=== PATIENT | male | born 1970 | race Caucasian/White ===

== ENCOUNTER 2019-08-06 01:51 | Emergency (ER) | payer OTHER ==
[2019-08-06] MEDS ORDERED: ONDANSETRON 4 MG/2 ML VIAL IVP STA (02:14)
[2019-08-06] MEDS ORDERED: LORazepam 2 MG/ML INJ IV STA ×2 (02:37→05:29)
[2019-08-06] MEDS ORDERED: SODIUM CHLORIDE 0.9% 1,000 ML IV ONE (02:37)
[2019-08-06] MEDS ORDERED: LABETALOL 5 MG/ML VIAL MDV IVP STA ×2 (02:41→05:30)
--- NOTE | 2019-08-06 02:45 | ED ---
Abdominal Pain HPI - General Chief Complaint: Abdominal Pain Stated Complaint: Nausea, hypertension Time Seen by Provider: 08/06/19 02:10 Source: patient, EMS Mode of arrival: ambulatory Limitations: no limitations - History of Present Illness MD Complaint: abdominal pain Onset/Timin -: hour(s) Location: LLQ, RLQ Radiation: none Migration to: no migration Severity: moderate Quality: aching Consistency: constant Improves With: nothing Worsens With: nothing Associated Symptoms: nausea, vomiting, diarrhea - Related Data Allergies Allergy/AdvReac Type Severity Reaction Status Date / Time No Known Allergies Allergy Verified 08/06/19 02:10 Review of Systems ROS Statement: Those systems with pertinent positive or pertinent negative responses have been documented in the HPI. ROS Other: All systems not noted in ROS Statement are negative. Constitutional: Denies: fever, chills Respiratory: Denies: cough, dyspnea Cardiovascular: Denies: chest pain, palpitations, edema Gastrointestinal: Reports: abdominal pain, nausea, vomiting, diarrhea. Denies: constipation, melena, hematochezia Genitourinary: Denies: dysuria, hematuria Musculoskeletal: Denies: back pain Skin: Denies: rash Neurological: Denies: headache, weakness, numbness Past Medical History Past Medical History: Hypertension History of Any Multi-Drug Resistant Organisms: None Reported Additional Past Surgical History / Comment(s): colon Past Psychological History: No Psychological Hx Reported Smoking Status: Never smoker Past Alcohol Use History: Daily, Heavy Past Drug Use History: None Reported General Exam Limitations: no limitations Course Vital Signs 08/06/19 08/06/19 08/06/19 02:06 02:19 03:08 Temperature 98.2 F Pulse Rate 127 H 121 H 120 H Respiratory 30 H 26 H 30 H Rate Blood Pressure 183/100 195/116 196/107 O2 Sat by Pulse 98 99 98 Oximetry 08/06/19 08/06/19 08/06/19 03:16 03:20 04:50 Temperature 98.3 F Pulse Rate 114 H 106 H 106 H Respiratory 24 20 12 Rate Blood Pressure 183/106 193/109 173/112 O2 Sat by Pulse 98 97 97 Oximetry 08/06/19 08/06/19 05:45 06:02 Temperature Pulse Rate 104 H 106 H Respiratory 18 16 Rate Blood Pressure 153/88 160/97 O2 Sat by Pulse 93 L Oximetry Medical Decision Making - Lab Data Result diagrams: 08/06/19 02:15 08/06/19 02:15 Lab Results 08/06/19 08/06/19 08/06/19 Range/Units 02:15 02:15 02:15 WBC 6.0 (3.8-10.6) k/uL RBC 4.32 (4.30-5.90) m/uL Hgb 14.9 (13.0-17.5) gm/dL Hct 44.3 (39.0-53.0) % MCV 102.6 H (80.0-100.0) fL MCH 34.4 (25.0-35.0) pg MCHC 33.6 (31.0-37.0) g/dL RDW 13.5 (11.5-15.5) % Plt Count 177 (150-450) k/uL Neutrophils % 70 % Lymphocytes % 24 % Monocytes % 4 % Eosinophils % 1 % Basophils % 0 % Neutrophils # 4.2 (1.3-7.7) k/uL Lymphocytes # 1.4 (1.0-4.8) k/uL Monocytes # 0.2 (0-1.0) k/uL Eosinophils # 0.1 (0-0.7) k/uL Basophils # 0.0 (0-0.2) k/uL Macrocytosis Slight PT 9.7 (9.0-12.0) sec INR 0.9 (<1.2) APTT 19.1 L (22.0-30.0) sec Sodium 136 L (137-145) mmol/L Potassium 3.7 (3.5-5.1) mmol/L Chloride 100 (98-107) mmol/L Carbon Dioxide 21 L (22-30) mmol/L Anion Gap 15 mmol/L BUN 13 (9-20) mg/dL Creatinine 0.66 (0.66-1.25) mg/dL Est GFR (CKD-EPI)AfAm >90 (>60 ml/min/1.73 sqM) Est GFR (CKD-EPI)NonAf >90 (>60 ml/min/1.73 sqM) Glucose 137 H (74-99) mg/dL Calcium 9.3 (8.4-10.2) mg/dL Magnesium 1.5 L (1.6-2.3) mg/dL Total Bilirubin 0.4 (0.2-1.3) mg/dL AST 39 (17-59) U/L ALT 27 (4-49) U/L Alkaline Phosphatase 60 (38-126) U/L Troponin I (0.000-0.034) ng/mL Total Protein 7.8 (6.3-8.2) g/dL Albumin 4.7 (3.5-5.0) g/dL Amylase 81 (30-110) U/L Lipase 907 H (23-300) U/L Serum Alcohol 76 mg/dL 08/06/19 Range/Units 02:15 WBC (3.8-10.6) k/uL RBC (4.30-5.90) m/uL Hgb (13.0-17.5) gm/dL Hct (39.0-53.0) % MCV (80.0-100.0) fL MCH (25.0-35.0) pg MCHC (31.0-37.0) g/dL RDW (11.5-15.5) % Plt Count (150-450) k/uL Neutrophils % % Lymphocytes % % Monocytes % % Eosinophils % % Basophils % % Neutrophils # (1.3-7.7) k/uL Lymphocytes # (1.0-4.8) k/uL Monocytes # (0-1.0) k/uL Eosinophils # (0-0.7) k/uL Basophils # (0-0.2) k/uL Macrocytosis PT (9.0-12.0) sec INR (<1.2) APTT (22.0-30.0) sec Sodium (137-145) mmol/L Potassium (3.5-5.1) mmol/L Chloride (98-107) mmol/L Carbon Dioxide (22-30) mmol/L Anion Gap mmol/L BUN (9-20) mg/dL Creatinine (0.66-1.25) mg/dL Est GFR (CKD-EPI)AfAm (>60 ml/min/1.73 sqM) Est GFR (CKD-EPI)NonAf (>60 ml/min/1.73 sqM) Glucose (74-99) mg/dL Calcium (8.4-10.2) mg/dL Magnesium (1.6-2.3) mg/dL Total Bilirubin (0.2-1.3) mg/dL AST (17-59) U/L ALT (4-49) U/L Alkaline Phosphatase (38-126) U/L Troponin I <0.012 (0.000-0.034) ng/mL Total Protein (6.3-8.2) g/dL Albumin (3.5-5.0) g/dL Amylase (30-110) U/L Lipase (23-300) U/L Serum Alcohol mg/dL - EKG Data -: EKG Interpreted by Co EKG shows normal: sinus rhythm, axis (Normal), intervals (Normal), QRS complexes (Normal), ST-T waves (Normal) Rate: tachycardia (Rate 116 bpm) Disposition Clinical Impression: Abdominal pain Disposition: HOME SELF-CARE Condition: Good Instructions (If sedation given, give patient instructions): Abdominal Pain (ED), Pancreatitis (ED) Is patient prescribed a controlled substance at d/c from ED?: No Referrals: None,Stated [Primary Care Provider] - 1-2 days
--- NOTE | 2019-08-06 02:52 | XR ---
EXAMINATION TYPE: XR chest 1V DATE OF EXAM: 08/06/2019 COMPARISON: NONE HISTORY: Chest pain TECHNIQUE: Single view FINDINGS: Heart and mediastinum are within normal limits. Lungs are clear. There is no heart failure. There is no pleural effusion. Bony thorax is intact. IMPRESSION: No active cardiopulmonary disease.
[2019-08-06 03:03] LABS: Basophils % (A) 0 %; Eosinophils # (A) 0.1 k/uL (0-0.7); Eosinophils % (A) 1 %; HCT 44.3 % (39.0-53.0); HGB 14.9 gm/dL (13.0-17.5); Lymphocytes # (A) 1.4 k/uL (1.0-4.8); Lymphocytes % (A) 24 %; MCH 34.4 pg (25.0-35.0); MCHC 33.6 g/dL (31.0-37.0); MCV 102.6 fL (80.0-100.0); Macrocytosis Slight; Mean Platelet Volume 7.3; Monocytes # (A) 0.2 k/uL (0-1.0); Monocytes % (A) 4 %; Neutrophils # (A) 4.2 k/uL (1.3-7.7); Neutrophils % (A) 70 %; Platelet Count 177 k/uL (150-450); RBC 4.32 m/uL (4.30-5.90); RDW 13.5 % (11.5-15.5)
[2019-08-06 03:16] LABS: ALT 27 U/L (4-49); AST 39 U/L (17-59); African American GFR (CKD) >90 (>60 ml/min/1.73 sqM); Albumin 4.7 g/dL (3.5-5.0); Alcohol 76 mg/dL; Alkaline Phosphatase 60 U/L (38-126); Amylase 81 U/L (30-110); Anion Gap 15 mmol/L; Blood Urea Nitrogen 13 mg/dL (9-20); Calcium 9.3 mg/dL (8.4-10.2); Carbon Dioxide 21 mmol/L (22-30); Chloride 100 mmol/L (98-107); Glucose 137 mg/dL (74-99); INR 0.9 (<1.2); Magnesium 1.5 mg/dL (1.6-2.3); Non-African American GFR(CKD) >90 (>60 ml/min/1.73 sqM); Potassium 3.7 mmol/L (3.5-5.1); Prothrombin Time 9.7 sec (9.0-12.0); Sodium 136 mmol/L (137-145); Total Bilirubin 0.4 mg/dL (0.2-1.3); Total Protein 7.8 g/dL (6.3-8.2)
--- NOTE | 2019-08-06 03:18 | CT ---
EXAMINATION TYPE: CT abdomen pelvis w con DATE OF EXAM: 08/06/2019 COMPARISON: None HISTORY: lower abdominal pain CT DLP: 1526.5 mGycm Automated exposure control for dose reduction was used. CONTRAST: Performed without and with IV Contrast, patient injected with 100mL mL of Isovue 300. Lung bases are clear. There is no pleural effusion. Heart size is normal. There is no pericardial eff usion. The stomach is intact. Liver spleen pancreas appear normal. Bile ducts are not dilated. Gallbl adder is distended and measures 4 cm in diameter. There is no adrenal mass. Kidneys show satisfactory contrast opacification. There is no hydronephrosi s. Delayed images show normal renal excretion. There is no retroperitoneal adenopathy. There is eduarda l-appearing urinary bladder. Ureters are not dilated. There is no inguinal hernia. There is no free fluid in the pelvis. There is no mesenteric edema. There is no ascites or free air. Appendix is posterior and appears normal. There is no sign of bowel obstruction. There are multiple d iverticula of the descending colon and proximal sigmoid colon. Lumbar vertebra have normal alignment. There is no compression fracture. Bony pelvis appears intact. IMPRESSION: Normal appendix. No evidence of renal mass or obstruction. There is some colonic diverticulosis without diverticulitis..
[2019-08-06 03:19] LABS: Partial Thromboplastin Time 19.1 sec (22.0-30.0)
[2019-08-06] MEDS ORDERED: HYDROmorphone 0.5 MG/0.5 ML SYRINGE IVP STA (05:29)
--- NOTE | 2019-08-06 07:41 | US ---
EXAMINATION TYPE: US abdomen limited DATE OF EXAM: 08/06/2019 COMPARISON: None. CLINICAL HISTORY: Evaluate gallbladder. EXAM MEASUREMENTS: Liver Length: 17.4 cm Gallbladder Wall: 0.2 cm CBD: 0.4 cm Right Kidney: 12.7 x 6.5 x 6.1 cm Pancreas: Tail obscured by overlying bowel gas Liver: Appears coarse Gallbladder: Appears enlarged in size. Fold seen at fundus. Evidence for sonographic Lizarraga's sign: neg CBD: wnl Right Kidney: No hydronephrosis or masses seen Limited views of the pancreas are unremarkable. Liver size is upper limits of normal. There is no biliary dilatation. The gallbladder slightly prominent. The gallbladder wall measures 2 mm. The distal common hepatic grant t measures 4 mm. There is no sonographic Lizarraga's sign. The right kidney is unremarkable. IMPRESSION: QUESTIONABLE, MILD ENLARGEMENT OF THE GALLBLADDER WITHOUT OTHER DEFINITE ABNORMALITY.
[2019-08-06 08:21] VITALS: BP 168/99; PULSE 88; RESP 15; TEMP 99.2
== END 2019-08-06 08:31 | disposition home or self-care (01) ==
LOC: EC 01:51
DX: R10.31 Right lower quadrant pain (principal); R10.32 Left lower quadrant pain
CPT/HCPCS: 99285; 96374; 96375 ×3; 96376 ×2; 96361; 36415; 93005; 80053; 82150; 83690; 83735; 84484; 85025; 85610; 85730; 80320; 71045; 76705; 74177; J2060; J2405; J1170; Q9967

== ENCOUNTER 2019-09-24 16:14 | Inpatient (IN) | payer OTHER ==
--- NOTE | 2019-09-24 16:36 | ED ---
General Adult HPI - General Chief complaint: Alcohol Stated complaint: ETOH Time Seen by Provider: 09/24/19 16:16 Source: patient, EMS Mode of arrival: EMS Limitations: altered mental status - History of Present Illness Initial comments: Dictation was produced using [employer] dictation software. please excuse any grammatical, word or spelling errors. This patient was cared for during a federal and state declared state of emergency secondary to Covid 19 Chief Complaint: 49-year-old male presents with alcohol intoxication. History of Present Illness: Patient's 49-year-old male who states she's been under a lot of stress recently. Patient states she's been drinking very large amounts of liquor for the last several days. Patient states he drinks daily for the last several years. He is really stressed and states that he needs help detoxing. He also has secondary complaint of right upper quadrant and right flank pain. Denies any fever, chills or night sweats. Patient's a limited historian secondary to EtOH intoxication The ROS documented in this emergency department record has been reviewed and confirmed by me. Those systems with pertinent positive or negative responses have been documented in the HPI. All other systems are other negative and/or noncontributory. PHYSICAL EXAM: General Impression: Alert and oriented x3, not in acute distress, inebriated HEENT: Normocephalic atraumatic, extra-ocular movements intact, pupils equal and reactive to light bilaterally, mucous membranes moist. Cardiovascular: Heart regular rate and rhythm Chest: Able to complete full sentences, no retractions, no tachypnea Abdomen: abdomen soft, non-tender, non-distended, no organomegaly, mild tenderness to the right upper quadrant, negative Lizarraga sign Musculoskeletal: Pulses present and equal in all extremities, no peripheral edema Motor: no focal deficits noted Neurological: CN II-XII grossly intact, no focal motor or sensory deficits noted Skin: Intact with no visualized rashes, no flank ecchymoses Psych: Normal affect and mood ED course: 49 y old male presents with EtOH intoxication, right flank pain, right upper quadrant pain. vital signs upon arrival shows heart rate of 112, rest of vital signs within acceptable limits Laboratory evaluation obtained. CBC unremarkable. Metabolic panel shows potassium of 5.3, bicarb 19 with a gap of 13. Clinical presentation consistent with alcoholic ketoacidosis. AST 1300 and ALT with 949, serum alcohol 345. Lipase is normal. Clinical presentation consistent with alcoholic hepatitis and EtOH intoxication. Patient be admitted for it which intoxication. Patient will be admitted discussed patient case with Dr. Lauren who is willing to accept patients care. EKG interpretation: Ventricular rate 120, sinus tachycardia,. Interval 150, QRS 90, QTc 449. No PA prolongation, no QTC prolongation, no ST or T-wave changes noted. . Overall, this EKG is unremarkable - Related Data Allergies Allergy/AdvReac Type Severity Reaction Status Date / Time No Known Allergies Allergy Verified 08/06/19 02:10 Review of Systems ROS Statement: Those systems with pertinent positive or pertinent negative responses have been documented in the HPI. ROS Other: All systems not noted in ROS Statement are negative. Past Medical History Past Medical History: Hypertension History of Any Multi-Drug Resistant Organisms: None Reported Additional Past Surgical History / Comment(s): colon Past Psychological History: No Psychological Hx Reported Smoking Status: Never smoker Past Alcohol Use History: Daily, Heavy Past Drug Use History: None Reported General Exam Limitations: altered mental status Course Vital Signs 09/24/19 16:17 Temperature 97.8 F Pulse Rate 112 H Respiratory 18 Rate Blood Pressure 146/100 O2 Sat by Pulse 95 Oximetry Medical Decision Making - Lab Data Result diagrams: 09/24/19 16:30 09/24/19 16:30 Lab Results 09/24/19 09/24/19 Range/Units 16:30 16:30 WBC 6.0 (3.8-10.6) k/uL RBC 4.36 (4.30-5.90) m/uL Hgb 14.6 (13.0-17.5) gm/dL Hct 44.6 (39.0-53.0) % MCV 102.3 H (80.0-100.0) fL MCH 33.6 (25.0-35.0) pg MCHC 32.9 (31.0-37.0) g/dL RDW 13.1 (11.5-15.5) % Plt Count 131 L (150-450) k/uL Neutrophils % 75 % Lymphocytes % 17 % Monocytes % 3 % Eosinophils % 3 % Basophils % 1 % Neutrophils # 4.5 (1.3-7.7) k/uL Lymphocytes # 1.0 (1.0-4.8) k/uL Monocytes # 0.2 (0-1.0) k/uL Eosinophils # 0.2 (0-0.7) k/uL Basophils # 0.0 (0-0.2) k/uL Macrocytosis Slight Sodium 141 (137-145) mmol/L Potassium 5.3 H (3.5-5.1) mmol/L Chloride 109 H (98-107) mmol/L Carbon Dioxide 19 L (22-30) mmol/L Anion Gap 13 mmol/L BUN 17 (9-20) mg/dL Creatinine 0.82 (0.66-1.25) mg/dL Est GFR (CKD-EPI)AfAm >90 (>60 ml/min/1.73 sqM) Est GFR (CKD-EPI)NonAf >90 (>60 ml/min/1.73 sqM) Glucose 113 H (74-99) mg/dL Calcium 9.6 (8.4-10.2) mg/dL Magnesium 2.2 (1.6-2.3) mg/dL Total Bilirubin 1.6 H (0.2-1.3) mg/dL AST 1383 H (17-59) U/L ALT 949 H (4-49) U/L Alkaline Phosphatase 52 (38-126) U/L Total Protein 8.9 H (6.3-8.2) g/dL Albumin 5.3 H (3.5-5.0) g/dL Lipase 263 (23-300) U/L Serum Alcohol 345 H* mg/dL Disposition Clinical Impression: Alcoholic ketoacidosis Disposition: ADMITTED IP TO THIS [facility] Condition: Fair Referrals: None,Stated [Primary Care Provider] - 1-2 days Decision Time: 17:34
[2019-09-24] MEDS ORDERED: ALPRAZolam 1 MG TAB PO STA (16:41)
[2019-09-24 16:44] LABS: Basophils % (A) 1 %; Eosinophils # (A) 0.2 k/uL (0-0.7); Eosinophils % (A) 3 %; HCT 44.6 % (39.0-53.0); HGB 14.6 gm/dL (13.0-17.5); Lymphocytes % (A) 17 %; MCH 33.6 pg (25.0-35.0); MCHC 32.9 g/dL (31.0-37.0); MCV 102.3 fL (80.0-100.0); Macrocytosis Slight; Mean Platelet Volume 8.3; Monocytes # (A) 0.2 k/uL (0-1.0); Monocytes % (A) 3 %; Neutrophils # (A) 4.5 k/uL (1.3-7.7); Neutrophils % (A) 75 %; Platelet Count 131 k/uL (150-450); RBC 4.36 m/uL (4.30-5.90); RDW 13.1 % (11.5-15.5)
[2019-09-24 16:57] LABS: African American GFR (CKD) >90 (>60 ml/min/1.73 sqM); Albumin 5.3 g/dL (3.5-5.0); Alkaline Phosphatase 52 U/L (38-126); Anion Gap 13 mmol/L; Blood Urea Nitrogen 17 mg/dL (9-20); Calcium 9.6 mg/dL (8.4-10.2); Carbon Dioxide 19 mmol/L (22-30); Chloride 109 mmol/L (98-107); Glucose 113 mg/dL (74-99); Magnesium 2.2 mg/dL (1.6-2.3); Non-African American GFR(CKD) >90 (>60 ml/min/1.73 sqM); Potassium 5.3 mmol/L (3.5-5.1); Sodium 141 mmol/L (137-145); Total Bilirubin 1.6 mg/dL (0.2-1.3); Total Protein 8.9 g/dL (6.3-8.2)
[2019-09-24 17:04] LABS: ALT 949 U/L (4-49)
[2019-09-24 17:07] LABS: Alcohol 345 mg/dL
[2019-09-24 17:22] LABS: AST 1383 U/L (17-59)
[2019-09-24] MEDS ORDERED: NALOXONE 0.4 MG/ML 1 ML VIAL IV PRN (17:31)
[2019-09-24] MEDS ORDERED: THIAMINE 100 MG/ML 2 ML VIAL IM STA (17:33)
[2019-09-24] MEDS ORDERED: LORazepam 2 MG/ML INJ IV PRN ×2 (17:33)
[2019-09-24 19:49] LABS: INR 0.9 (<1.2); Prothrombin Time 9.7 sec (9.0-12.0)
[2019-09-24] MEDS: LORazepam 2 MG/ML INJ IV PRN (20:23)
[2019-09-24] MEDS: HEPARIN SODIUM,PORCINE 5,000 UNIT/ML 1 ML VIAL SQ SCH (20:58)
[2019-09-24] MEDS: SODIUM CHLORIDE 0.9% 1,000 ML IV SCH (21:30)
[2019-09-24] MEDS: SODIUM CHLORIDE 0.9% 1,000 ML with MVI, ADULT NO.4 WITH VIT K 10 ML, THIAMINE 100 MG, F... IV SCH ×4 (21:31)
[2019-09-24 21:52] LABS: Appearance,Urine Clear (Clear); Bilirubin,Urine Negative (Negative); Color,Urine Yellow; Glucose,Urine (UA) Negative (Negative); Ketones,Urine Negative (Negative); Protein,Urine Negative (Negative); Specific Gravity,Urine 1.005 (1.001-1.035)
[2019-09-24 21:53] LABS: Blood,Urine Negative (Negative); Leukocyte Esterase,Urine Negative (Negative); Nitrite,Urine Negative (Negative); Urobilinogen,Urine <2.0 mg/dL (<2.0)
[2019-09-25] MEDS: LORazepam 2 MG/ML INJ IV PRN ×2 (00:09→02:23)
[2019-09-25] MEDS ORDERED: HALOPERIDOL LACTATE 5 MG/ML 1 ML VIAL IM PRN (01:47)
[2019-09-25] MEDS ORDERED: MORPHINE SULFATE 2 MG/ML SYRINGE IVP STA (02:01)
--- NOTE | 2019-09-25 05:54 | HP ---
HISTORY AND PHYSICAL DATE OF SERVICE: 09/24/2019 CHIEF COMPLAINT: Change in mental status. HISTORY OF PRESENT ILLNESS: This 49-year-old gentleman with a past medical history of hypertension, history of nicotine dependence and probably not followed by any primary physician in the outpatient setting was admitted to [facility] with complaints of alcoholism. Patient was apparently under a lot of stress and patient drinking heavily and the patient was combative in the ER and hence was sedated. The patient was closely monitored at this time. The patient unable to give history most is taken from my discussion with staff as well as ER physician as well as review of the chart. PAST MEDICAL HISTORY: History of hypertension, history of colon problems. MEDICATIONS: Medications are unknown. ALLERGIES: None. FAMILY HISTORY, SOCIAL HISTORY: Could not be taken. History of alcohol heavy. No smoking. REVIEW OF SYSTEMS: Could not be taken. PHYSICAL EXAMINATION: Patient is sedated. Pulse 101, blood pressure is 122/74, respiration 18, temperature 97.8, pulse ox 94% on room air. HEENT: Conjunctivae normal. NECK: No jugular venous distention. CARDIOVASCULAR: S1 S2 muffled. RESPIRATORY: Breath sounds diminished at the bases. A few scattered rhonchi. No crackles. ABDOMEN: Soft, obese, nontender. LEGS: No edema, no swelling. NERVOUS SYSTEM: Moves all 4 limbs. Full exam is not possible. SKIN: No ulcers. JOINTS: No active deforming arthropathy. LYMPHATICS: No lymphadenopathy of the neck, axillae or groin. LABS: WBC 6, hemoglobin 14.6, platelets 131. Chloride is 109, CO2 is 19. Glucose 113. Total bilirubin is 1.6, AST is 1383. Alcohol 345. ASSESSMENT: 1. Acute alcohol intoxication. 2. Change in mental status, acute metabolic encephalopathy secondary to alcohol intoxication. 3. Acute alcoholic hepatitis with elevated bilirubin, AST, ALT. 4. Mild thrombocytopenia. 5. Mild hyperkalemia. 6. Hypertension history. 7. FULL CODE. RECOMMENDATIONS AND DISCUSSION: This 49-year-old gentleman presented with multiple complex medical issues, we will monitor the patient closely. I would recommend [facility] protocol, supplement vitamins. Otherwise, p.r.nKem Camacho. Social Work consult for possible alcohol rehab. Watch for alcohol withdrawal symptoms. Otherwise, I would also recommend monitor blood pressure closely. The prognosis guarded because of multiple complex medical issues. I would also recommend the patient to follow up with his primary physician as well. See orders for further details. MMODL / IJN: [id number] /
[2019-09-25] MEDS: THIAMINE 100 MG TAB PO SCH ×3 (07:10→17:40)
[2019-09-25] MEDS: HEPARIN SODIUM,PORCINE 5,000 UNIT/ML 1 ML VIAL SQ SCH ×2 (07:10→21:16)
[2019-09-25] MEDS: PANTOPRAZOLE 40 MG/10 ML VIAL IV SCH (07:10)
--- NOTE | 2019-09-25 08:53 | XR ---
EXAMINATION TYPE: XR chest 1V portable DATE OF EXAM: 09/25/2019 COMPARISON: 08/06/2019 INDICATION: CHF TECHNIQUE: Single frontal view of the chest is obtained. FINDINGS: The heart size is normal. The pulmonary vasculature is normal. The lungs are clear. IMPRESSION: 1. No acute pulmonary process.
[2019-09-25 10:19] LABS: Basophils % (A) 1 %; Eosinophils # (A) 0.1 k/uL (0-0.7); Eosinophils % (A) 4 %; HCT 40.9 % (39.0-53.0); HGB 13.2 gm/dL (13.0-17.5); Lymphocytes # (A) 0.6 k/uL (1.0-4.8); Lymphocytes % (A) 17 %; MCH 33.5 pg (25.0-35.0); MCHC 32.3 g/dL (31.0-37.0); MCV 103.8 fL (80.0-100.0); Macrocytosis Slight; Mean Platelet Volume 7.8; Monocytes # (A) 0.1 k/uL (0-1.0); Monocytes % (A) 3 %; Neutrophils # (A) 2.8 k/uL (1.3-7.7); Neutrophils % (A) 75 %; Platelet Count 102 k/uL (150-450); RBC 3.94 m/uL (4.30-5.90); WBC 3.8 k/uL (3.8-10.6)
[2019-09-25 10:38] LABS: AST 701 U/L (17-59); African American GFR (CKD) >90 (>60 ml/min/1.73 sqM); Albumin 4.4 g/dL (3.5-5.0); Alkaline Phosphatase 53 U/L (38-126); Anion Gap 8 mmol/L; Blood Urea Nitrogen 15 mg/dL (9-20); Calcium 9.2 mg/dL (8.4-10.2); Carbon Dioxide 26 mmol/L (22-30); Chloride 105 mmol/L (98-107); Glucose 114 mg/dL (74-99); Non-African American GFR(CKD) >90 (>60 ml/min/1.73 sqM); Sodium 139 mmol/L (137-145); Total Bilirubin 0.9 mg/dL (0.2-1.3); Total Protein 7.5 g/dL (6.3-8.2)
[2019-09-25 10:47] LABS: ALT 761 U/L (4-49)
[2019-09-25] MEDS ORDERED: TEMAZEPAM 15 MG CAP PO PRN (13:45)
[2019-09-25] MEDS: HYDROcodone/APAP 5-325MG 1 EACH TAB PO PRN ×2 (14:24→22:28)
[2019-09-25] MEDS: LORazepam 1 MG TAB PO PRN ×3 (14:25→21:16)
[2019-09-25] MEDS ORDERED: cloNIDine HCL 0.1 MG TAB PO PRN (16:18)
--- NOTE | 2019-09-25 17:28 | PN ---
PROGRESS NOTE DATE OF SERVICE: 09/25/2019 This 49-year-old gentleman, admitted with change in mental status, alcohol intoxication, is being closely monitored. Patient also has elevated LFTs. No chest pain. No palpitations. No fever. PHYSICAL EXAMINATION: Alert and oriented x3. Pulse 103, blood pressure 162/102, respirations 16, temperature 97.6, pulse ox 98% on room air. HEENT: Conjunctivae normal. NECK: No jugular venous distention. CARDIOVASCULAR SYSTEM: S1, S2 muffled. RESPIRATORY SYSTEM: Breath sounds diminished at the bases. No rhonchi. No crackles. ABDOMEN: Soft, non-tender. LEGS: No edema. No swelling. NERVOUS SYSTEM: No focal deficit. LABS: WBC 3.8 and MCV 103. Sodium 139, potassium 4. AST 701, ALT 761. Alcohol noted. ASSESSMENT: 1. Acute alcohol intoxication. 2. Change in mental status, acute metabolic encephalopathy secondary to alcohol intoxication. 3. Hypertension. 4. Acute alcoholic hepatitis with elevated bilirubin, AST, ALT. 5. Mild thrombocytopenia. 6. Mild leukopenia. 7. Hypertension history. 8. FULL CODE. RECOMMENDATIONS AND DISCUSSION: I recommend to continue current medications, continue with the monitoring, symptomatic treatment. Otherwise, at this time I recommend adding clonidine to the current regimen. Continue to monitor. CIWA protocol. P.r.n. Ativan. Prognosis guarded. Further recommendations to follow. ASTERL / ROBERTN: [id number] /
[2019-09-25] MEDS: cloNIDine HCL 0.1 MG TAB PO SCH ×2 (17:38→21:16)
[2019-09-25] MEDS: SODIUM CHLORIDE 0.9% 1,000 ML with MVI, ADULT NO.4 WITH VIT K 10 ML, THIAMINE 100 MG, F... IV SCH ×4 (17:38)
[2019-09-25] MEDS: SODIUM CHLORIDE 0.9% 1,000 ML IV SCH (17:39)
[2019-09-25 21:22] VITALS: RESP 18
[2019-09-26 08:01] VITALS: BP 154/106; PULSE 73; TEMP 97.9
[2019-09-26 08:12] LABS: Basophils % (A) 1 %; Eosinophils # (A) 0.2 k/uL (0-0.7); Eosinophils % (A) 6 %; HCT 44.9 % (39.0-53.0); HGB 14.6 gm/dL (13.0-17.5); Lymphocytes # (A) 0.9 k/uL (1.0-4.8); Lymphocytes % (A) 31 %; MCH 33.7 pg (25.0-35.0); MCHC 32.6 g/dL (31.0-37.0); MCV 103.5 fL (80.0-100.0); Macrocytosis Slight; Mean Platelet Volume 7.8; Monocytes # (A) 0.2 k/uL (0-1.0); Monocytes % (A) 5 %; Neutrophils # (A) 1.6 k/uL (1.3-7.7); Neutrophils % (A) 54 %; Platelet Count 126 k/uL (150-450); RBC 4.34 m/uL (4.30-5.90)
[2019-09-26 08:22] LABS: ALT 613 U/L (4-49); AST 346 U/L (17-59); African American GFR (CKD) >90 (>60 ml/min/1.73 sqM); Albumin 4.5 g/dL (3.5-5.0); Alkaline Phosphatase 53 U/L (38-126); Anion Gap 7 mmol/L; Blood Urea Nitrogen 12 mg/dL (9-20); Calcium 9.3 mg/dL (8.4-10.2); Carbon Dioxide 27 mmol/L (22-30); Chloride 103 mmol/L (98-107); Glucose 104 mg/dL (74-99); Non-African American GFR(CKD) >90 (>60 ml/min/1.73 sqM); Potassium 4.3 mmol/L (3.5-5.1); Sodium 137 mmol/L (137-145); Total Bilirubin 1.1 mg/dL (0.2-1.3); Total Protein 7.7 g/dL (6.3-8.2)
[2019-09-26] MEDS: cloNIDine HCL 0.1 MG TAB PO SCH (08:43)
[2019-09-26] MEDS: PANTOPRAZOLE 40 MG/10 ML VIAL IV SCH (08:44)
[2019-09-26] MEDS: HEPARIN SODIUM,PORCINE 5,000 UNIT/ML 1 ML VIAL SQ SCH (08:44)
[2019-09-26] MEDS: LORazepam 2 MG/ML INJ IV PRN (08:59)
[2019-09-27] MEDS ORDERED: PANTOPRAZOLE 40 MG TABLET PO SCH (07:30)
--- NOTE | 2019-09-27 09:11 | P.DS ---
Providers Date of admission: 09/24/19 17:31 Expected date of discharge: 09/26/19 Attending physician: Trace Lauren Primary care physician: Stated None Hospital Course: Final diagnosis Acute alcohol intoxication Change in mental status, acute metabolic encephalopathy, secondary to alcohol intoxication Hypertension Acute alcoholic hepatitis with elevated bilirubin, ALT, AST Mild thrombocytopenia Mild leukopenia Hypertension history Full code Discharge disposition Patient is being discharged in a stable condition with guarded prognosis to home. Patient will follow-up with Lucia care provider in the outpatient setting on discharge. Total time taken is greater than 35 minutes. History of present illness This is a 49-year-old male who was recently admitted with change in mental status, acute alcohol intoxication and was being closely monitored. Patient was maintained on CIWA protocol and continue to have mildly elevated liver function testings most likely due to alcohol intoxication. Patient instructed to follow- up with primary care provider in the outpatient setting and continue to refrain from alcohol intake. Patient was provided a prescription for some Ativan along with clonidine. Discussed with the patient at length about possible alcohol rehab in the outpatient setting. Patient verbalized understanding. Currently no reports of chest pain, worsening shortness of breath, or palpitations. Patient is afebrile. No reports of nausea or vomiting and patient is tolerating diet. Patient will be discharged to home today. On exam vital signs are stable. Temp is 97.9F, pulse is 73, respirations are 18, blood pressure is 154/106, oxygen saturation is 98% on room air. Cardio S1, S2 are muffled. Respiratory system shows diminished breath sounds at the bases with no wheezing or rhonchi noted. Abdomen is soft and nontender. Nervous system shows no focal deficits. Please refer to medication reconciliation sheet for a list of medications. Patient Condition at Discharge: Fair Plan - Discharge Summary Discharge Rx Participant: No New Discharge Prescriptions: New Folic Acid 1 mg PO DAILY #30 tablet Multivitamins, Thera [Multivitamin] 1 tab PO DAILY #30 tablet Thiamine [Vitamin B-1] 100 mg PO BID-W/MEALS 30 Days #60 tab LORazepam [Ativan] 1 mg PO TID PRN #10 tab PRN Reason: Anxiety cloNIDine HCL [Catapres] 0.1 mg PO BID #10 tab Discharge Medication List Folic Acid 1 mg PO DAILY #30 tablet 09/26/19 [Rx] LORazepam [Ativan] 1 mg PO TID PRN #10 tab 09/26/19 [Rx] Multivitamins, Thera [Multivitamin] 1 tab PO DAILY #30 tablet 09/26/19 [Rx] Thiamine [Vitamin B-1] 100 mg PO BID-W/MEALS 30 Days #60 tab 09/26/19 [Rx] cloNIDine HCL [Catapres] 0.1 mg PO BID #10 tab 09/26/19 [Rx] Follow up Appointment(s)/Referral(s): None,Stated [Primary Care Provider] - 1-2 days Patient Instructions/Handouts: Abuse of Alcohol (DC) Activity/Diet/Wound Care/Special Instructions: May need indigent funds. May use Ativan as needed Clonidine twice daily and titrate slowly over the next 3 days Activity Limited until follow-up Follow-up with primary care provider Continue current diet Continue to avoid alcohol Discharge Disposition: HOME SELF-CARE
--- NOTE | 2019-09-27 13:07 | CDI ---
Documentation Clarification Form Date: 09/27/19 From: Cathi Rodriguez Phone: If you have a question about this query, please contact Kirsty Parker, Supervisor [employer] at [phone] between 8am and 5pm. Admit Date: 09/24/19 Discharge Date: 09/26/19 Patient Name: RIKI HENDERSON Visit Number: [id number] ATTENTION: The Clinical Documentation Specialists (CDI) and [facility] Coding Staff appreciate your assistance in clarifying documentation. Please respond to the clarification below the line at the bottom and electronically sign. The CDI & [facility] Coding staff will review the response and follow-up if needed. Please note: Queries are made part of the Legal Health Record. If you have any questions, please contact the author of this message via ITS. Dear Dr. Renan Velázquez, Documentation of alcohol intoxication found in the ED note, H&P, PN and DS. History/Risk Factors: metabolic encephalopathy from alcohol intoxication, acidosis, thrombocytopenia, alcohol hepatitis, hyperkalemia, HTN Clinical Indicators: CIWA score on admission 23, 17, 8, 5, 5, 09/24- 2, 2, 2, 2, 5, 5 09/25- 0, 1, 3 Labs: Blood alcohol 345 Treatment: IV Ativan 1- 2 mg Q2HR PRN, Clonidine 0.1 mg PO, Q4HR PRN, Clonidine 0.1 mg PO TID SEVERINO, Thiamine Hcl Vitamin B-1 100 mg PO BID w/meals In your professional opinion, can you please clarify if the above clinical indicators and treatment signify any of the following? Alcohol withdrawal Alcohol withdrawal with withdrawal delirium Alcohol delirium Delirium tremens Impending delirium tremens Alcohol dependence with impending delirium tremens Alcohol dependence Alcohol abuse Alcohol abuse with preventative treatment for tremors Other, please specify Unable to determine AND Evidence of thiamine deficiency due to chronic alcohol use/alcoholism Prophylactic treatment of potential thiamine deficiency associated with alcohol use/alcoholism Unable to determine Other, please specify Impending delirium tremens MTDD
== END 2019-09-26 13:44 | disposition home or self-care (01) | DRG 896 ==
LOC: EC 16:14 → 4SSUR 17:31
PROVIDERS: ADMIT Internal Medicine; ATTEND Internal Medicine
DX: F10.229 Alcohol dependence with intoxication, unspecified (principal); G92 Toxic encephalopathy; E87.2 Acidosis; F10.239 Alcohol dependence with withdrawal, unspecified; D69.6 Thrombocytopenia, unspecified; Z11.59 Encounter for screening for other viral diseases; K70.10 Alcoholic hepatitis without ascites; E87.5 Hyperkalemia; I10 Essential (primary) hypertension; D72.819 Decreased white blood cell count, unspecified; Y90.8 Blood alcohol level of 240 mg/100 ml or more
CPT/HCPCS: 36415; 71045; 80053; 80320; 81003; 83690; 83735; 85025; 85610; 93005; 96374; 96376; 99285

== ENCOUNTER 2019-09-27 18:46 | Emergency (ER) | payer OTHER ==
[2019-09-27 19:13] VITALS: BP 151/87; PULSE 89; RESP 18; TEMP 98.4
[2019-09-27] MEDS ORDERED: CEPHALEXIN 500 MG CAP PO STA (20:30)
[2019-09-27] MEDS ORDERED: CEPHALEXIN 500MG STARTER PACK 4 CAP BTL PO STA (20:30)
--- NOTE | 2019-09-27 21:02 | ED ---
General Adult HPI - General Source: patient, RN notes reviewed, old records reviewed Mode of arrival: ambulatory Limitations: no limitations <Pritesh Yung - Last Filed: 09/27/19 21:32> <Nargis Ramsay - Last Filed: 10/01/19 02:10> - General Chief complaint: Skin/Abscess/Foreign Body Stated complaint: recheck - IV site "not right" Time Seen by Provider: 09/27/19 19:23 - History of Present Illness Initial comments: 49-year-old male patient sent to ED for evaluation of IV site. Patient was discharged from hospital on 09/25 after alcohol intoxication presents to ED for evaluation of IV site. Patient reports days having some pain and tenderness in the left antecubital region. Has IV inserted. He is denying any other complaints. Systemic: Pt denies fatigue, fever/chills, rash. Pt denies weakness, night sweats, weight loss. Neuro: Pt denies headache, visual disturbances, syncope or pre-syncope. HEENT: Pt denies ocular discharge or irritation, otalgia, rhinorrhea, pharyngitis or notable lymphadenopathy. Cardiopulmonary: Pt denies chest pain, SOB, heart palpitations, dyspnea on exertion. Abdominal/GI: Pt denies abdominal pain, n/v/d. : Pt denies dysuria, burning w/ urination, frequency/urgency. Denies new onset urinary or bowel incontinence. MSK: Pt denies myalgia, loss of strength or function in extremities. Neuro: Pt denies new onset weakness, paresthesias. (Pritesh Yung) - Related Data Home Medications Medication Instructions Recorded Confirmed Omeprazole [PriLOSEC] 20 mg PO DAILY 09/27/19 09/27/19 Previous Rx's Medication Instructions Recorded Folic Acid 1 mg PO DAILY #30 tablet 09/26/19 LORazepam [Ativan] 1 mg PO TID PRN #10 tab 09/26/19 Multivitamins, Thera [Multivitamin] 1 tab PO DAILY #30 tablet 09/26/19 Thiamine [Vitamin B-1] 100 mg PO BID-W/MEALS 30 Days #60 09/26/19 tab cloNIDine HCL [Catapres] 0.1 mg PO BID #10 tab 09/26/19 Cephalexin [Keflex] 500 mg PO Q6HR 10 Days #40 cap 09/27/19 Allergies Allergy/AdvReac Type Severity Reaction Status Date / Time bee pollen Allergy Verified 09/27/19 21:16 bee venom protein (honey bee) Allergy Verified 09/27/19 21:16 Review of Systems ROS Other: All systems not noted in ROS Statement are negative. <Pritesh Yung - Last Filed: 09/27/19 21:32> ROS Other: All systems not noted in ROS Statement are negative. <Nargis Ramsay Moe - Last Filed: 10/01/19 02:10> ROS Statement: Those systems with pertinent positive or pertinent negative responses have been documented in the HPI. Past Medical History Past Medical History: Hypertension Additional Past Medical History / Comment(s): PT states history of hypertension was drug related, was on meth when incident occured History of Any Multi-Drug Resistant Organisms: None Reported Additional Past Surgical History / Comment(s): colon partially removed Past Anesthesia/Blood Transfusion Reactions: No Reported Reaction Past Psychological History: No Psychological Hx Reported Smoking Status: Never smoker Past Alcohol Use History: Daily, Heavy Past Drug Use History: None Reported <Pritesh Yung - Last Filed: 09/27/19 21:32> General Exam Limitations: no limitations <Pritesh Yung - Last Filed: 09/27/19 21:32> - General Exam Comments Initial Comments: Constitutional: NAD, AOX3, Pt has pleasant affect. HEENT: NC/AT, trachea midline, neck supple, no lymphadenopathy. Posterior pharynx non erythematous, without exudates. External ears appear normal, without discharge. Mucous membranes moist. Eyes PERRLA, EOM intact. There is no scleral icterus. No pallor noted. Cardiopulmonary: RRR, no murmurs, rubs or gallops, no JVD noted. Lungs CTAB in anterior and posterior sommer. No peripheral edema. Abdominal exam: Abdomen soft and non-distended. Abdomen non-tender to palpation in all 4 quadrants. Bowel sounds active in LLQ. No hepatosplenomegaly. No ecchymosis Neuro: CN II-XII grossly intact. No nuchal rigidity. No raccon eyes, no york sign, no hemotympanum. No cervical spinal tenderness. MSK: Small amount of erythema and palpable cord is noted in left antecubital region consistent with superficial thrombophlebitis the minimal amount of cellulitis. Radial pulses +2. Sensation is intact. Range of motion is intact. (Pritesh Yung) Course Vital Signs 09/27/19 19:09 Temperature 98.4 F Pulse Rate 89 Respiratory 18 Rate Blood Pressure 151/87 O2 Sat by Pulse 98 Oximetry Medical Decision Making <Pritesh Yung - Last Filed: 09/27/19 21:32> <Nargis Ramsay - Last Filed: 10/01/19 02:10> - Medical Decision Making 49-year-old male patient with the chief complaint evaluation of IV saline is recent discharge from hospital. Physical exam doesn't display palpable cord, small amount erythema left antecubital region consistent with to visual thrombophlebitis with small amount associated cellulitis. Ultrasound confirms official thrombophlebitis. Patient will be advised to continue warm compresses, nonsteroidal anti-inflammatories, will be prescribed Keflex for one week. Will follow up with primary care provider tomorrow and will return to ER if condition worsens in any way. Case discussed with Dr. Ramsay. (Pritesh Yung) I was available for consultation in the emergency department. The history and physical exam were done by the midlevel provider. I was consulted for this patients care. I reviewed the case with the midlevel provider and based on their presentation of the patient, I agree with the assessment, medical decision making and plan of care as documented. Chart was dictated using [employer] dictation software. Attempts were made to correct any dictation errors however some typographical errors may persist. Patient was seen during a national state of emergency due to the Covid-19 pandemic. (Nargis Ramsay) Disposition Is patient prescribed a controlled substance at d/c from ED?: No <Pritesh Yung - Last Filed: 09/27/19 21:32> <Nargis Ramsay - Last Filed: 10/01/19 02:10> Clinical Impression: Cellulitis, Superficial thrombophlebitis of arm Disposition: HOME SELF-CARE Condition: Stable Instructions (If sedation given, give patient instructions): Cellulitis (ED), Superficial Thrombophlebitis (ED) Additional Instructions: Take antibiotics as directed. Follow up with primary care provider tomorrow. Return to ER if condition worsens. Continue use warm compresses. Use nonsteroidal anti-inflammatories for pain. Prescriptions: Cephalexin [Keflex] 500 mg PO Q6HR 10 Days #40 cap Referrals: None,Stated [Primary Care Provider] - 1-2 days Calixto Pate [STAFF PHYSICIAN] - 1-2 days
--- NOTE | 2019-09-27 21:23 | US ---
EXAMINATION TYPE: US venous doppler duplex UE LT DATE OF EXAM: 09/27/2019 COMPARISON: NONE CLINICAL HISTORY: Superficial thrombophlebitis rule out DVT. Pain x 1 day. R/O DVT. No hx of DVT. SIDE PERFORMED: Left Left Arm: There appears to be thrombus within the noncompressible cephalic vein at the elbow and supe riorly. Upper cephalic vein near axilla appears to be compressible and to show color flow. No evidenc e of DVT in veins imaged at this time. IMPRESSION: Acute superficial thrombus at level of the left cephalic vein identified towards end of study with patient's symptoms of pain corresponds to thrombophlebitis. No acute DVT left upper extrem ity.
[2019-09-27] MEDS ORDERED: IBUPROFEN 600 MG STARTER PACK 4 TAB BTL PO STA (21:32)
== END 2019-09-27 22:01 | disposition home or self-care (01) ==
LOC: EC 18:46
DX: I80.8 Phlebitis and thrombophlebitis of other sites (principal); L03.114 Cellulitis of left upper limb; Z91.030 Bee allergy status
CPT/HCPCS: 99284

== ENCOUNTER 2019-10-10 13:50 | Inpatient (IN) | payer OTHER ==
[2019-10-10] MEDS ORDERED: SODIUM CHLORIDE 0.9% 1,000 ML IV STA ×2 (14:02→14:11)
[2019-10-10] MEDS ORDERED: MORPHINE SULFATE 4 MG/ML SYRINGE IV STA (14:02)
[2019-10-10] MEDS ORDERED: PANTOPRAZOLE 40 MG/10 ML VIAL IVP STA (14:05)
--- NOTE | 2019-10-10 14:09 | ED ---
GI Bleed HPI - General Chief complaint: GI Bleed Stated complaint: ETOH Time Seen by Provider: 10/10/19 13:50 Source: patient, EMS, RN notes reviewed Mode of arrival: EMS Limitations: no limitations - History of Present Illness Initial comments: This is a 49-year-old male who drinks 2-5ths of vodka every day who is brought in by EMS because of nausea vomiting vomiting up dark material just been having black stools recently. He complains of left lower quadrant abdominal pain. He does have a history of colon resection in the past. He's been drinking a lot of alcohol for quite a while. PD apparently was on scene he did blow a 341 per report to. He also states he has had a history of pancreatitis in the past. No other complaints or modifying factors at this time. He denies any ALLERGIES. Patient did have a heart rate of about 160 upon EMS encounter. He was given IV fluid boluses stated improved to about 1 20/m. - Related Data Home Medications Medication Instructions Recorded Confirmed Omeprazole Magnesium [PriLOSEC OTC] 20 mg PO DAILY 10/10/19 10/10/19 Previous Rx's Medication Instructions Recorded Folic Acid 1 mg PO DAILY #30 tablet 09/26/19 LORazepam [Ativan] 1 mg PO TID PRN #10 tab 09/26/19 Multivitamins, Thera [Multivitamin] 1 tab PO DAILY #30 tablet 09/26/19 Thiamine [Vitamin B-1] 100 mg PO BID-W/MEALS 30 Days #60 09/26/19 tab cloNIDine HCL [Catapres] 0.1 mg PO BID #10 tab 09/26/19 Cephalexin [Keflex] 500 mg PO Q6HR 10 Days #40 cap 09/27/19 Allergies Allergy/AdvReac Type Severity Reaction Status Date / Time bee pollen Allergy Anaphylaxis Verified 10/10/19 16:11 bee venom protein (honey bee) Allergy Anaphylaxis Verified 10/10/19 16:11 Review of Systems ROS Statement: Those systems with pertinent positive or pertinent negative responses have been documented in the HPI. ROS Other: All systems not noted in ROS Statement are negative. Past Medical History Past Medical History: Hypertension Additional Past Medical History / Comment(s): PT states history of hypertension was drug related, was on meth when incident occured, ETOH abuse History of Any Multi-Drug Resistant Organisms: None Reported Additional Past Surgical History / Comment(s): colon partially removed Past Anesthesia/Blood Transfusion Reactions: No Reported Reaction Past Psychological History: Anxiety, Depression Smoking Status: Never smoker Past Alcohol Use History: Abuse, Daily, Heavy Past Drug Use History: None Reported General Exam - General Exam Comments Initial Comments: Is a well-developed well-nourished lethargic male with a smell of alcohol conjoiners on his breath Limitations: no limitations General appearance: alert, appears intoxicated Head exam: Present: atraumatic, normocephalic, normal inspection Eye exam: Present: normal appearance, PERRL, EOMI. Absent: scleral icterus, conjunctival injection, periorbital swelling ENT exam: Present: mucous membranes dry, other (Dark flecks consistent with coffee-ground emesis) Neck exam: Present: normal inspection. Absent: tenderness, meningismus, lymphadenopathy Respiratory exam: Present: normal lung sounds bilaterally. Absent: respiratory distress, wheezes, rales, rhonchi, stridor Cardiovascular Exam: Present: normal rhythm, tachycardia, normal heart sounds. Absent: systolic murmur, diastolic murmur, rubs, gallop, clicks GI/Abdominal exam: Present: tenderness (Left lower quadrant tenderness palpation to guarding no rebound) Extremities exam: Present: normal inspection, full ROM, normal capillary refill. Absent: tenderness, pedal edema, joint swelling, calf tenderness Back exam: Present: normal inspection Neurological exam: Present: alert, oriented X3, CN II-XII intact Psychiatric exam: Present: normal affect, normal mood Skin exam: Present: warm, dry, intact, normal color. Absent: rash Course Vital Signs 10/10/19 10/10/19 10/10/19 13:56 14:58 16:34 Temperature 98.7 F Pulse Rate 120 H 108 H 825 H Respiratory 18 18 18 Rate Blood Pressure 166/97 167/99 148/93 O2 Sat by Pulse 93 L 94 L 93 L Oximetry Medical Decision Making - Medical Decision Making I did discuss findings the patient with Dr. Jacobson covering city call today patient will be admitted and placed on the alcohol withdrawal protocol - Lab Data Result diagrams: 10/10/19 14:15 10/10/19 14:15 Lab Results 10/10/19 10/10/19 10/10/19 Range/Units 14:15 14:15 14:15 WBC 3.1 L (3.8-10.6) k/uL RBC 4.08 L (4.30-5.90) m/uL Hgb 13.8 (13.0-17.5) gm/dL Hct 41.9 (39.0-53.0) % MCV 102.7 H (80.0-100.0) fL MCH 33.8 (25.0-35.0) pg MCHC 33.0 (31.0-37.0) g/dL RDW 12.9 (11.5-15.5) % Plt Count 127 L (150-450) k/uL Neutrophils % 68 % Lymphocytes % 23 % Monocytes % 4 % Eosinophils % 2 % Basophils % 1 % Neutrophils # 2.1 (1.3-7.7) k/uL Lymphocytes # 0.7 L (1.0-4.8) k/uL Monocytes # 0.1 (0-1.0) k/uL Eosinophils # 0.1 (0-0.7) k/uL Basophils # 0.0 (0-0.2) k/uL Macrocytosis Slight PT 9.6 (9.0-12.0) sec INR 0.9 (<1.2) APTT 22.6 (22.0-30.0) sec Sodium 143 (137-145) mmol/L Potassium 4.1 (3.5-5.1) mmol/L Chloride 108 H (98-107) mmol/L Carbon Dioxide 23 (22-30) mmol/L Anion Gap 12 mmol/L BUN 13 (9-20) mg/dL Creatinine 0.54 L (0.66-1.25) mg/dL Est GFR (CKD-EPI)AfAm >90 (>60 ml/min/1.73 sqM) Est GFR (CKD-EPI)NonAf >90 (>60 ml/min/1.73 sqM) Glucose 150 H (74-99) mg/dL Plasma Lactic Acid Devonte (0.7-2.0) mmol/L Calcium 8.6 (8.4-10.2) mg/dL Total Bilirubin 0.5 (0.2-1.3) mg/dL AST 82 H (17-59) U/L ALT 94 H (4-49) U/L Alkaline Phosphatase 47 (38-126) U/L Ammonia (<30) umol/L Creatine Kinase 119 (55-170) U/L Troponin I (0.000-0.034) ng/mL Total Protein 7.7 (6.3-8.2) g/dL Albumin 4.9 (3.5-5.0) g/dL Amylase 54 (30-110) U/L Lipase 304 H (23-300) U/L Urine Color Urine Appearance (Clear) Urine pH (5.0-8.0) Ur Specific Weston (1.001-1.035) Urine Protein (Negative) Urine Glucose (UA) (Negative) Urine Ketones (Negative) Urine Blood (Negative) Urine Nitrite (Negative) Urine Bilirubin (Negative) Urine Urobilinogen (<2.0) mg/dL Ur Leukocyte Esterase (Negative) Gastric Occult Blood (Negative) Stool Occult Blood (Negative) Serum Alcohol 368 H* mg/dL Blood Type Blood Type Confirm Blood Type Recheck Bld Type Recheck Status Antibody Screen Spec Expiration Date 10/10/19 10/10/19 10/10/19 Range/Units 14:15 14:15 14:15 WBC (3.8-10.6) k/uL RBC (4.30-5.90) m/uL Hgb (13.0-17.5) gm/dL Hct (39.0-53.0) % MCV (80.0-100.0) fL MCH (25.0-35.0) pg MCHC (31.0-37.0) g/dL RDW (11.5-15.5) % Plt Count (150-450) k/uL Neutrophils % % Lymphocytes % % Monocytes % % Eosinophils % % Basophils % % Neutrophils # (1.3-7.7) k/uL Lymphocytes # (1.0-4.8) k/uL Monocytes # (0-1.0) k/uL Eosinophils # (0-0.7) k/uL Basophils # (0-0.2) k/uL Macrocytosis PT (9.0-12.0) sec INR (<1.2) APTT (22.0-30.0) sec Sodium (137-145) mmol/L Potassium (3.5-5.1) mmol/L Chloride (98-107) mmol/L Carbon Dioxide (22-30) mmol/L Anion Gap mmol/L BUN (9-20) mg/dL Creatinine (0.66-1.25) mg/dL Est GFR (CKD-EPI)AfAm (>60 ml/min/1.73 sqM) Est GFR (CKD-EPI)NonAf (>60 ml/min/1.73 sqM) Glucose (74-99) mg/dL Plasma Lactic Acid Devonte 1.9 (0.7-2.0) mmol/L Calcium (8.4-10.2) mg/dL Total Bilirubin (0.2-1.3) mg/dL AST (17-59) U/L ALT (4-49) U/L Alkaline Phosphatase (38-126) U/L Ammonia 17 (<30) umol/L Creatine Kinase (55-170) U/L Troponin I <0.012 (0.000-0.034) ng/mL Total Protein (6.3-8.2) g/dL Albumin (3.5-5.0) g/dL Amylase (30-110) U/L Lipase (23-300) U/L Urine Color Urine Appearance (Clear) Urine pH (5.0-8.0) Ur Specific Weston (1.001-1.035) Urine Protein (Negative) Urine Glucose (UA) (Negative) Urine Ketones (Negative) Urine Blood (Negative) Urine Nitrite (Negative) Urine Bilirubin (Negative) Urine Urobilinogen (<2.0) mg/dL Ur Leukocyte Esterase (Negative) Gastric Occult Blood (Negative) Stool Occult Blood (Negative) Serum Alcohol mg/dL Blood Type A Negative Blood Type Confirm Blood Type Recheck No Previous Record Bld Type Recheck Status CABO Indicated Antibody Screen NEGATIVE Spec Expiration Date 10/13/2019231410/10/19 10/10/19 10/10/19 Range/Units 14:16 14:58 15:23 WBC (3.8-10.6) k/uL RBC (4.30-5.90) m/uL Hgb (13.0-17.5) gm/dL Hct (39.0-53.0) % MCV (80.0-100.0) fL MCH (25.0-35.0) pg MCHC (31.0-37.0) g/dL RDW (11.5-15.5) % Plt Count (150-450) k/uL Neutrophils % % Lymphocytes % % Monocytes % % Eosinophils % % Basophils % % Neutrophils # (1.3-7.7) k/uL Lymphocytes # (1.0-4.8) k/uL Monocytes # (0-1.0) k/uL Eosinophils # (0-0.7) k/uL Basophils # (0-0.2) k/uL Macrocytosis PT (9.0-12.0) sec INR (<1.2) APTT (22.0-30.0) sec Sodium (137-145) mmol/L Potassium (3.5-5.1) mmol/L Chloride (98-107) mmol/L Carbon Dioxide (22-30) mmol/L Anion Gap mmol/L BUN (9-20) mg/dL Creatinine (0.66-1.25) mg/dL Est GFR (CKD-EPI)AfAm (>60 ml/min/1.73 sqM) Est GFR (CKD-EPI)NonAf (>60 ml/min/1.73 sqM) Glucose (74-99) mg/dL Plasma Lactic Acid Devonte (0.7-2.0) mmol/L Calcium (8.4-10.2) mg/dL Total Bilirubin (0.2-1.3) mg/dL AST (17-59) U/L ALT (4-49) U/L Alkaline Phosphatase (38-126) U/L Ammonia (<30) umol/L Creatine Kinase (55-170) U/L Troponin I (0.000-0.034) ng/mL Total Protein (6.3-8.2) g/dL Albumin (3.5-5.0) g/dL Amylase (30-110) U/L Lipase (23-300) U/L Urine Color Light Yellow Urine Appearance Clear (Clear) Urine pH 6.0 (5.0-8.0) Ur Specific Weston 1.010 (1.001-1.035) Urine Protein Trace H (Negative) Urine Glucose (UA) Trace H (Negative) Urine Ketones Negative (Negative) Urine Blood Negative (Negative) Urine Nitrite Negative (Negative) Urine Bilirubin Negative (Negative) Urine Urobilinogen <2.0 (<2.0) mg/dL Ur Leukocyte Esterase Negative (Negative) Gastric Occult Blood (Negative) Stool Occult Blood Negative (Negative) Serum Alcohol mg/dL Blood Type Blood Type Confirm A Negative Blood Type Recheck Bld Type Recheck Status Antibody Screen Spec Expiration Date 10/10/19 Range/Units 15:23 WBC (3.8-10.6) k/uL RBC (4.30-5.90) m/uL Hgb (13.0-17.5) gm/dL Hct (39.0-53.0) % MCV (80.0-100.0) fL MCH (25.0-35.0) pg MCHC (31.0-37.0) g/dL RDW (11.5-15.5) % Plt Count (150-450) k/uL Neutrophils % % Lymphocytes % % Monocytes % % Eosinophils % % Basophils % % Neutrophils # (1.3-7.7) k/uL Lymphocytes # (1.0-4.8) k/uL Monocytes # (0-1.0) k/uL Eosinophils # (0-0.7) k/uL Basophils # (0-0.2) k/uL Macrocytosis PT (9.0-12.0) sec INR (<1.2) APTT (22.0-30.0) sec Sodium (137-145) mmol/L Potassium (3.5-5.1) mmol/L Chloride (98-107) mmol/L Carbon Dioxide (22-30) mmol/L Anion Gap mmol/L BUN (9-20) mg/dL Creatinine (0.66-1.25) mg/dL Est GFR (CKD-EPI)AfAm (>60 ml/min/1.73 sqM) Est GFR (CKD-EPI)NonAf (>60 ml/min/1.73 sqM) Glucose (74-99) mg/dL Plasma Lactic Acid Devonte (0.7-2.0) mmol/L Calcium (8.4-10.2) mg/dL Total Bilirubin (0.2-1.3) mg/dL AST (17-59) U/L ALT (4-49) U/L Alkaline Phosphatase (38-126) U/L Ammonia (<30) umol/L Creatine Kinase (55-170) U/L Troponin I (0.000-0.034) ng/mL Total Protein (6.3-8.2) g/dL Albumin (3.5-5.0) g/dL Amylase (30-110) U/L Lipase (23-300) U/L Urine Color Urine Appearance (Clear) Urine pH (5.0-8.0) Ur Specific Weston (1.001-1.035) Urine Protein (Negative) Urine Glucose (UA) (Negative) Urine Ketones (Negative) Urine Blood (Negative) Urine Nitrite (Negative) Urine Bilirubin (Negative) Urine Urobilinogen (<2.0) mg/dL Ur Leukocyte Esterase (Negative) Gastric Occult Blood Negative (Negative) Stool Occult Blood (Negative) Serum Alcohol mg/dL Blood Type Blood Type Confirm Blood Type Recheck Bld Type Recheck Status Antibody Screen Spec Expiration Date - Radiology Data Radiology results: report reviewed (I did review the imaging and report no definite acute findings or some evidence of thickening of the bladder wall), image reviewed Disposition Clinical Impression: Alcohol intoxication, Abdominal pain, Dehydration, Nausea & vomiting Disposition: ADMITTED IP TO THIS [facility] Condition: Fair Referrals: None,Stated [Primary Care Provider] - 1-2 days
[2019-10-10] MEDS ORDERED: ONDANSETRON 4 MG/2 ML VIAL IVP STA (14:11)
[2019-10-10 14:31] LABS: Basophils % (A) 1 %; Eosinophils # (A) 0.1 k/uL (0-0.7); Eosinophils % (A) 2 %; HCT 41.9 % (39.0-53.0); HGB 13.8 gm/dL (13.0-17.5); Lymphocytes # (A) 0.7 k/uL (1.0-4.8); Lymphocytes % (A) 23 %; MCH 33.8 pg (25.0-35.0); MCV 102.7 fL (80.0-100.0); Macrocytosis Slight; Mean Platelet Volume 7.5; Monocytes # (A) 0.1 k/uL (0-1.0); Monocytes % (A) 4 %; Neutrophils # (A) 2.1 k/uL (1.3-7.7); Neutrophils % (A) 68 %; Platelet Count 127 k/uL (150-450); RBC 4.08 m/uL (4.30-5.90); RDW 12.9 % (11.5-15.5); WBC 3.1 k/uL (3.8-10.6)
[2019-10-10 14:43] LABS: INR 0.9 (<1.2); Partial Thromboplastin Time 22.6 sec (22.0-30.0); Prothrombin Time 9.6 sec (9.0-12.0)
[2019-10-10 14:44] LABS: Lactic Acid, Venous 1.9 mmol/L (0.7-2.0)
[2019-10-10 14:45] LABS: ALT 94 U/L (4-49); AST 82 U/L (17-59); African American GFR (CKD) >90 (>60 ml/min/1.73 sqM); Albumin 4.9 g/dL (3.5-5.0); Alkaline Phosphatase 47 U/L (38-126); Amylase 54 U/L (30-110); Anion Gap 12 mmol/L; Blood Urea Nitrogen 13 mg/dL (9-20); Calcium 8.6 mg/dL (8.4-10.2); Carbon Dioxide 23 mmol/L (22-30); Chloride 108 mmol/L (98-107); Creatine Kinase 119 U/L (55-170); Glucose 150 mg/dL (74-99); Non-African American GFR(CKD) >90 (>60 ml/min/1.73 sqM); Potassium 4.1 mmol/L (3.5-5.1); Sodium 143 mmol/L (137-145); Total Bilirubin 0.5 mg/dL (0.2-1.3); Total Protein 7.7 g/dL (6.3-8.2)
[2019-10-10 14:53] LABS: Alcohol 368 mg/dL
--- NOTE | 2019-10-10 15:00 | XR ---
EXAMINATION TYPE: XR KUB DATE OF EXAM: 10/10/2019 Comparison: None Clinical History: 49-year-old male abdominal pain Findings: Lung bases are clear. Small air-fluid levels scattered throughout the abdomen. These seem to be present in both the small b owel and colon. No dilated bowel loops seen at this time. No evidence for free intraperitoneal air. Relative possibility of distal colonic air. Impression: Nonspecific scattered air-fluid levels. No dilated bowel at this time. Generalized ileus/enteritis or early small bowel obstruction are in the differential. Radiographic follow-up may be helpful.
[2019-10-10 15:06] LABS: Appearance,Urine Clear (Clear); Bilirubin,Urine Negative (Negative); Blood,Urine Negative (Negative); Color,Urine Light Yellow; Glucose,Urine (UA) Trace (Negative); Ketones,Urine Negative (Negative); Leukocyte Esterase,Urine Negative (Negative); Nitrite,Urine Negative (Negative); Protein,Urine Trace (Negative); Urobilinogen,Urine <2.0 mg/dL (<2.0)
[2019-10-10] MEDS ORDERED: HYDROmorphone 1 MG/ML 1 ML SYRINGE IVP STA (15:23)
--- NOTE | 2019-10-10 16:06 | CT ---
EXAMINATION TYPE: CT abdomen pelvis w con DATE OF EXAM: 10/10/2019 COMPARISON: 08/06/2019 HISTORY: 49-year-old male Generalized abdominal pain. TECHNIQUE: Contiguous axial scanning of the abdomen and pelvis following administration of 100 ml Iso milton 300 IV contrast. Delayed images through the kidneys and coronal/sagittal reconstructions perform ed. CT DLP: 1571.2 mGycm Automated exposure control for dose reduction was used. FINDINGS: Heart normal size without pericardial effusion. Prominent dependent atelectasis at the lung bases wit hout pleural effusion. Liver is enlarged at 20.1 cm craniocaudal with low attenuation compatible with fatty infiltration. Po rtal venous system is patent. No biliary ductal dilatation. Gallbladder is hydropic at 12.1 x 4.0 cm. There is a phrygian cap. No wall thickening or surrounding inflammation. Adrenal glands, kidneys, and pancreas appear within normal limits. Small anterior splenule and calcified granulomas in the spleen. A solitary proximal jejunal loop is mildly dilated at 3.2 cm. No additional small bowel dilatation. S cattered fluid-filled small bowel loops. No discrete transition point. Normal appendix. No significant stool burden. Scattered colonic diverticulosis without pericolonic in flammatory change. No mesenteric or retroperitoneal lymphadenopathy. Circumferential bladder wall thickening with mild perivesicular stranding. Some prominent external il iac chain lymph nodes measuring up to 8 mm probably reactive. No abnormal fluid collection in the pel vis. Bones: Mild degenerative change at the hips. 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 Facet arthropathy mid to lower lumbar spine. IMPRESSION: 1. ONLY A SOLITARY MILDLY DILATED LOOP OF PROXIMAL SMALL BOWEL AT 3.2 CM. NO TRANSITION POINT TO SUGG EST SMALL BOWEL OBSTRUCTION. SOME ADDITIONAL SCATTERED FLUID-FILLED SMALL BOWEL LOOPS ARE PRESENT. CO NSIDER ENTERITIS OR GENERALIZED ILEUS. 2. MILD CIRCUMFERENTIAL BLADDER WALL THICKENING WITH MILD PERIVESICULAR STRANDING. CORRELATE TO EXCLU DE CYSTITIS. 3. HEPATOMEGALY (20.1 CM) WITH HEPATIC STEATOSIS. 4. MILD GALLBLADDER HYDROPS PROBABLY DUE TO FASTING STATE. IF RIGHT UPPER QUADRANT PAIN OR CONCERN FO R EARLY ACUTE CHOLECYSTITIS, FOLLOW-UP HIDA SCAN. 5. COLONIC DIVERTICULOSIS WITHOUT ACUTE DIVERTICULITIS.
[2019-10-10] MEDS ORDERED: ONDANSETRON 4 MG/2 ML VIAL IVP PRN (16:49)
[2019-10-10] MEDS ORDERED: NALOXONE 0.4 MG/ML 1 ML VIAL IV PRN (16:49)
[2019-10-10] MEDS ORDERED: LORazepam 2 MG/ML INJ IV PRN (16:52)
[2019-10-10] MEDS ORDERED: THIAMINE 100 MG/ML 2 ML VIAL IM STA (16:52)
--- NOTE | 2019-10-10 17:11 | P.HPIM ---
History of Present Illness H&P Date: 10/10/19 Chief Complaint: Abdominal pain This is a 49-year-old male with past medical history significant for heavy alcohol abuse who presented to the emergency room with nausea, vomiting, and abdominal pain. Patient said that he has been having lower abdominal pain for a few days. He has a history of colon resection in the past. He is having normal bowel movements up until yesterday. Today he was having a lot of nausea and vomiting. He reported vomiting dark material's. He denies any fevers or chills. He admits to drinking heavily to fifth of vodka every day. He said t hat he has an underlying stress. He denies any illicit drug use otherwise. No blood per rectum. Patient was evaluated in the ER and both gastric contents and stool occult blood tests were negative. He was found to have an alcohol level of 360. Computed tomography scan done in the ER reviewed showed questionable SBO Review of Systems Review of system: 14 points review of systems were obtained and were negative except to what were mentioned in the HPI. Past Medical History Past Medical History: Hypertension Additional Past Medical History / Comment(s): PT states history of hypertension was drug related, was on meth when incident occured, ETOH abuse History of Any Multi-Drug Resistant Organisms: None Reported Additional Past Surgical History / Comment(s): colon partially removed Past Anesthesia/Blood Transfusion Reactions: No Reported Reaction Past Psychological History: Anxiety, Depression Smoking Status: Never smoker Past Alcohol Use History: Abuse, Daily, Heavy Past Drug Use History: None Reported Medications and Allergies Home Medications Medication Instructions Recorded Confirmed Type Folic Acid 1 mg PO DAILY #30 tablet 09/26/19 10/10/19 Rx LORazepam [Ativan] 1 mg PO TID PRN #10 tab 09/26/19 10/10/19 Rx Multivitamins, Thera [Multivitamin] 1 tab PO DAILY #30 tablet 09/26/19 10/10/19 Rx Thiamine [Vitamin B-1] 100 mg PO BID-W/MEALS 30 Days #60 09/26/19 10/10/19 Rx tab cloNIDine HCL [Catapres] 0.1 mg PO BID #10 tab 09/26/19 10/10/19 Rx Cephalexin [Keflex] 500 mg PO Q6HR 10 Days #40 cap 09/27/19 10/10/19 Rx Omeprazole Magnesium [PriLOSEC OTC] 20 mg PO DAILY 10/10/19 10/10/19 History Allergies Allergy/AdvReac Type Severity Reaction Status Date / Time bee pollen Allergy Anaphylaxis Verified 10/10/19 16:11 bee venom protein (honey bee) Allergy Anaphylaxis Verified 10/10/19 16:11 Physical Exam Vitals: Vital Signs Temp Pulse Resp BP Pulse Ox 10/10/19 16:34 85 18 148/93 93 L 10/10/19 14:58 108 H 18 167/99 94 L 10/10/19 13:56 98.7 F 120 H 18 166/97 93 L Intake and Output 10/10/19 10/10/19 10/10/19 06:59 14:59 22:59 Other: Weight 104.326 kg General: The patient is awake and alert, in no distress Eye: there is normal conjunctiva bilaterally. Neck: The neck is supple, there is no JVD. Cardiovascular: Normal S1-S2, no S3-S4, no murmurs. Respiratory: Lungs clear to auscultation bilaterally Gastrointestinal: Abdomen is soft, there is mild tenderness to palpation in the lower abdomen Musculoskeletal: There is no pedal edema. Neurological:. Speech is normal. Skin: Skin is warm and dry Results CBC & Chem 7: 10/10/19 14:15 10/10/19 14:15 Labs: Abnormal Lab Results - Last 24 Hours (Table) 10/10/19 10/10/19 10/10/19 Range/Units 14:15 14:15 14:58 WBC 3.1 L (3.8-10.6) k/uL RBC 4.08 L (4.30-5.90) m/uL MCV 102.7 H (80.0-100.0) fL Plt Count 127 L (150-450) k/uL Lymphocytes # 0.7 L (1.0-4.8) k/uL Chloride 108 H (98-107) mmol/L Creatinine 0.54 L (0.66-1.25) mg/dL Glucose 150 H (74-99) mg/dL AST 82 H (17-59) U/L ALT 94 H (4-49) U/L Lipase 304 H (23-300) U/L Urine Protein Trace H (Negative) Urine Glucose (UA) Trace H (Negative) Serum Alcohol 368 H* mg/dL Assessment and Plan Assessment: 1. Alcohol intoxication, we will continue aggressive IV fluid hydration. CIWA protocol as needed. 2. Abdominal pain, may be attributed to acute gastritis. Continue IV Protonix daily. Computed tomography scan of the abdomen and pelvis showed one dilated loop suggestive for SBO felt to be less likely clinically. Continue liquid diet for now. Patient is passing gas. Gastric contents and stool occult blood test in the ER negative. 3. Heavy alcohol abuse, counseled extensively to quit. Consult social work to provide him with resources to help him quit 4. Chronic leukopenia and thrombocytopenia, most likely attributed to heavy alcohol use. We'll repeat CBC in the morning 5. DVT prophylaxis with SCD 6. Elevated blood pressure, with history of hypertension. I would start Norvasc 5 mg daily 7. History of hypertension, depression, and anxiety, not taking any medications at home as patient does not have insurance.
[2019-10-10] MEDS: THIAMINE 100 MG TAB PO SCH (18:22)
[2019-10-10] MEDS: HYDROmorphone 1 MG/ML 1 ML SYRINGE IVP PRN ×2 (18:22→22:09)
[2019-10-10] MEDS: LORazepam 2 MG/ML INJ IV PRN (19:33)
[2019-10-11] MEDS: LORazepam 2 MG/ML INJ IV PRN ×3 (02:12→08:29)
[2019-10-11 07:12] LABS: Basophils % (A) 1 %; Eosinophils # (A) 0.1 k/uL (0-0.7); Eosinophils % (A) 2 %; HCT 39.2 % (39.0-53.0); Lymphocytes # (A) 0.7 k/uL (1.0-4.8); Lymphocytes % (A) 26 %; MCH 34.2 pg (25.0-35.0); MCHC 33.1 g/dL (31.0-37.0); MCV 103.3 fL (80.0-100.0); Macrocytosis Slight; Mean Platelet Volume 7.7; Monocytes # (A) 0.1 k/uL (0-1.0); Monocytes % (A) 5 %; Neutrophils # (A) 1.7 k/uL (1.3-7.7); Neutrophils % (A) 63 %; RBC 3.79 m/uL (4.30-5.90); RDW 12.9 % (11.5-15.5); WBC 2.7 k/uL (3.8-10.6)
[2019-10-11 07:24] LABS: ALT 84 U/L (4-49); AST 71 U/L (17-59); African American GFR (CKD) >90 (>60 ml/min/1.73 sqM); Albumin 4.4 g/dL (3.5-5.0); Alkaline Phosphatase 46 U/L (38-126); Anion Gap 7 mmol/L; Blood Urea Nitrogen 9 mg/dL (9-20); Calcium 8.3 mg/dL (8.4-10.2); Carbon Dioxide 26 mmol/L (22-30); Chloride 106 mmol/L (98-107); Glucose 85 mg/dL (74-99); Non-African American GFR(CKD) >90 (>60 ml/min/1.73 sqM); Potassium 4.3 mmol/L (3.5-5.1); Sodium 139 mmol/L (137-145); Total Bilirubin 0.9 mg/dL (0.2-1.3); Total Protein 7.1 g/dL (6.3-8.2)
[2019-10-11 07:41] LABS: Platelet Count 95 k/uL (150-450)
[2019-10-11] MEDS: PANTOPRAZOLE 40 MG/10 ML VIAL IV SCH (08:22)
[2019-10-11] MEDS: amLODIPine 5 MG TAB PO SCH (08:22)
[2019-10-11] MEDS: THIAMINE 100 MG TAB PO SCH ×2 (08:22→18:27)
[2019-10-11] MEDS ORDERED: HYDROmorphone 0.5 MG/0.5 ML SYRINGE IVP PRN ×2 (09:10→13:00)
[2019-10-11] MEDS ORDERED: FOLIC ACID 1 MG TAB PO SCH (09:15)
[2019-10-11] MEDS ORDERED: MULTIVITAMINS, THERA 1 EACH TAB PO SCH (09:15)
[2019-10-11] MEDS ORDERED: metroNIDAZOLE 500 MG TAB PO ONE (12:45)
[2019-10-11] MEDS ORDERED: FOLIC ACID 1 MG TAB PO ONE (12:45)
[2019-10-11] MEDS ORDERED: MULTIVITAMINS, THERA 1 EACH TAB PO ONE (12:45)
--- NOTE | 2019-10-11 16:39 | P.PN ---
Subjective Progress Note Date: 10/11/19 (delayed charting seen at 0845) Principal diagnosis: abdominal pain Patient is a 49 yo CF with a hx of hypertension, alcoholism, and anxiety who presented to the ER with complaints of nausea, vomiting, and abdominal pain. On arrival to the ER his pulses 120 and his blood pressure was 166/97. Initial laboratory analysis showed white blood cell count 3.1, platelets 127, sodium 143, potassium 4.1, chloride 108, carbon dioxide 23, BUN 13, creatinine 0.54, AST 82, ALT 94, lipase 304, urinalysis was negative. Serum alcohol was 368. There is concern that he had dark emesis but stool occult and Gastroccult were both negative. He underwent a CT abdomen and pelvis which showed a solitary mildly dilated loop of proximal small bowel with no transition point to suggest small bowel obstruction. There were some additional scattered air-fluid levels considering enteritis or generalized ileus. He did have some mild circumferential bladder wall thickening, hepatomegaly with hepatic steatosis, and mild gallbladder hydrops. He was suspected to have possible acute gastritis. He was started on IV Protonix. He was admitted for further monitoring. There is concern for alcohol withdrawal and he was started on Ativan. He required 2 doses by the morning of 10/10. Patient seen and examined at bedside. He continues to have some left lower quadrant pain, some nausea, no vomiting, no diarrhea. He states he has had alcohol withdrawal in the past but never required hospitalization or had seizures. No other complaints currently. Objective - Vital Signs Vital signs: Vital Signs Temp 98.2 F 10/11/19 04:44 Pulse 74 10/11/19 08:57 Resp 16 10/11/19 08:57 BP 178/89 10/11/19 08:57 Pulse Ox 95 10/11/19 04:44 Intake & Output 10/10/19 10/11/19 10/11/19 18:59 06:59 18:59 Intake Total 1430 850 Balance 1430 850 Weight 104.326 kg Intake: Intake, IV Titration 1430 Amount Sodium Chloride 0.9% 1, 1430 000 ml @ 130 mls/hr IV . Q7H42M STA Rx#:[id number] Oral 850 Other: Voiding Method Toilet Toilet Urinal Urinal # Voids 2 # Bowel Movements 0 # Emeses 0 - Exam General: Ill appearing, mild distress secondary to pain, appears at stated age Derm: warm, dry Head: atraumatic, normocephalic, symmetric Eyes: EOMI, no lid lag, anicteric sclera Mouth: no lip lesion, mucus membranes moist Cardiovascular: S1S2 reg, no murmur, positive posterior tibial pulse bilateral, Lungs: CTA bilateral, no rhonchi, no rales , no accessory muscle use Abdominal: soft, tender to palpation diffusely, no guarding, no appreciable organomegaly Ext: no gross muscle atrophy, no edema, no contractures Neuro: CN II-XI grossly intact, no focal neuro deficits Psych: Alert, oriented, appropriate affect - Labs CBC & Chem 7: 10/11/19 05:54 10/11/19 05:54 Labs: Abnormal Lab Results - Last 24 Hours (Table) 10/11/19 10/11/19 Range/Units 05:54 05:54 WBC 2.7 L (3.8-10.6) k/uL RBC 3.79 L (4.30-5.90) m/uL MCV 103.3 H (80.0-100.0) fL Plt Count 95 L (150-450) k/uL Lymphocytes # 0.7 L (1.0-4.8) k/uL Creatinine 0.63 L (0.66-1.25) mg/dL Calcium 8.3 L (8.4-10.2) mg/dL AST 71 H (17-59) U/L ALT 84 H (4-49) U/L Assessment and Plan Assessment: Acute enteritis, possible colitis with intractable abdominal pain -Clear liquid diet, IV fluids, start Rocephin and Zithromax -Pain control with encouragement of oral pain medications -Continue with Protonix -Gastric occult negative and CBC stable Alcohol intoxication with withdrawal -Start Librium -CIWA protocol -Thiamine, folic acid, multivitamin -Cessation encouraged Hypertension -Accelerated on arrival not resolved -Continue with Norvasc -Follow blood pressures Thrombocytopenia and leukopenia -Suspect secondary to bone marrow suppression from alcohol use -Follow CBC -Further outpatient follow-up Hepatic steatosis -Likely alcohol-related -Mild transaminitis -Follow CMP DVT prophylaxis: SCDs Discussed with: patient, nursing Anticipated discharge: in AM Anticipated discharge place: home A total of 35 minutes was spent on the care of this complex patient more than 50% of the time was spent in counseling and care coordination.
[2019-10-11] MEDS: metroNIDAZOLE 500 MG TAB PO SCH (21:43)
[2019-10-12] MEDS: metroNIDAZOLE 500 MG TAB PO SCH ×2 (05:17→07:38)
[2019-10-12] MEDS: LORazepam 2 MG/ML INJ IV PRN ×2 (06:00→20:42)
[2019-10-12 06:52] LABS: Basophils % (A) 0 %; Eosinophils # (A) 0.1 k/uL (0-0.7); Eosinophils % (A) 2 %; HCT 43.2 % (39.0-53.0); HGB 15.6 gm/dL (13.0-17.5); Lymphocytes # (A) 0.4 k/uL (1.0-4.8); Lymphocytes % (A) 8 %; MCH 36.6 pg (25.0-35.0); MCHC 36.1 g/dL (31.0-37.0); MCV 101.3 fL (80.0-100.0); Mean Platelet Volume 8.2; Monocytes # (A) 0.1 k/uL (0-1.0); Monocytes % (A) 2 %; Neutrophils # (A) 4.7 k/uL (1.3-7.7); Neutrophils % (A) 87 %; Platelet Count 111 k/uL (150-450); RBC 4.26 m/uL (4.30-5.90); RDW 12.7 % (11.5-15.5); WBC 5.4 k/uL (3.8-10.6)
[2019-10-12 06:54] LABS: Prothrombin Time 10.4 sec (9.0-12.0)
[2019-10-12 07:30] LABS: ALT 307 U/L (4-49); AST 511 U/L (17-59); African American GFR (CKD) >90 (>60 ml/min/1.73 sqM); Albumin 4.8 g/dL (3.5-5.0); Alkaline Phosphatase 57 U/L (38-126); Anion Gap 11 mmol/L; Blood Urea Nitrogen 8 mg/dL (9-20); Calcium 9.5 mg/dL (8.4-10.2); Carbon Dioxide 23 mmol/L (22-30); Chloride 104 mmol/L (98-107); Glucose 113 mg/dL (74-99); Magnesium 1.7 mg/dL (1.6-2.3); Non-African American GFR(CKD) >90 (>60 ml/min/1.73 sqM); Sodium 138 mmol/L (137-145); Total Bilirubin 2.1 mg/dL (0.2-1.3)
[2019-10-12 07:31] LABS: Potassium 3.7 mmol/L (3.5-5.1)
[2019-10-12] MEDS: amLODIPine 5 MG TAB PO SCH (07:38)
[2019-10-12] MEDS: MULTIVITAMINS, THERA 1 EACH TAB PO SCH (07:38)
[2019-10-12] MEDS: THIAMINE 100 MG TAB PO SCH ×2 (07:38→16:34)
[2019-10-12] MEDS: HYDROcodone/APAP 5-325MG 1 EACH TAB PO PRN ×3 (07:39→20:42)
[2019-10-12] MEDS: PANTOPRAZOLE 40 MG/10 ML VIAL IV SCH (07:39)
[2019-10-12] MEDS: FOLIC ACID 1 MG TAB PO SCH (07:39)
--- NOTE | 2019-10-12 07:53 | XR ---
EXAMINATION TYPE: XR abdomen acute w cxr DATE OF EXAM: 10/12/2019 COMPARISON: 10/10/2019 HISTORY: Pain TECHNIQUE: Single view of the chest and 2 views of the abdomen are submitted. FINDINGS: Single view of the chest fails demonstrate evidence for acute pulmonary disease. There is no evidence for pneumoperitoneum. The bowel gas pattern is unremarkable as there is air throughout nondilated small and large bowel. No sizeable air fluid levels.No mass effects are seen. No unusual calcifications. IMPRESSION: 1. Unremarkable study.
[2019-10-12] MEDS: amLODIPine 10 MG TAB PO SCH (08:14)
[2019-10-12] MEDS: PIPERACILLIN-TAZOBACTAM 3.375 GM in SODIUM CHLORIDE 0.9% 100 ML IVPB SCH ×3 (08:56→23:05)
--- NOTE | 2019-10-12 14:41 | P.PN ---
Subjective Progress Note Date: 10/12/19 (delayed charting seen at 0815) Principal diagnosis: abdominal pain Patient is a 49 yo CF with a hx of hypertension, alcoholism, and anxiety who presented to the ER with complaints of nausea, vomiting, and abdominal pain. On arrival to the ER his pulses 120 and his blood pressure was 166/97. Initial laboratory analysis showed white blood cell count 3.1, platelets 127, sodium 143, potassium 4.1, chloride 108, carbon dioxide 23, BUN 13, creatinine 0.54, AST 82, ALT 94, lipase 304, urinalysis was negative. Serum alcohol was 368. There is concern that he had dark emesis but stool occult and Gastroccult were both negative. He underwent a CT abdomen and pelvis which showed a solitary mildly dilated loop of proximal small bowel with no transition point to suggest small bowel obstruction. There were some additional scattered air-fluid levels considering enteritis or generalized ileus. He did have some mild circumferential bladder wall thickening, hepatomegaly with hepatic steatosis, and mild gallbladder hydrops. He was suspected to have possible acute gastritis. He was started on IV Protonix. He was admitted for further monitoring. There is concern for alcohol withdrawal and he was started on Ativan. He required 2 doses by the morning of 10/10. Due to his increasing alcohol withdrawal he was started on Librium at 10/10. Secondary to possible colitis versus enteritis and history of diverticulitis he was started on Rocephin and Flagyl. On the morning of 10/11 his bilirubin, AST, and a healthy had elevated significantly. His initial CAT scan did show some gallbladder hydrops. Therefore gallbladder ultrasound was ordered and GI was consulted. Patient seen and examined at bedside. He continues to have pain in his left lower quadrant he states is worse with movement and better with rest. This feels similar to his prior diverticulitis flares. He states that everyone in his family has had Her gallbladder out. He thinks he may have gallbladder dys function secondary to his alcoholism. He does report an episode of his jaw clenching last evening. He states that his alcohol withdrawal seems better today. He does report some pain in his right shoulder blade Objective - Vital Signs Vital signs: Vital Signs Temp 98.4 F 10/12/19 12:23 Pulse 92 10/12/19 12:23 Resp 18 10/12/19 12:23 BP 163/95 10/12/19 12:23 Pulse Ox 97 10/12/19 12:23 Intake & Output 10/11/19 10/12/19 10/12/19 18:59 06:59 18:59 Intake Total 850 Balance 850 Intake: Oral 850 Other: Voiding Method Toilet Toilet Urinal Urinal # Voids 2 2 # Bowel Movements 1 - Exam General: Nontoxic, mild distress secondary to pain, appears at stated age Derm: warm, dry Head: atraumatic, normocephalic, symmetric Eyes: EOMI, no lid lag, anicteric sclera Mouth: no lip lesion, mucus membranes moist Cardiovascular: S1S2 reg, no murmur, positive posterior tibial pulse bilateral, Lungs: CTA bilateral, no rhonchi, no rales , no accessory muscle use Abdominal: soft, tender to palpation right upper quadrant and left lower quadrant, no guarding, no appreciable organomegaly Ext: no gross muscle atrophy, no edema, no contractures Neuro: CN II-XI grossly intact, no focal neuro deficits Psych: Alert, oriented, appropriate affect - Labs CBC & Chem 7: 10/12/19 06:29 10/12/19 06:29 Labs: Abnormal Lab Results - Last 24 Hours (Table) 10/11/19 10/12/19 10/12/19 Range/Units 05:54 06:29 06:29 WBC 2.7 L (3.8-10.6) k/uL RBC 3.79 L 4.26 L (4.30-5.90) m/uL MCV 103.3 H 101.3 H (80.0-100.0) fL MCH 36.6 H (25.0-35.0) pg Plt Count 95 L 111 L (150-450) k/uL Lymphocytes # 0.7 L 0.4 L (1.0-4.8) k/uL BUN 8 L (9-20) mg/dL Creatinine 0.63 L (0.66-1.25) mg/dL Glucose 113 H (74-99) mg/dL Total Bilirubin 2.1 H (0.2-1.3) mg/dL AST 511 H (17-59) U/L ALT 307 H (4-49) U/L Assessment and Plan Assessment: Intractable abdominal pain possible colitis versus gallbladder disease -Of note patient reports having 2 polyps on his last colonoscopy and states he was due for his five-year follow-up approximately 1-2 years ago. He reports that he has been having increasing left lower quadrant pain over the last several months. -Nothing by mouth -IV fluids -Change Rocephin and Flagyl to Zosyn secondary to possible gallbladder involvem ent -Pain control with encouragement of oral pain medications -Continue with Protonix -Gastric occult negative and CBC stable - if gallbladder US negative and still with pain in AM repeat CT ABD/Pelvis with contrast Transaminitis with Hepatic steatosis -Check gallbladder ultrasound -Consult GI -Concern is for possible gallbladder disease versus alcoholic hepatitis as patient has been drinking more. He states that he has had this abdominal pain for approximately 2 months and began drinking more heavily to dull the pain. -Zosyn -Follow CMP - abstain from ETOH Alcohol intoxication with withdrawal -Decreased librium -CIWA protocol -Thiamine, folic acid, multivitamin -Cessation encouraged Hypertension -Accelerated -Increase Norvasc -Follow blood pressures Thrombocytopenia -Suspect secondary to bone marrow suppression from alcohol use -Follow CBC -Further outpatient follow-up leukopenia, resolved DVT prophylaxis: SCDs Discussed with: patient, nursing Anticipated discharge: in AM Anticipated discharge place: home A total of 35 minutes was spent on the care of this complex patient more than 50% of the time was spent in counseling and care coordination.
--- NOTE | 2019-10-12 15:16 | US ---
EXAMINATION TYPE: US gallbladder DATE OF EXAM: 10/12/2019 COMPARISON: CT, US CLINICAL HISTORY: abdominal pain, elevated liver enzymes; RUQ and midline ABD pain . EXAM MEASUREMENTS: Liver Length: 18.7 cm Gallbladder Wall: 0.2 cm CBD: 0.5 cm Right Kidney: 12.9 x 6.9 x 6.1 cm Pancreas: hyperechoic Liver: hyperechoic to right renal cortex suggests fatty liver, enlarged and attenuated posteriorly Gallbladder: enlarged Evidence for sonographic Lizarraga's sign: tender here CBD: wnl Right Kidney: No hydronephrosis or masses seen IMPRESSION: Gallbladder hydrops. Fatty liver.
[2019-10-12 17:54] LABS: Protein, Total 7.5 g/dL (6.2-8.2)
[2019-10-12 20:50] LABS: % Iron Saturation 25.47 (15.00-50.00)
[2019-10-12 21:17] LABS: Hepatitis A Antibody IgM Non-Reactive (Non-Reactive); Hepatitis B Core IgM Non-Reactive (Non-Reactive); Hepatitis B Surface Antigen Non-Reactive (Non-Reactive); Hepatitis C IgG Antibody Non-Reactive (Non-Reactive)
[2019-10-12] MEDS: MELATONIN 3 MG TABLET PO SCH (23:45)
[2019-10-13 03:01] LABS: Alpha Fetoprotein, Tumor Mkr <2.5 ng/mL (0.0-7.9)
--- NOTE | 2019-10-13 06:11 | P.CONS ---
History of Present Illness - Reason for Consult Consult date: 10/12/19 Elevated liver enzymes, alcohol abuse Requesting physician: Hanna Knight - Chief Complaint Abdominal pain, nausea and vomiting, alcohol intoxication - History of Present Illness 49-year-old male with a medical history significant for alcohol abuse, anxiety and hypertension who presented to the hospital due to complaints of nausea, vomiting and abdominal pain. Patient was found to have alcohol level of 368 on presentation. He underwent computed tomography scan of the abdomen which showed mildly dilated loop of proximal small bowel with no transition point to suggest obstruction. He had been having multiple episodes of nausea and vomiting and did report some epigastric and periumbilical abdominal pain. He does have a known history of prior complicated diverticulitis status post colon resection. He was found to have markedly elevated liver enzymes on presentation consistent with his history of alcoholic hepatitis with a total bilirubin of 2.1, alkaline phosphatase 57, AST 511 and ALT 307 with an INR of 1.0, WBC 5.4, hemoglobin 15.6 and platelet count 111,000. Computed tomography scan was also significant for hydropic gallbladder as well as an enlarged fatty liver. Overall the patient is feeling somewhat better today. He is being treated for alcohol withdrawal. Review of Systems REVIEW OF SYSTEMS: CONSTITUTIONAL: Denies any fevers, chills, weight change or fatigue. CARDIOVASCULAR: Denies any chest pain, palpitations high or low blood pressures RESPIRATORY: Denies any shortness of breath, hemoptysis or cough. GENITOURINARY: No dysuria or hematuria. MUSCULOSKELETAL: No weakness reported. SKIN: Denies any new rashes or lesions, jaundice or pallor. PSYCHIATRIC: Denies any depression but he does have a history of anxiety and alcohol abuse. NEUROLOGY: Denies headache, denies any new focal deficits. EARS/NOSE/THROAT: No recent hearing change, congestion, nasal discharge or sore throat. EYES: No pain in eyes, discharge or change in vision. GASTROINTESTINAL: As per HPI. Past Medical History Past Medical History: Hypertension Additional Past Medical History / Comment(s): PT states history of hypertension was drug related, was on meth when incident occured, ETOH abuse History of Any Multi-Drug Resistant Organisms: None Reported Past Surgical History: Bowel Resection Additional Past Surgical History / Comment(s): Bowel resection r/t diverticulitis Past Anesthesia/Blood Transfusion Reactions: No Reported Reaction Past Psychological History: Anxiety, Depression Smoking Status: Never smoker Past Alcohol Use History: Abuse, Daily, Heavy Additional Past Alcohol Use History / Comment(s): Currently abusing alcohol- patient describes drinking 2 fifths of Vodka daily. Had stopped drinking for a couple months and started drinking again on Fathers Day. Past Drug Use History: None Reported - Past Family History Father Family Medical History: Hypertension Additional Family Medical History / Comment(s): from Cocaine Overdose. Mother Additional Family Medical History / Comment(s): Mother from overdose of Percocet and Tequila. Esophageal varices. Medications and Allergies Home Medications Medication Instructions Recorded Confirmed Type Folic Acid 1 mg PO DAILY #30 tablet 09/26/19 10/10/19 Rx LORazepam [Ativan] 1 mg PO TID PRN #10 tab 09/26/19 10/10/19 Rx Multivitamins, Thera [Multivitamin] 1 tab PO DAILY #30 tablet 09/26/19 10/10/19 Rx Thiamine [Vitamin B-1] 100 mg PO BID-W/MEALS 30 Days #60 09/26/19 10/10/19 Rx tab cloNIDine HCL [Catapres] 0.1 mg PO BID #10 tab 09/26/19 10/10/19 Rx Cephalexin [Keflex] 500 mg PO Q6HR 10 Days #40 cap 09/27/19 10/10/19 Rx Omeprazole Magnesium [PriLOSEC OTC] 20 mg PO DAILY 10/10/19 10/10/19 History Allergies Allergy/AdvReac Type Severity Reaction Status Date / Time bee pollen Allergy Anaphylaxis Verified 10/10/19 16:11 bee venom protein (honey bee) Allergy Anaphylaxis Verified 10/10/19 16:11 Physical Exam Vitals: Vital Signs Temp Pulse Resp BP Pulse Ox 10/12/19 12:23 98.4 F 92 18 163/95 97 10/12/19 04:35 98.0 F 89 20 171/98 95 10/11/19 23:10 175/109 10/11/19 20:25 97.9 F 89 20 174/111 98 Intake and Output 10/11/19 10/12/19 10/12/19 22:59 06:59 14:59 Other: Voiding Method Toilet Toilet Urinal Urinal # Voids 2 # Bowel Movements 1 On physical examination, patient appears comfortable in no apparent distress. HEAD: Normocephalic, atraumatic. EYES: No scleral icterus. No conjunctival injection. MOUTH: No lesions, tongue midline. NECK: Trachea midline, no gross abnormalities. CHEST: Clear to auscultation with no wheezing or rhonchi appreciated. HEART: Regular rate and rhythm. ABDOMEN: Soft, nontender to palpation. Bowel sounds are positive. No organomegaly. No guarding or rigidity. EXTREMITIES: No pedal edema. SKIN: No rashes, no jaundice. NEUROLOGIC: Alert and oriented x3, no tremulousness or asterixis noted. No focal deficits. Results CBC & Chem 7: 10/12/19 06:29 10/12/19 06:29 Labs: Abnormal Lab Results - Last 24 Hours (Table) 10/11/19 10/12/19 10/12/19 Range/Units 05:54 06:29 06:29 WBC 2.7 L (3.8-10.6) k/uL RBC 3.79 L 4.26 L (4.30-5.90) m/uL MCV 103.3 H 101.3 H (80.0-100.0) fL MCH 36.6 H (25.0-35.0) pg Plt Count 95 L 111 L (150-450) k/uL Lymphocytes # 0.7 L 0.4 L (1.0-4.8) k/uL BUN 8 L (9-20) mg/dL Creatinine 0.63 L (0.66-1.25) mg/dL Glucose 113 H (74-99) mg/dL Total Bilirubin 2.1 H (0.2-1.3) mg/dL AST 511 H (17-59) U/L ALT 307 H (4-49) U/L CT scan - abdomen: report reviewed (Computed tomography scan with findings of hepatomegaly, a drop in gallbladder, fatty liver, possible enteritis.) Assessment and Plan (1) Alcoholic hepatitis without ascites Narrative/Plan: 49-year-old male with multiple medical comorbidities including anxiety, alcohol abuse with associated findings on computed tomography scan of hepatomegaly and fatty infiltration of the liver who presented to the hospital intoxicated with complaints of nausea and vomiting and abdominal pain. Computed tomography scan of the abdomen showed possible ileitis/enteritis with findings of a hydropic gallbladder, hepatomegaly and fatty infiltration of the liver. Liver enzymes markedly elevated and consistent with acute alcoholic hepatitis with total bilirubin 2.1, alkaline phosphatase 57, AST 511 and ALT 307. Liver enzymes have been more elevated on prior admissions. Plan is for full serology to rule out any other underlying intrinsic liver disease. Continue to treat for signs and symptoms of alcohol withdrawal. Current Visit: Yes Status: Acute Code(s): K70.10 - ALCOHOLIC HEPATITIS WITHOUT ASCITES SNOMED Code(s): 199710940 (2) Abdominal pain Current Visit: Yes Status: Acute Code(s): R10.9 - UNSPECIFIED ABDOMINAL PAIN SNOMED Code(s): 16301927 (3) Alcohol intoxication Current Visit: Yes Status: Acute Code(s): F10.929 - ALCOHOL USE, UNSPECIFIED WITH INTOXICATION, UNSPECIFIED SNOMED Code(s): 32273989 (4) Nausea & vomiting Current Visit: Yes Status: Acute Code(s): R11.2 - NAUSEA WITH VOMITING, UNSPECIFIED SNOMED Code(s): 07341694 Plan: Supportive care Okay for diet as tolerated Continue to monitor CBC, BMP, LFTs Continue to monitor and treat for signs or symptoms of alcohol withdrawal Alcohol abstinence Full liver serologies ordered Ultrasound of the abdomen pending Continue symptomatic treatment of nausea Thank you for allowing us to participate in the care of the patient
[2019-10-13 06:26] LABS: Basophils % (A) 1 %; Eosinophils # (A) 0.1 k/uL (0-0.7); Eosinophils % (A) 4 %; HCT 42.6 % (39.0-53.0); HGB 14.3 gm/dL (13.0-17.5); Lymphocytes # (A) 0.5 k/uL (1.0-4.8); Lymphocytes % (A) 18 %; MCH 33.9 pg (25.0-35.0); MCHC 33.5 g/dL (31.0-37.0); MCV 101.2 fL (80.0-100.0); Mean Platelet Volume 8.2; Monocytes # (A) 0.1 k/uL (0-1.0); Monocytes % (A) 3 %; Neutrophils # (A) 2.2 k/uL (1.3-7.7); Neutrophils % (A) 73 %; RBC 4.21 m/uL (4.30-5.90); RDW 12.6 % (11.5-15.5)
[2019-10-13 06:39] LABS: ALT 620 U/L (4-49); AST 679 U/L (17-59); African American GFR (CKD) >90 (>60 ml/min/1.73 sqM); Albumin 4.5 g/dL (3.5-5.0); Alkaline Phosphatase 51 U/L (38-126); Anion Gap 9 mmol/L; Blood Urea Nitrogen 10 mg/dL (9-20); Calcium 9.5 mg/dL (8.4-10.2); Carbon Dioxide 25 mmol/L (22-30); Chloride 103 mmol/L (98-107); Glucose 107 mg/dL (74-99); Non-African American GFR(CKD) >90 (>60 ml/min/1.73 sqM); Potassium 3.6 mmol/L (3.5-5.1); Sodium 137 mmol/L (137-145); Total Bilirubin 1.7 mg/dL (0.2-1.3); Total Protein 7.4 g/dL (6.3-8.2)
[2019-10-13 08:00] LABS: Platelet Count 99 k/uL (150-450)
[2019-10-13] MEDS: PIPERACILLIN-TAZOBACTAM 3.375 GM in SODIUM CHLORIDE 0.9% 100 ML IVPB SCH ×3 (08:37→23:56)
[2019-10-13] MEDS: THIAMINE 100 MG TAB PO SCH ×2 (08:37→17:36)
[2019-10-13] MEDS: MULTIVITAMINS, THERA 1 EACH TAB PO SCH (08:37)
[2019-10-13] MEDS: amLODIPine 10 MG TAB PO SCH (08:37)
[2019-10-13] MEDS: PANTOPRAZOLE 40 MG/10 ML VIAL IV SCH (08:37)
[2019-10-13] MEDS: HYDROcodone/APAP 5-325MG 1 EACH TAB PO PRN (08:43)
[2019-10-13] MEDS ORDERED: LORazepam 2 MG/ML INJ IV PRN (11:18)
[2019-10-13 13:31] LABS: Albumin 4.54 g/dL (3.80-4.90); Gamma Globulin 1.09 g/dL (0.70-1.50)
[2019-10-13] MEDS: FOLIC ACID 1 MG TAB PO SCH (13:31)
[2019-10-13] MEDS: LORazepam 2 MG/ML INJ IV PRN ×2 (13:36→17:44)
[2019-10-13 13:41] LABS: Liver/Kidney Microsome Antibod 1.2 UNITS (<=20)
--- NOTE | 2019-10-13 15:10 | PN ---
PROGRESS NOTE DATE OF SERVICE: 10/13/2019 Patient is a 53-year-old white male with history of heavy alcohol abuse, admitted to hospital with acute alcoholic intoxication, nausea, vomiting, and elevated LFTs. He appears to be in alcohol withdrawal this morning, quite shaky. States that he did not sleep all night. He reports some abdominal discomfort but no nausea, vomiting. PHYSICAL EXAMINATION: Appears comfortable, in no apparent distress. Vital signs are stable, blood pressure is 163/109, pulse rate 92, temperature 98. HEENT: Examination is unremarkable, conjunctivae are pink, sclerae nonicteric, oral cavity no lesions. NECK: No JVD or lymph node enlargement. CHEST: Clear to auscultation. HEART: Regular rate and rhythm. ABDOMEN: Soft, bowel sounds are positive. No organomegaly. EXTREMITIES: No pedal edema. X-ray tremors noted. NEURO: Awake, oriented to name and place but not time. LABS: From today WBC 3, hemoglobin 14.3, platelets 99. Bilirubin is 1.7, AST is 679, ALT is 620, hepatitis serologies for A, B and C are negative. CAITLYN is negative. Ceruloplasmin normal. Alpha 1 antitrypsin is normal. Alpha fetoprotein is normal. Ultrasound showed fatty liver. IMPRESSION: 1. Elevated LFTs and mild jaundice with negative hepatitis serologies for A, B and C, possibly alcohol-induced hepatitis. 2. Heavy alcohol abuse. 3. Alcohol withdrawal. 4. Hepatic steatosis. RECOMMENDATIONS: 1. Continue symptomatic supportive care. 2. Monitor LFTs closely. 3. Monitor for DTs. 4. Antiemetics and Protonix as needed. 5. Will follow with you closely. Thank you for this consultation. MMODL / IJN: [id number] /
--- NOTE | 2019-10-13 16:34 | P.PN ---
Subjective Progress Note Date: 10/13/19 (delayed charting patinet seen at 1100) Principal diagnosis: abdominal pain Patient is a 49 yo CF with a hx of hypertension, alcoholism, and anxiety who presented to the ER with complaints of nausea, vomiting, and abdominal pain. On arrival to the ER his pulses 120 and his blood pressure was 166/97. Initial laboratory analysis showed white blood cell count 3.1, platelets 127, sodium 143, potassium 4.1, chloride 108, carbon dioxide 23, BUN 13, creatinine 0.54, AST 82, ALT 94, lipase 304, urinalysis was negative. Serum alcohol was 368. There is concern that he had dark emesis but stool occult and Gastroccult were both negative. He underwent a CT abdomen and pelvis which showed a solitary mildly dilated loop of proximal small bowel with no transition point to suggest small bowel obstruction. There were some additional scattered air-fluid levels considering enteritis or generalized ileus. He did have some mild circumferential bladder wall thickening, hepatomegaly with hepatic steatosis, and mild gallbladder hydrops. He was suspected to have possible acute christina ritis. He was started on IV Protonix. He was admitted for further monitoring. There is concern for alcohol withdrawal and he was started on Ativan. He required 2 doses by the morning of 10/10. Due to his increasing alcohol withdrawal he was started on Librium at 10/10. Secondary to possible colitis versus enteritis and history of diverticulitis he was started on Rocephin and Flagyl. On the morning of 10/11 his bilirubin, AST, and a healthy had elevated significantly. His initial CT scan did show some gallbladder hydrops. Therefore gallbladder ultrasound was ordered and GI was consulted. Gallbladder ultrasound was consulted with gallbladder hydrops no obstructing stone. GI started cirrhosis workup but felt this was likely secondary to drinking. Patient seen and examined at bedside. He continues to have some pain in his right upper quadrant. No nausea, no vomiting, No stool in 2 days he feels like this is secondary to decreased oral intake. He also feels like eating a full meal today. He states the pain in his left lower quadrant somewhat better. We discussed the importance of follow-up with GI for outpatient colonoscopy, abstain from alcohol, and the possible need to follow-up with surgery for gallbladder dysfunction. Feels that his alcoholic withdrawal is better. Objective - Vital Signs Vital signs: Vital Signs Temp 96.6 F L 10/13/19 14:13 Pulse 102 H 10/13/19 14:13 Resp 16 10/13/19 14:13 BP 131/88 10/13/19 14:13 Pulse Ox 97 10/13/19 14:13 Intake & Output 10/12/19 10/13/19 10/13/19 18:59 06:59 18:59 Intake Total 1000 Balance 1000 Intake: Oral 1000 Other: Voiding Method Toilet Toilet Urinal Urinal # Voids 2 2 5 - Exam General: Nontoxic, mild distress secondary to pain, appears at stated age Derm: warm, dry Head: atraumatic, normocephalic, symmetric Eyes: EOMI, no lid lag, anicteric sclera Mouth: no lip lesion, mucus membranes moist Cardiovascular: S1S2 reg, no murmur, positive posterior tibial pulse bilateral, Lungs: CTA bilateral, no rhonchi, no rales , no accessory muscle use Abdominal: soft, tender to palpation right upper quadrant and left lower quadrant, no guarding, no appreciable organomegaly Ext: no gross muscle atrophy, no edema, no contractures Neuro: CN II-XI grossly intact, no focal neuro deficits Psych: Alert, oriented, appropriate affect - Labs CBC & Chem 7: 10/13/19 05:55 10/13/19 05:55 Labs: Abnormal Lab Results - Last 24 Hours (Table) 10/13/19 10/13/19 Range/Units 05:55 05:55 WBC 3.0 L (3.8-10.6) k/uL RBC 4.21 L (4.30-5.90) m/uL MCV 101.2 H (80.0-100.0) fL Plt Count 99 L (150-450) k/uL Lymphocytes # 0.5 L (1.0-4.8) k/uL Creatinine 0.62 L (0.66-1.25) mg/dL Glucose 107 H (74-99) mg/dL Total Bilirubin 1.7 H (0.2-1.3) mg/dL AST 679 H (17-59) U/L ALT 620 H (4-49) U/L Assessment and Plan Assessment: Intractable abdominal pain possible enteritis - Gallbladder disease felt less likely with US with hydrops, will need outpatient follow-up. -Of note patient reports having 2 polyps on his last colonoscopy and states he was due for his five-year follow-up approximately 1-2 years ago. He reports that he has been having increasing left lower quadrant pain over the last severa l months. -Advance to regular diet -IV fluids stopped -Continue zosyn for 24 hours -Pain control with encouragement of oral pain medications -Continue with Protonix Probable alcoholic hepatitis with Hepatic steatosis, -GI recs appreciate -Viral hepatitis negative -Zosyn -Follow CMP - abstain from ETOH Alcohol intoxication with withdrawal -Decrease librium -CIWA protocol -Thiamine, folic acid, multivitamin -Cessation encouraged Hypertension -Accelerated - Norvasc -Follow blood pressures Thrombocytopenia -Suspect secondary to bone marrow suppression from alcohol use -Follow CBC -Further outpatient follow-up leukopenia, resolved DVT prophylaxis: SCDs Discussed with: patient, nursing Anticipated discharge: in AM Anticipated discharge place: home A total of 35 minutes was spent on the care of this complex patient more than 50% of the time was spent in counseling and care coordination.
[2019-10-13] MEDS: MELATONIN 3 MG TABLET PO SCH (21:06)
[2019-10-14 05:40] VITALS: BP 127/78; PULSE 78; RESP 16; TEMP 98.2
[2019-10-14 07:08] LABS: Basophils % (A) 1 %; Eosinophils # (A) 0.3 k/uL (0-0.7); Eosinophils % (A) 7 %; HCT 43.4 % (39.0-53.0); Lymphocytes % (A) 29 %; MCH 35.7 pg (25.0-35.0); MCHC 34.6 g/dL (31.0-37.0); MCV 103.2 fL (80.0-100.0); Macrocytosis Slight; Monocytes # (A) 0.2 k/uL (0-1.0); Monocytes % (A) 6 %; Neutrophils # (A) 1.8 k/uL (1.3-7.7); Neutrophils % (A) 54 %; RBC 4.21 m/uL (4.30-5.90); RDW 12.6 % (11.5-15.5); WBC 3.4 k/uL (3.8-10.6)
[2019-10-14 07:33] LABS: Platelet Count 98 k/uL (150-450)
[2019-10-14 07:37] LABS: ALT 444 U/L (4-49); AST 279 U/L (17-59); African American GFR (CKD) >90 (>60 ml/min/1.73 sqM); Albumin 4.4 g/dL (3.5-5.0); Alkaline Phosphatase 55 U/L (38-126); Anion Gap 10 mmol/L; Blood Urea Nitrogen 13 mg/dL (9-20); Calcium 9.4 mg/dL (8.4-10.2); Carbon Dioxide 23 mmol/L (22-30); Chloride 106 mmol/L (98-107); Glucose 116 mg/dL (74-99); Non-African American GFR(CKD) >90 (>60 ml/min/1.73 sqM); Potassium 3.7 mmol/L (3.5-5.1); Sodium 139 mmol/L (137-145); Total Bilirubin 0.9 mg/dL (0.2-1.3); Total Protein 7.3 g/dL (6.3-8.2)
[2019-10-14] MEDS: MULTIVITAMINS, THERA 1 EACH TAB PO SCH (09:31)
[2019-10-14] MEDS: THIAMINE 100 MG TAB PO SCH (09:31)
[2019-10-14] MEDS: PANTOPRAZOLE 40 MG/10 ML VIAL IV SCH (09:31)
[2019-10-14] MEDS: amLODIPine 10 MG TAB PO SCH (09:31)
[2019-10-14] MEDS: FOLIC ACID 1 MG TAB PO SCH (09:31)
[2019-10-14] MEDS: PIPERACILLIN-TAZOBACTAM 3.375 GM in SODIUM CHLORIDE 0.9% 100 ML IVPB SCH (09:36)
--- NOTE | 2019-10-14 15:58 | P.DS ---
Providers Date of admission: 10/10/19 16:52 Expected date of discharge: 10/14/19 Attending physician: Ping Carrasquillo Consults: 10/12/19 07:57 Consult Physician Routine Consulting Provider: Uli Ram Consult Reason/Comments: Transaminitis Do you want consulting provider notified?: Yes Primary care physician: Stated None Hospital Course: Discharge Diagnosis: Abdominal pain Enteritis Alcoholic hepatitis with hepatic steatosis Alcohol intoxication with withdrawal Hypertension, accelerated on arrival Thrombocytopenia Leukopenia Hospital Course: Patient is a 49 yo CF with a hx of hypertension, alcoholism, and anxiety who presented to the ER with complaints of nausea, vomiting, and abdominal pain. On arrival to the ER his pulses 120 and his blood pressure was 166/97. Initial laboratory analysis showed white blood cell count 3.1, platelets 127, sodium 143, potassium 4.1, chloride 108, carbon dioxide 23, BUN 13, creatinine 0.54, AST 82, ALT 94, lipase 304, urinalysis was negative. Serum alcohol was 368. There is concern that he had dark emesis but stool occult and Gastroccult were both negative. He underwent a CT abdomen and pelvis which showed a solitary mildly dilated loop of proximal small bowel with no transition point to suggest small bowel obstruction. There were some additional scattered air-fluid levels considering enteritis or generalized ileus. He did have some mild circumferential bladder wall thickening, hepatomegaly with hepatic steatosis, and mild gallbladder hydrops. He was suspected to have possible acute gastritis. He was started on IV Protonix. He was admitted for further monitoring. There is concern for alcohol withdrawal and he was started on Ativan. He required 2 doses by the morning of 10/10. Due to his increasing alcohol withdrawal he was started on Librium at 10/10. Secondary to possible colitis versus enteritis and history of diverticulitis he was started on R ocephin and Flagyl. On the morning of 10/11 his bilirubin, AST, and a healthy had elevated significantly. His initial CT scan did show some gallbladder hydrops. Therefore gallbladder ultrasound was ordered and GI was consulted. Gallbladder ultrasound was consulted with gallbladder hydrops no obstructing stone. GI started cirrhosis workup but felt this was likely secondary to drinking, and viral hepatitis panel came back negative along with negative AFP. His liver enzymes continued to improve during his hospital stay. His abdominal pain improved as well. We discussed the importance of following up with surgeon regarding his gallbladder, following up with GI, abstaining from alcohol, and finding a primary care physician. We discussed the importance of taking blood pressure medications on a daily basis and he is in agreement. He was subsequently discharged home in stable condition. He'll finish up another 4 days of Augmentin, take Norvasc daily, and was given a prescription for 21 tablets of [place] to help with his abdominal pain. He will find a primary care physician to follow up with was given a list of 3 that are accepting new patients in the area. Patient seen and examined at bedside. He tolerated his diet, abdominal pain better today, no additional right CVA pain. No nausea. No vomiting. Feeling well and wanting to go home. Vital signs reviewed and stable. General: non toxic, no distress, appears at stated age, obese Derm: warm, dry Head: atraumatic, normocephalic, symmetric Eyes: EOMI, no lid lag, anicteric sclera Mouth: no lip lesion, mucus membranes moist Cardiovascular: S1S2 reg, no murmur, positive posterior tibial pulse bilateral, Lungs: CTA bilateral, no rhonchi, no rales , no accessory muscle use Abdominal: soft, nontender to palpation, no guarding, no appreciable organomegaly Ext: no gross muscle atrophy, no edema, no contractures Neuro: CN II-XI grossly intact, no focal neuro deficits Psych: Alert, oriented, appropriate affect A total of 35 minutes of time were spent preparing this complex discharge summary . Patient Condition at Discharge: Stable Plan - Discharge Summary Discharge Rx Participant: No New Discharge Prescriptions: New Amoxic-Pot Clav 875-125Mg [Augmentin 875-125] 1 tab PO Q12HR 4 Days #8 tab HYDROcodone/APAP 5-325MG [[place] 5-325] 1 each PO Q6HR PRN #21 tab PRN Reason: Pain amLODIPine [Norvasc] 10 mg PO DAILY #30 tab Continue Folic Acid 1 mg PO DAILY #30 tablet Multivitamins, Thera [Multivitamin (formulary)] 1 tab PO DAILY #30 tablet Thiamine [Vitamin B-1] 100 mg PO BID-W/MEALS 30 Days #60 tab LORazepam [Ativan] 1 mg PO TID PRN #10 tab PRN Reason: Anxiety Omeprazole Magnesium [PriLOSEC OTC] 20 mg PO DAILY #30 tab Discontinued cloNIDine HCL [Catapres] 0.1 mg PO BID #10 tab Cephalexin [Keflex] 500 mg PO Q6HR 10 Days #40 cap Discharge Medication List Folic Acid 1 mg PO DAILY #30 tablet 09/26/19 [Rx] LORazepam [Ativan] 1 mg PO TID PRN #10 tab 09/26/19 [Rx] Multivitamins, Thera [Multivitamin (formulary)] 1 tab PO DAILY #30 tablet 09/26/19 [Rx] Thiamine [Vitamin B-1] 100 mg PO BID-W/MEALS 30 Days #60 tab 09/26/19 [Rx] Amoxic-Pot Clav 875-125Mg [Augmentin 875-125] 1 tab PO Q12HR 4 Days #8 tab 10/14/19 [Rx] HYDROcodone/APAP 5-325MG [[place] 5-325] 1 each PO Q6HR PRN #21 tab 10/14/19 [Rx] Omeprazole Magnesium [PriLOSEC OTC] 20 mg PO DAILY #30 tab 10/14/19 [Rx] amLODIPine [Norvasc] 10 mg PO DAILY #30 tab 10/14/19 [Rx] Follow up Appointment(s)/Referral(s): Emerson Santana MD [STAFF PHYSICIAN] - As Needed Malina Beckwith MD [STAFF PHYSICIAN] - 1 Week (call wednesday to make appointment. office closed at time of discharge) Mary Watson NPC [REFERRING] - As Needed Arvin Lindquist DO [Doctor of Osteopathic Medicine] - 1 Week (call wednesday to make appointment. office closed at time of discharge) Calixto Pate [STAFF PHYSICIAN] - As Needed Patient Instructions/Handouts: Hydrocodone/Acetaminophen (By mouth), Omeprazole (By mouth), Amoxicillin/Clavulanate Potassium (By mouth), Amlodipine (By mouth) Activity/Diet/Wound Care/Special Instructions: Activity: as tolerated Diet: Heart healthy Special Instructions: Abstain from Alcohol Call for family physician on 10/15. Three options listed for discharge Please follow-up with Dr. Beckwith for colonoscopy/ liver monitoring Discharge Disposition: HOME SELF-CARE
--- NOTE | 2019-10-14 21:50 | PN ---
PROGRESS NOTE DATE OF SERVICE: 10/14/2019 Patient is a 49-year-old white male with history of alcohol abuse, admitted to the hospital because of abdominal pain and acute alcohol intoxication. He was also noted to have elevated LFTs and, hence, we are consulted because of this issue. The patient is doing better today. Abdominal pain has resolved. No nausea, vomiting. PHYSICAL EXAMINATION: Appears comfortable, no apparent distress. Vital signs are stable. Blood pressure is 127/82, pulse rate 78, temperature 98.2. HEENT examination unremarkable. Conjunctivae pink. Sclerae anicteric. Oral cavity no lesions. NECK: No JVD or lymph node enlargement. CHEST: Clear to auscultation. HEART: Regular rate and rhythm. ABDOMEN: Soft. Bowel sounds are positive. No organomegaly. EXTREMITIES: No pedal edema. Slight tremors noted. NEURO: Alert and oriented x3. No focal deficits. LABS: From today WBC 3.4, hemoglobin 15, platelets 28,000. AST and ALT have improved to 279 and 444 respectively. T bilirubin and alkaline phosphatase normal. IMPRESSION: 1. Acute elevation of serum transaminases, possibly related to acute alcoholic hepatitis with improving LFTs. Hepatitis serologies for A, B and C were negative. 2. Heavy alcohol abuse. 3. Mild alcohol withdrawal, resolved. 4. Thrombocytopenia secondary to underlying chronic liver disease with cirrhosis of the liver. 5. Mild leukopenia secondary to underlying cirrhosis of the liver. RECOMMENDATIONS: 1. Advance diet as tolerated. 2. Reviewed the labs with the patient. Recommended complete abstinence from alcohol. 3. Continue with symptomatic and supportive care. 4. He can be discharged home with outpatient followup in two weeks. Thank you for this consultation. MMODL / IJN: [id number] /
== END 2019-10-14 11:50 | disposition home or self-care (01) | DRG 392 ==
LOC: EC 13:50 → 5NMEDONC 16:52
PROVIDERS: ADMIT Internal Medicine; ATTEND Internal Medicine
DX: K52.9 Noninfective gastroenteritis and colitis, unspecified (principal); F10.239 Alcohol dependence with withdrawal, unspecified; K82.1 Hydrops of gallbladder; I10 Essential (primary) hypertension; F41.9 Anxiety disorder, unspecified; F32.9 Major depressive disorder, single episode, unspecified; D69.59 Other secondary thrombocytopenia; K70.10 Alcoholic hepatitis without ascites; E86.0 Dehydration; K76.0 Fatty (change of) liver, not elsewhere classified; K74.60 Unspecified cirrhosis of liver; Y90.8 Blood alcohol level of 240 mg/100 ml or more; Z20.828 Contact with and (suspected) exposure to other viral communicable diseases; Z11.59 Encounter for screening for other viral diseases; Z79.899 Other long term (current) drug therapy; Z90.49 Acquired absence of other specified parts of digestive tract; Z82.49 Family history of ischemic heart disease and other diseases of the circulatory system; Z91.030 Bee allergy status
CPT/HCPCS: 36415; 74018; 74022; 74177; 76705; 80053; 80074; 80320; 81003; 82103; 82105; 82140; 82150; 82271; 82272; 82390; 82550; 83516; 83540; 83550; 83605; 83690; 83735; 84100; 84165; 84484; 85025; 85610; 85730; 86038; 86376; 86850; 86900; 86901; 96361; 96374; 96375; 99285

== ENCOUNTER 2019-11-09 14:36 | Inpatient (IN) | payer OTHER ==
[2019-11-09] MEDS ORDERED: MORPHINE SULFATE 4 MG/ML SYRINGE IV STA (15:18)
[2019-11-09] MEDS ORDERED: ONDANSETRON 4 MG/2 ML VIAL IVP STA (15:18)
[2019-11-09] MEDS ORDERED: SODIUM CHLORIDE 0.9% 1,000 ML IV STA ×3 (15:18→22:37)
[2019-11-09] MEDS ORDERED: PANTOPRAZOLE 40 MG/10 ML VIAL IVP STA (15:18)
--- NOTE | 2019-11-09 15:27 | ED ---
Abdominal Pain HPI - General Source: patient, RN notes reviewed, old records reviewed Mode of arrival: wheelchair Limitations: no limitations <Tami Watts - Last Filed: 11/09/19 18:24> <Nargis Ramsay - Last Filed: 11/14/19 08:36> - General Chief Complaint: Abdominal Pain Stated Complaint: abd pain Time Seen by Provider: 11/09/19 15:04 - History of Present Illness Initial Comments: Is a 49-year-old male with history of alcohol abuse disorder history of diverticulitis. He reports he is recently started on antibiotics of Augmentin he believes. He states is been taking the antibiotic is uninvolved foul sme lling diarrhea. He can comes emergency department today with worsening left lower abdominal pain. Patient states that he drinks up complaint to a half a pint of liquor daily. Patient reports that he's had no recorded fevers. He states he is generally feels unwell. (Tami Watts) - Related Data Previous Rx's Medication Instructions Recorded Folic Acid 1 mg PO DAILY #30 tablet 09/26/19 LORazepam [Ativan] 1 mg PO TID PRN #10 tab 09/26/19 Multivitamins, Thera [Multivitamin 1 tab PO DAILY #30 tablet 09/26/19 (formulary)] Thiamine [Vitamin B-1] 100 mg PO BID-W/MEALS 30 Days #60 09/26/19 tab Omeprazole Magnesium [PriLOSEC OTC] 20 mg PO DAILY #30 tab 10/14/19 amLODIPine [Norvasc] 10 mg PO DAILY #30 tab 10/14/19 carvediloL [Coreg*] 12.5 mg PO BID-W/MEALS #60 tab 11/12/19 Allergies Allergy/AdvReac Type Severity Reaction Status Date / Time bee pollen Allergy Anaphylaxis Verified 11/09/19 16:35 bee venom protein (honey bee) Allergy Anaphylaxis Verified 11/09/19 16:35 Review of Systems ROS Other: All systems not noted in ROS Statement are negative. <Tami Watts - Last Filed: 11/09/19 18:24> ROS Other: All systems not noted in ROS Statement are negative. <Nargis Ramsay - Last Filed: 11/14/19 08:36> ROS Statement: Those systems with pertinent positive or pertinent negative responses have been documented in the HPI. 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 diverticultis History of Any Multi-Drug Resistant Organisms: None Reported Past Surgical History: Bowel Resection Additional Past Surgical History / Comment(s): Bowel resection r/t diverticulitis Past Anesthesia/Blood Transfusion Reactions: No Reported Reaction Past Psychological History: Anxiety, Depression Smoking Status: Current every day smoker Past Alcohol Use History: Abuse, Daily, Heavy Past Drug Use History: None Reported - Past Family History Father Family Medical History: Hypertension Additional Family Medical History / Comment(s): from Cocaine Overdose. Mother Additional Family Medical History / Comment(s): Mother from overdose of Percocet and Tequila. Esophageal varices. <Tami Watts - Last Filed: 11/09/19 18:24> General Exam Limitations: no limitations General appearance: alert, in no apparent distress Head exam: Present: atraumatic, normocephalic, normal inspection Eye exam: Present: normal appearance, PERRL, EOMI. Absent: scleral icterus, conjunctival injection, periorbital swelling ENT exam: Present: normal exam, mucous membranes moist Neck exam: Present: normal inspection. Absent: tenderness, meningismus, lymphadenopathy Respiratory exam: Present: normal lung sounds bilaterally. Absent: respiratory distress, wheezes, rales, rhonchi, stridor Cardiovascular Exam: Present: regular rate, normal rhythm, normal heart sounds. Absent: systolic murmur, diastolic murmur, rubs, gallop, clicks GI/Abdominal exam: Present: soft, tenderness (Left lower quadrant tenderness), normal bowel sounds. Absent: distended, guarding, rebound, rigid Extremities exam: Present: normal inspection, full ROM, normal capillary refill. Absent: tenderness, pedal edema, joint swelling, calf tenderness Back exam: Present: normal inspection Neurological exam: Present: alert, oriented X3, CN II-XII intact <Tami Watts - Last Filed: 11/09/19 18:24> - General Exam Comments Initial Comments: Patient rolled male. Patient appears intoxicated. (Tami Watts) Course Vital Signs 11/09/19 11/09/19 11/09/19 14:49 18:59 19:21 Temperature 98.3 F 98.2 F 97.9 F Pulse Rate 109 H 90 Pulse Rate [ 102 H Pulse Oximetery ] Respiratory 20 18 18 Rate Blood Pressure 107/73 134/89 Blood Pressure 164/97 [Left Arm] O2 Sat by Pulse 94 L 97 98 Oximetry Medical Decision Making - Lab Data Result diagrams: 11/09/19 15:30 11/09/19 15:30 - Radiology Data Radiology results: report reviewed <Tami Watts - Last Filed: 11/09/19 18:24> - Lab Data Result diagrams: 11/09/19 15:30 11/12/19 06:50 <Nargis Ramsay - Last Filed: 11/14/19 08:36> - Medical Decision Making Patient is a 49-year-old male who presents emergency department today for concernWorsening left-sided abdominal pain distention. Has been treated with antibiotics for diverticulitis. He states he is having worsening diarrhea abdominal bloating and cramping. He had significant left-sided tenderness. Labs reviewed. Does have what take acidosis the Patient is also significantly toxic. Serum I'll call level of 350. Patient was given IV hydration. White blood cell count was low at 2.9. This is been stable. He has evidence of macrocytosis consistent with his chronic alcohol use. He is unable to provide a stool sample while in emergency department. I discussed with his history of antibiotic use to test this for C. diff. When I went to discuss the CT findings show no acute process the Patient and is gone. States he has no one to pick him up the hospital. With his serum alcohol level being 350 Busby the Patient at this time for alcohol withdrawals, intractable abdominal pain and to test for C. diff with possible with leaving a stool sample. (Tami Watts) I was available for consultation in the emergency department. The history and physical exam were done by the midlevel provider. I was consulted for this patients care. I reviewed the case with the midlevel provider and based on their presentation of the patient, I agree with the assessment, medical decision making and plan of care as documented. Due to the patient's significant alcohol intoxication he will be admitted to [facility]. Patient's symptoms will be reevaluated as he becomes sober. Patient placed on CIWA protocol. Chart was dictated using [employer] dictation software. Attempts were made to correct any dictation errors however some typographical errors may persist. (Nargis Ramsay) - Lab Data Lab Results 11/09/19 11/09/19 11/09/19 Range/Units 15:20 15:30 15:30 WBC 2.8 L (3.8-10.6) k/uL RBC 4.25 L (4.30-5.90) m/uL Hgb 14.4 (13.0-17.5) gm/dL Hct 43.5 (39.0-53.0) % MCV 102.4 H (80.0-100.0) fL MCH 33.8 (25.0-35.0) pg MCHC 33.1 (31.0-37.0) g/dL RDW 12.7 (11.5-15.5) % Plt Count 88 L (150-450) k/uL Neutrophils % 68 % Lymphocytes % 22 % Monocytes % 4 % Eosinophils % 3 % Basophils % 1 % Neutrophils # 1.9 (1.3-7.7) k/uL Lymphocytes # 0.6 L (1.0-4.8) k/uL Monocytes # 0.1 (0-1.0) k/uL Eosinophils # 0.1 (0-0.7) k/uL Basophils # 0.0 (0-0.2) k/uL Macrocytosis Slight PT 10.0 (9.0-12.0) sec INR 1.0 (<1.2) APTT 23.3 (22.0-30.0) sec Sodium (137-145) mmol/L Potassium (3.5-5.1) mmol/L Chloride (98-107) mmol/L Carbon Dioxide (22-30) mmol/L Anion Gap mmol/L BUN (9-20) mg/dL Creatinine (0.66-1.25) mg/dL Est GFR (CKD-EPI)AfAm (>60 ml/min/1.73 sqM) Est GFR (CKD-EPI)NonAf (>60 ml/min/1.73 sqM) Glucose (74-99) mg/dL Lactic Ac Sepsis Rflx Plasma Lactic Acid Devonte (0.7-2.0) mmol/L Calcium (8.4-10.2) mg/dL Total Bilirubin (0.2-1.3) mg/dL AST (17-59) U/L ALT (4-49) U/L Alkaline Phosphatase (38-126) U/L Total Protein (6.3-8.2) g/dL Albumin (3.5-5.0) g/dL Amylase (30-110) U/L Lipase (23-300) U/L TSH (0.465-4.680) mIU/L Urine Color Urine Appearance (Clear) Urine pH (5.0-8.0) Ur Specific [place] (1.001-1.035) Urine Protein (Negative) Urine Glucose (UA) (Negative) Urine Ketones (Negative) Urine Blood (Negative) Urine Nitrite (Negative) Urine Bilirubin (Negative) Urine Urobilinogen (<2.0) mg/dL Ur Leukocyte Esterase (Negative) Stool Occult Blood Negative (Negative) Urine Opiates Screen (NotDetected) Ur Oxycodone Screen (NotDetected) Urine Methadone Screen (NotDetected) Ur Propoxyphene Screen (NotDetected) Ur Barbiturates Screen (NotDetected) U Tricyclic Antidepress (NotDetected) Ur Phencyclidine Scrn (NotDetected) Ur Amphetamines Screen (NotDetected) U Methamphetamines Scrn (NotDetected) U Benzodiazepines Scrn (NotDetected) Urine Cocaine Screen (NotDetected) U Marijuana (THC) Screen (NotDetected) Serum Alcohol mg/dL 11/09/19 11/09/19 11/09/19 Range/Units 15:30 15:30 15:30 WBC (3.8-10.6) k/uL RBC (4.30-5.90) m/uL Hgb (13.0-17.5) gm/dL Hct (39.0-53.0) % MCV (80.0-100.0) fL MCH (25.0-35.0) pg MCHC (31.0-37.0) g/dL RDW (11.5-15.5) % Plt Count (150-450) k/uL Neutrophils % % Lymphocytes % % Monocytes % % Eosinophils % % Basophils % % Neutrophils # (1.3-7.7) k/uL Lymphocytes # (1.0-4.8) k/uL Monocytes # (0-1.0) k/uL Eosinophils # (0-0.7) k/uL Basophils # (0-0.2) k/uL Macrocytosis PT (9.0-12.0) sec INR (<1.2) APTT (22.0-30.0) sec Sodium 139 (137-145) mmol/L Potassium 4.0 (3.5-5.1) mmol/L Chloride 104 (98-107) mmol/L Carbon Dioxide 21 L (22-30) mmol/L Anion Gap 14 mmol/L BUN 16 (9-20) mg/dL Creatinine 0.58 L (0.66-1.25) mg/dL Est GFR (CKD-EPI)AfAm >90 (>60 ml/min/1.73 sqM) Est GFR (CKD-EPI)NonAf >90 (>60 ml/min/1.73 sqM) Glucose 108 H (74-99) mg/dL Lactic Ac Sepsis Rflx Plasma Lactic Acid Devonte 2.3 H* (0.7-2.0) mmol/L Calcium 8.7 (8.4-10.2) mg/dL Total Bilirubin 0.9 (0.2-1.3) mg/dL AST 147 H (17-59) U/L ALT 105 H (4-49) U/L Alkaline Phosphatase 62 (38-126) U/L Total Protein 7.5 (6.3-8.2) g/dL Albumin 4.9 (3.5-5.0) g/dL Amylase 58 (30-110) U/L Lipase 314 H (23-300) U/L TSH 0.953 (0.465-4.680) mIU/L Urine Color Urine Appearance (Clear) Urine pH (5.0-8.0) Ur Specific [place] (1.001-1.035) Urine Protein (Negative) Urine Glucose (UA) (Negative) Urine Ketones (Negative) Urine Blood (Negative) Urine Nitrite (Negative) Urine Bilirubin (Negative) Urine Urobilinogen (<2.0) mg/dL Ur Leukocyte Esterase (Negative) Stool Occult Blood (Negative) Urine Opiates Screen (NotDetected) Ur Oxycodone Screen (NotDetected) Urine Methadone Screen (NotDetected) Ur Propoxyphene Screen (NotDetected) Ur Barbiturates Screen (NotDetected) U Tricyclic Antidepress (NotDetected) Ur Phencyclidine Scrn (NotDetected) Ur Amphetamines Screen (NotDetected) U Methamphetamines Scrn (NotDetected) U Benzodiazepines Scrn (NotDetected) Urine Cocaine Screen (NotDetected) U Marijuana (THC) Screen (NotDetected) Serum Alcohol 351 H* mg/dL 11/09/19 11/09/19 11/09/19 Range/Units 16:15 17:00 17:03 WBC (3.8-10.6) k/uL RBC (4.30-5.90) m/uL Hgb (13.0-17.5) gm/dL Hct (39.0-53.0) % MCV (80.0-100.0) fL MCH (25.0-35.0) pg MCHC (31.0-37.0) g/dL RDW (11.5-15.5) % Plt Count (150-450) k/uL Neutrophils % % Lymphocytes % % Monocytes % % Eosinophils % % Basophils % % Neutrophils # (1.3-7.7) k/uL Lymphocytes # (1.0-4.8) k/uL Monocytes # (0-1.0) k/uL Eosinophils # (0-0.7) k/uL Basophils # (0-0.2) k/uL Macrocytosis PT (9.0-12.0) sec INR (<1.2) APTT (22.0-30.0) sec Sodium (137-145) mmol/L Potassium (3.5-5.1) mmol/L Chloride (98-107) mmol/L Carbon Dioxide (22-30) mmol/L Anion Gap mmol/L BUN (9-20) mg/dL Creatinine (0.66-1.25) mg/dL Est GFR (CKD-EPI)AfAm (>60 ml/min/1.73 sqM) Est GFR (CKD-EPI)NonAf (>60 ml/min/1.73 sqM) Glucose (74-99) mg/dL Lactic Ac Sepsis Rflx Y Plasma Lactic Acid Devonte (0.7-2.0) mmol/L Calcium (8.4-10.2) mg/dL Total Bilirubin (0.2-1.3) mg/dL AST (17-59) U/L ALT (4-49) U/L Alkaline Phosphatase (38-126) U/L Total Protein (6.3-8.2) g/dL Albumin (3.5-5.0) g/dL Amylase (30-110) U/L Lipase (23-300) U/L TSH (0.465-4.680) mIU/L Urine Color Light Yellow Urine Appearance Clear (Clear) Urine pH 6.0 (5.0-8.0) Ur Specific [place] 1.038 H (1.001-1.035) Urine Protein Negative (Negative) Urine Glucose (UA) Negative (Negative) Urine Ketones Trace H (Negative) Urine Blood Negative (Negative) Urine Nitrite Negative (Negative) Urine Bilirubin Negative (Negative) Urine Urobilinogen <2.0 (<2.0) mg/dL Ur Leukocyte Esterase Negative (Negative) Stool Occult Blood (Negative) Urine Opiates Screen Detected H (NotDetected) Ur Oxycodone Screen Not Detected (NotDetected) Urine Methadone Screen Not Detected (NotDetected) Ur Propoxyphene Screen Not Detected (NotDetected) Ur Barbiturates Screen Not Detected (NotDetected) U Tricyclic Antidepress Not Detected (NotDetected) Ur Phencyclidine Scrn Not Detected (NotDetected) Ur Amphetamines Screen Not Detected (NotDetected) U Methamphetamines Scrn Not Detected (NotDetected) U Benzodiazepines Scrn Detected H (NotDetected) Urine Cocaine Screen Not Detected (NotDetected) U Marijuana (THC) Screen Not Detected (NotDetected) Serum Alcohol mg/dL 11/09/19 11/09/19 11/09/19 Range/Units 19:20 19:48 21:56 WBC (3.8-10.6) k/uL RBC (4.30-5.90) m/uL Hgb (13.0-17.5) gm/dL Hct (39.0-53.0) % MCV (80.0-100.0) fL MCH (25.0-35.0) pg MCHC (31.0-37.0) g/dL RDW (11.5-15.5) % Plt Count (150-450) k/uL Neutrophils % % Lymphocytes % % Monocytes % % Eosinophils % % Basophils % % Neutrophils # (1.3-7.7) k/uL Lymphocytes # (1.0-4.8) k/uL Monocytes # (0-1.0) k/uL Eosinophils # (0-0.7) k/uL Basophils # (0-0.2) k/uL Macrocytosis PT (9.0-12.0) sec INR (<1.2) APTT (22.0-30.0) sec Sodium (137-145) mmol/L Potassium (3.5-5.1) mmol/L Chloride (98-107) mmol/L Carbon Dioxide (22-30) mmol/L Anion Gap mmol/L BUN (9-20) mg/dL Creatinine (0.66-1.25) mg/dL Est GFR (CKD-EPI)AfAm (>60 ml/min/1.73 sqM) Est GFR (CKD-EPI)NonAf (>60 ml/min/1.73 sqM) Glucose (74-99) mg/dL Lactic Ac Sepsis Rflx Y Plasma Lactic Acid Devonte 3.0 H* 3.1 H* (0.7-2.0) mmol/L Calcium (8.4-10.2) mg/dL Total Bilirubin (0.2-1.3) mg/dL AST (17-59) U/L ALT (4-49) U/L Alkaline Phosphatase (38-126) U/L Total Protein (6.3-8.2) g/dL Albumin (3.5-5.0) g/dL Amylase (30-110) U/L Lipase (23-300) U/L TSH (0.465-4.680) mIU/L Urine Color Urine Appearance (Clear) Urine pH (5.0-8.0) Ur Specific [place] (1.001-1.035) Urine Protein (Negative) Urine Glucose (UA) (Negative) Urine Ketones (Negative) Urine Blood (Negative) Urine Nitrite (Negative) Urine Bilirubin (Negative) Urine Urobilinogen (<2.0) mg/dL Ur Leukocyte Esterase (Negative) Stool Occult Blood (Negative) Urine Opiates Screen (NotDetected) Ur Oxycodone Screen (NotDetected) Urine Methadone Screen (NotDetected) Ur Propoxyphene Screen (NotDetected) Ur Barbiturates Screen (NotDetected) U Tricyclic Antidepress (NotDetected) Ur Phencyclidine Scrn (NotDetected) Ur Amphetamines Screen (NotDetected) U Methamphetamines Scrn (NotDetected) U Benzodiazepines Scrn (NotDetected) Urine Cocaine Screen (NotDetected) U Marijuana (THC) Screen (NotDetected) Serum Alcohol mg/dL 11/09/19 11/10/19 11/10/19 Range/Units 22:19 00:25 01:17 WBC (3.8-10.6) k/uL RBC (4.30-5.90) m/uL Hgb (13.0-17.5) gm/dL Hct (39.0-53.0) % MCV (80.0-100.0) fL MCH (25.0-35.0) pg MCHC (31.0-37.0) g/dL RDW (11.5-15.5) % Plt Count (150-450) k/uL Neutrophils % % Lymphocytes % % Monocytes % % Eosinophils % % Basophils % % Neutrophils # (1.3-7.7) k/uL Lymphocytes # (1.0-4.8) k/uL Monocytes # (0-1.0) k/uL Eosinophils # (0-0.7) k/uL Basophils # (0-0.2) k/uL Macrocytosis PT (9.0-12.0) sec INR (<1.2) APTT (22.0-30.0) sec Sodium (137-145) mmol/L Potassium (3.5-5.1) mmol/L Chloride (98-107) mmol/L Carbon Dioxide (22-30) mmol/L Anion Gap mmol/L BUN (9-20) mg/dL Creatinine (0.66-1.25) mg/dL Est GFR (CKD-EPI)AfAm (>60 ml/min/1.73 sqM) Est GFR (CKD-EPI)NonAf (>60 ml/min/1.73 sqM) Glucose (74-99) mg/dL Lactic Ac Sepsis Rflx Y Y Plasma Lactic Acid Devonte 2.6 H* (0.7-2.0) mmol/L Calcium (8.4-10.2) mg/dL Total Bilirubin (0.2-1.3) mg/dL AST (17-59) U/L ALT (4-49) U/L Alkaline Phosphatase (38-126) U/L Total Protein (6.3-8.2) g/dL Albumin (3.5-5.0) g/dL Amylase (30-110) U/L Lipase (23-300) U/L TSH (0.465-4.680) mIU/L Urine Color Urine Appearance (Clear) Urine pH (5.0-8.0) Ur Specific [place] (1.001-1.035) Urine Protein (Negative) Urine Glucose (UA) (Negative) Urine Ketones (Negative) Urine Blood (Negative) Urine Nitrite (Negative) Urine Bilirubin (Negative) Urine Urobilinogen (<2.0) mg/dL Ur Leukocyte Esterase (Negative) Stool Occult Blood (Negative) Urine Opiates Screen (NotDetected) Ur Oxycodone Screen (NotDetected) Urine Methadone Screen (NotDetected) Ur Propoxyphene Screen (NotDetected) Ur Barbiturates Screen (NotDetected) U Tricyclic Antidepress (NotDetected) Ur Phencyclidine Scrn (NotDetected) Ur Amphetamines Screen (NotDetected) U Methamphetamines Scrn (NotDetected) U Benzodiazepines Scrn (NotDetected) Urine Cocaine Screen (NotDetected) U Marijuana (THC) Screen (NotDetected) Serum Alcohol mg/dL 11/10/19 Range/Units 04:16 WBC (3.8-10.6) k/uL RBC (4.30-5.90) m/uL Hgb (13.0-17.5) gm/dL Hct (39.0-53.0) % MCV (80.0-100.0) fL MCH (25.0-35.0) pg MCHC (31.0-37.0) g/dL RDW (11.5-15.5) % Plt Count (150-450) k/uL Neutrophils % % Lymphocytes % % Monocytes % % Eosinophils % % Basophils % % Neutrophils # (1.3-7.7) k/uL Lymphocytes # (1.0-4.8) k/uL Monocytes # (0-1.0) k/uL Eosinophils # (0-0.7) k/uL Basophils # (0-0.2) k/uL Macrocytosis PT (9.0-12.0) sec INR (<1.2) APTT (22.0-30.0) sec Sodium (137-145) mmol/L Potassium (3.5-5.1) mmol/L Chloride (98-107) mmol/L Carbon Dioxide (22-30) mmol/L Anion Gap mmol/L BUN (9-20) mg/dL Creatinine (0.66-1.25) mg/dL Est GFR (CKD-EPI)AfAm (>60 ml/min/1.73 sqM) Est GFR (CKD-EPI)NonAf (>60 ml/min/1.73 sqM) Glucose (74-99) mg/dL Lactic Ac Sepsis Rflx Plasma Lactic Acid [place] 2.0 (0.7-2.0) mmol/L Calcium (8.4-10.2) mg/dL Total Bilirubin (0.2-1.3) mg/dL AST (17-59) U/L ALT (4-49) U/L Alkaline Phosphatase (38-126) U/L Total Protein (6.3-8.2) g/dL Albumin (3.5-5.0) g/dL Amylase (30-110) U/L Lipase (23-300) U/L TSH (0.465-4.680) mIU/L Urine Color Urine Appearance (Clear) Urine pH (5.0-8.0) Ur Specific [place] (1.001-1.035) Urine Protein (Negative) Urine Glucose (UA) (Negative) Urine Ketones (Negative) Urine Blood (Negative) Urine Nitrite (Negative) Urine Bilirubin (Negative) Urine Urobilinogen (<2.0) mg/dL Ur Leukocyte Esterase (Negative) Stool Occult Blood (Negative) Urine Opiates Screen (NotDetected) Ur Oxycodone Screen (NotDetected) Urine Methadone Screen (NotDetected) Ur Propoxyphene Screen (NotDetected) Ur Barbiturates Screen (NotDetected) U Tricyclic Antidepress (NotDetected) Ur Phencyclidine Scrn (NotDetected) Ur Amphetamines Screen (NotDetected) U Methamphetamines Scrn (NotDetected) U Benzodiazepines Scrn (NotDetected) Urine Cocaine Screen (NotDetected) U Marijuana (THC) Screen (NotDetected) Serum Alcohol mg/dL - Radiology Data CT shows no acute process. Incidental coronary artery calcifications noted. (Tami Watts) Disposition Is patient prescribed a controlled substance at d/c from ED?: No Time of Disposition: 18:27 <Tami Watts - Last Filed: 11/09/19 18:24> <Nargis Ramsay - Last Filed: 11/14/19 08:36> Clinical Impression: Alcohol intoxication, Abdominal pain, Dehydration, Nausea & vomiting, Diarrhea Disposition: ADMITTED IP TO THIS HOSP Condition: Stable
[2019-11-09 15:52] LABS: Partial Thromboplastin Time 23.3 sec (22.0-30.0)
[2019-11-09 15:56] LABS: ALT 105 U/L (4-49); AST 147 U/L (17-59); African American GFR (CKD) >90 (>60 ml/min/1.73 sqM); Albumin 4.9 g/dL (3.5-5.0); Alkaline Phosphatase 62 U/L (38-126); Amylase 58 U/L (30-110); Anion Gap 14 mmol/L; Blood Urea Nitrogen 16 mg/dL (9-20); Calcium 8.7 mg/dL (8.4-10.2); Carbon Dioxide 21 mmol/L (22-30); Chloride 104 mmol/L (98-107); Glucose 108 mg/dL (74-99); Lipase 314 U/L (23-300); Non-African American GFR(CKD) >90 (>60 ml/min/1.73 sqM); Sodium 139 mmol/L (137-145); Total Bilirubin 0.9 mg/dL (0.2-1.3); Total Protein 7.5 g/dL (6.3-8.2)
[2019-11-09 16:14] LABS: Alcohol 351 mg/dL
[2019-11-09 16:18] LABS: Basophils % (A) 1 %; Eosinophils # (A) 0.1 k/uL (0-0.7); Eosinophils % (A) 3 %; HCT 43.5 % (39.0-53.0); HGB 14.4 gm/dL (13.0-17.5); Lymphocytes # (A) 0.6 k/uL (1.0-4.8); Lymphocytes % (A) 22 %; MCH 33.8 pg (25.0-35.0); MCHC 33.1 g/dL (31.0-37.0); MCV 102.4 fL (80.0-100.0); Macrocytosis Slight; Mean Platelet Volume 7.9; Monocytes # (A) 0.1 k/uL (0-1.0); Monocytes % (A) 4 %; Neutrophils # (A) 1.9 k/uL (1.3-7.7); Neutrophils % (A) 68 %; RBC 4.25 m/uL (4.30-5.90); RDW 12.7 % (11.5-15.5); WBC 2.8 k/uL (3.8-10.6)
[2019-11-09 16:41] LABS: Platelet Count 88 k/uL (150-450)
[2019-11-09 17:33] LABS: Appearance,Urine Clear (Clear); Bilirubin,Urine Negative (Negative); Blood,Urine Negative (Negative); Color,Urine Light Yellow; Glucose,Urine (UA) Negative (Negative); Ketones,Urine Trace (Negative); Leukocyte Esterase,Urine Negative (Negative); Nitrite,Urine Negative (Negative); Protein,Urine Negative (Negative); Specific Gravity,Urine 1.038 (1.001-1.035); Urobilinogen,Urine <2.0 mg/dL (<2.0)
[2019-11-09 17:43] LABS: Amphetamine Screen,Urine Not Detected (NotDetected); Barbiturate Screen,Urine Not Detected (NotDetected); Benzodiazepines Screen,Urine Detected (NotDetected); Cocaine Screen,Urine Not Detected (NotDetected); Methadone Screen, Urine Not Detected (NotDetected); Opiate Screen,Urine Detected (NotDetected); Oxycodone Screen, Urine Not Detected (NotDetected); Phencyclidine Screen,Urine Not Detected (NotDetected); Tricyclic Antidepressant,Urine Not Detected (NotDetected); Urn Cannabinoid Scrn Not Detected (NotDetected)
--- NOTE | 2019-11-09 17:50 | CT ---
EXAMINATION TYPE: CT abdomen pelvis w con DATE OF EXAM: 11/09/2019 COMPARISON: 10/10/2019 HISTORY: Left sided pain with nausea. CT DLP: 1596.9 mGycm Automated exposure control for dose reduction was used. TECHNIQUE: Helical acquisition of images was performed from the lung bases through the pelvis. CONTRAST: AP upright view Performed without Oral Contrast and with IV Contrast, patient injected with 100 mL of Isovue 300. FINDINGS: LUNG BASES: No acute process. Coronary calcifications noted. LIVER/GB: No significant abnormality is appreciated. PANCREAS: No significant abnormality is seen. SPLEEN: No significant abnormality is seen. ADRENALS: No significant abnormality is seen. KIDNEYS, URETERS, AND BLADDER: No significant abnormality is seen. FREE AIR: No free air is visualized. RETROPERITONEAL ADENOPATHY: None visualized REPRODUCTIVE ORGANS: No significant abnormality is seen URINARY BLADDER: No significant abnormality is seen. PELVIC ADENOPATHY: None visualized. OSSEOUS STRUCTURES: No significant abnormality is seen. BOWEL: No significant abnormality is seen. OTHER: No acute vascular findings. IMPRESSION: 1. NO ACUTE PROCESS. 2. INCIDENTAL: CORONARY CALCIFICATIONS NOTED.
[2019-11-09] MEDS ORDERED: NALOXONE 0.4 MG/ML 1 ML VIAL IV PRN (18:28)
[2019-11-09] MEDS ORDERED: ONDANSETRON 4 MG/2 ML VIAL IVP PRN (18:28)
[2019-11-09] MEDS ORDERED: KETOROLAC 30 MG/ML 1 ML VIAL IVP PRN (18:28)
[2019-11-09] MEDS ORDERED: IBUPROFEN 400 MG TAB PO PRN (18:28)
[2019-11-09] MEDS ORDERED: ACETAMINOPHEN TAB 325 MG TAB PO PRN (18:28)
[2019-11-09] MEDS ORDERED: SODIUM CHLORIDE 0.9% 1,000 ML IV SCH (18:30)
[2019-11-09] MEDS ORDERED: SODIUM CHLORIDE 0.9% 1,000 ML IV ONE (20:16)
[2019-11-09] MEDS: LORazepam 1 MG TAB PO PRN (20:49)
[2019-11-09] MEDS ORDERED: SODIUM CHLORIDE 0.9% 500 ML 500 ML IV ONE (22:35)
[2019-11-10] MEDS ORDERED: LORazepam 2 MG/ML INJ IV STA (03:04)
[2019-11-10] MEDS: amLODIPine 10 MG TAB PO SCH ×2 (03:34→08:43)
[2019-11-10] MEDS: PANTOPRAZOLE 40 MG/10 ML VIAL IV SCH (08:30)
[2019-11-10] MEDS: SODIUM CHLORIDE 0.9% 1,000 ML IV SCH ×2 (08:31→15:12)
[2019-11-10] MEDS: THIAMINE 100 MG TAB PO SCH ×2 (08:31→18:55)
[2019-11-10] MEDS: FOLIC ACID 1 MG TAB PO SCH (08:31)
[2019-11-10] MEDS: MULTIVITAMINS, THERA 1 EACH TAB PO SCH (08:31)
[2019-11-10] MEDS: LORazepam 1 MG TAB PO PRN (08:32)
[2019-11-10] MEDS ORDERED: amLODIPine 10 MG TAB PO SCH (09:00)
[2019-11-10] MEDS ORDERED: NON FORMULARY DRUG (Omeprazole Magnesium [Prilosec Otc] 20 MG) PO SCH (09:00)
[2019-11-10] MEDS ORDERED: THIAMINE 100 MG/ML 2 ML VIAL IM STA (11:39)
[2019-11-10] MEDS ORDERED: LORazepam 2 MG/ML INJ IV PRN ×2 (11:39)
[2019-11-10] MEDS: carvediloL 12.5 MG TAB PO SCH ×2 (12:53→18:56)
[2019-11-10] MEDS ORDERED: KETOROLAC 30 MG/ML 1 ML VIAL IVP PRN (13:45)
--- NOTE | 2019-11-10 13:54 | P.HPIM ---
History of Present Illness 49-year-old pleasant male came in with compressive diarrhea. Patient was diagnosed with every lightest recently and the was started on Augmentin after which patient started having diarrhea. Patient has a around 2-3 episodes of diarrhea. Urinary C. diff was ordered. Results of which are pending patient the denied any diarrhea today. Patient was comparing of lower abdominal pain. Crampy in nature [id number] in severity. Vision any fever chills. Patient does have history of alcohol abuse his alcohol level was highly elevated. On admission. Patient also had lactic acidosis. Patient is admitted for possibility of C. diff colitis as well as alcohol withdrawal. Patient denied any fever chills. Patient drinks about 2/5 of vodka every day. Computed tomography scan of the abdomen did not show any diverticulitis at this time. TSH is within normal limits patient is tachycardic at this time Review of Systems REVIEW OF SYSTEMS: CONSTITUTIONAL: No fever, no malaise, no fatigue. HEENT: No recent visual problems or hearing problems. Denied any sore throat. CARDIOVASCULAR: No chest pain, orthopnea, PND, no palpitations, no syncope. PULMONARY: No shortness of breath, no cough, no hemoptysis. GASTROINTESTINAL: As mentioned in HPI NEUROLOGICAL: No headaches, no weakness, no numbness. HEMATOLOGICAL: Denies any bleeding or petechiae. GENITOURINARY: Denies any burning micturition, frequency, or urgency. MUSCULOSKELETAL/RHEUMATOLOGICAL: Denies any joint pain, swelling, or any muscle pain. ENDOCRINE: Denies any polyuria or polydipsia. The rest of the 14-point review of systems is negative. 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 diverticultis History of Any Multi-Drug Resistant Organisms: None Reported Past Surgical History: Bowel Resection Additional Past Surgical History / Comment(s): Bowel resection r/t diverticulitis Past Anesthesia/Blood Transfusion Reactions: No Reported Reaction Past Psychological History: Anxiety, Depression Smoking Status: Former smoker Past Alcohol Use History: Abuse, Daily, Heavy Additional Past Alcohol Use History / Comment(s): Currently abusing alcohol- patient describes drinking 2 fifths of Vodka daily. Had stopped drinking for a couple months and started drinking again on Day. Past Drug Use History: None Reported - Past Family History Father Family Medical History: Hypertension Additional Family Medical History / Comment(s): from Cocaine Overdose. Mother Additional Family Medical History / Comment(s): Mother from overdose of Percocet and Tequila. Esophageal varices. Medications and Allergies Home Medications Medication Instructions Recorded Confirmed Type Folic Acid 1 mg PO DAILY #30 tablet 09/26/19 11/09/19 Rx LORazepam [Ativan] 1 mg PO TID PRN #10 tab 09/26/19 11/09/19 Rx Multivitamins, Thera [Multivitamin 1 tab PO DAILY #30 tablet 09/26/19 11/09/19 Rx (formulary)] Thiamine [Vitamin B-1] 100 mg PO BID-W/MEALS 30 Days #60 09/26/19 11/09/19 Rx tab Omeprazole Magnesium [PriLOSEC OTC] 20 mg PO DAILY #30 tab 10/14/19 11/09/19 Rx amLODIPine [Norvasc] 10 mg PO DAILY #30 tab 10/14/19 11/09/19 Rx Allergies Allergy/AdvReac Type Severity Reaction Status Date / Time bee pollen Allergy Anaphylaxis Verified 11/09/19 16:35 bee venom protein (honey bee) Allergy Anaphylaxis Verified 11/09/19 16:35 Physical Exam Vitals: Vital Signs Temp Pulse Pulse Resp BP BP Pulse Ox 11/10/19 09:00 98.3 F 127 H 20 184/92 11/10/19 06:24 103 H 173/94 98 11/10/19 03:01 112 H 11/10/19 03:00 98.8 F 112 H 17 176/96 96 11/09/19 21:00 102 H 11/09/19 19:21 97.9 F 90 18 134/89 98 11/09/19 18:59 98.2 F 102 H 18 164/97 97 11/09/19 14:49 98.3 F 109 H 20 107/73 94 L Intake and Output 11/09/19 11/10/19 11/10/19 22:59 06:59 14:59 Intake Total 1000 Balance 1000 Intake: Intake, IV Titration 1000 Amount Sodium Chloride 0.9% 1, 1000 000 ml @ 999 mls/hr IV . Q1H1M ONE Rx#:[id number] Other: # Voids 2 2 # Bowel Movements 1 Weight 104.326 kg PHYSICAL EXAMINATION: GENERAL: The patient is alert and oriented x3, not in any acute distress. Well developed, well nourished. Patient does have some nonessential tremors at this time HEENT: Pupils are round and equally reacting to light. EOMI. No scleral icterus. No conjunctival pallor. Normocephalic, atraumatic. No pharyngeal erythema. No thyromegaly. CARDIOVASCULAR: S1 and S2 present. No murmurs, rubs, or gallops. PULMONARY: Chest is clear to auscultation, no wheezing or crackles. ABDOMEN: Soft, nontender, nondistended, normoactive bowel sounds. No palpable organomegaly. MUSCULOSKELETAL: No joint swelling or deformity. EXTREMITIES: No cyanosis, clubbing, or pedal edema. NEUROLOGICAL: Gross neurological examination did not reveal any focal deficits. SKIN: No rashes. Results CBC & Chem 7: 11/09/19 15:30 11/09/19 15:30 Labs: Abnormal Lab Results - Last 24 Hours (Table) 11/09/19 11/09/19 11/09/19 Range/Units 15:30 15:30 15:30 WBC 2.8 L (3.8-10.6) k/uL RBC 4.25 L (4.30-5.90) m/uL MCV 102.4 H (80.0-100.0) fL Plt Count 88 L (150-450) k/uL Lymphocytes # 0.6 L (1.0-4.8) k/uL Carbon Dioxide 21 L (22-30) mmol/L Creatinine 0.58 L (0.66-1.25) mg/dL Glucose 108 H (74-99) mg/dL Plasma Lactic Acid [place] 2.3 H* (0.7-2.0) mmol/L AST 147 H (17-59) U/L ALT 105 H (4-49) U/L Lipase 314 H (23-300) U/L Ur Specific [place] (1.001-1.035) Urine Ketones (Negative) Urine Opiates Screen (NotDetected) U Benzodiazepines Scrn (NotDetected) Serum Alcohol 351 H* mg/dL 11/09/19 11/09/19 11/09/19 Range/Units 17:00 17:03 19:20 WBC (3.8-10.6) k/uL RBC (4.30-5.90) m/uL MCV (80.0-100.0) fL Plt Count (150-450) k/uL Lymphocytes # (1.0-4.8) k/uL Carbon Dioxide (22-30) mmol/L Creatinine (0.66-1.25) mg/dL Glucose (74-99) mg/dL Plasma Lactic Acid [place] 3.0 H* (0.7-2.0) mmol/L AST (17-59) U/L ALT (4-49) U/L Lipase (23-300) U/L Ur Specific [place] 1.038 H (1.001-1.035) Urine Ketones Trace H (Negative) Urine Opiates Screen Detected H (NotDetected) U Benzodiazepines Scrn Detected H (NotDetected) Serum Alcohol mg/dL 11/09/19 11/10/19 Range/Units 21:56 00:25 WBC (3.8-10.6) k/uL RBC (4.30-5.90) m/uL MCV (80.0-100.0) fL Plt Count (150-450) k/uL Lymphocytes # (1.0-4.8) k/uL Carbon Dioxide (22-30) mmol/L Creatinine (0.66-1.25) mg/dL Glucose (74-99) mg/dL Plasma Lactic Acid [place] 3.1 H* 2.6 H* (0.7-2.0) mmol/L AST (17-59) U/L ALT (4-49) U/L Lipase (23-300) U/L Ur Specific [place] (1.001-1.035) Urine Ketones (Negative) Urine Opiates Screen (NotDetected) U Benzodiazepines Scrn (NotDetected) Serum Alcohol mg/dL Microbiology - Last 24 Hours (Table) 11/09/19 15:20 Stool Culture - Preliminary Stool Thrombosis Risk Factor Assmnt - Choose All That Apply Any of the Below Risk Factors Present?: Yes Each Factor Represents 1 point: Age 41-60 years, Obesity (BMI >25) Other Risk Factors: No Other congenital or acquired thrombophilia - If yes, enter type in comment: No Thrombosis Risk Factor Assessment Total Risk Factor Score: 2 Thrombosis Risk Factor Assessment Level: Low Risk Assessment and Plan Plan: -Diarrhea: Probably an erratic induced patient diarrhea resolved at this time if patient's continues to have diarrhea we will obtain C. diff testing at that time. -Alcohol abuse, alcohol withdrawal: Patient appears to have alcohol withdrawals at this time patient will be continued on as Ativan [facility] protocol patient will continued on thiamine multivitamin supplementation -Thrombocytopenia from alcohol abuse and macrocytic anemia secondary to alcohol abuse -Tachycardia seconded all call withdrawal patient will be started on beta blocke r for this -Acute alcoholic hepatitis -Depression -Nicotine abuse: Counseling was provided -Hypertension -GI prophylaxis with Protonix due to prophylaxis with the Lovenox
[2019-11-10] MEDS: LORazepam 2 MG/ML INJ IV PRN ×3 (16:18→23:19)
[2019-11-10] MEDS ORDERED: THIAMINE 100 MG TAB PO SCH (17:30)
[2019-11-11] MEDS: LORazepam 2 MG/ML INJ IV PRN (03:55)
[2019-11-11] MEDS: SODIUM CHLORIDE 0.9% 1,000 ML IV SCH ×4 (05:19→21:06)
[2019-11-11 06:19] LABS: ALT 180 U/L (4-49); AST 367 U/L (17-59); African American GFR (CKD) >90 (>60 ml/min/1.73 sqM); Albumin 4.4 g/dL (3.5-5.0); Alkaline Phosphatase 50 U/L (38-126); Anion Gap 8 mmol/L; Blood Urea Nitrogen 12 mg/dL (9-20); Calcium 9.2 mg/dL (8.4-10.2); Carbon Dioxide 24 mmol/L (22-30); Chloride 105 mmol/L (98-107); Glucose 107 mg/dL (74-99); Non-African American GFR(CKD) >90 (>60 ml/min/1.73 sqM); Potassium 3.8 mmol/L (3.5-5.1); Sodium 137 mmol/L (137-145); Total Bilirubin 1.5 mg/dL (0.2-1.3); Total Protein 7.2 g/dL (6.3-8.2)
[2019-11-11] MEDS: carvediloL 12.5 MG TAB PO SCH ×2 (07:59→17:51)
[2019-11-11] MEDS: THIAMINE 100 MG TAB PO SCH ×2 (08:00→17:51)
[2019-11-11] MEDS: MULTIVITAMINS, THERA 1 EACH TAB PO SCH (08:05)
[2019-11-11] MEDS: amLODIPine 10 MG TAB PO SCH ×2 (08:05→08:09)
[2019-11-11] MEDS: FOLIC ACID 1 MG TAB PO SCH (08:05)
[2019-11-11] MEDS: ENOXAPARIN 40 MG/0.4 ML SYRINGE SQ SCH (08:06)
[2019-11-11] MEDS: PANTOPRAZOLE 40 MG/10 ML VIAL IV SCH (08:06)
--- NOTE | 2019-11-11 16:39 | P.PN ---
Subjective 49-year-old pleasant male came in with compressive diarrhea. Patient was diagnosed with every lightest recently and the was started on Augmentin after which patient started having diarrhea. Patient has a around 2-3 episodes of diarrhea. Urinary C. diff was ordered. Results of which are pending patient the denied any diarrhea today. Patient was comparing of lower abdominal pain. Crampy in nature [id number] in severity. Vision any fever chills. Patient does have history of alcohol abuse his alcohol level was highly elevated. On admission. Patient also had lactic acidosis. Patient is admitted for possibility of C. diff colitis as well as alcohol withdrawal. Patient denied any fever chills. Patient drinks about 2/5 of vodka every day. Computed tomography scan of the abdomen did not show any diverticulitis at this time. TSH is within normal limits patient is tachycardic at this time. 11/11/2019 Patient is not having any withdrawals at this time but he is a liver enzymes went up because of which are not discharge the patient today we will repeat liver enzymes tomorrow make sure they're not going up before and I discharged the patient. Patient lactic acidosis resolved patient is still complaining of bilateral lower abdominal pain of the CAT scan did not show any significant abnormality etiology is not clear if patient can use to have this abdominal pain will need an outpatient colonoscopy patient will be referred to gastroenterology Objective - Vital Signs Vital signs: Vital Signs Temp 98.2 F 11/11/19 12:15 Pulse 94 11/11/19 12:15 Resp 18 11/11/19 12:15 BP 131/84 11/11/19 12:15 Pulse Ox 98 11/11/19 12:15 Intake & Output 11/10/19 11/11/19 11/11/19 18:59 06:59 18:59 Other: # Voids 2 1 2 # Bowel Movements 1 - Exam PHYSICAL EXAMINATION: GENERAL: The patient is alert and oriented x3, not in any acute distress. Obese HEENT: Pupils are round and equally reacting to light. EOMI. No scleral icterus. No conjunctival pallor. Normocephalic, atraumatic. No pharyngeal erythema. No thyromegaly. CARDIOVASCULAR: S1 and S2 present. No murmurs, rubs, or gallops. PULMONARY: Chest is clear to auscultation, no wheezing or crackles. ABDOMEN: Soft, nontender, nondistended, normoactive bowel sounds. No palpable organomegaly. MUSCULOSKELETAL: No joint swelling or deformity. EXTREMITIES: No cyanosis, clubbing, or pedal edema. NEUROLOGICAL: Gross neurological examination did not reveal any focal deficits. SKIN: No rashes. - Labs CBC & Chem 7: 11/09/19 15:30 11/11/19 05:54 Labs: Abnormal Lab Results - Last 24 Hours (Table) 11/11/19 Range/Units 05:54 Creatinine 0.51 L (0.66-1.25) mg/dL Glucose 107 H (74-99) mg/dL Total Bilirubin 1.5 H (0.2-1.3) mg/dL AST 367 H (17-59) U/L ALT 180 H (4-49) U/L Assessment and Plan Plan: -Diarrhea: Probably an antibiotic associated diarrhe resolved, unable to obtain's sample for C. diff as his diarrhea resolved -Alcohol abuse, alcohol withdrawal: Patient doesn't have any alcohol withdrawal at this time patient was drinking on and off lately but does have acute alcoh olic hepatitis because of his alcohol use couple days ago. -Acute alcoholic hepatitis: We'll repeat liver enzymes tomorrow if they're stable or coming down patient will be discharged tomorrow -Continued nonspecific abdominal pain mild follow-up with gastroneurology as an outpatient for possible colonoscopy. Continues to have pain etiology is not clear -Thrombocytopenia from alcohol abuse and macrocytic anemia secondary to alcohol abuse -Tachycardia due to intravascular depletion which resolved at this time it -Lactic acidosis due to intravascular depletion from alcohol use and improved now -Acute alcoholic hepatitis -Depression -Nicotine abuse: Counseling was provided -Hypertension -GI prophylaxis with Protonix due to prophylaxis with the Lovenox
[2019-11-11] MEDS: LORazepam 1 MG TAB PO PRN (21:06)
[2019-11-11] MEDS ORDERED: MELATONIN 5 MG TABLET PO SCH (23:45)
[2019-11-12 04:35] VITALS: PULSE 76; TEMP 98.1
[2019-11-12] MEDS: SODIUM CHLORIDE 0.9% 1,000 ML IV SCH ×3 (07:45→15:29)
[2019-11-12 08:08] LABS: ALT 267 U/L (4-49); AST 330 U/L (17-59); African American GFR (CKD) >90 (>60 ml/min/1.73 sqM); Albumin 4.4 g/dL (3.5-5.0); Alkaline Phosphatase 46 U/L (38-126); Anion Gap 9 mmol/L; Blood Urea Nitrogen 11 mg/dL (9-20); Carbon Dioxide 24 mmol/L (22-30); Chloride 106 mmol/L (98-107); Glucose 101 mg/dL (74-99); Non-African American GFR(CKD) >90 (>60 ml/min/1.73 sqM); Potassium 3.6 mmol/L (3.5-5.1); Sodium 139 mmol/L (137-145); Total Bilirubin 1.5 mg/dL (0.2-1.3); Total Protein 7.1 g/dL (6.3-8.2)
[2019-11-12] MEDS: MULTIVITAMINS, THERA 1 EACH TAB PO SCH (08:20)
[2019-11-12] MEDS: carvediloL 12.5 MG TAB PO SCH (08:21)
[2019-11-12] MEDS: PANTOPRAZOLE 40 MG/10 ML VIAL IV SCH (08:21)
[2019-11-12] MEDS: THIAMINE 100 MG TAB PO SCH (08:21)
[2019-11-12] MEDS: ENOXAPARIN 40 MG/0.4 ML SYRINGE SQ SCH (08:21)
[2019-11-12] MEDS: FOLIC ACID 1 MG TAB PO SCH (08:21)
[2019-11-12 11:40] VITALS: BP 135/85; RESP 20
[2019-11-12] MEDS: LORazepam 1 MG TAB PO PRN (15:29)
--- NOTE | 2019-11-12 16:32 | P.DS ---
Providers Date of admission: 11/10/19 11:28 Attending physician: Renan Velázquez Primary care physician: Stated None Hospital Course: 49-year-old pleasant male came in with compressive diarrhea. Patient was diagnosed with every lightest recently and the was started on Augmentin after which patient started having diarrhea. Patient has a around 2-3 episodes of diarrhea. C. diff was ordered. Results of which are pending patient the denied any diarrhea today. Patient was comparing of lower abdominal pain. Crampy in nature [id number] in severity. Vision any fever chills. Patient does have history of alcohol abuse his alcohol level was highly elevated . On admission. Patient also had lactic acidosis. Patient is admitted for possibility of C. diff colitis as well as alcohol withdrawal. Patient denied any fever chills. Patient drinks about 2/5 of vodka every day. Computed tomography scan of the abdomen did not show any diverticulitis at this time. TSH is within normal limits patient is tachycardic at this time. 11/11/2019 Patient is not having any withdrawals at this time but he is a liver enzymes went up because of which are not discharge the patient today we will repeat liver enzymes tomorrow make sure they're not going up before and I discharged the patient. Patient lactic acidosis resolved patient is still complaining of bilateral lower abdominal pain of the CAT scan did not show any significant abnormality etiology is not clear if patient can use to have this abdominal pain will need an outpatient colonoscopy patient will be referred to gastroenterology 11/12/2019 Patient's liver enzymes are improving will be discharged today. PHYSICAL EXAMINATION: GENERAL: The patient is alert and oriented x3, not in any acute distress. Obese HEENT: Pupils are round and equally reacting to light. EOMI. No scleral icterus. No conjunctival pallor. Normocephalic, atraumatic. No pharyngeal erythema. No thyromegaly. CARDIOVASCULAR: S1 and S2 present. No murmurs, rubs, or gallops. PULMONARY: Chest is clear to auscultation, no wheezing or crackles. ABDOMEN: Soft, nontender, nondistended, normoactive bowel sounds. No palpable organomegaly. MUSCULOSKELETAL: No joint swelling or deformity. EXTREMITIES: No cyanosis, clubbing, or pedal edema. NEUROLOGICAL: Gross neurological examination did not reveal any focal deficits. SKIN: No rashes. Assessment and Plan Plan: -Diarrhea: Probably an antibiotic associated diarrhe resolved, unable to obtain's sample for C. diff as his diarrhea resolved -Alcohol abuse, alcohol withdrawal: -Acute alcoholic hepatitis: Liver enzymes trended down -Thrombocytopenia from alcohol abuse and macrocytic anemia secondary to alcohol abuse -Tachycardia due to intravascular depletion which improved with IV fluids patient is also on beta fiona -Lactic acidosis due to intravascular depletion from alcohol use and improved now -Acute alcoholic hepatitis -Depression -Nicotine abuse: Counseling was provided -Hypertension Patient Condition at Discharge: Stable Plan - Discharge Summary Discharge Rx Participant: Yes New Discharge Prescriptions: New carvediloL [Coreg*] 12.5 mg PO BID-W/MEALS #60 tab Continue Folic Acid 1 mg PO DAILY #30 tablet Multivitamins, Thera [Multivitamin (formulary)] 1 tab PO DAILY #30 tablet Thiamine [Vitamin B-1] 100 mg PO BID-W/MEALS 30 Days #60 tab LORazepam [Ativan] 1 mg PO TID PRN #10 tab PRN Reason: Anxiety amLODIPine [Norvasc] 10 mg PO DAILY #30 tab Omeprazole Magnesium [PriLOSEC OTC] 20 mg PO DAILY #30 tab Discharge Medication List Folic Acid 1 mg PO DAILY #30 tablet 09/26/19 [Rx] LORazepam [Ativan] 1 mg PO TID PRN #10 tab 09/26/19 [Rx] Multivitamins, Thera [Multivitamin (formulary)] 1 tab PO DAILY #30 tablet 09/26/19 [Rx] Thiamine [Vitamin B-1] 100 mg PO BID-W/MEALS 30 Days #60 tab 09/26/19 [Rx] Omeprazole Magnesium [PriLOSEC OTC] 20 mg PO DAILY #30 tab 10/14/19 [Rx] amLODIPine [Norvasc] 10 mg PO DAILY #30 tab 10/14/19 [Rx] carvediloL [Coreg*] 12.5 mg PO BID-W/MEALS #60 tab 11/12/19 [Rx] Follow up Appointment(s)/Referral(s): None,Stated [Primary Care Provider] - 1-2 days Uli Ram MD [STAFF PHYSICIAN] - 1 Week Discharge Disposition: HOME SELF-CARE
== END 2019-11-12 17:08 | disposition home or self-care (01) | DRG 394 ==
LOC: EC 14:36 → 1SOBS 18:25 → OBSVTOIN 11-10 11:28 → 5NMEDONC 11-11 11:31
PROVIDERS: ADMIT Hospitalist; ATTEND Hospitalist
DX: K52.1 Toxic gastroenteritis and colitis (principal); E87.2 Acidosis; F10.239 Alcohol dependence with withdrawal, unspecified; D69.59 Other secondary thrombocytopenia; D53.9 Nutritional anemia, unspecified; E86.0 Dehydration; F10.229 Alcohol dependence with intoxication, unspecified; F32.9 Major depressive disorder, single episode, unspecified; F17.200 Nicotine dependence, unspecified, uncomplicated; F41.9 Anxiety disorder, unspecified; I10 Essential (primary) hypertension; R00.0 Tachycardia, unspecified; K70.10 Alcoholic hepatitis without ascites; Z79.899 Other long term (current) drug therapy; Z82.49 Family history of ischemic heart disease and other diseases of the circulatory system; Z91.030 Bee allergy status; Z90.49 Acquired absence of other specified parts of digestive tract; Z87.19 Personal history of other diseases of the digestive system
CPT/HCPCS: 36415; 74177; 80053; 80306; 80320; 81003; 82150; 82272; 83605; 83690; 84443; 85025; 85610; 85730; 87045; 87046; 96361; 96374; 96375; 99285

== ENCOUNTER 2019-12-15 15:44 | Emergency (ER) | payer OTHER ==
[2019-12-15] MEDS ORDERED: SODIUM CHLORIDE 0.9% 1,000 ML IV STA (16:21)
[2019-12-15] MEDS ORDERED: HYDROmorphone 0.5 MG/0.5 ML SYRINGE IVP STA (16:42)
[2019-12-15] MEDS ORDERED: ONDANSETRON 4 MG/2 ML VIAL IVP STA (16:42)
[2019-12-15 17:14] LABS: Amorphous Sediment,Urine Rare /hpf; Appearance,Urine Clear (Clear); Bacteria,Urine Rare /hpf; Bilirubin,Urine Negative (Negative); Blood,Urine Trace (Negative); Color,Urine Light Yellow; Glucose,Urine (UA) Negative (Negative); Ketones,Urine Negative (Negative); Leukocyte Esterase,Urine Negative (Negative); Mucus,Urine Rare /hpf; Nitrite,Urine Negative (Negative); PH, Urine 5.5 (5.0-8.0); Protein,Urine 1+ (Negative); RBC,Urine <1 /hpf (0-5); Specific Gravity,Urine 1.006 (1.001-1.035); Squamous Epithelial Cell,Urine <1 /hpf (0-4); Urobilinogen,Urine <2.0 mg/dL (<2.0); WBC,Urine <1 /hpf (0-5)
[2019-12-15 17:19] LABS: ALT 238 U/L (4-49); AST 329 U/L (17-59); African American GFR (CKD) >90 (>60 ml/min/1.73 sqM); Albumin 5.3 g/dL (3.5-5.0); Alkaline Phosphatase 58 U/L (38-126); Amylase 67 U/L (30-110); Anion Gap 15 mmol/L; Blood Urea Nitrogen 14 mg/dL (9-20); Calcium 9.6 mg/dL (8.4-10.2); Carbon Dioxide 20 mmol/L (22-30); Chloride 107 mmol/L (98-107); Glucose 112 mg/dL (74-99); Non-African American GFR(CKD) >90 (>60 ml/min/1.73 sqM); Potassium 4.4 mmol/L (3.5-5.1); Sodium 142 mmol/L (137-145); Total Bilirubin 0.9 mg/dL (0.2-1.3); Total Protein 8.7 g/dL (6.3-8.2)
[2019-12-15 17:24] LABS: Alcohol 280 mg/dL
[2019-12-15 17:33] LABS: Basophils % (A) 1 %; Eosinophils # (A) 0.1 k/uL (0-0.7); Eosinophils % (A) 3 %; HCT 43.9 % (39.0-53.0); Lymphocytes # (A) 0.8 k/uL (1.0-4.8); Lymphocytes % (A) 25 %; MCH 34.6 pg (25.0-35.0); MCHC 34.2 g/dL (31.0-37.0); MCV 100.9 fL (80.0-100.0); Mean Platelet Volume 7.9; Monocytes # (A) 0.2 k/uL (0-1.0); Monocytes % (A) 7 %; Neutrophils # (A) 1.9 k/uL (1.3-7.7); Neutrophils % (A) 61 %; RBC 4.35 m/uL (4.30-5.90); RDW 12.9 % (11.5-15.5); WBC 3.2 k/uL (3.8-10.6)
[2019-12-15 18:18] LABS: Platelet Count 75 k/uL (150-450)
[2019-12-15] MEDS ORDERED: LORazepam 2 MG/ML INJ IV STA (18:59)
--- NOTE | 2019-12-15 19:06 | ED ---
Abdominal Pain HPI - General Chief Complaint: Abdominal Pain Stated Complaint: ABD pain Time Seen by Provider: 12/15/19 16:21 Source: patient, RN notes reviewed Mode of arrival: ambulatory Limitations: no limitations - History of Present Illness Initial Comments: 49-year-old male presents emergency Department chief complaint abdominal pain. Patient states he has sudden onset of right upper quadrant pain. He's been evaluated several times emergency from for similar complaints. Patient does admit that he drank alcohol today and is had issues with alcohol abuse. Patient has known elevated liver function tests. Patient states that he's had slight nausea one episode of vomiting. No fevers or chills. - Related Data Previous Rx's Medication Instructions Recorded Folic Acid 1 mg PO DAILY #30 tablet 09/26/19 LORazepam [Ativan] 1 mg PO TID PRN #10 tab 09/26/19 Multivitamins, Thera [Multivitamin 1 tab PO DAILY #30 tablet 09/26/19 (formulary)] Thiamine [Vitamin B-1] 100 mg PO BID-W/MEALS 30 Days #60 09/26/19 tab Omeprazole Magnesium [PriLOSEC OTC] 20 mg PO DAILY #30 tab 10/14/19 amLODIPine [Norvasc] 10 mg PO DAILY #30 tab 10/14/19 carvediloL [Coreg*] 12.5 mg PO BID-W/MEALS #60 tab 11/12/19 Allergies Allergy/AdvReac Type Severity Reaction Status Date / Time bee pollen Allergy Anaphylaxis Verified 12/15/19 16:14 bee venom protein (honey bee) Allergy Anaphylaxis Verified 12/15/19 16:14 Review of Systems ROS Statement: Those systems with pertinent positive or pertinent negative responses have been documented in the HPI. ROS Other: All systems not noted in ROS Statement are negative. 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 diverticultis History of Any Multi-Drug Resistant Organisms: None Reported Past Surgical History: Bowel Resection Additional Past Surgical History / Comment(s): Bowel resection r/t diverticulitis Past Anesthesia/Blood Transfusion Reactions: No Reported Reaction Past Psychological History: Anxiety, Depression Smoking Status: Former smoker Past Alcohol Use History: Abuse, Daily, Heavy Past Drug Use History: None Reported - Past Family History Father Family Medical History: Hypertension Additional Family Medical History / Comment(s): from Cocaine Overdose. Mother Additional Family Medical History / Comment(s): Mother from overdose of Percocet and Tequila. Esophageal varices. General Exam Limitations: no limitations Course Vital Signs 12/15/19 16:10 Temperature 98.0 F Pulse Rate 92 Respiratory 18 Rate Blood Pressure 174/115 O2 Sat by Pulse 98 Oximetry Procedures - [place] Protocol (Time Out) Nurse: Yudelka Porter Medical Decision Making - Medical Decision Making 49-year-old male presented for abdominal pain. Patient has transaminitis which is been ongoing. Bilirubin is unremarkable. Patient feels improved at this ti dc. Patient had increasing pain secondary to alcohol use. Patient instructed not to drink and follow-up with AA. She did have hypertension which is improved emergency room. He is advised follow-up with PCP. Patient discharged to mother inl - Lab Data Result diagrams: 12/15/19 16:48 12/15/19 16:48 Lab Results 12/15/19 12/15/19 12/15/19 Range/Units 16:48 16:48 16:48 WBC 3.2 L (3.8-10.6) k/uL RBC 4.35 (4.30-5.90) m/uL Hgb 15.0 (13.0-17.5) gm/dL Hct 43.9 (39.0-53.0) % MCV 100.9 H (80.0-100.0) fL MCH 34.6 (25.0-35.0) pg MCHC 34.2 (31.0-37.0) g/dL RDW 12.9 (11.5-15.5) % Plt Count 75 L (150-450) k/uL Neutrophils % 61 % Lymphocytes % 25 % Monocytes % 7 % Eosinophils % 3 % Basophils % 1 % Neutrophils # 1.9 (1.3-7.7) k/uL Lymphocytes # 0.8 L (1.0-4.8) k/uL Monocytes # 0.2 (0-1.0) k/uL Eosinophils # 0.1 (0-0.7) k/uL Basophils # 0.0 (0-0.2) k/uL Manual Slide Review Performed RBC Morphology Normal Sodium 142 (137-145) mmol/L Potassium 4.4 (3.5-5.1) mmol/L Chloride 107 (98-107) mmol/L Carbon Dioxide 20 L (22-30) mmol/L Anion Gap 15 mmol/L BUN 14 (9-20) mg/dL Creatinine 0.68 (0.66-1.25) mg/dL Est GFR (CKD-EPI)AfAm >90 (>60 ml/min/1.73 sqM) Est GFR (CKD-EPI)NonAf >90 (>60 ml/min/1.73 sqM) Glucose 112 H (74-99) mg/dL Plasma Lactic Acid [place] 1.9 (0.7-2.0) mmol/L Calcium 9.6 (8.4-10.2) mg/dL Total Bilirubin 0.9 (0.2-1.3) mg/dL AST 329 H (17-59) U/L ALT 238 H (4-49) U/L Alkaline Phosphatase 58 (38-126) U/L Total Protein 8.7 H (6.3-8.2) g/dL Albumin 5.3 H (3.5-5.0) g/dL Amylase 67 (30-110) U/L Lipase 430 H (23-300) U/L Urine Color Urine Appearance (Clear) Urine pH (5.0-8.0) Ur Specific [place] (1.001-1.035) Urine Protein (Negative) Urine Glucose (UA) (Negative) Urine Ketones (Negative) Urine Blood (Negative) Urine Nitrite (Negative) Urine Bilirubin (Negative) Urine Urobilinogen (<2.0) mg/dL Ur Leukocyte Esterase (Negative) Urine RBC (0-5) /hpf Urine WBC (0-5) /hpf Ur Squamous Epith Cells (0-4) /hpf Amorphous Sediment (None) /hpf Urine Bacteria (None) /hpf Urine Mucus (None) /hpf Serum Alcohol 280 H* mg/dL 12/15/19 Range/Units 16:59 WBC (3.8-10.6) k/uL RBC (4.30-5.90) m/uL Hgb (13.0-17.5) gm/dL Hct (39.0-53.0) % MCV (80.0-100.0) fL MCH (25.0-35.0) pg MCHC (31.0-37.0) g/dL RDW (11.5-15.5) % Plt Count (150-450) k/uL Neutrophils % % Lymphocytes % % Monocytes % % Eosinophils % % Basophils % % Neutrophils # (1.3-7.7) k/uL Lymphocytes # (1.0-4.8) k/uL Monocytes # (0-1.0) k/uL Eosinophils # (0-0.7) k/uL Basophils # (0-0.2) k/uL Manual Slide Review RBC Morphology Sodium (137-145) mmol/L Potassium (3.5-5.1) mmol/L Chloride (98-107) mmol/L Carbon Dioxide (22-30) mmol/L Anion Gap mmol/L BUN (9-20) mg/dL Creatinine (0.66-1.25) mg/dL Est GFR (CKD-EPI)AfAm (>60 ml/min/1.73 sqM) Est GFR (CKD-EPI)NonAf (>60 ml/min/1.73 sqM) Glucose (74-99) mg/dL Plasma Lactic Acid [place] (0.7-2.0) mmol/L Calcium (8.4-10.2) mg/dL Total Bilirubin (0.2-1.3) mg/dL AST (17-59) U/L ALT (4-49) U/L Alkaline Phosphatase (38-126) U/L Total Protein (6.3-8.2) g/dL Albumin (3.5-5.0) g/dL Amylase (30-110) U/L Lipase (23-300) U/L Urine Color Light Yellow Urine Appearance Clear (Clear) Urine pH 5.5 (5.0-8.0) Ur Specific [place] 1.006 (1.001-1.035) Urine Protein 1+ H (Negative) Urine Glucose (UA) Negative (Negative) Urine Ketones Negative (Negative) Urine Blood Trace H (Negative) Urine Nitrite Negative (Negative) Urine Bilirubin Negative (Negative) Urine Urobilinogen <2.0 (<2.0) mg/dL Ur Leukocyte Esterase Negative (Negative) Urine RBC <1 (0-5) /hpf Urine WBC <1 (0-5) /hpf Ur Squamous Epith Cells <1 (0-4) /hpf Amorphous Sediment Rare H (None) /hpf Urine Bacteria Rare H (None) /hpf Urine Mucus Rare H (None) /hpf Serum Alcohol mg/dL Disposition Clinical Impression: Alcohol intoxication, Abdominal pain, Hypertension Disposition: HOME SELF-CARE Condition: Stable Instructions (If sedation given, give patient instructions): Abdominal Pain (ED) Additional Instructions: Please return to the Emergency Department if symptoms worsen or any other concerns. Is patient prescribed a controlled substance at d/c from ED?: No Referrals: None,Stated [Primary Care Provider] - 1-2 days Time of Disposition: 19:06
[2019-12-15] MEDS ORDERED: hydrALAZINE HCL 20 MG/ML 1 ML VIAL IVP STA (19:10)
[2019-12-15 20:48] VITALS: BP 151/98; PULSE 65; RESP 19; TEMP 98.2
== END 2019-12-15 20:47 | disposition home or self-care (01) ==
LOC: EC 15:44
DX: R10.11 Right upper quadrant pain (principal); R11.0 Nausea; I10 Essential (primary) hypertension; F10.129 Alcohol abuse with intoxication, unspecified; Z91.030 Bee allergy status; Z87.891 Personal history of nicotine dependence; Y90.8 Blood alcohol level of 240 mg/100 ml or more
CPT/HCPCS: 36415; 80053; 82150; 83605; 83690; 85025; 81001; 99284; 96374; 96375 ×3; G0480; J2060; J0360; J2405; J1170; 80320

== ENCOUNTER 2020-02-27 04:49 | Inpatient (IN) | payer OTHER ==
--- NOTE | 2020-02-27 04:58 | ED ---
Allergic Reaction HPI - General Chief complaint: Allergic Reaction Stated complaint: Facial swelling Time Seen by Provider: 02/27/20 04:51 Source: patient, family, RN notes reviewed, old records reviewed Mode of arrival: ambulatory Limitations: no limitations - History of Present Illness MD Complaint: allergic reaction, facial swelling (angioedema), other (altered mental status) -: unknown Exposure: unknown Symptoms: facial swelling, lip swelling Severity: moderate Treatment Prior to Arrival: none Previous Allergy History: none, other (patient was on lisinopril but hasnt taken in a month) - Related Data Previous Rx's Medication Instructions Recorded Folic Acid 1 mg PO DAILY #30 tablet 09/26/19 LORazepam [Ativan] 1 mg PO TID PRN #10 tab 09/26/19 Multivitamins, Thera [Multivitamin 1 tab PO DAILY #30 tablet 09/26/19 (formulary)] Thiamine [Vitamin B-1] 100 mg PO BID-W/MEALS 30 Days #60 09/26/19 tab Omeprazole Magnesium [PriLOSEC OTC] 20 mg PO DAILY #30 tab 10/14/19 amLODIPine [Norvasc] 10 mg PO DAILY #30 tab 10/14/19 carvediloL [Coreg*] 12.5 mg PO BID-W/MEALS #60 tab 11/12/19 Allergies Allergy/AdvReac Type Severity Reaction Status Date / Time bee pollen Allergy Anaphylaxis Verified 02/27/20 04:55 bee venom protein (honey bee) Allergy Anaphylaxis Verified 02/27/20 04:55 Review of Systems ROS Statement: Those systems with pertinent positive or pertinent negative responses have been documented in the HPI. ROS Other: All systems not noted in ROS Statement are negative. 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 diverticultis History of Any Multi-Drug Resistant Organisms: None Reported Past Surgical History: Bowel Resection Additional Past Surgical History / Comment(s): Bowel resection r/t diverticulitis Past Anesthesia/Blood Transfusion Reactions: No Reported Reaction Past Psychological History: Anxiety, Depression Smoking Status: Former smoker Past Alcohol Use History: Abuse, Daily, Heavy Past Drug Use History: None Reported - Past Family History Father Family Medical History: Hypertension Additional Family Medical History / Comment(s): from Cocaine Overdose. Mother Additional Family Medical History / Comment(s): Mother from overdose of Percocet and Tequila. Esophageal varices. General Exam - General Exam Comments Initial Comments: Does have upper and lower lip swelling as well as bilateral cheek swelling, no stridor no tongue swelling Limitations: altered mental status General appearance: anxious, in distress Head exam: Present: atraumatic, normocephalic, normal inspection Eye exam: Present: normal appearance, PERRL, EOMI. Absent: scleral icterus, conjunctival injection, periorbital swelling ENT exam: Present: normal exam, mucous membranes moist Neck exam: Present: normal inspection. Absent: tenderness, meningismus, lymphadenopathy Respiratory exam: Present: normal lung sounds bilaterally. Absent: respiratory distress, wheezes, rales, rhonchi, stridor Cardiovascular Exam: Present: regular rate, normal rhythm, normal heart sounds. Absent: systolic murmur, diastolic murmur, rubs, gallop, clicks GI/Abdominal exam: Present: soft, normal bowel sounds. Absent: distended, tenderness, guarding, rebound, rigid Extremities exam: Present: normal inspection, full ROM, normal capillary refill. Absent: tenderness, pedal edema, joint swelling, calf tenderness Back exam: Present: normal inspection Neurological exam: Present: alert, oriented X3, CN II-XII intact Psychiatric exam: Present: normal affect, normal mood Skin exam: Present: warm, dry, intact, normal color. Absent: rash Course Vital Signs 02/27/20 04:50 Temperature 98.2 F Pulse Rate 89 Respiratory 20 Rate Blood Pressure 158/84 O2 Sat by Pulse 99 Oximetry - Reevaluation(s) Reevaluation #1: 02/27/20 06:13 Medical record is reviewed Reevaluation #2: 02/27/20 06:13 Significant improvement swelling here in the ER although patient is without stridor, without wheezing and no shortness of breath Reevaluation #3: 02/27/20 06:13 Patient is significantly decompensating here in the ER significant amount of shaking delirious talking to people at their moving grasping at things that aren't there known history of daily drinking - Consultations Consultation #1: Spoke with sound who agrees to admit the patient Medical Decision Making - Medical Decision Making 50 male DF for evaluation came in originally for ALLERGIC reaction and angioedema although he is been off his lisinopril for over a month unknown exposure throughout ER stay patient became worse with his mental status and shaking and started going through active delirium tremens here in the ER without seizure. Patient will be admitted for treatment and evaluation - Lab Data Result diagrams: 02/27/20 05:31 02/27/20 05:31 Lab Results 02/27/20 02/27/20 02/27/20 Range/Units 05:31 05:31 05:31 WBC 5.3 (3.8-10.6) k/uL RBC 4.20 L (4.30-5.90) m/uL Hgb 14.9 (13.0-17.5) gm/dL Hct 42.7 (39.0-53.0) % MCV 101.8 H (80.0-100.0) fL MCH 35.4 H (25.0-35.0) pg MCHC 34.7 (31.0-37.0) g/dL RDW 12.6 (11.5-15.5) % Plt Count 92 L (150-450) k/uL MPV 8.7 Neutrophils % 76 % Lymphocytes % 14 % Monocytes % 7 % Eosinophils % 1 % Basophils % 1 % Neutrophils # 4.0 (1.3-7.7) k/uL Lymphocytes # 0.7 L (1.0-4.8) k/uL Monocytes # 0.4 (0-1.0) k/uL Eosinophils # 0.0 (0-0.7) k/uL Basophils # 0.0 (0-0.2) k/uL Manual Slide Review Performed PT 11.1 (9.0-12.0) sec INR 1.1 (<1.2) Sodium 127 L (137-145) mmol/L Potassium 4.1 (3.5-5.1) mmol/L Chloride 91 L (98-107) mmol/L Carbon Dioxide 19 L (22-30) mmol/L Anion Gap 17 mmol/L BUN 36 H (9-20) mg/dL Creatinine 2.46 H (0.66-1.25) mg/dL Est GFR (CKD-EPI)AfAm 34 (>60 ml/min/1.73 sqM) Est GFR (CKD-EPI)NonAf 29 (>60 ml/min/1.73 sqM) Glucose 96 (74-99) mg/dL Calcium 9.4 (8.4-10.2) mg/dL Phosphorus 6.1 H (2.5-4.5) mg/dL Magnesium 1.0 L (1.6-2.3) mg/dL Total Bilirubin 2.1 H (0.2-1.3) mg/dL AST 218 H (17-59) U/L ALT 145 H (4-49) U/L Alkaline Phosphatase 71 (38-126) U/L Total Protein 8.4 H (6.3-8.2) g/dL Albumin 4.9 (3.5-5.0) g/dL Lipase 428 H (23-300) U/L Serum Alcohol <10 mg/dL - Radiology Data Radiology results: report reviewed (Chest x-rays negative for acute disease), image reviewed Critical Care Time Critical Care Time: Yes Total Critical Care Time: 31 Disposition Clinical Impression: Withdrawal symptoms, alcohol, Dehydration, Allergic reaction, Angioedema, Delirium tremens Disposition: ADMITTED IP TO THIS [facility] Condition: Serious Is patient prescribed a controlled substance at d/c from ED?: No Referrals: None,Stated [Primary Care Provider] - 1-2 days
[2020-02-27] MEDS ORDERED: methylPREDNISolone SOD SUCCI 125 MG/2 ML VIAL IV STA (05:05)
[2020-02-27] MEDS ORDERED: SODIUM CHLORIDE 0.9% 1,000 ML IV STA ×3 (05:05→06:09)
[2020-02-27] MEDS ORDERED: LORazepam 2 MG/ML INJ IV STA ×6 (05:05→08:50)
[2020-02-27] MEDS ORDERED: diphenhydrAMINE 50 MG/ML 1 ML VIAL IVP STA (05:05)
[2020-02-27] MEDS ORDERED: FAMOTIDINE 20 MG/2 ML VIAL IV STA (05:05)
[2020-02-27 05:51] LABS: ALT 145 U/L (4-49); AST 218 U/L (17-59); African American GFR (CKD) 34 (>60 ml/min/1.73 sqM); Albumin 4.9 g/dL (3.5-5.0); Alcohol <10 mg/dL; Alkaline Phosphatase 71 U/L (38-126); Anion Gap 17 mmol/L; Blood Urea Nitrogen 36 mg/dL (9-20); Calcium 9.4 mg/dL (8.4-10.2); Carbon Dioxide 19 mmol/L (22-30); Chloride 91 mmol/L (98-107); Glucose 96 mg/dL (74-99); Lipase 428 U/L (23-300); Non-African American GFR(CKD) 29 (>60 ml/min/1.73 sqM); Phosphorus 6.1 mg/dL (2.5-4.5); Potassium 4.1 mmol/L (3.5-5.1); Sodium 127 mmol/L (137-145); Total Bilirubin 2.1 mg/dL (0.2-1.3); Total Protein 8.4 g/dL (6.3-8.2)
[2020-02-27] MEDS ORDERED: DIAZEPAM 5 MG/ML 2 ML INJ IVP STA (05:51)
[2020-02-27 05:56] LABS: Basophils % (A) 1 %; Eosinophils % (A) 1 %; HCT 42.7 % (39.0-53.0); HGB 14.9 gm/dL (13.0-17.5); Lymphocytes # (A) 0.7 k/uL (1.0-4.8); Lymphocytes % (A) 14 %; MCH 35.4 pg (25.0-35.0); MCHC 34.7 g/dL (31.0-37.0); MCV 101.8 fL (80.0-100.0); Mean Platelet Volume 8.7; Monocytes # (A) 0.4 k/uL (0-1.0); Monocytes % (A) 7 %; Neutrophils % (A) 76 %; RDW 12.6 % (11.5-15.5); WBC 5.3 k/uL (3.8-10.6)
[2020-02-27 06:05] LABS: INR 1.1 (<1.2); Prothrombin Time 11.1 sec (9.0-12.0)
[2020-02-27] MEDS ORDERED: THIAMINE 100 MG/ML 2 ML VIAL IM STA (06:09)
[2020-02-27] MEDS ORDERED: POTASSIUM CHLORIDE ER 20 MEQ TAB.ER PO STA (06:09)
[2020-02-27 06:11] LABS: Platelet Count 92 k/uL (150-450)
--- NOTE | 2020-02-27 06:21 | XR ---
EXAM: XR Chest, 1 View CLINICAL HISTORY: ITS.REASON XR Reason: allergy TECHNIQUE: Frontal view of the chest. COMPARISON: No relevant prior studies available. FINDINGS: Lungs: Unremarkable. No consolidation. Pleural space: Unremarkable. No pneumothorax. Heart: Unremarkable. No cardiomegaly. Mediastinum: Unremarkable. Bones/joints: Unremarkable. IMPRESSION: No focal infiltrate.
[2020-02-27] MEDS: LORazepam 2 MG/ML INJ IV PRN ×4 (07:00→21:34)
[2020-02-27] MEDS: MAGNESIUM SULFATE-D5W PMX 1 GM in DEXTROSE/WATER 1 100ML.BAG IVPB SCH ×4 (07:15→14:02)
[2020-02-27] MEDS ORDERED: NALOXONE 0.4 MG/ML 1 ML VIAL IV PRN (07:51)
[2020-02-27] MEDS ORDERED: ACETAMINOPHEN TAB 325 MG TAB PO PRN (07:51)
[2020-02-27] MEDS ORDERED: DEXMEDETOMIDINE/0.9% NACL(PMX) 400 MCG in EMPTY BAG 1 BAG IV SCH (09:00)
[2020-02-27] MEDS ORDERED: PHENobarbital SODIUM 130 MG/ML 1 ML VIAL IV SCH (09:00)
[2020-02-27] MEDS: ENOXAPARIN 40 MG/0.4 ML SYRINGE SQ SCH ×3 (11:16→11:22)
[2020-02-27] MEDS ORDERED: PHENobarbital SODIUM 130 MG/ML 1 ML VIAL IV ONE (12:00)
--- NOTE | 2020-02-27 14:46 | P.HPIM ---
History of Present Illness H&P Date: 02/27/20 Chief Complaint: lip swelling, agitation, withdrawal 50 year old man with history of alcohol abuse disorder, recent episode of alcoholic hepatitis presented with swollen lips, face. Patient was treated in the ER for allergic reaction with steroids, benadryl, and loratadine with improvement in swelling. Patient did not exhibit signs of stridor. However, his ER course was complicated by agitation, warranting ativan with [facility] protocol. Unfortunately, patient remained agitated and required 4pt restraint for safety of staff and for patient's medical compliance. He was started on a phenobarb taper and precedex gtt with good response. ROS could not be completed due to patient medical condition. It did appear he was having visual hallucinations, and was struggling against the restraints on my evaluation. Patient has chronic thrombocytopenia on labs. He is hyponatremic with RUI on chemistries. LFTs demonstrate chronically elevated LFTs at baseline with new hy perbilirubinemia. Lipase elevated at baseline to prior done in december 2019. 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 diverticultis History of Any Multi-Drug Resistant Organisms: None Reported Past Surgical History: Bowel Resection Additional Past Surgical History / Comment(s): Bowel resection r/t diverticulitis Past Anesthesia/Blood Transfusion Reactions: No Reported Reaction Past Psychological History: Anxiety, Depression Smoking Status: Former smoker Past Alcohol Use History: Abuse, Daily, Heavy Past Drug Use History: None Reported - Past Family History Father Family Medical History: Hypertension Additional Family Medical History / Comment(s): from Cocaine Overdose. Mother Additional Family Medical History / Comment(s): Mother from overdose of Percocet and Tequila. Esophageal varices. Medications and Allergies Home Medications Medication Instructions Recorded Confirmed Type No Known Home Medications 02/27/20 02/27/20 History Allergies Allergy/AdvReac Type Severity Reaction Status Date / Time bee pollen Allergy Anaphylaxis Verified 02/27/20 04:55 bee venom protein (honey bee) Allergy Anaphylaxis Verified 02/27/20 04:55 Physical Exam Osteopathic Statement: *. No significant issues noted on an osteopathic structural exam other than those noted in the History and Physical/Consult. Vitals: Vital Signs Temp Pulse Resp BP Pulse Ox 02/27/20 13:00 101 H 22 114/77 94 L 02/27/20 12:30 105 H 24 117/72 91 L 02/27/20 12:00 101 H 22 106/69 91 L 02/27/20 11:35 102 H 26 H 106/69 93 L 02/27/20 10:33 117 H 18 145/98 98 02/27/20 08:48 110 H 22 116/104 98 02/27/20 07:41 120 H 24 98 02/27/20 04:50 98.2 F 89 20 158/84 99 Intake and Output 02/26/20 02/27/20 02/27/20 22:59 06:59 14:59 Intake Total 29.950 Balance 29.950 Intake: Intake, IV Titration 29.950 Amount Dexmedetomidine/0.9% NaCl 29.950 (Pmx) 400 mcg In Empty Bag 1 bag @ Titrate IV . Q0M [facility] Rx#:[id number] Other: Weight 104.326 kg Gen: awake, alert, agitated, not oriented HEENT: normocephalic, atraumatic, good hearing acuity, moist mucous membranes Resp: good air exchange, no accessory muscle use, CVS: good distal perfusion x 4, RRR, no murmurs, clicks, gallops GI: soft, NTTP, ND : no SPT, no CVAT, delgado catheter not present MSK: no pitting edema, no clubbing Neuro: non-focal, no sensory deficits, appropriate tone Psych: Agitated, visual hallucinations, noncooperative Results CBC & Chem 7: 02/27/20 05:31 02/27/20 05:31 Labs: Abnormal Lab Results - Last 24 Hours (Table) 02/27/20 02/27/20 Range/Units 05:31 05:31 RBC 4.20 L (4.30-5.90) m/uL MCV 101.8 H (80.0-100.0) fL MCH 35.4 H (25.0-35.0) pg Plt Count 92 L (150-450) k/uL Lymphocytes # 0.7 L (1.0-4.8) k/uL Sodium 127 L (137-145) mmol/L Chloride 91 L (98-107) mmol/L Carbon Dioxide 19 L (22-30) mmol/L BUN 36 H (9-20) mg/dL Creatinine 2.46 H (0.66-1.25) mg/dL Phosphorus 6.1 H (2.5-4.5) mg/dL Magnesium 1.0 L (1.6-2.3) mg/dL Total Bilirubin 2.1 H (0.2-1.3) mg/dL AST 218 H (17-59) U/L ALT 145 H (4-49) U/L Total Protein 8.4 H (6.3-8.2) g/dL Lipase 428 H (23-300) U/L Assessment and Plan Assessment: 1. Alcohol withdrawal syndrome 2. Severe alcohol abuse disorder 3. Alcoholic hepatitis 4. Acute kidney injury 5. Chronic pancreatitis 6. Chronic thrombocytopenia 50-year-old man with a medical history of alcohol abuse disorder, alcoholic hepatitis presented with severe angioedema which is resolving with steroids/Benadryl/loratadine, with ER course complicated by severe alcoholic wit hdrawal requiring Precedex drip and phenobarbital with evidence of hyperbilirubinemia, acute kidney injury, pancreatitis, thrombocytopenia on lab work likely related to alcohol abuse. Next Plan: - admit inpatient to ICU, telemetry - ICU consult appreciated - continue precedex gtt and taper as able - continue phenobarb taper: 62.5mg BID for two doses, then 30mg BID for two doses, then 30mg daily for one dose, then stop with option of extending depending on clinical exam - CIWA + Ativan PRN - thiamine/folate/MVI daily - Maddrey's Discriminant = 2.6, no steroids indicated - IVF: NS @ 100cc/hr; if no improvement in kidney function by tomorrow AM, will order ULytes, Renal US - daily CBC, BMP, Mg, LFTs, INR - DVT PPx: enoxaparin 40mg daily, but observe for thrombocytopenia
[2020-02-27] MEDS ORDERED: LACTATED RINGERS 1,000 ML IV SCH ×2 (17:00)
[2020-02-27] MEDS: THIAMINE 100 MG TAB PO SCH (17:31)
[2020-02-27] MEDS: diphenhydrAMINE 50 MG/ML 1 ML VIAL IVP PRN (20:02)
[2020-02-27] MEDS: methylPREDNISolone SOD SUCCI 125 MG/2 ML VIAL IV SCH (23:45)
[2020-02-27] MEDS: PHENobarbital SODIUM 130 MG/ML 1 ML VIAL IV SCH (23:46)
[2020-02-28] MEDS: LORazepam 2 MG/ML INJ IV PRN ×10 (00:37→16:22)
[2020-02-28] MEDS: THIAMINE 100 MG TAB PO SCH ×2 (07:00→19:59)
[2020-02-28 08:51] LABS: Basophils % (A) 0 %; Eosinophils % (A) 1 %; HCT 38.2 % (39.0-53.0); HGB 12.8 gm/dL (13.0-17.5); Lymphocytes # (A) 0.3 k/uL (1.0-4.8); Lymphocytes % (A) 9 %; MCH 35.4 pg (25.0-35.0); MCHC 33.6 g/dL (31.0-37.0); MCV 105.5 fL (80.0-100.0); Macrocytosis Slight; Mean Platelet Volume 8.4; Monocytes # (A) 0.2 k/uL (0-1.0); Monocytes % (A) 6 %; Neutrophils # (A) 2.7 k/uL (1.3-7.7); Neutrophils % (A) 84 %; RBC 3.62 m/uL (4.30-5.90); RDW 12.6 % (11.5-15.5); WBC 3.2 k/uL (3.8-10.6)
[2020-02-28 08:59] LABS: Platelet Count 79 k/uL (150-450)
[2020-02-28 09:01] LABS: Prothrombin Time 10.2 sec (9.0-12.0)
[2020-02-28 09:02] LABS: ALT 142 U/L (4-49); AST 200 U/L (17-59); African American GFR (CKD) >90 (>60 ml/min/1.73 sqM); Albumin 4.1 g/dL (3.5-5.0); Alkaline Phosphatase 71 U/L (38-126); Anion Gap 8 mmol/L; Bilirubin, Delta 0.5 mg/dL (0.0-0.2); Bilirubin,Unconjugated 0.8 mg/dL (0.0-1.1); Blood Urea Nitrogen 23 mg/dL (9-20); Carbon Dioxide 24 mmol/L (22-30); Chloride 103 mmol/L (98-107); Glucose 178 mg/dL (74-99); Magnesium 2.2 mg/dL (1.6-2.3); Non-African American GFR(CKD) >90 (>60 ml/min/1.73 sqM); Potassium 4.2 mmol/L (3.5-5.1); Sodium 135 mmol/L (137-145); Total Bilirubin 1.3 mg/dL (0.2-1.3); Total Protein 7.3 g/dL (6.3-8.2)
[2020-02-28] MEDS: PHENobarbital SODIUM 130 MG/ML 1 ML VIAL IV SCH ×2 (10:22→20:46)
[2020-02-28] MEDS: MULTIVITAMINS, THERA 1 EACH TAB PO SCH (10:22)
[2020-02-28] MEDS: methylPREDNISolone SOD SUCCI 125 MG/2 ML VIAL IV SCH ×2 (10:22→23:38)
[2020-02-28] MEDS: ENOXAPARIN 40 MG/0.4 ML SYRINGE SQ SCH (10:23)
[2020-02-28] MEDS: FAMOTIDINE 20 MG/2 ML VIAL IV SCH ×2 (10:23→23:39)
[2020-02-28] MEDS: CYANOCOBALAMIN-FA-PYRIDOXINE 1 EACH TAB PO SCH (13:27)
--- NOTE | 2020-02-28 16:07 | P.PN ---
Subjective Progress Note Date: 02/28/20 Patient is much more lucid today. Able to have a reasonable conversation. He had stopped drinking 3 days prior to arrival per patient, before which he had gone on a bendor with his where he and she were each drinking 1L vodka daily. Is amenable to staying to complete the course of treatment for AW. Objective - Vital Signs Vital signs: Vital Signs Temp 97.8 F 02/28/20 04:00 Pulse 111 H 02/28/20 12:00 Resp 23 02/28/20 12:00 BP 128/73 02/28/20 12:00 Pulse Ox 94 L 02/28/20 12:00 Intake & Output 02/27/20 02/28/20 02/28/20 18:59 06:59 18:59 Intake Total 51.902 18.43 Output Total 1900 6600 Balance -1848.098 -6581.57 Weight 108.3 kg Intake: Intake, IV Titration 51.902 18.43 Amount Dexmedetomidine/0.9% NaCl 51.902 18.43 (Pmx) 400 mcg In Empty Bag 1 bag @ Titrate IV . Q0M [facility] Rx#:[id number] Output: Urine 1900 6600 Other: Voiding Method Indwelling Catheter Indwelling Catheter # Bowel Movements 1 - Exam Gen: awake, alert, agitated, not oriented HEENT: normocephalic, atraumatic, good hearing acuity, moist mucous membranes Resp: good air exchange, no accessory muscle use, CVS: good distal perfusion x 4, RRR, no murmurs, clicks, gallops GI: soft, NTTP, ND : no SPT, no CVAT, delgado catheter not present MSK: no pitting edema, no clubbing Neuro: non-focal, no sensory deficits, appropriate tone Psych: Agitated, visual hallucinations, noncooperative - Labs CBC & Chem 7: 02/28/20 07:54 02/28/20 07:54 Labs: Abnormal Lab Results - Last 24 Hours (Table) 02/28/20 02/28/20 Range/Units 07:54 07:54 WBC 3.2 L (3.8-10.6) k/uL RBC 3.62 L (4.30-5.90) m/uL Hgb 12.8 L (13.0-17.5) gm/dL Hct 38.2 L (39.0-53.0) % MCV 105.5 H (80.0-100.0) fL MCH 35.4 H (25.0-35.0) pg Plt Count 79 L (150-450) k/uL Lymphocytes # 0.3 L (1.0-4.8) k/uL Sodium 135 L (137-145) mmol/L BUN 23 H (9-20) mg/dL Glucose 178 H (74-99) mg/dL Delta Bilirubin 0.5 H (0.0-0.2) mg/dL AST 200 H (17-59) U/L ALT 142 H (4-49) U/L Assessment and Plan Assessment: 1. Alcohol withdrawal syndrome 2. Severe alcohol abuse disorder 3. Alcoholic hepatitis 4. Acute kidney injury 5. Chronic pancreatitis 6. Chronic thrombocytopenia 50-year-old man with a medical history of alcohol abuse disorder, alcoholic hepatitis presented with severe angioedema which is resolving with steroids/Benadryl/loratadine, with ER course complicated by severe alcoholic withdrawal requiring Precedex drip and phenobarbital with evidence of hyperbilirubinemia, acute kidney injury, pancreatitis, thrombocytopenia on lab work likely related to alcohol abuse. Next Plan: - admit inpatient to ICU, telemetry - ICU consult appreciated - continue precedex gtt and taper as able - continue phenobarb taper: 62.5mg BID for two doses, then 30mg BID for two doses, then 30mg daily for one dose, then stop with option of extending depending on clinical exam - CIWA + Ativan PRN - thiamine/folate/MVI daily - Maddrey's Discriminant = 2.6, no steroids indicated - IVF: NS @ 100cc/hr; if no improvement in kidney function by tomorrow AM, will order ULytes, Renal US - daily CBC, BMP, Mg, LFTs, INR - DVT PPx: enoxaparin 40mg daily, but observe for thrombocytopenia
[2020-02-28] MEDS ORDERED: LORazepam 2 MG/ML INJ IV STA (17:20)
[2020-02-28] MEDS: DEXMEDETOMIDINE/0.9% NACL(PMX) 400 MCG in EMPTY BAG 1 BAG IV SCH ×2 (17:48→23:30)
[2020-02-29 03:14] LABS: Glucose,Whole Blood 138 mg/dL (75-99)
[2020-02-29] MEDS: LORazepam 2 MG/ML INJ IV PRN ×5 (03:31→23:01)
[2020-02-29 04:56] LABS: Basophils % (A) 0 %; Eosinophils # (A) 0.1 k/uL (0-0.7); Eosinophils % (A) 2 %; HCT 39.8 % (39.0-53.0); HGB 13.1 gm/dL (13.0-17.5); Lymphocytes # (A) 0.3 k/uL (1.0-4.8); Lymphocytes % (A) 10 %; MCH 34.7 pg (25.0-35.0); MCHC 32.8 g/dL (31.0-37.0); MCV 105.9 fL (80.0-100.0); Macrocytosis Moderate; Mean Platelet Volume 8.6; Monocytes # (A) 0.2 k/uL (0-1.0); Monocytes % (A) 4 %; Neutrophils # (A) 2.8 k/uL (1.3-7.7); Neutrophils % (A) 83 %; Platelet Count 101 k/uL (150-450); RBC 3.76 m/uL (4.30-5.90); RDW 13.3 % (11.5-15.5); WBC 3.4 k/uL (3.8-10.6)
[2020-02-29 05:07] LABS: Prothrombin Time 10.6 sec (9.0-12.0)
[2020-02-29 05:40] LABS: ALT 132 U/L (4-49); AST 147 U/L (17-59); African American GFR (CKD) >90 (>60 ml/min/1.73 sqM); Albumin 4.1 g/dL (3.5-5.0); Alkaline Phosphatase 64 U/L (38-126); Anion Gap 9 mmol/L; Bilirubin, Delta 0.5 mg/dL (0.0-0.2); Bilirubin,Unconjugated 0.9 mg/dL (0.0-1.1); Blood Urea Nitrogen 18 mg/dL (9-20); Calcium 8.6 mg/dL (8.4-10.2); Carbon Dioxide 20 mmol/L (22-30); Chloride 105 mmol/L (98-107); Glucose 155 mg/dL (74-99); Non-African American GFR(CKD) >90 (>60 ml/min/1.73 sqM); Potassium 4.4 mmol/L (3.5-5.1); Sodium 134 mmol/L (137-145); Total Bilirubin 1.4 mg/dL (0.2-1.3); Total Protein 7.4 g/dL (6.3-8.2)
[2020-02-29] MEDS: DEXMEDETOMIDINE/0.9% NACL(PMX) 400 MCG in EMPTY BAG 1 BAG IV SCH (06:08)
[2020-02-29] MEDS: THIAMINE 100 MG TAB PO SCH ×3 (07:05→17:08)
[2020-02-29] MEDS: CLEVIDIPINE BUTYRATE 25 MG in EMPTY BAG 1 BAG IV SCH ×2 (07:15→09:16)
[2020-02-29] MEDS: methylPREDNISolone SOD SUCCI 125 MG/2 ML VIAL IV SCH ×2 (09:17→20:15)
[2020-02-29] MEDS: MULTIVITAMINS, THERA 1 EACH TAB PO SCH (09:18)
[2020-02-29] MEDS: ENOXAPARIN 40 MG/0.4 ML SYRINGE SQ SCH (09:18)
[2020-02-29] MEDS: FAMOTIDINE 20 MG/2 ML VIAL IV SCH ×2 (09:18→20:14)
[2020-02-29] MEDS: PHENobarbital SODIUM 130 MG/ML 1 ML VIAL IV SCH ×2 (09:22→20:15)
[2020-02-29] MEDS: CYANOCOBALAMIN-FA-PYRIDOXINE 1 EACH TAB PO SCH (09:38)
--- NOTE | 2020-02-29 11:15 | P.PN ---
Subjective Progress Note Date: 02/29/20 Pt is doing better off of precedex with phenobarbitol taper ongoing. Will increase PRN ativan today for better withdrawal control while patient is transferred to the floor. Objective - Vital Signs Vital signs: Vital Signs Temp 97.8 F 02/29/20 04:00 Pulse 85 02/29/20 07:00 Resp 17 02/29/20 07:00 BP 185/117 02/29/20 07:00 Pulse Ox 96 02/29/20 07:00 Intake & Output 02/28/20 02/29/20 02/29/20 18:59 06:59 18:59 Intake Total 5.541 456.945 176.128 Output Total 1100 1050 200 Balance -1094.459 -593.055 -23.872 Intake: IV 300 150 .9 NS 300 150 Intake, IV Titration 5.541 156.945 26.128 Amount Dexmedetomidine/0.9% NaCl 5.541 156.945 26.128 (Pmx) 400 mcg In Empty Bag 1 bag @ Titrate IV . Q0M [facility] Rx#:[id number] Output: Urine 1100 1050 200 Other: Voiding Method Indwelling Catheter Indwelling Catheter - Exam Gen: asleep, but arousable HEENT: normocephalic, atraumatic, good hearing acuity, moist mucous membranes Resp: good air exchange, no accessory muscle use, CVS: good distal perfusion x 4, RRR, no murmurs, clicks, gallops GI: soft, NTTP, ND : no SPT, no CVAT, delgado catheter not present MSK: no pitting edema, no clubbing Neuro: non-focal, no sensory deficits, appropriate tone - Labs CBC & Chem 7: 02/29/20 04:35 02/29/20 04:35 Labs: Abnormal Lab Results - Last 24 Hours (Table) 02/29/20 02/29/20 02/29/20 Range/Units 03:13 04:35 04:35 WBC 3.4 L (3.8-10.6) k/uL RBC 3.76 L (4.30-5.90) m/uL MCV 105.9 H (80.0-100.0) fL Plt Count 101 L (150-450) k/uL Lymphocytes # 0.3 L (1.0-4.8) k/uL Sodium 134 L (137-145) mmol/L Carbon Dioxide 20 L (22-30) mmol/L Creatinine 0.56 L (0.66-1.25) mg/dL Glucose 155 H (74-99) mg/dL POC Glucose (mg/dL) 138 H (75-99) mg/dL Total Bilirubin 1.4 H (0.2-1.3) mg/dL Delta Bilirubin 0.5 H (0.0-0.2) mg/dL AST 147 H (17-59) U/L ALT 132 H (4-49) U/L Assessment and Plan Assessment: 1. Alcohol withdrawal syndrome 2. Severe alcohol abuse disorder 3. Alcoholic hepatitis 4. Acute kidney injury 5. Chronic pancreatitis 6. Chronic thrombocytopenia 50-year-old man with a medical history of alcohol abuse disorder, alcoholic hepatitis presented with severe angioedema which is resolving with steroids/Benadryl/loratadine, with ER course complicated by severe alcoholic withdrawal requiring Precedex drip and phenobarbital with evidence of hyperbilirubinemia, acute kidney injury, pancreatitis, thrombocytopenia on lab work likely related to alcohol abuse. Next Plan: - admit inpatient to ICU, telemetry - ICU consult appreciated - continue precedex gtt and taper as able - continue phenobarb taper: 62.5mg BID for two doses, then 30mg BID for two doses, then 30mg daily for one dose, then stop with option of extending depending on clinical exam - CIWA + Ativan PRN - thiamine/folate/MVI daily - Maddrey's Discriminant = 2.6, no steroids indicated - IVF: NS @ 100cc/hr; if no improvement in kidney function by tomorrow AM, will order ULytes, Renal US - daily CBC, BMP, Mg, LFTs, INR - DVT PPx: enoxaparin 40mg daily, but observe for thrombocytopenia
--- NOTE | 2020-02-29 14:17 | P.CNPUL ---
History of Present Illness Consult date: 02/29/20 Requesting physician: Krystal Dang Reason for consult: other (Acute alcohol withdrawal, delirium tremens) Chief complaint: Swollen lips and agitation History of present illness: This is a 50-year-old white male who was brought into the ER on 02/23/20, complaining mostly of sudden episode of facial swelling, lip swelling, and obviously the patient was diagnosed as having symptoms to suggest angioedema. Patient used to be on lisinopril, however supposedly has not taken one and a month. Patient is maintained on omeprazole, amlodipine, and Coreg at home. Nowhere in the history that the patient may have taken his lisinopril. At any rate patient was in the ER, he was treated for his angioedema, and as he was being monitored in the ER, patient went on to become agitated, restless, and it was felt that the patient was having alcohol withdrawal symptoms/delirium tremens. Patient was placed on the CIWA protocol, and he was started on phenobarbital taper and Precedex drip with good response. Considering the patient was placed on Precedex, he was admitted to the ICU, and I was asked to see him on consultation. I have instructed the nurses to start the patient on Ativan as per protocol, and start tapering the Precedex, and once of the Precedex completely, patient could be transferred to a regular medical floor. Patient does not seem to be in any form of distress, does not seem to be agitated, he is quite calm. And does not seem to be edematous or swollen Review of Systems Constitutional: Negative HEENT: As noted in HPI, presented with angioedema symptoms. Pulmonary: Negative. Cardiac: Negative. GI: Negative. Genitourinary: Negative. Musko skeletal: Negative. Skin: Negative. Hematologic: Negative. Neurologic: Agitation and symptoms of alcohol withdrawal. Psychiatric as noted in HPI. 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 diverticultis, pancreatitits. History of Any Multi-Drug Resistant Organisms: None Reported Past Surgical History: Bowel Resection Additional Past Surgical History / Comment(s): Bowel resection r/t diverticulitis Past Anesthesia/Blood Transfusion Reactions: No Reported Reaction Past Psychological History: Anxiety Smoking Status: Former smoker Past Alcohol Use History: Abuse, Daily, Heavy Additional Past Alcohol Use History / Comment(s): Currently abusing alcohol- patient describes drinking 2 fifths of Vodka daily. Had stopped drinking for a couple months and started drinking again. Past Drug Use History: None Reported - Past Family History Father Family Medical History: Hypertension Additional Family Medical History / Comment(s): from Cocaine Overdose. Mother Additional Family Medical History / Comment(s): Mother from overdose of Percocet and Tequila. Esophageal varices. Medications and Allergies Home Medications Medication Instructions Recorded Confirmed Type No Known Home Medications 02/27/20 02/27/20 History Allergies Allergy/AdvReac Type Severity Reaction Status Date / Time bee pollen Allergy Anaphylaxis Verified 02/27/20 04:55 bee venom protein (honey bee) Allergy Anaphylaxis Verified 02/27/20 04:55 Physical Exam Vitals: Vital Signs Temp Pulse Pulse Resp BP Pulse Ox 02/29/20 07:00 85 17 185/117 96 02/29/20 06:00 79 24 169/121 94 L 02/29/20 05:00 76 22 181/119 93 L 02/29/20 04:00 97.8 F 79 21 184/123 93 L 02/29/20 02:00 98.4 F 86 78 22 177/119 95 02/29/20 01:00 86 22 171/112 96 02/29/20 00:00 82 18 173/118 96 02/28/20 23:00 86 25 H 178/125 95 02/28/20 22:00 98.0 F 92 92 20 167/115 96 02/28/20 21:00 82 20 168/105 96 02/28/20 20:52 90 20 167/113 95 02/28/20 20:00 84 20 170/101 98 02/28/20 19:00 110 H 20 179/105 95 02/28/20 18:04 112 H 16 179/113 96 02/28/20 16:00 98.2 F 110 H 114 H 20 168/99 95 Intake and Output 02/28/20 02/29/20 02/29/20 22:59 06:59 14:59 Intake Total 5.541 456.945 176.128 Output Total 1100 1050 200 Balance -1094.459 -593.055 -23.872 Intake: IV 300 150 .9 NS 300 150 Intake, IV Titration 5.541 156.945 26.128 Amount Dexmedetomidine/0.9% NaCl 5.541 156.945 26.128 (Pmx) 400 mcg In Empty Bag 1 bag @ Titrate IV . Q0M [facility] Rx#:[id number] Output: Urine 1100 1050 200 Other: Voiding Method Indwelling Catheter Physical Exam: Revealed a 50-year-old white male, in no distress, cough, on Precedex drip. Head: Atraumatic, normocephalic. HEENT:[Neck is supple.] [No neck masses.] [No thyromegaly.] [No JVD.] Chest: [Clear throughout, no crackles, no rhonchi, no wheezes.] Cardiac Exam: [Normal S1 and S2, no S3 gallop, no murmur.] Abdomen: [Soft, nontender, no megaly, no rebound, no guarding, normal bowel sounds.] Extremities: [No clubbing, no edema, no cyanosis.] Neurological Exam: [No focal neurologic deficit.] Alert and oriented 3. Skin: No rashes. Psychiatric: Normal mood, blunt affect, normal mental status. Results - Laboratory Findings CBC and BMP: 02/29/20 04:35 02/29/20 04:35 PT/INR, D-dimer PT 10.6 sec (9.0-12.0) 02/29/20 04:35 INR 1.0 (<1.2) 02/29/20 04:35 Abnormal lab findings: Abnormal Labs 02/27/20 02/27/20 02/28/20 05:31 05:31 07:54 WBC 3.2 L RBC 4.20 L 3.62 L Hgb 12.8 L Hct 38.2 L MCV 101.8 H 105.5 H MCH 35.4 H 35.4 H Plt Count 92 L 79 L Lymphocytes # 0.7 L 0.3 L Sodium 127 L Chloride 91 L Carbon Dioxide 19 L BUN 36 H Creatinine 2.46 H Glucose POC Glucose (mg/dL) Phosphorus 6.1 H Magnesium 1.0 L Total Bilirubin 2.1 H Delta Bilirubin AST 218 H ALT 145 H Total Protein 8.4 H Lipase 428 H 02/28/20 02/29/20 02/29/20 07:54 03:13 04:35 WBC 3.4 L RBC 3.76 L Hgb Hct MCV 105.9 H MCH Plt Count 101 L Lymphocytes # 0.3 L Sodium 135 L Chloride Carbon Dioxide BUN 23 H Creatinine Glucose 178 H POC Glucose (mg/dL) 138 H Phosphorus Magnesium Total Bilirubin Delta Bilirubin 0.5 H AST 200 H ALT 142 H Total Protein Lipase 02/29/20 04:35 WBC RBC Hgb Hct MCV MCH Plt Count Lymphocytes # Sodium 134 L Chloride Carbon Dioxide 20 L BUN Creatinine 0.56 L Glucose 155 H POC Glucose (mg/dL) Phosphorus Magnesium Total Bilirubin 1.4 H Delta Bilirubin 0.5 H AST 147 H ALT 132 H Total Protein Lipase - Diagnostic Findings Chest x-ray: image reviewed (Chest x-ray was relatively normal.) Assessment and Plan Assessment: Impression: Angioedema exact etiology is not clear. Acute alcohol withdrawal syndrome. Alcoholic hepatitis. History of chronic thrombocytopenia related to alcoholism. History of chronic pancreatitis. Recommendation: Continue to monitor in the ICU for now that the patient is on Precedex drip. Suggest continue CIWA protocol. Continue phenobarbital and Ativan if necessary for control of his alcohol withdrawal symptoms. Taper and discontinue Precedex. Consider transferring the patient to a regular medical floor with sitter at bedside. But will definitely need to be maintained on the CIWA protocol. We'll continue to follow while in the ICU. Time with Patient: Greater than 30
[2020-02-29] MEDS ORDERED: LABETALOL 200 MG TAB PO STA (19:54)
[2020-02-29] MEDS: LABETALOL 200 MG TAB PO SCH (21:07)
[2020-03-01] MEDS: LORazepam 2 MG/ML INJ IV PRN ×6 (02:31→20:32)
[2020-03-01] MEDS: diphenhydrAMINE 50 MG/ML 1 ML VIAL IVP PRN (02:31)
[2020-03-01] MEDS: THIAMINE 100 MG TAB PO SCH ×3 (05:54→15:54)
[2020-03-01 06:24] LABS: Glucose,Whole Blood 117 mg/dL (75-99)
[2020-03-01] MEDS: methylPREDNISolone SOD SUCCI 125 MG/2 ML VIAL IV SCH ×2 (08:03→20:27)
[2020-03-01] MEDS: CYANOCOBALAMIN-FA-PYRIDOXINE 1 EACH TAB PO SCH (08:04)
[2020-03-01] MEDS: LABETALOL 200 MG TAB PO SCH ×2 (08:04→20:27)
[2020-03-01] MEDS: ENOXAPARIN 40 MG/0.4 ML SYRINGE SQ SCH (08:04)
[2020-03-01] MEDS: PHENobarbital SODIUM 130 MG/ML 1 ML VIAL IV SCH (08:04)
[2020-03-01] MEDS: FAMOTIDINE 20 MG/2 ML VIAL IV SCH (08:04)
[2020-03-01] MEDS: MULTIVITAMINS, THERA 1 EACH TAB PO SCH (08:05)
[2020-03-01 12:07] LABS: Glucose,Whole Blood 140 mg/dL (75-99)
[2020-03-01 12:48] LABS: ALT 208 U/L (4-49); AST 241 U/L (17-59); African American GFR (CKD) >90 (>60 ml/min/1.73 sqM); Albumin 4.2 g/dL (3.5-5.0); Alkaline Phosphatase 71 U/L (38-126); Anion Gap 11 mmol/L; Bilirubin, Delta 0.6 mg/dL (0.0-0.2); Bilirubin,Unconjugated 0.5 mg/dL (0.0-1.1); Blood Urea Nitrogen 17 mg/dL (9-20); Calcium 9.6 mg/dL (8.4-10.2); Carbon Dioxide 20 mmol/L (22-30); Chloride 105 mmol/L (98-107); Glucose 151 mg/dL (74-99); Magnesium 1.8 mg/dL (1.6-2.3); Non-African American GFR(CKD) >90 (>60 ml/min/1.73 sqM); Potassium 4.4 mmol/L (3.5-5.1); Sodium 136 mmol/L (137-145); Total Bilirubin 1.1 mg/dL (0.2-1.3); Total Protein 7.6 g/dL (6.3-8.2)
[2020-03-01 12:54] LABS: Basophils % (A) 0 %; Eosinophils % (A) 1 %; HCT 42.6 % (39.0-53.0); HGB 13.9 gm/dL (13.0-17.5); Lymphocytes # (A) 0.5 k/uL (1.0-4.8); Lymphocytes % (A) 12 %; MCH 34.6 pg (25.0-35.0); MCHC 32.5 g/dL (31.0-37.0); MCV 106.3 fL (80.0-100.0); Macrocytosis Moderate; Mean Platelet Volume 9.2; Monocytes # (A) 0.3 k/uL (0-1.0); Monocytes % (A) 8 %; Neutrophils # (A) 3.1 k/uL (1.3-7.7); Neutrophils % (A) 78 %; Prothrombin Time 10.1 sec (9.0-12.0); RDW 13.2 % (11.5-15.5); WBC 3.9 k/uL (3.8-10.6)
[2020-03-01 12:56] LABS: Platelet Count 166 k/uL (150-450)
[2020-03-01 13:03] LABS: Large Platelets Present
[2020-03-01] MEDS ORDERED: hydrALAZINE HCL 25 MG TAB PO PRN (13:05)
--- NOTE | 2020-03-01 13:08 | P.PN ---
Subjective Progress Note Date: 03/01/20 Pt is doing well today, A+Ox3, still tremulous, but no longer having visual hallucinations, no longer agitated, restless Objective - Vital Signs Vital signs: Vital Signs Temp 98.2 F 03/01/20 11:28 Pulse 94 03/01/20 11:28 Resp 18 03/01/20 11:28 BP 184/118 03/01/20 11:28 Pulse Ox 97 03/01/20 11:28 Intake & Output 02/29/20 03/01/20 03/01/20 18:59 06:59 18:59 Intake Total 2036.128 1560 240 Output Total 1250 1900 Balance 786.128 -340 240 Weight 103.4 kg Intake: IV 1050 600 .9 NS 1050 600 Intake, IV Titration 26.128 Amount Dexmedetomidine/0.9% NaCl 26.128 (Pmx) 400 mcg In Empty Bag 1 bag @ Titrate IV . Q0M [facility] Rx#:[id number] Oral 960 960 240 Output: Urine 1250 1900 Other: Voiding Method Indwelling Catheter Urinal # Voids 1 0 # Bowel Movements 1 - Exam Gen: asleep, but arousable HEENT: normocephalic, atraumatic, good hearing acuity, moist mucous membranes Resp: good air exchange, no accessory muscle use, CVS: good distal perfusion x 4, RRR, no murmurs, clicks, gallops GI: soft, NTTP, ND : no SPT, no CVAT, delgado catheter not present MSK: no pitting edema, no clubbing Neuro: non-focal, no sensory deficits, appropriate tone - Labs CBC & Chem 7: 03/01/20 11:39 03/01/20 11:39 Labs: Abnormal Lab Results - Last 24 Hours (Table) 03/01/20 03/01/20 03/01/20 Range/Units 06:16 11:39 11:39 RBC 4.00 L (4.30-5.90) m/uL MCV 106.3 H (80.0-100.0) fL Lymphocytes # 0.5 L (1.0-4.8) k/uL Sodium 136 L (137-145) mmol/L Carbon Dioxide 20 L (22-30) mmol/L Creatinine 0.61 L (0.66-1.25) mg/dL Glucose 151 H (74-99) mg/dL POC Glucose (mg/dL) 117 H (75-99) mg/dL Delta Bilirubin 0.6 H (0.0-0.2) mg/dL AST 241 H (17-59) U/L ALT 208 H (4-49) U/L 03/01/ Range/Units 11:43 RBC (4.30-5.90) m/uL MCV (80.0-100.0) fL Lymphocytes # (1.0-4.8) k/uL Sodium (137-145) mmol/L Carbon Dioxide (22-30) mmol/L Creatinine (0.66-1.25) mg/dL Glucose (74-99) mg/dL POC Glucose (mg/dL) 140 H (75-99) mg/dL Delta Bilirubin (0.0-0.2) mg/dL AST (17-59) U/L ALT (4-49) U/L Assessment and Plan Assessment: 1. Alcohol withdrawal syndrome 2. Severe alcohol abuse disorder 3. Alcoholic hepatitis 4. Acute kidney injury 5. Chronic pancreatitis 6. Chronic thrombocytopenia 50-year-old man with a medical history of alcohol abuse disorder, alcoholic hepatitis presented with severe angioedema which is resolving with steroids/Benadryl/loratadine, with ER course complicated by severe alcoholic withdrawal requiring Precedex drip and phenobarbital with evidence of hyperbilirubinemia, acute kidney injury, pancreatitis, thrombocytopenia on lab work likely related to alcohol abuse. Next Plan: - admit inpatient to ICU, telemetry - ICU consult appreciated - continue precedex gtt and taper as able - continue phenobarb taper: 62.5mg BID for two doses, then 30mg BID for two doses, then 30mg daily for one dose, then stop with option of extending depending on clinical exam - CIWA + Ativan PRN - thiamine/folate/MVI daily - Maddrey's Discriminant = 2.6, no steroids indicated - IVF: NS @ 100cc/hr; if no improvement in kidney function by tomorrow AM, will order ULytes, Renal US - daily CBC, BMP, Mg, LFTs, INR - DVT PPx: enoxaparin 40mg daily, but observe for thrombocytopenia
[2020-03-01] MEDS: amLODIPine 5 MG TAB PO SCH (13:36)
[2020-03-01] MEDS: lisinopriL 5 MG TAB PO SCH (13:36)
--- NOTE | 2020-03-01 15:00 | P.PN ---
Subjective Progress Note Date: 03/01/20 Principal diagnosis: Angioedema, alcohol withdrawal This is a 50-year-old white male who was brought into the ER on 02/23/20, complaining mostly of sudden episode of facial swelling, lip swelling, and obviously the patient was diagnosed as having symptoms to suggest angioedema. Patient used to be on lisinopril, however supposedly has not taken one and a month. Patient is maintained on omeprazole, amlodipine, and Coreg at home. Nowhere in the history that the patient may have taken his lisinopril. At any rate patient was in the ER, he was treated for his angioedema, and as he was being monitored in the ER, patient went on to become agitated, restless, and it was felt that the patient was having alcohol withdrawal symptoms/delirium tremens. Patient was placed on the CIWA protocol, and he was started on phenobarbital taper and Precedex drip with good response. Considering the patient was placed on Precedex, he was admitted to the ICU, and I was asked to see him on consultation. I have instructed the nurses to start the patient on Ativan as per protocol, and start tapering the Precedex, and once of the Precedex completely, patient could be transferred to a regular medical floor. Patient does not seem to be in any form of distress, does not seem to be agit ated, he is quite calm. And does not seem to be edematous or swollen The patient is seen today 03/01/2020 in follow-up on the selective care unit. He is currently resting comfortably in bed. Awake and alert in no acute distress. He is maintaining O2 saturations in the mid 90s on room air. He's afebrile. White count 2.9. Hemoglobin 13.9. Platelet count 166. Sodium 136. Potassium 4.4. Creatinine 0.61. AST 241, ALT 208. He remains on the CIWA protocol. Objective - Vital Signs Vital signs: Vital Signs Temp 98.2 F 03/01/20 11:28 Pulse 94 03/01/20 11:28 Resp 18 03/01/20 11:28 BP 184/118 03/01/20 11:28 Pulse Ox 97 03/01/20 11:28 Intake & Output 02/29/20 03/01/20 03/01/20 18:59 06:59 18:59 Intake Total 2036.128 1560 480 Output Total 1250 1900 Balance 786.128 -340 480 Weight 103.4 kg Intake: IV 1050 600 .9 NS 1050 600 Intake, IV Titration 26.128 Amount Dexmedetomidine/0.9% NaCl 26.128 (Pmx) 400 mcg In Empty Bag 1 bag @ Titrate IV . Q0M [facility] Rx#:[id number] Oral 960 960 480 Output: Urine 1250 1900 Other: Voiding Method Indwelling Catheter Urinal # Voids 1 1 # Bowel Movements 1 - Exam Physical Exam: Revealed a 50-year-old male patient, on room air, in no distress, Head: Atraumatic, normocephalic. HEENT:[Neck is supple.] [No neck masses.] [No thyromegaly.] [No JVD.] Chest: [Clear throughout, no crackles, no rhonchi, no wheezes.] Cardiac Exam: [Normal S1 and S2, no S3 gallop, no murmur.] Abdomen: [Soft, nontender, no megaly, no rebound, no guarding, normal bowel sounds.] Extremities: [No clubbing, no edema, no cyanosis.] Neurological Exam: [No focal neurologic deficit.] Alert and oriented 3. Skin: No rashes. Psychiatric: Normal mood, blunt affect, normal mental status. - Labs CBC & Chem 7: 03/01/20 11:39 03/01/20 11:39 Labs: Abnormal Lab Results - Last 24 Hours (Table) 03/01/20 03/01/20 03/01/20 Range/Units 06:16 11:39 11:39 RBC 4.00 L (4.30-5.90) m/uL MCV 106.3 H (80.0-100.0) fL Lymphocytes # 0.5 L (1.0-4.8) k/uL Sodium 136 L (137-145) mmol/L Carbon Dioxide 20 L (22-30) mmol/L Creatinine 0.61 L (0.66-1.25) mg/dL Glucose 151 H (74-99) mg/dL POC Glucose (mg/dL) 117 H (75-99) mg/dL Delta Bilirubin 0.6 H (0.0-0.2) mg/dL AST 241 H (17-59) U/L ALT 208 H (4-49) U/L 03/01/20 Range/Units 11:43 RBC (4.30-5.90) m/uL MCV (80.0-100.0) fL Lymphocytes # (1.0-4.8) k/uL Sodium (137-145) mmol/L Carbon Dioxide (22-30) mmol/L Creatinine (0.66-1.25) mg/dL Glucose (74-99) mg/dL POC Glucose (mg/dL) 140 H (75-99) mg/dL Delta Bilirubin (0.0-0.2) mg/dL AST (17-59) U/L ALT (4-49) U/L Assessment and Plan Assessment: Angioedema exact etiology is not clear. Acute alcohol withdrawal syndrome. Alcoholic hepatitis. History of chronic thrombocytopenia related to alcoholism. History of chronic pancreatitis. Plan: The patient was seen and evaluated by Dr. Guevara Currently stable from the pulmonary and critical care standpoint Remains on the CIVT protocol We will follow as needed I, the cosigning physician, performed a history & physical examination of the patient. Lungs sounds are clear. Maintaining good O2 saturations in the 90s on room air. I discussed the assessment and plan of care with my nurse practitioner, Khalida Singh. I attest to the above note as dictated by her.
[2020-03-01 16:57] LABS: Glucose,Whole Blood 125 mg/dL (75-99)
[2020-03-01] MEDS: FAMOTIDINE 20 MG TAB PO SCH (20:27)
[2020-03-02 01:02] LABS: Glucose,Whole Blood 166 mg/dL (75-99)
[2020-03-02] MEDS: LORazepam 2 MG/ML INJ IV PRN ×6 (03:28→23:00)
[2020-03-02 07:58] VITALS: RESP 16
[2020-03-02] MEDS: MULTIVITAMINS, THERA 1 EACH TAB PO SCH (08:11)
[2020-03-02] MEDS: lisinopriL 5 MG TAB PO SCH (08:11)
[2020-03-02] MEDS: amLODIPine 5 MG TAB PO SCH (08:11)
[2020-03-02] MEDS: THIAMINE 100 MG TAB PO SCH ×2 (08:11→17:16)
[2020-03-02] MEDS: FAMOTIDINE 20 MG TAB PO SCH ×2 (08:11→20:02)
[2020-03-02] MEDS: methylPREDNISolone SOD SUCCI 125 MG/2 ML VIAL IV SCH ×2 (08:12→20:02)
[2020-03-02] MEDS: CYANOCOBALAMIN-FA-PYRIDOXINE 1 EACH TAB PO SCH (08:13)
[2020-03-02] MEDS: LABETALOL 200 MG TAB PO SCH (08:13)
[2020-03-02] MEDS: ENOXAPARIN 40 MG/0.4 ML SYRINGE SQ SCH (08:14)
--- NOTE | 2020-03-02 12:49 | P.PN ---
Subjective Progress Note Date: 03/02/20 Pt complaining of nausea, headache, stomach pain today. Doing better from POV of withdrawal. Objective - Vital Signs Vital signs: Vital Signs Temp 98.4 F 03/02/20 07:57 Pulse 83 03/02/20 08:15 Resp 16 03/02/20 08:15 BP 169/103 03/02/20 07:57 Pulse Ox 96 03/02/20 07:57 Intake & Output 03/01/20 03/02/20 03/02/20 18:59 06:59 18:59 Intake Total 720 Balance 720 Weight 104.5 kg Intake: Oral 720 Other: Voiding Method Urinal # Voids 1 1 - Exam Gen: awake, alert, oriented HEENT: normocephalic, atraumatic, good hearing acuity, moist mucous membranes Resp: good air exchange, no accessory muscle use, CVS: good distal perfusion x 4, RRR, no murmurs, clicks, gallops GI: soft, NTTP, ND : no SPT, no CVAT, delgado catheter not present MSK: no pitting edema, no clubbing Neuro: non-focal, no sensory deficits, appropriate tone - Labs CBC & Chem 7: 03/01/20 11:39 03/01/20 11:39 Labs: Abnormal Lab Results - Last 24 Hours (Table) 03/01/20 03/01/20 03/01/20 Range/Units 11:39 11:39 16:43 RBC 4.00 L (4.30-5.90) m/uL MCV 106.3 H (80.0-100.0) fL Lymphocytes # 0.5 L (1.0-4.8) k/uL Sodium 136 L (137-145) mmol/L Carbon Dioxide 20 L (22-30) mmol/L Creatinine 0.61 L (0.66-1.25) mg/dL Glucose 151 H (74-99) mg/dL POC Glucose (mg/dL) 125 H (75-99) mg/dL Delta Bilirubin 0.6 H (0.0-0.2) mg/dL AST 241 H (17-59) U/L ALT 208 H (4-49) U/L 03/02/20 Range/Units 01:00 RBC (4.30-5.90) m/uL MCV (80.0-100.0) fL Lymphocytes # (1.0-4.8) k/uL Sodium (137-145) mmol/L Carbon Dioxide (22-30) mmol/L Creatinine (0.66-1.25) mg/dL Glucose (74-99) mg/dL POC Glucose (mg/dL) 166 H (75-99) mg/dL Delta Bilirubin (0.0-0.2) mg/dL AST (17-59) U/L ALT (4-49) U/L Assessment and Plan Assessment: 1. Alcohol withdrawal syndrome 2. Severe alcohol abuse disorder 3. Alcoholic hepatitis 4. Acute kidney injury 5. Chronic pancreatitis 6. Chronic thrombocytopenia 50-year-old man with a medical history of alcohol abuse disorder, alcoholic hepatitis presented with severe angioedema which is resolving with steroids/Benadryl/loratadine, with ER course complicated by severe alcoholic withdrawal requiring Precedex drip and phenobarbital with evidence of hyperbilirubinemia, acute kidney injury, pancreatitis, thrombocytopenia on lab work likely related to alcohol abuse. Next Plan: - admit inpatient to ICU, telemetry - ICU consult appreciated - continue precedex gtt and taper as able - continue phenobarb taper: 62.5mg BID for two doses, then 30mg BID for two doses, then 30mg daily for one dose, then stop with option of extending depending on clinical exam - CIWA + Ativan PRN - thiamine/folate/MVI daily - Maddrey's Discriminant = 2.6, no steroids indicated - IVF: NS @ 100cc/hr; if no improvement in kidney function by tomorrow AM, will order ULytes, Renal US - daily CBC, BMP, Mg, LFTs, INR - DVT PPx: enoxaparin 40mg daily, but observe for thrombocytopenia Anticipated discharge tomorrow.
[2020-03-02] MEDS: amLODIPine 10 MG TAB PO SCH (14:32)
[2020-03-03] MEDS: ENOXAPARIN 40 MG/0.4 ML SYRINGE SQ SCH (08:22)
[2020-03-03] MEDS: FAMOTIDINE 20 MG TAB PO SCH (08:22)
[2020-03-03] MEDS: lisinopriL 5 MG TAB PO SCH (08:22)
[2020-03-03] MEDS: MULTIVITAMINS, THERA 1 EACH TAB PO SCH (08:22)
[2020-03-03] MEDS: THIAMINE 100 MG TAB PO SCH (08:22)
[2020-03-03] MEDS: methylPREDNISolone SOD SUCCI 125 MG/2 ML VIAL IV SCH (08:22)
[2020-03-03] MEDS: CYANOCOBALAMIN-FA-PYRIDOXINE 1 EACH TAB PO SCH (08:22)
[2020-03-03] MEDS: amLODIPine 10 MG TAB PO SCH (08:22)
[2020-03-03 08:23] VITALS: BP 163/104; PULSE 101; TEMP 98.9
--- NOTE | 2020-03-03 13:28 | P.DS ---
Providers Date of admission: 02/27/20 06:10 Expected date of discharge: 03/03/20 Attending physician: Krystal Dang MD Consults: 02/29/20 04:16 Consult Physician Routine Consulting Provider: Adam Guevara Consult Reason/Comments: ICU management Do you want consulting provider notified?: Yes, Notify in am Primary care physician: Stated None Hospital Course: 1. Alcohol withdrawal syndrome 2. Severe alcohol abuse disorder 3. Alcoholic hepatitis 4. Acute kidney injury 5. Chronic pancreatitis 6. Chronic thrombocytopenia 50-year-old man with a medical history of alcohol abuse disorder, alcoholic hepatitis presented with severe angioedema which is resolving with steroids/Benadryl/loratadine, with ER course complicated by severe alcoholic withdrawal requiring Precedex drip and phenobarbital with evidence of hyperbilirubinemia, acute kidney injury, pancreatitis, thrombocytopenia on lab work likely related to alcohol abuse. He was admitted to the ICU requiring phenobarbitol taper and precedex gtt due to severity of withdrawal. He was stepped down once tolerating CIWA/Ativan PRN pushes for control of withdrawal. He was noted to be hypertensive even when withdrawal was well controlled, so he was started on amlodipine and lisinopril. On day of discharge, he was prescribed amlodipine, lisinopril, thiamine, folate, MVI, and naltrexone. He will follow up with PCP. He was strongly advised not to drink ETOH again, and given resources for AA. I spent more than 30 minutes preparing this discharge, including interview, counseling, and documentation. Patient Condition at Discharge: Good Plan - Discharge Summary New Discharge Prescriptions: New Kimnjbsoogilgo-WF-Hhdmrycdxm [Folbic] 1 each PO DAILY #30 tab Multivitamins, Thera [Multivitamin (formulary)] 1 each PO DAILY #30 tab amLODIPine [Norvasc] 10 mg PO DAILY #30 tab Naltrexone HCl [Revia] 50 mg PO DAILY #30 tablet Thiamine [Vitamin B-1] 100 mg PO BID-W/MEALS #30 tab lisinopriL [Zestril] 5 mg PO DAILY #30 tab Discharge Medication List Bxnmvuooaoregq-VY-Qmxqbsyuid [Folbic] 1 each PO DAILY #30 tab 03/03/20 [Rx] Multivitamins, Thera [Multivitamin (formulary)] 1 each PO DAILY #30 tab 03/03/20 [Rx] Naltrexone HCl [Revia] 50 mg PO DAILY #30 tablet 03/03/20 [Rx] Thiamine [Vitamin B-1] 100 mg PO BID-W/MEALS #30 tab 03/03/20 [Rx] amLODIPine [Norvasc] 10 mg PO DAILY #30 tab 03/03/20 [Rx] lisinopriL [Zestril] 5 mg PO DAILY #30 tab 03/03/20 [Rx] Follow up Appointment(s)/Referral(s): None,Stated [Primary Care Provider] - 1-2 days ( medical management.) Patient Instructions/Handouts: Alcohol Withdrawal (DC) Discharge Disposition: HOME SELF-CARE
== END 2020-03-03 12:51 | disposition home or self-care (01) | DRG 897 ==
LOC: EC 04:49 → 6NMEDSUR 06:10 → 5NMEDONC 07:40 → 2SICU 09:00 → 3SCARD 02-28 00:01 → 2SICU 02-28 19:09 → 3SCARD 02-29 22:25 → 4SSUR 03-01 19:46
PROVIDERS: ADMIT Internal Medicine; ATTEND Internal Medicine
DX: F10.131 Alcohol abuse with withdrawal delirium (principal); E87.1 Hypo-osmolality and hyponatremia; K86.1 Other chronic pancreatitis; N17.9 Acute kidney failure, unspecified; K70.10 Alcoholic hepatitis without ascites; D69.59 Other secondary thrombocytopenia; T78.3XXA Angioneurotic edema, initial encounter; E86.0 Dehydration; F32.9 Major depressive disorder, single episode, unspecified; F41.9 Anxiety disorder, unspecified; I10 Essential (primary) hypertension; K57.90 Diverticulosis of intestine, part unspecified, without perforation or abscess without bleeding; Z79.899 Other long term (current) drug therapy; Z87.891 Personal history of nicotine dependence; Z91.030 Bee allergy status; Z90.49 Acquired absence of other specified parts of digestive tract; Z82.49 Family history of ischemic heart disease and other diseases of the circulatory system; Z81.3 Family history of other psychoactive substance abuse and dependence
CPT/HCPCS: 36415; 51702; 71045; 80048; 80053; 80076; 80320; 83690; 83735; 84100; 85025; 85610; 96361; 96365; 96366; 96368; 96372; 96375; 96376; 99291

== ENCOUNTER 2020-04-19 00:51 | Inpatient (IN) | payer OTHER ==
[2020-04-19] MEDS ORDERED: DILTIAZEM DRIP BOLUS FROM BAG 1 MG SOLN IV ONE (01:08)
[2020-04-19] MEDS ORDERED: SODIUM CHLORIDE 0.9% 500 ML 500 ML IV STA (01:08)
[2020-04-19] MEDS ORDERED: DILTIAZEM 125 MG in SODIUM CHLORIDE 0.9% 100 ML IV SCH (01:15)
[2020-04-19] MEDS ORDERED: LORazepam 2 MG/ML INJ IV STA (01:31)
[2020-04-19 01:39] LABS: Basophils % (A) 1 %; Eosinophils % (A) 1 %; HCT 42.2 % (39.0-53.0); HGB 14.9 gm/dL (13.0-17.5); Lymphocytes # (A) 2.2 k/uL (1.0-4.8); Lymphocytes % (A) 54 %; MCH 34.8 pg (25.0-35.0); MCHC 35.3 g/dL (31.0-37.0); Mean Platelet Volume 7.4; Monocytes # (A) 0.2 k/uL (0-1.0); Monocytes % (A) 5 %; Neutrophils # (A) 1.5 k/uL (1.3-7.7); Neutrophils % (A) 38 %; Platelet Count 108 k/uL (150-450); RBC 4.28 m/uL (4.30-5.90); RDW 12.8 % (11.5-15.5)
[2020-04-19 01:47] LABS: MCV 98.5 fL (80.0-100.0)
[2020-04-19 01:48] LABS: Appearance,Urine Clear (Clear); Bilirubin,Urine Negative (Negative); Blood,Urine Negative (Negative); Color,Urine Yellow; Glucose,Urine (UA) Negative (Negative); Hyaline Casts,Urine 3 /lpf (0-2); Ketones,Urine Trace (Negative); Leukocyte Esterase,Urine Negative (Negative); Mucus,Urine Rare /hpf; Nitrite,Urine Negative (Negative); Protein,Urine 1+ (Negative); RBC,Urine 1 /hpf (0-5); Specific Gravity,Urine 1.018 (1.001-1.035); Urobilinogen,Urine <2.0 mg/dL (<2.0); WBC,Urine 4 /hpf (0-5)
[2020-04-19 01:49] LABS: ALT 59 U/L (4-49); AST 76 U/L (17-59); African American GFR (CKD) >90 (>60 ml/min/1.73 sqM); Albumin 4.7 g/dL (3.5-5.0); Alkaline Phosphatase 71 U/L (38-126); Anion Gap 16 mmol/L; Blood Urea Nitrogen 14 mg/dL (9-20); Calcium 9.2 mg/dL (8.4-10.2); Carbon Dioxide 20 mmol/L (22-30); Chloride 107 mmol/L (98-107); Glucose 143 mg/dL (74-99); Magnesium 1.6 mg/dL (1.6-2.3); Non-African American GFR(CKD) >90 (>60 ml/min/1.73 sqM); Potassium 3.6 mmol/L (3.5-5.1); Sodium 143 mmol/L (137-145); Total Bilirubin 0.5 mg/dL (0.2-1.3); Total Protein 8.2 g/dL (6.3-8.2)
[2020-04-19 01:54] LABS: Prothrombin Time 10.7 sec (9.0-12.0)
[2020-04-19 02:00] LABS: Alcohol 369 mg/dL
[2020-04-19 02:02] LABS: Partial Thromboplastin Time 19.5 sec (22.0-30.0)
--- NOTE | 2020-04-19 02:12 | XR ---
EXAM: XR Chest, 1 View CLINICAL HISTORY: ITS. REASON XR Reason: dysrhythmia TECHNIQUE: Frontal view of the chest. COMPARISON: No relevant prior studies available. FINDINGS: Lungs: No consolidation. Pleural space: Unremarkable. No pneumothorax. Heart: Borderline cardiomegaly, potentially exaggerated by portable technique. No overt edema. Mediastinum: Unremarkable. Bones/joints: Unremarkable. IMPRESSION: No evidence of acute pulmonary disease. Borderline cardiomegaly, potentially exaggerated by portable technique
[2020-04-19] MEDS ORDERED: NITROGLYCERIN SL TABS 0.4 MG TAB SUBLINGUAL PRN (02:47)
[2020-04-19] MEDS ORDERED: LORazepam 2 MG/ML INJ IV PRN (02:49)
--- NOTE | 2020-04-19 02:51 | ED ---
Chest Pain HPI - General Chief Complaint: Chest Pain Stated Complaint: Chest Pain Time Seen by Provider: 04/19/20 01:01 Source: patient Mode of arrival: EMS - History of Present Illness Initial Comments: This patient is a 50-year-old man presenting to be evaluated for left-sided chest pain and palpitations. The patient states that he felt like he may have had some subtle symptoms going back for a couple of days but really notice that the pain was present in the morning and it seemed to worsen over the course of the day. He has also noted a fluttering feeling in the chest. He does have some intermittent dyspnea associated. Patient states that he had moved into the area recently and has no current cardiology care. 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 MD Complaint: chest pain Onset/Timin -: hour(s) Onset: during rest Pain Location: left chest Pain Radiation: none Severity: moderate Quality: tightness Consistency: constant Improves With: nothing Worsens With: nothing Anginal Symptoms: dyspnea Other Symptoms: palpitations Treatments Prior to Arrival: none - Related Data Previous Rx's Medication Instructions Recorded Xgrfvqdxstxazq-MT-Sijxtedkrr 1 each PO DAILY #30 tab 03/03/20 [Folbic] Multivitamins, Thera [Multivitamin 1 each PO DAILY #30 tab 03/03/20 (formulary)] Naltrexone HCl [Revia] 50 mg PO DAILY #30 tablet 03/03/20 Thiamine [Vitamin B-1] 100 mg PO BID-W/MEALS #30 tab 03/03/20 amLODIPine [Norvasc] 10 mg PO DAILY #30 tab 03/03/20 lisinopriL [Zestril] 5 mg PO DAILY #30 tab 03/03/20 Allergies Allergy/AdvReac Type Severity Reaction Status Date / Time bee pollen Allergy Anaphylaxis Verified 04/19/20 01:01 bee venom protein (honey bee) Allergy Anaphylaxis Verified 04/19/20 01:01 Review of Systems ROS Statement: Those systems with pertinent positive or pertinent negative responses have been documented in the HPI. ROS Other: All systems not noted in ROS Statement are negative. Constitutional: Denies: fever, chills Respiratory: Denies: cough, dyspnea Cardiovascular: Reports: as per HPI, chest pain, palpitations. Denies: orthopnea, edema, syncope Gastrointestinal: Denies: abdominal pain, nausea, vomiting, diarrhea Genitourinary: Denies: dysuria, hematuria Musculoskeletal: Denies: back pain Skin: Denies: rash Neurological: Denies: headache, weakness EKG Findings - EKG Results: EKG: normal axis EKG shows: tachycardia (Rate 158 bpm), atrial fibrillation - Blocks, [place], Hypertrophy, ST Abn: Repolarization changes or abnormalities: nonspecific abnormality, ST segment, and/or T wave Past Medical History Past Medical History: Atrial Fibrillation, Hypertension Additional Past Medical History / Comment(s): PT states history of hypertension was drug related, 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 diverticultis, pancreatitits. History of Any Multi-Drug Resistant Organisms: None Reported Past Surgical History: Bowel Resection Additional Past Surgical History / Comment(s): Bowel resection r/t diverticulitis Past Anesthesia/Blood Transfusion Reactions: No Reported Reaction Past Psychological History: Anxiety Smoking Status: Former smoker Past Alcohol Use History: Abuse, Daily, Heavy Past Drug Use History: None Reported - Past Family History Father Family Medical History: Hypertension Additional Family Medical History / Comment(s): from Cocaine Overdose. Mother Additional Family Medical History / Comment(s): Mother from overdose of Percocet and Tequila. Esophageal varices. General Exam General appearance: alert, in no apparent distress, appears intoxicated Head exam: Present: atraumatic, normocephalic Eye exam: Present: normal appearance, nystagmus. Absent: scleral icterus, conjunctival injection ENT exam: Present: mucous membranes dry Neck exam: Present: normal inspection Respiratory exam: Present: normal lung sounds bilaterally. Absent: respiratory distress, wheezes, rales, rhonchi, stridor Cardiovascular Exam: Present: tachycardia, irregular rhythm, normal heart sounds. Absent: systolic murmur, diastolic murmur, rubs, gallop GI/Abdominal exam: Present: soft. Absent: distended, tenderness, guarding, rebound, rigid, mass Extremities exam: Present: normal inspection, normal capillary refill. Absent: pedal edema, calf tenderness Back exam: Present: normal inspection. Absent: CVA tenderness (R), CVA tenderness (L) Neurological exam: Present: alert Skin exam: Present: warm, dry, intact, normal color. Absent: rash Course Vital Signs 0104/19/20 04/19/20 00:56 01:02 01:09 Temperature 98.2 F Pulse Rate 152 H 144 H Pulse Rate [ 154 H Pulse Oximetery ] Respiratory 22 Rate Blood Pressure 194/123 138/103 O2 Sat by Pulse 98 96 Oximetry 04/19/20 04/19/20 02:18 02:39 Temperature Pulse Rate 111 H 125 H Pulse Rate [ Pulse Oximetery ] Respiratory 18 18 Rate Blood Pressure 151/98 108/68 O2 Sat by Pulse 90 L 97 Oximetry Disposition Clinical Impression: Alcohol intoxication, Atrial fibrillation with rapid ventricular response Disposition: ADMITTED IP TO THIS HOSP Condition: Fair
[2020-04-19] MEDS: SODIUM CHLORIDE 0.9% 1,000 ML IV SCH ×2 (03:21→15:53)
[2020-04-19] MEDS: METOPROLOL TARTRATE 25 MG TAB PO SCH ×2 (08:39→20:13)
[2020-04-19] MEDS: lisinopriL 5 MG TAB PO SCH (08:39)
[2020-04-19] MEDS: MULTIVITAMINS, THERA 1 EACH TAB PO SCH (08:40)
[2020-04-19] MEDS ORDERED: amLODIPine 10 MG TAB PO SCH (09:00)
--- NOTE | 2020-04-19 10:17 | P.HPIM ---
History of Present Illness Patient is a pleasant 50-year-old gentleman came in with complaints of chest pressure-like sensation and palpitations found to be in atrial fibrillation. Patient troponins are within normal limits TSH within normal limits patient does have history of alcoholism patient last drink was yesterday patient drinks about 1 pint of alcohol a day patient has previous hospitalizations for alcoholism patient quit for a while and started drinking again for about couple weeks. Patient complains of a lot of stress at home. Although not severely depressed. Patient had a new onset atrial fibrillation patient is presently on IV heparin Cardizem at this time. Patient was also started on beta fiona. Patient will also complaining of right upper quadrant abdominal pain without any nausea vomiting Review of Systems REVIEW OF SYSTEMS: CONSTITUTIONAL: No fever, no malaise, no fatigue. HEENT: No recent visual problems or hearing problems. Denied any sore throat. CARDIOVASCULAR: As mentioned in HPI PULMONARY: No shortness of breath, no cough, no hemoptysis. GASTROINTESTINAL: No diarrhea, no nausea, no vomiting. NEUROLOGICAL: No headaches, no weakness, no numbness. HEMATOLOGICAL: Denies any bleeding or petechiae. GENITOURINARY: Denies any burning micturition, frequency, or urgency. MUSCULOSKELETAL/RHEUMATOLOGICAL: Denies any joint pain, swelling, or any muscle pain. ENDOCRINE: Denies any polyuria or polydipsia. The rest of the 14-point review of systems is negative. 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 diverticultis, pancreatitits. History of Any Multi-Drug Resistant Organisms: None Reported Past Surgical History: Bowel Resection Additional Past Surgical History / Comment(s): Bowel resection r/t diverticulitis Past Anesthesia/Blood Transfusion Reactions: No Reported Reaction Past Psychological History: Anxiety Smoking Status: Former smoker Past Alcohol Use History: Abuse, Daily, Heavy Past Drug Use History: None Reported - Past Family History Father Family Medical History: Hypertension Additional Family Medical History / Comment(s): from Cocaine Overdose. Mother Additional Family Medical History / Comment(s): Mother from overdose of Percocet and Tequila. Esophageal varices. Medications and Allergies Home Medications Medication Instructions Recorded Confirmed Type amLODIPine [Norvasc] 10 mg PO DAILY #30 tab 03/03/20 04/19/20 Rx lisinopriL [Zestril] 5 mg PO DAILY #30 tab 03/03/20 04/19/20 Rx Omeprazole 20 mg PO AC-BID 04/19/20 04/19/20 History busPIRone HCL 15 mg PO BID 04/19/20 04/19/20 History traZODone HCL 150 mg PO HS 04/19/20 04/19/20 History Allergies Allergy/AdvReac Type Severity Reaction Status Date / Time bee pollen Allergy Anaphylaxis Verified 04/19/20 09:11 bee venom protein (honey bee) Allergy Anaphylaxis Verified 04/19/20 09:11 Physical Exam Vitals: Vital Signs Temp Pulse Pulse Pulse Resp BP BP 04/19/20 05:50 97.7 F 133 H 18 147/89 04/19/20 05:08 111 H 18 111/74 04/19/20 03:36 107 H 04/19/20 02:39 125 H 18 108/68 04/19/20 02:18 111 H 18 151/98 04/19/20 01:09 144 H 138/103 04/19/20 01:02 154 H 04/19/20 00:56 98.2 F 152 H 22 194/123 Pulse Ox 04/19/20 05:50 94 L 04/19/20 05:08 94 L 04/19/20 03:36 04/19/20 02:39 97 04/19/20 02:18 90 L 04/19/20 01:09 96 04/19/20 01:02 04/19/20 00:56 98 Intake and Output 04/18/20 04/19/20 04/19/20 22:59 06:59 14:59 Output Total 600 Balance -600 Output: Urine 600 Other: Voiding Method Urinal Weight 106.4 kg PHYSICAL EXAMINATION: GENERAL: The patient is alert and oriented x3, not in any acute distress. Obese HEENT: Pupils are round and equally reacting to light. EOMI. No scleral icterus. No conjunctival pallor. Normocephalic, atraumatic. No pharyngeal erythema. No thyromegaly. CARDIOVASCULAR: S1 and S2 present. No murmurs, rubs, or gallops. Irregularly irregular rhythm PULMONARY: Chest is clear to auscultation, no wheezing or crackles. ABDOMEN: Soft, mild tenderness in the right upper quadrant, nondistended, normoactive bowel sounds. No palpable organomegaly. MUSCULOSKELETAL: No joint swelling or deformity. EXTREMITIES: No cyanosis, clubbing, or pedal edema. NEUROLOGICAL: Gross neurological examination did not reveal any focal deficits. SKIN: No rashes. Results CBC & Chem 7: 04/19/20 01:04/19/20 01:31 Labs: Abnormal Lab Results - Last 24 Hours (Table) 04/19/20 04/19/20 04/19/20 Range/Units 01:31 01:31 01:31 RBC 4.28 L (4.30-5.90) m/uL Plt Count 108 L (150-450) k/uL APTT 19.5 L (22.0-30.0) sec Carbon Dioxide 20 L (22-30) mmol/L Creatinine 0.58 L (0.66-1.25) mg/dL Glucose 143 H (74-99) mg/dL AST 76 H (17-59) U/L ALT 59 H (4-49) U/L Urine Protein (Negative) Urine Ketones (Negative) Hyaline Casts (0-2) /lpf Urine Mucus (None) /hpf Serum Alcohol 369 H* mg/dL 04/19/20 Range/Units 01:31 RBC (4.30-5.90) m/uL Plt Count (150-450) k/uL APTT (22.0-30.0) sec Carbon Dioxide (22-30) mmol/L Creatinine (0.66-1.25) mg/dL Glucose (74-99) mg/dL AST (17-59) U/L ALT (4-49) U/L Urine Protein 1+ H (Negative) Urine Ketones Trace H (Negative) Hyaline Casts 3 H (0-2) /lpf Urine Mucus Rare H (None) /hpf Serum Alcohol mg/dL Assessment and Plan Plan: -New-onset atrial fibrillation: Continue with Cardizem continue with metoprolol been of Cardizem as tolerated continue with IV heparin echo -Chest pain probably secondary to atrial fibrillation cardiology evaluated the patient -Hypomagnesemia magnesium will be replaced - hypokalemia potassium will be replaced -Alcohol abuse: Counseling was provided and patient is presently on alcohol withdrawal precautions, thiamine multivitamin supplementation -Acute alcoholic hepatitis -Hypertension -Gastroesophageal reflux disease and possible alcoholic gastritis -History of gallstones patient does have right upper quadrant abdominal pain and some tenderness, will obtain repeat ultrasound
--- NOTE | 2020-04-19 10:34 | ECHOF ---
Referral Reason:LV function MEASUREMENTS -------- HEIGHT: 180.3 cm WEIGHT: 106.1 kg BP: 147/89 RVIDd: 3.3 cm (< 3.3) IVSd: 1.3 cm (0.6 - 1.1) LVIDd: 4.0 cm (3.9 - 5.3) LVPWd: 1.2 cm (0.6 - 1.1) IVSs: 1.8 cm LVIDs: 1.6 cm LVPWs: 1.9 cm Ao Diam: 3.0 cm (2.0 - 3.7) AV Cusp: 1.9 cm (1.5 - 2.6) LA Diam: 2.7 cm (2.7 - 3.8) RAP: 5.00 mmHg RVSP: 11.24 mmHg FINDINGS -------- Atrial fibrillation. This was a technically difficult study with suboptimal views. The left ventricular size is normal. There is mild concentric left ventricular hypertrophy. Overa ll left ventricular systolic function is mildly impaired with, an EF between 45 - 50 %. The right ventricle is mildly enlarged. The left atrial size is normal. The right atrial size is normal. Lumason used The aortic valve is trileaflet and appears structurally normal. The mitral valve is normal. There is trace mitral regurgitation. The tricuspid valve appears structurally normal. Trace tricuspid regurgitation present. Right gael tricular systolic pressure is normal at < 35 mmHg. There is no pulmonic regurgitation present. The aortic root size is normal. Normal inferior vena cava with normal inspiratory collapse consistent with estimated right atrial pre ssure of 5 mmHg. There is no pericardial effusion. CONCLUSIONS -------- 1. The left ventricular size is normal. 2. There is mild concentric left ventricular hypertrophy. 3. Overall left ventricular systolic function is mildly impaired with, an EF between 45 - 50 %. 4. There is trace mitral regurgitation. 5. Trace tricuspid regurgitation present. 6. There is no pericardial effusion. PARLIAMENTARY ARCHIVIST: Rebeca Estrada RDCS
--- NOTE | 2020-04-19 13:27 | P.CRDCN ---
History of Present Illness Consult date: 04/19/20 History of present illness: CHIEF COMPLAINT: New onset A. fib HISTORY OF PRESENT ILLNESS: This is a 50-year-old male with a past medical history significant for hypertension and alcohol abuse. Patient drinks 1 pint of vodka daily. Patient does not follow with a environmental health and safety intern. We have been asked to see the patient in consultation for new onset A. fib with RVR. Patient presented to the hospital yesterday with a chief complaint of palpitations. EKG completed revealing A. fib with RVR. The patient was started on a Cardizem drip. This morning the patient remains in atrial fibrillation with heart rate in the 110s. He denies palpations. Denies chest pain or pressure. Denies shortness of breath. DIAGNOSTICS: EKG reveals A. fib with RVR Chest xray no evidence of acute pulmonary disease. Borderline cardiomegaly. Laboratory data: WBC 4.0. Hemoglobin 14.9. Platelet count 108. Sodium 143. Potassium 3.6. BUN 14. Creatinine 0.58. Troponin negative 3. TSH 3.150. Serum alcohol of 369. Current home cardiac medications include Norvasc 10 mg daily and lisinopril 5 mg daily REVIEW OF SYSTEMS: At the time of my exam: CONSTITUTIONAL: Denies fever or chills. HEENT: Denies blurred vision, vision changes, or eye pain. Denies hemoptysis CARDIOVASCULAR: Denies chest pain, orthopnea, PND or palpitations RESPIRATORY: No shortness of breath. GASTROINTESTINAL: Denies abdominal pain. Denies nausea or vomiting. HEMATOLOGIC: Denies bleeding disorders. GENITOURINARY: Denies any blood in urine. SKIN: Denies pruitis. Denies rash. PHYSICAL EXAM: VITAL SIGNS: Reviewed. GENERAL: Well-developed in no acute distress. HEENT: Head is normocephalic. Pupils are equal, round. Sclerae anicteric. Mucous membranes of the mouth are moist. Neck supple. No JVD or thyromegaly LUNGS: Respirations even and unlabored. Lungs essentially clear to auscultation bilaterally. HEART: Irregular rate and rhythm. S1 and S2 heard. ABDOMEN: Soft. Nondistended. Nontender. EXTREMITIES: Normal range of motion. No clubbing or cyanosis. Peripheral pulses intact. No lower extremity edema NEUROLOGIC: Awake and alert. Oriented x 3. ASSESSMENT: New-onset atrial fibrillation with RVR Hypertension Acute alcohol intoxication Alcohol abuse, patient drinks 1 pint of vodka daily PLAN: Obtain 2-D echo to assess cardiac structure and function Begin metoprolol 25 mg twice a day Discontinue Cardizem drip Resume home dose of lisinopril Norvasc discontinued per internal medicine. Will continue to monitor blood pressure and make adjustments as needed Further recommendations pending patient's course Nurse practitioner note has been reviewed by physician. Signing provider agrees with the documented findings, assessment, and plan of care. 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 diverticultis, pancreatitits. History of Any Multi-Drug Resistant Organisms: None Reported Past Surgical History: Bowel Resection Additional Past Surgical History / Comment(s): Bowel resection r/t diverticulitis Past Anesthesia/Blood Transfusion Reactions: No Reported Reaction Smoking Status: Former smoker - Past Family History Father Family Medical History: Hypertension Additional Family Medical History / Comment(s): from Cocaine Overdose. Mother Additional Family Medical History / Comment(s): Mother from overdose of Percocet and Tequila. Esophageal varices. Medications and Allergies Home Medications Medication Instructions Recorded Confirmed Type amLODIPine [Norvasc] 10 mg PO DAILY #30 tab 03/03/20 04/19/20 Rx lisinopriL [Zestril] 5 mg PO DAILY #30 tab 03/03/20 04/19/20 Rx Omeprazole 20 mg PO AC-BID 04/19/20 04/19/20 History busPIRone HCL 15 mg PO BID 04/19/20 04/19/20 History traZODone HCL 150 mg PO HS 04/19/20 04/19/20 History Allergies Allergy/AdvReac Type Severity Reaction Status Date / Time bee pollen Allergy Anaphylaxis Verified 04/19/20 09:11 bee venom protein (honey bee) Allergy Anaphylaxis Verified 04/19/20 09:11 Physical Exam Vitals: Vital Signs Temp Pulse Pulse Pulse Resp BP BP 04/19/20 12:00 98.8 F 74 18 128/78 04/19/20 08:00 98.5 F 117 H 18 137/79 04/19/20 05:50 97.7 F 133 H 18 147/89 04/19/20 05:08 111 H 18 111/74 04/19/20 03:36 107 H 04/19/20 02:39 125 H 18 108/68 04/19/20 02:18 111 H 18 151/98 04/19/20 01:09 144 H 138/103 04/19/20 01:02 154 H 04/19/20 00:56 98.2 F 152 H 22 194/123 Pulse Ox 04/19/20 12:00 97 04/19/20 08:00 96 04/19/20 05:50 94 L 04/19/20 05:08 94 L 04/19/20 03:36 04/19/20 02:39 97 04/19/20 02:18 90 L 04/19/20 01:09 96 04/19/20 01:02 04/19/20 00:56 98 Intake and Output 04/18/20 04/19/20 04/19/20 22:59 06:59 14:59 Output Total 600 Balance -600 Output: Urine 600 Other: Voiding Method Urinal Weight 106.4 kg 106.4 kg Results 04/19/20 01:31 04/19/20 01:31 Cardiac Enzymes 04/19/20 04/19/20 04/19/20 Range/Units 01:31 01:31 05:38 AST 76 H (17-59) U/L Troponin I <0.012 <0.012 (0.000-0.034) ng/mL 04/19/20 Range/Units 07:43 AST (17-59) U/L Troponin I <0.012 (0.000-0.034) ng/mL Coagulation 04/19/20 Range/Units 01:31 PT 10.7 (9.0-12.0) sec APTT 19.5 L (22.0-30.0) sec CBC 04/19/20 Range/Units 01:31 WBC 4.0 (3.8-10.6) k/uL RBC 4.28 L (4.30-5.90) m/uL Hgb 14.9 (13.0-17.5) gm/dL Hct 42.2 (39.0-53.0) % Plt Count 108 L (150-450) k/uL Comprehensive Metabolic Panel 04/19/20 Range/Units 01:31 Sodium 143 (137-145) mmol/L Potassium 3.6 (3.5-5.1) mmol/L Chloride 107 (98-107) mmol/L Carbon Dioxide 20 L (22-30) mmol/L BUN 14 (9-20) mg/dL Creatinine 0.58 L (0.66-1.25) mg/dL Glucose 143 H (74-99) mg/dL Calcium 9.2 (8.4-10.2) mg/dL AST 76 H (17-59) U/L ALT 59 H (4-49) U/L Alkaline Phosphatase 71 (38-126) U/L Total Protein 8.2 (6.3-8.2) g/dL Albumin 4.7 (3.5-5.0) g/dL Current Medications Generic Name Dose Route Start Last Admin Trade Name Freq PRN Reason Stop Dose Admin Aspirin 325 mg 04/20/20 09:00 Aspirin 325 Mg Tab PO DAILY SEVERINO Buspirone HCl 15 mg 04/19/20 21:00 Buspirone Hcl 5 Mg Tab PO BID SEVERINO Folic Acid 1 each 04/19/20 09:00 Oifxpgbxohgmoq-Km-Yneyzptjzm 1 Each Tab PO DAILY SEVERINO Diltiazem HCl 125 mg/ Sodium 125 mls @ 5 mls/hr 04/19/20 01:15 04/19/20 01:25 Chloride IV 5 mg/hr .Q24H SEVERINO 5 mls/hr Administration 5 MG/HR Sodium Chloride 1,000 mls @ 100 mls/hr 04/19/20 03:00 04/19/20 03:21 Saline 0.9% IV 100 mls/hr .Q10H SEVERINO Administration Lisinopril 5 mg 04/19/20 09:00 04/19/20 08:39 Lisinopril 5 Mg Tab PO 5 mg DAILY SEVERINO Administration Lorazepam 1 mg 04/19/20 02:49 Lorazepam 2 Mg/Ml Inj IV Q2HR PRN CIWA 8 or 9 Lorazepam 1 mg 04/19/20 02:49 Lorazepam 2 Mg/Ml Inj IV Q1HR PRN CIWA 10 to 15 Lorazepam 2 mg 04/19/20 02:49 Lorazepam 2 Mg/Ml Inj IV 04/21/20 02:49 Q10M PRN CIWA 16 or higher Metoprolol Tartrate 25 mg 04/19/20 09:00 04/19/20 08:39 Metoprolol Tartrate 25 Mg Tab PO 25 mg BID SEVERINO Administration Multivitamins 1 each 04/19/20 09:00 04/19/20 08:40 Multivitamins, Thera 1 Each Tab PO 1 each DAILY SEVERINO Administration Naltrexone HCl 50 mg 04/19/20 09:00 Naltrexone Hcl 50 Mg Tab PO DAILY SEVERINO Nitroglycerin 0.4 mg 04/19/20 02:47 Nitroglycerin Sl Tabs 0.4 Mg Tab SUBLINGUAL Q5M PRN Chest Pain Pantoprazole Sodium 40 mg 04/19/20 17:30 Pantoprazole 40 Mg Tablet PO AC-BID SEVERINO Thiamine HCl 100 mg 04/19/20 17:30 Thiamine 100 Mg Tab PO BID-W/MEALS [facility] Intake and Output 04/18/20 04/19/20 04/19/20 22:59 06:59 14:59 Output Total 600 Balance -600 Output: Urine 600 Other: Voiding Method Urinal Weight 106.4 kg 106.4 kg Patient Weight 04/20/20 06:59 Weight 106.4 kg 04/19/20 01:31 04/19/20 01:31
--- NOTE | 2020-04-19 15:07 | US ---
EXAMINATION TYPE: US gallbladder DATE OF EXAM: 04/19/2020 COMPARISON: Multiple US and CT November 09, 2019 CLINICAL HISTORY: cholelithiasis. ABD pain EXAM MEASUREMENTS: Liver Length: 17.6 cm Gallbladder Wall: 0.3 cm CBD: 0.4 cm Right Kidney: 13.8 x 6.6 x 6.2 cm Pancreas: wnl, tail obscured by overlying bowel gas Liver: Heterogeneous, difficult to penetrate Gallbladder: Similar to multiple previous exams, distended, lumen clear Evidence for sonographic Lizarraga's sign: Yes CBD: wnl Right Kidney: wnl Visualized pancreas slightly heterogeneous. Visualized liver markedly heterogeneously hypoechoic. Gal lbladder shows distended margins without intraluminal mobile shadowing gallstones. No biliary dilatat ion. No hydronephrosis in the right kidney. IMPRESSION: Marked fatty infiltration of liver redemonstrated. No shadowing mobile gallstones or ultr asound evidence for acute cholecystitis.
[2020-04-19] MEDS: NALTREXONE HCL 50 MG TAB PO SCH (15:45)
[2020-04-19] MEDS: CYANOCOBALAMIN-FA-PYRIDOXINE 1 EACH TAB PO SCH (15:45)
[2020-04-19] MEDS: LORazepam 2 MG/ML INJ IV PRN ×4 (15:51→22:50)
[2020-04-19] MEDS: THIAMINE 100 MG TAB PO SCH (17:18)
[2020-04-19] MEDS: PANTOPRAZOLE 40 MG TABLET PO SCH (17:18)
[2020-04-19] MEDS: DILTIAZEM 125 MG in SODIUM CHLORIDE 0.9% 100 ML IV SCH (18:37)
[2020-04-19] MEDS: busPIRone HCl 5 MG TAB PO SCH (20:13)
[2020-04-20] MEDS: LORazepam 2 MG/ML INJ IV PRN ×5 (02:28→23:29)
[2020-04-20] MEDS: SODIUM CHLORIDE 0.9% 1,000 ML IV SCH ×2 (02:41→08:54)
[2020-04-20 03:01] LABS: Cholesterol 164 mg/dL (<200); HDL Cholesterol 72 mg/dL (40-60); LDL Cholesterol,Calculated 50 mg/dL (0-99); Triglycerides 208 mg/dL (<150)
[2020-04-20] MEDS: PANTOPRAZOLE 40 MG TABLET PO SCH ×2 (06:37→16:27)
[2020-04-20] MEDS: THIAMINE 100 MG TAB PO SCH ×2 (06:38→16:27)
--- NOTE | 2020-04-20 08:29 | P.PN ---
Subjective Patient is admitted for a new onset atrial fibrillation off Cardizem patient is on metoprolol at this time patient heart rate is still on the higher side. Patient had an echocardiogram which showed mildly decreased EF of around 45-50% patient is on IV fluids patient is not in CHF exacerbation we'll continue the IV fluids for today. Liver enzymes repeat is not available at this time ignition will be replaced patient received quite a bit of Ativan last night. Presently his CIWA score is 2. Ultrasound of the gallbladder didn't show any gallstone or cholecystitis. Constitutional: Denied any fatigue denied any fever. Cardio vascular: denied any chest pain, palpitations Gastrointestinal denied any nausea vomiting Pulmonary: Denied any shortness of breath cough Neurologic denied any new focal deficits All inpatient medications were reviewed and appropriate changes in these medications as dictated in the interval history and assessment and plan. Objective - Vital Signs Vital signs: Vital Signs Temp 98.2 F 04/20/20 04:00 Pulse 100 04/20/20 04:00 Resp 18 04/20/20 04:00 BP 144/88 04/20/20 04:00 Pulse Ox 96 04/20/20 04:00 Intake & Output 04/19/20 04/20/20 04/20/20 18:59 06:59 18:59 Intake Total 240 1876 Output Total 1200 Balance 240 676 Weight 106.4 kg 107 kg Intake: Intake, IV Titration 1156 Amount Diltiazem 125 mg In 56 Sodium Chloride 0.9% 100 ml @ 7.5 MG/HR 7.5 mls/hr IV .[id number] [facility] Rx#: [id number] Sodium Chloride 0.9% 1, 1100 000 ml @ 100 mls/hr IV . Q10H [facility] Rx#:[id number] Oral 240 720 Output: Urine 1200 Other: Voiding Method Urinal # Voids 3 3 - Exam PHYSICAL EXAMINATION: GENERAL: The patient is alert and oriented x3, not in any acute distress. Well developed, well nourished. HEENT: Pupils are round and equally reacting to light. EOMI. No scleral icterus. No conjunctival pallor. Normocephalic, atraumatic. No pharyngeal erythema. No thyromegaly. CARDIOVASCULAR: S1 and S2 present. No murmurs, rubs, or gallops. Tachycardic PULMONARY: Chest is clear to auscultation, no wheezing or crackles. ABDOMEN: Soft, nontender, nondistended, normoactive bowel sounds. No palpable organomegaly. MUSCULOSKELETAL: No joint swelling or deformity. EXTREMITIES: No cyanosis, clubbing, or pedal edema. NEUROLOGICAL: Gross neurological examination did not reveal any focal deficits. SKIN: No rashes. - Labs CBC & Chem 7: 04/19/20 01:31 04/19/20 01:31 Labs: Abnormal Lab Results - Last 24 Hours (Table) 04/19/20 Range/Units 01:31 Triglycerides 208 H (<150) mg/dL HDL Cholesterol 72 H (40-60) mg/dL Assessment and Plan Plan: -New-onset atrial fibrillation: Off Cardizem, continue with anticoagulation From congestive heart failure chronic systolic dysfunction probably secondary to alcoholic cardiomyopathy patient is not in CHF exacerbation at this time -Chest pain probably secondary to atrial fibrillation cardiology evaluated the patient -Hypomagnesemia magnesium will be replaced - hypokalemia potassium will be replaced -Alcohol abuse: Counseling was provided and patient is presently on alcohol withdrawal precautions, thiamine multivitamin supplementation -Acute alcoholic hepatitis -Hypertension -Gastroesophageal reflux disease and possible alcoholic gastritis
[2020-04-20] MEDS: MAGNESIUM SULFATE-D5W PMX 1 GM in DEXTROSE/WATER 1 100ML.BAG IVPB SCH ×2 (08:53→11:42)
[2020-04-20] MEDS: NALTREXONE HCL 50 MG TAB PO SCH (08:54)
[2020-04-20] MEDS: CYANOCOBALAMIN-FA-PYRIDOXINE 1 EACH TAB PO SCH (08:54)
[2020-04-20] MEDS: MULTIVITAMINS, THERA 1 EACH TAB PO SCH (08:54)
[2020-04-20] MEDS: busPIRone HCl 5 MG TAB PO SCH ×2 (08:54→19:21)
[2020-04-20] MEDS: METOPROLOL TARTRATE 25 MG TAB PO SCH ×2 (08:54→19:21)
[2020-04-20] MEDS: lisinopriL 5 MG TAB PO SCH (08:54)
[2020-04-20] MEDS ORDERED: ASPIRIN 325 MG TAB PO SCH (09:00)
[2020-04-20] MEDS: DILTIAZEM 125 MG in SODIUM CHLORIDE 0.9% 100 ML IV SCH (11:26)
--- NOTE | 2020-04-20 18:09 | P.PN ---
Subjective HISTORY OF PRESENT ILLNESS: This is a 50-year-old male with a past medical history significant for hypertension and alcohol abuse. Patient drinks 1 pint of vodka daily. Patient does not follow with a rn visiting. We have been asked to see the patient in consultation for new onset A. fib with RVR. Patient presented to the hospital yesterday with a chief complaint of palpitations. EKG completed revealing A. fib with RVR. The patient was started on a Cardizem drip. This morning the patient remains in atrial fibrillation with heart rate in the 110s. He denies palpations. Denies chest pain or pressure. Denies shortness of breath. 04/20/20 Patient seen and examined. Echocardiogram performed which shows ejection fraction 45-50%. He admits that he is feeling better, chest pressure he admits appears related to his A. fib and more like a discomfort in his chest. Patient was placed on lisinopril, metoprolol twice a day. Patient remains in A. fib with heart rates increased 100s up to 130s at times. REVIEW OF SYSTEMS: At the time of my exam: CONSTITUTIONAL: Denies fever or chills. HEENT: Denies blurred vision, vision changes, or eye pain. Denies hemoptysis CARDIOVASCULAR: Denies chest pain, orthopnea, PND or palpitations RESPIRATORY: No shortness of breath. GASTROINTESTINAL: Denies abdominal pain. Denies nausea or vomiting. HEMATOLOGIC: Denies bleeding disorders. GENITOURINARY: Denies any blood in urine. SKIN: Denies pruitis. Denies rash. PHYSICAL EXAM: VITAL SIGNS: Reviewed. GENERAL: Well-developed in no acute distress. HEENT: Head is normocephalic. Pupils are equal, round. Sclerae anicteric. Mucous membranes of the mouth are moist. Neck supple. No JVD or thyromegaly LUNGS: Respirations even and unlabored. Lungs essentially clear to auscultation bilaterally. HEART: Irregular rate and rhythm. S1 and S2 heard. ABDOMEN: Soft. Nondistended. Nontender. EXTREMITIES: Normal range of motion. No clubbing or cyanosis. Peripheral pulses intact. No lower extremity edema NEUROLOGIC: Awake and alert. Oriented x 3. ASSESSMENT: New-onset atrial fibrillation with RVR Hypertension Acute alcohol intoxication Alcohol abuse, patient drinks 1 pint of vodka daily Mild cardiomyopathy ejection fraction 45-50%, possibly alcohol induced Chest discomfort which appears related to his A. fib, troponins normal PLAN: Increase metoprolol to 75 mg 3 times a day. Continue lisinopril Patient's heart rate is still elevated however if heart rates are under better control, possibly discharge home tomorrow. CHADSVASC of only 1 and therefore no anticoagulation. Objective - Vital Signs Vital signs: Vital Signs Temp 98.4 F 04/20/20 16:00 Pulse 104 H 04/20/20 16:00 Resp 17 04/20/20 16:00 BP 122/80 04/20/20 16:00 Pulse Ox 98 04/20/20 16:00 Intake & Output 04/19/20 04/20/20 04/20/20 18:59 06:59 18:59 Intake Total 240 1876 1040 Output Total 1200 Balance 495 927 8306 Weight 106.4 kg 107 kg Intake: Intake, IV Titration 1156 800 Amount Diltiazem 125 mg In 56 Sodium Chloride 0.9% 100 ml @ 7.5 MG/HR 7.5 mls/hr IV .[id number] [facility] Rx#: [id number] Magnesium Sulfate-D5w Pmx 100 1 gm In Dextrose/Water 1 100ml.bag @ 100 mls/hr IVPB Q1H [facility] Rx#: [id number] Sodium Chloride 0.9% 1, 1100 700 000 ml @ 100 mls/hr IV . Q10H [facility] Rx#:[id number] Oral 240 720 240 Output: Urine 1200 Other: Voiding Method Urinal Urinal # Voids 3 3 4 - Labs CBC & Chem 7: 04/19/20 01:31 04/19/20 01:31 Labs: Abnormal Lab Results - Last 24 Hours (Table) 04/19/20 Range/Units 01:31 Triglycerides 208 H (<150) mg/dL HDL Cholesterol 72 H (40-60) mg/dL
[2020-04-20] MEDS ORDERED: METOPROLOL TARTRATE 50 MG TAB PO SCH (21:00)
[2020-04-21] MEDS: LORazepam 2 MG/ML INJ IV PRN ×2 (04:01→06:28)
[2020-04-21] MEDS: THIAMINE 100 MG TAB PO SCH (06:41)
[2020-04-21] MEDS: SODIUM CHLORIDE 0.9% 1,000 ML IV SCH ×2 (06:41→09:06)
[2020-04-21] MEDS: PANTOPRAZOLE 40 MG TABLET PO SCH (06:41)
[2020-04-21 08:40] VITALS: BP 137/81; PULSE 85; RESP 18; TEMP 98
[2020-04-21 08:52] LABS: ALT 72 U/L (4-49); AST 103 U/L (17-59); African American GFR (CKD) >90 (>60 ml/min/1.73 sqM); Albumin 4.9 g/dL (3.5-5.0); Alkaline Phosphatase 61 U/L (38-126); Anion Gap 10 mmol/L; Blood Urea Nitrogen 16 mg/dL (9-20); Calcium 9.9 mg/dL (8.4-10.2); Carbon Dioxide 24 mmol/L (22-30); Chloride 105 mmol/L (98-107); Glucose 172 mg/dL (74-99); Magnesium 1.8 mg/dL (1.6-2.3); Non-African American GFR(CKD) >90 (>60 ml/min/1.73 sqM); Potassium 4.2 mmol/L (3.5-5.1); Sodium 139 mmol/L (137-145); Total Bilirubin 1.4 mg/dL (0.2-1.3); Total Protein 8.6 g/dL (6.3-8.2)
--- NOTE | 2020-04-21 08:55 | P.PN ---
Subjective Patient is admitted for a new onset atrial fibrillation off Cardizem patient is on metoprolol at this time patient heart rate is still on the higher side. Patient had an echocardiogram which showed mildly decreased EF of around 45-50% patient is on IV fluids patient is not in CHF exacerbation we'll continue the IV fluids for today. Liver enzymes repeat is not available at this time ignition will be replaced patient received quite a bit of Ativan last night. Presently his CIWA score is 2. Ultrasound of the gallbladder didn't show any gallstone or cholecystitis. 04/21/2020 Patient looks much better but heart rate is still uncontrolled patient is an 75 tid of metoprolol Constitutional: Denied any fatigue denied any fever. Cardio vascular: denied any chest pain, palpitations Gastrointestinal denied any nausea vomiting Pulmonary: Denied any shortness of breath cough Neurologic denied any new focal deficits All inpatient medications were reviewed and appropriate changes in these medications as dictated in the interval history and assessment and plan. Objective - Vital Signs Vital signs: Vital Signs Temp 98.0 F 04/21/20 08:00 Pulse 85 04/21/20 08:00 Resp 18 04/21/20 08:00 BP 137/81 04/21/20 08:00 Pulse Ox 98 04/21/20 08:00 Intake & Output 04/20/20 04/21/20 04/21/20 18:59 06:59 18:59 Intake Total 1040 240 Output Total 625 Balance 1040 -625 240 Weight 106.1 kg Intake: Intake, IV Titration 800 Amount Magnesium Sulfate-D5w Pmx 100 1 gm In Dextrose/Water 1 100ml.bag @ 100 mls/hr IVPB Q1H [facility] Rx#: [id number] Sodium Chloride 0.9% 1, 700 000 ml @ 100 mls/hr IV . Q10H [facility] Rx#:[id number] Oral 240 240 Output: Urine 625 Other: Voiding Method Urinal Urinal # Voids 4 2 - Exam PHYSICAL EXAMINATION: GENERAL: The patient is alert and oriented x3, not in any acute distress. Well developed, well nourished. HEENT: Pupils are round and equally reacting to light. EOMI. No scleral icterus. No conjunctival pallor. Normocephalic, atraumatic. No pharyngeal erythema. No thyromegaly. CARDIOVASCULAR: S1 and S2 present. No murmurs, rubs, or gallops. Tachycardic PULMONARY: Chest is clear to auscultation, no wheezing or crackles. ABDOMEN: Soft, nontender, nondistended, normoactive bowel sounds. No palpable organomegaly. MUSCULOSKELETAL: No joint swelling or deformity. EXTREMITIES: No cyanosis, clubbing, or pedal edema. NEUROLOGICAL: Gross neurological examination did not reveal any focal deficits. SKIN: No rashes. - Labs CBC & Chem 7: 04/19/20 01:31 04/21/20 07:52 Labs: Abnormal Lab Results - Last 24 Hours (Table) 04/21/20 Range/Units 07:52 Glucose 172 H (74-99) mg/dL Total Bilirubin 1.4 H (0.2-1.3) mg/dL AST 103 H (17-59) U/L ALT 72 H (4-49) U/L Total Protein 8.6 H (6.3-8.2) g/dL Assessment and Plan Plan: -New-onset atrial fibrillation: Patient is presently on sulfate 3 times a day of metoprolol not on any anti-correlation at this time. - congestive heart failure chronic systolic dysfunction probably secondary to alcoholic cardiomyopathy patient is not in CHF exacerbation at this time. IV fluids will be discontinued -Chest pain probably secondary to atrial fibrillation cardiology evaluated the patient -Hypomagnesemia magnesium will be replaced - hypokalemia potassium was replaced -Alcohol abuse: Counseling was provided and patient is presently on alcohol withdrawal precautions, thiamine multivitamin supplementation. Presently not having any withdrawals -Acute alcoholic hepatitis -Hypertension -Gastroesophageal reflux disease and possible alcoholic gastritis
[2020-04-21] MEDS: MULTIVITAMINS, THERA 1 EACH TAB PO SCH (09:30)
[2020-04-21] MEDS: CYANOCOBALAMIN-FA-PYRIDOXINE 1 EACH TAB PO SCH (09:30)
[2020-04-21] MEDS: lisinopriL 5 MG TAB PO SCH (09:30)
[2020-04-21] MEDS: METOPROLOL TARTRATE 25 MG TAB PO SCH (09:30)
[2020-04-21] MEDS: NALTREXONE HCL 50 MG TAB PO SCH (09:30)
[2020-04-21] MEDS: busPIRone HCl 5 MG TAB PO SCH (09:30)
[2020-04-21] MEDS ORDERED: MAGNESIUM SULFATE-D5W PMX 1 GM in DEXTROSE/WATER 1 100ML.BAG IVPB ONE (10:00)
--- NOTE | 2020-04-22 15:26 | P.DS ---
Providers Date of admission: 04/19/20 02:47 Expected date of discharge: 04/21/20 Attending physician: Trace Lauren Consults: 04/19/20 02:47 Consult Physician Routine Consulting Provider: Jarvis Nguyen Consult Reason/Comments: Atrial fibrillation, rapid ventricular rate. Do you want consulting provider notified?: Yes Primary care physician: Stated None Hospital Course: Patient left AGAINST MEDICAL ADVICE Patient Condition at Discharge: Fair Plan - Discharge Summary Discharge Rx Participant: No New Discharge Prescriptions: No Action amLODIPine [Norvasc] 10 mg PO DAILY #30 tab lisinopriL [Zestril] 5 mg PO DAILY #30 tab busPIRone HCL 15 mg PO BID Omeprazole 20 mg PO AC-BID traZODone HCL 150 mg PO HS busPIRone HCL 15 mg PO BID #6 tab Discharge Medication List amLODIPine [Norvasc] 10 mg PO DAILY #30 tab 03/03/20 [Rx] lisinopriL [Zestril] 5 mg PO DAILY #30 tab 03/03/20 [Rx] Omeprazole 20 mg PO AC-BID 04/19/20 [History] busPIRone HCL 15 mg PO BID 04/19/20 [History] traZODone HCL 150 mg PO HS 04/19/20 [History] busPIRone HCL 15 mg PO BID #6 tab 04/22/20 [Rx] Follow up Appointment(s)/Referral(s): None,Stated [Primary Care Provider] - 1-2 days Patient Instructions/Handouts: A-fib (Atrial Fibrillation) (DC) Discharge Disposition: Left Against Medical Advice
== END 2020-04-21 09:20 | disposition left against medical advice (07) | DRG 309 ==
LOC: EC 00:51 → 3SCARD 02:47
PROVIDERS: ADMIT Internal Medicine; ATTEND Internal Medicine
DX: I48.91 Unspecified atrial fibrillation (principal); I50.22 Chronic systolic (congestive) heart failure; I42.6 Alcoholic cardiomyopathy; I11.0 Hypertensive heart disease with heart failure; F10.220 Alcohol dependence with intoxication, uncomplicated; K70.10 Alcoholic hepatitis without ascites; E83.42 Hypomagnesemia; E87.6 Hypokalemia; K21.9 Gastro-esophageal reflux disease without esophagitis; F41.9 Anxiety disorder, unspecified; K80.20 Calculus of gallbladder without cholecystitis without obstruction; K29.20 Alcoholic gastritis without bleeding; E66.9 Obesity, unspecified; Y90.8 Blood alcohol level of 240 mg/100 ml or more; Z68.33 Body mass index [BMI] 33.0-33.9, adult; Z79.899 Other long term (current) drug therapy; Z91.030 Bee allergy status; Z90.49 Acquired absence of other specified parts of digestive tract; Z87.891 Personal history of nicotine dependence; Z87.19 Personal history of other diseases of the digestive system; Z82.49 Family history of ischemic heart disease and other diseases of the circulatory system
CPT/HCPCS: 36415; 71045; 76705; 80053; 80061; 80320; 81001; 83735; 84443; 84484; 85025; 85610; 85730; 93005; 93306; 96365; 96366; 96375; 96376; 99285

== ENCOUNTER 2020-04-22 07:19 | Emergency (ER) | payer OTHER ==
[2020-04-22 07:30] VITALS: RESP 18; TEMP 98.3
[2020-04-22] MEDS ORDERED: SODIUM CHLORIDE 0.9% 1,000 ML IV STA ×2 (07:41→08:40)
--- NOTE | 2020-04-22 07:43 | ED ---
General Adult HPI - General Chief complaint: Arrhythmia/Palpitations Stated complaint: Chest Pain Time Seen by Provider: 04/22/20 07:34 Source: patient, EMS, RN notes reviewed Mode of arrival: EMS Limitations: no limitations - History of Present Illness Initial comments: Patient is a 50-year-old male significant past medical history for A. fib, EtOH, presented to the emergency room today by EMS, the chief complaint of increased palpitations. He is not that he was drinking last night as well. He states that he was recently admitted to the hospital for A. fib. He states he was discharged home with medication. He states that he lost his medication has been unable to take it. Patient states she's having increased palpitations. Patient denies any other complaints or any other symptoms at this time. Patient denies any recent fever, chills, shortness of breath, chest pain, back pain, abdominal pain, headaches or visual changes, or any other complaints. - Related Data Home Medications Medication Instructions Recorded Confirmed Omeprazole 20 mg PO AC-BID 04/19/20 04/22/20 busPIRone HCL 15 mg PO BID 04/19/20 04/22/20 traZODone HCL 150 mg PO HS 04/19/20 04/22/20 Previous Rx's Medication Instructions Recorded amLODIPine [Norvasc] 10 mg PO DAILY #30 tab 03/03/20 lisinopriL [Zestril] 5 mg PO DAILY #30 tab 03/03/20 busPIRone HCL 15 mg PO BID #6 tab 04/22/20 Allergies Allergy/AdvReac Type Severity Reaction Status Date / Time bee pollen Allergy Anaphylaxis Verified 04/22/20 08:38 bee venom protein (honey bee) Allergy Anaphylaxis Verified 04/22/20 08:38 Review of Systems ROS Statement: Those systems with pertinent positive or pertinent negative responses have been documented in the HPI. ROS Other: All systems not noted in ROS Statement are negative. 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 diverticultis, pancreatitits. History of Any Multi-Drug Resistant Organisms: None Reported Past Surgical History: Bowel Resection Additional Past Surgical History / Comment(s): Bowel resection r/t diverticulitis Past Anesthesia/Blood Transfusion Reactions: No Reported Reaction Past Psychological History: Anxiety Smoking Status: Former smoker Past Alcohol Use History: Abuse, Daily, Heavy Past Drug Use History: None Reported - Past Family History Father Family Medical History: Hypertension Additional Family Medical History / Comment(s): from Cocaine Overdose. Mother Additional Family Medical History / Comment(s): Mother from overdose of Percocet and Tequila. Esophageal varices. General Exam - General Exam Comments Initial Comments: General: The patient is awake and alert, in no distress, and does not appear acutely ill. Eye: extra-ocular movements are intact. No nystagmus. There is normal conjunctiva bilaterally. No signs of icterus. Ears, nose, mouth and throat: There are moist mucous membranes and no oral lesions. Neck: The neck is supple, there is no tenderness or JVD. Cardiovascular: Tachycardic. No murmur, rub or gallop is appreciated. Respiratory: Lungs are clear to auscultation, respirations are non-labored, breath sounds are equal. No wheezes, stridor, rales, or rhonchi. Gastrointestinal: Soft nontender. Musculoskeletal: Normal ROM, no tenderness. Strength 5/5. Sensation intact. Pulses equal bilaterally 2+. Neurological: A&O x 3. CN II-XII intact, There are no obvious motor or sensory deficits. Coordination appears grossly intact. Speech is normal. Skin: Skin is warm and dry and no rashes or lesions are noted. Psychiatric: Cooperative, appropriate mood & affect, normal judgment. Limitations: no limitations Course Vital Signs 04/22/20 04/22/20 04/22/20 07:21 08:30 09:00 Temperature 98.3 F Pulse Rate 117 H 103 H 112 H Respiratory 18 19 18 Rate Blood Pressure 136/87 123/81 127/79 O2 Sat by Pulse 99 98 96 Oximetry 04/22/20 04/22/20 09:30 10:00 Temperature Pulse Rate 107 H 108 H Respiratory 18 18 Rate Blood Pressure 139/81 130/84 O2 Sat by Pulse 98 99 Oximetry Medical Decision Making - Medical Decision Making Patient reexamined at this time is resting comfortably. Patient is requesting be discharged. Patient's EKG shows a sinus tachycardia. No evidence of A. fib. His labs been reviewed are unremarkable at this time. He is intoxicated. Patient states he can have family come pick him up. Patient's requested a prescription for his BuSpar she states that he lost the prescription. He'll be given prescription for 2 days and is advised follow-up the family doctor. - Lab Data Result diagrams: 04/22/20 08:15 04/22/20 08:15 Lab Results 04/22/20 04/22/20 04/22/20 Range/Units 08:15 08:15 08:15 WBC (3.8-10.6) k/uL RBC (4.30-5.90) m/uL Hgb (13.0-17.5) gm/dL Hct (39.0-53.0) % MCV (80.0-100.0) fL MCH (25.0-35.0) pg MCHC (31.0-37.0) g/dL RDW (11.5-15.5) % Plt Count (150-450) k/uL MPV Neutrophils % % Lymphocytes % % Monocytes % % Eosinophils % % Basophils % % Neutrophils # (1.3-7.7) k/uL Lymphocytes # (1.0-4.8) k/uL Monocytes # (0-1.0) k/uL Eosinophils # (0-0.7) k/uL Basophils # (0-0.2) k/uL PT 10.1 (9.0-12.0) sec INR 0.9 (<1.2) APTT 21.6 L (22.0-30.0) sec Sodium 143 (137-145) mmol/L Potassium 3.4 L (3.5-5.1) mmol/L Chloride 110 H (98-107) mmol/L Carbon Dioxide 19 L (22-30) mmol/L Anion Gap 14 mmol/L BUN 22 H (9-20) mg/dL Creatinine 0.71 (0.66-1.25) mg/dL Est GFR (CKD-EPI)AfAm >90 (>60 ml/min/1.73 sqM) Est GFR (CKD-EPI)NonAf >90 (>60 ml/min/1.73 sqM) Glucose 118 H (74-99) mg/dL Calcium 9.3 (8.4-10.2) mg/dL Total Creatine Kinase 146 (55-170) U/L CK-MB (CK-2) 2.2 (0.0-2.4) ng/mL CK-MB (CK-2) Rel Index 1.5 Urine Color Urine Appearance (Clear) Urine pH (5.0-8.0) Ur Specific [place] (1.001-1.035) Urine Protein (Negative) Urine Glucose (UA) (Negative) Urine Ketones (Negative) Urine Blood (Negative) Urine Nitrite (Negative) Urine Bilirubin (Negative) Urine Urobilinogen (<2.0) mg/dL Ur Leukocyte Esterase (Negative) Serum Alcohol mg/dL 04/22/20 04/22/20 04/22/20 Range/Units 08:15 08:49 09:35 WBC 3.3 L (3.8-10.6) k/uL RBC 3.86 L (4.30-5.90) m/uL Hgb 13.5 (13.0-17.5) gm/dL Hct 38.0 L (39.0-53.0) % MCV 98.4 (80.0-100.0) fL MCH 34.9 (25.0-35.0) pg MCHC 35.4 (31.0-37.0) g/dL RDW 12.6 (11.5-15.5) % Plt Count 107 L (150-450) k/uL MPV 7.9 Neutrophils % 64 % Lymphocytes % 27 % Monocytes % 6 % Eosinophils % 1 % Basophils % 1 % Neutrophils # 2.1 (1.3-7.7) k/uL Lymphocytes # 0.9 L (1.0-4.8) k/uL Monocytes # 0.2 (0-1.0) k/uL Eosinophils # 0.0 (0-0.7) k/uL Basophils # 0.0 (0-0.2) k/uL PT (9.0-12.0) sec INR (<1.2) APTT (22.0-30.0) sec Sodium (137-145) mmol/L Potassium (3.5-5.1) mmol/L Chloride (98-107) mmol/L Carbon Dioxide (22-30) mmol/L Anion Gap mmol/L BUN (9-20) mg/dL Creatinine (0.66-1.25) mg/dL Est GFR (CKD-EPI)AfAm (>60 ml/min/1.73 sqM) Est GFR (CKD-EPI)NonAf (>60 ml/min/1.73 sqM) Glucose (74-99) mg/dL Calcium (8.4-10.2) mg/dL Total Creatine Kinase (55-170) U/L CK-MB (CK-2) (0.0-2.4) ng/mL CK-MB (CK-2) Rel Index Urine Color Yellow Urine Appearance Clear (Clear) Urine pH 5.0 (5.0-8.0) Ur Specific [place] 1.020 (1.001-1.035) Urine Protein Trace H (Negative) Urine Glucose (UA) Negative (Negative) Urine Ketones Negative (Negative) Urine Blood Negative (Negative) Urine Nitrite Negative (Negative) Urine Bilirubin Negative (Negative) Urine Urobilinogen <2.0 (<2.0) mg/dL Ur Leukocyte Esterase Negative (Negative) Serum Alcohol 182 mg/dL Disposition Clinical Impression: Palpitations, Alcohol intoxication, Medication refill Disposition: HOME SELF-CARE Condition: Good Instructions (If sedation given, give patient instructions): Heart Palpitations (ED) Additional Instructions: Please follow-up family doctor the next 2 days return here to emergency room for any other concerns. Prescriptions: busPIRone HCL 15 mg PO BID #6 tab Is patient prescribed a controlled substance at d/c from ED?: No Referrals: None,Stated [REFERRING] - 1-2 days Time of Disposition: 10:24
--- NOTE | 2020-04-22 08:04 | XR ---
EXAMINATION TYPE: XR chest 1V portable DATE OF EXAM: 04/22/2020 Comparison: 04/19/2020 Clinical History: 50-year-old male palpitations Findings: Heart upper limits of normal in size. No consolidation or pleural effusion. Some strandy atelectasis of the lung bases. Impression: Some strandy atelectasis at the lung bases. No acute process seen.
[2020-04-22 08:29] LABS: Basophils % (A) 1 %; Eosinophils % (A) 1 %; HGB 13.5 gm/dL (13.0-17.5); Lymphocytes # (A) 0.9 k/uL (1.0-4.8); Lymphocytes % (A) 27 %; MCH 34.9 pg (25.0-35.0); MCHC 35.4 g/dL (31.0-37.0); MCV 98.4 fL (80.0-100.0); Mean Platelet Volume 7.9; Monocytes # (A) 0.2 k/uL (0-1.0); Monocytes % (A) 6 %; Neutrophils # (A) 2.1 k/uL (1.3-7.7); Neutrophils % (A) 64 %; Platelet Count 107 k/uL (150-450); RBC 3.86 m/uL (4.30-5.90); RDW 12.6 % (11.5-15.5); WBC 3.3 k/uL (3.8-10.6)
[2020-04-22 08:37] LABS: African American GFR (CKD) >90 (>60 ml/min/1.73 sqM); Anion Gap 14 mmol/L; Blood Urea Nitrogen 22 mg/dL (9-20); Calcium 9.3 mg/dL (8.4-10.2); Carbon Dioxide 19 mmol/L (22-30); Chloride 110 mmol/L (98-107); Glucose 118 mg/dL (74-99); Non-African American GFR(CKD) >90 (>60 ml/min/1.73 sqM); Potassium 3.4 mmol/L (3.5-5.1); Sodium 143 mmol/L (137-145)
[2020-04-22] MEDS ORDERED: SODIUM CHLORIDE 0.9% 1,000 ML with MVI, ADULT NO.4 WITH VIT K 10 ML, THIAMINE 100 MG, F... IV ONE ×4 (08:40)
[2020-04-22 08:53] LABS: INR 0.9 (<1.2); Prothrombin Time 10.1 sec (9.0-12.0)
[2020-04-22 08:55] LABS: Partial Thromboplastin Time 21.6 sec (22.0-30.0)
[2020-04-22 09:04] LABS: Creatine Kinase MB 2.2 ng/mL (0.0-2.4)
[2020-04-22 09:57] LABS: Appearance,Urine Clear (Clear); Bilirubin,Urine Negative (Negative); Blood,Urine Negative (Negative); Color,Urine Yellow; Glucose,Urine (UA) Negative (Negative); Ketones,Urine Negative (Negative); Leukocyte Esterase,Urine Negative (Negative); Nitrite,Urine Negative (Negative); Protein,Urine Trace (Negative); Urobilinogen,Urine <2.0 mg/dL (<2.0)
[2020-04-22 10:15] VITALS: BP 130/84; PULSE 108
== END 2020-04-22 10:53 | disposition home or self-care (01) ==
LOC: EC 07:19
DX: F10.129 Alcohol abuse with intoxication, unspecified (principal); R00.2 Palpitations; Z76.0 Encounter for issue of repeat prescription; F41.9 Anxiety disorder, unspecified; I10 Essential (primary) hypertension; Z79.899 Other long term (current) drug therapy; Z91.030 Bee allergy status; Z87.891 Personal history of nicotine dependence
CPT/HCPCS: 36415; 93005; 80048; 82550; 82553; 85025; 85610; 85730; 81003; 71045; 99285; 96365; 96366; 96361; G0480; J3411; 80320

== ENCOUNTER 2020-08-21 09:50 | Inpatient (IN) | payer OTHER ==
[2020-08-21] MEDS ORDERED: LORazepam 2 MG/ML INJ IV STA (10:17)
[2020-08-21] MEDS ORDERED: SODIUM CHLORIDE 0.9% 1,000 ML IV STA (10:17)
[2020-08-21] MEDS ORDERED: LORazepam 2 MG/ML INJ IV PRN (10:19)
--- NOTE | 2020-08-21 10:22 | ED ---
General Adult HPI - General Chief complaint: Recheck/Abnormal Lab/Rx Stated complaint: weakness, jaundice Time Seen by Provider: 08/21/20 10:07 Source: patient, RN notes reviewed Mode of arrival: ambulatory Limitations: no limitations - History of Present Illness Initial comments: This a 50-year-old male presents emergency Department chief complaint of generalized not feeling well. Patient states his mother's concern about his corner of his eyes. Patient does admit that he is a heavy drinker states he stopped last week. Patient states is very shaky, not feeling well. Patient does state some medications for his heart but states he has no they are. Patient was drinking approximately 1/5 per day. Patient it's a slight nausea, palpitations, weakness. No chest pain shortness breath headache or any focal weakness. Denies any illicit drug use. No history of liver disease. - Related Data Home Medications Medication Instructions Recorded Confirmed Omeprazole 20 mg PO AC-BID 04/19/20 04/22/20 busPIRone HCL 15 mg PO BID 04/19/20 04/22/20 traZODone HCL 150 mg PO HS 04/19/20 04/22/20 Previous Rx's Medication Instructions Recorded amLODIPine [Norvasc] 10 mg PO DAILY #30 tab 03/03/20 lisinopriL [Zestril] 5 mg PO DAILY #30 tab 03/03/20 busPIRone HCL 15 mg PO BID #6 tab 04/22/20 Allergies Allergy/AdvReac Type Severity Reaction Status Date / Time bee pollen Allergy Anaphylaxis Verified 08/21/20 10:01 bee venom protein (honey bee) Allergy Anaphylaxis Verified 08/21/20 10:01 Review of Systems ROS Statement: Those systems with pertinent positive or pertinent negative responses have been documented in the HPI. ROS Other: All systems not noted in ROS Statement are negative. 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 diverticultis, pancreatitits. History of Any Multi-Drug Resistant Organisms: None Reported Past Surgical History: Bowel Resection Additional Past Surgical History / Comment(s): Bowel resection r/t diverticulitis Past Anesthesia/Blood Transfusion Reactions: No Reported Reaction Past Psychological History: Anxiety Smoking Status: Former smoker Past Alcohol Use History: Abuse, Daily, Heavy Past Drug Use History: None Reported - Past Family History Father Family Medical History: Hypertension Additional Family Medical History / Comment(s): from Cocaine Overdose. Mother Additional Family Medical History / Comment(s): Mother from overdose of Percocet and Tequila. Esophageal varices. General Exam Limitations: no limitations General appearance: alert, in distress (Mild) Head exam: Present: atraumatic, normocephalic, normal inspection Eye exam: Present: PERRL, EOMI, scleral icterus. Absent: normal appearance, conjunctival injection, periorbital swelling ENT exam: Present: mucous membranes moist, TM's normal bilaterally. Absent: normal exam, normal oropharynx (Icterus noted) Neck exam: Present: normal inspection, full ROM. Absent: tenderness, meningismus, lymphadenopathy Respiratory exam: Present: normal lung sounds bilaterally. Absent: respiratory distress, wheezes, rales, rhonchi, stridor Cardiovascular Exam: Present: normal rhythm, tachycardia, normal heart sounds. Absent: systolic murmur, diastolic murmur, rubs, gallop, clicks GI/Abdominal exam: Present: soft, distended, tenderness, normal bowel sounds. Absent: guarding, rebound, rigid Neurological exam: Present: alert, oriented X3 Skin exam: Present: warm, dry, intact. Absent: normal color (Icterus), rash Course Vital Signs 08/21/20 08/21/20 09:57 11:26 Temperature 99.1 F Pulse Rate 139 H 135 H Respiratory 18 18 Rate Blood Pressure 146/108 153/100 O2 Sat by Pulse 95 98 Oximetry EKG Findings - EKG Comments: EKG Findings:: EKG performed at 10:04 sinus tachycardia rate of 135 RI 136 QRS 92 QT/QTC 308/462 - EKG Results: EKG: interpreted by ERMD Medical Decision Making - Medical Decision Making 50-year-old presented for jaundice. Patient has benign liver cirrhosis, hepatic encephalopathy with the patient's case discussed with Dr. Curtis patient will receive lactulose, Lasix ultrasound is pending. - Lab Data Result diagrams: 08/21/20 10:21 08/21/20 10:21 Lab Results 08/21/20 08/21/20 08/21/20 Range/Units 10:21 10:21 10:21 WBC 7.3 (3.8-10.6) k/uL RBC 3.13 L (4.30-5.90) m/uL Hgb 11.6 L (13.0-17.5) gm/dL Hct 34.4 L (39.0-53.0) % MCV 109.7 H (80.0-100.0) fL MCH 37.1 H (25.0-35.0) pg MCHC 33.8 (31.0-37.0) g/dL RDW 18.9 H (11.5-15.5) % Plt Count 92 L (150-450) k/uL MPV 10.2 Neutrophils % 87 % Lymphocytes % 9 % Monocytes % 3 % Eosinophils % 1 % Basophils % 0 % Neutrophils # 6.3 (1.3-7.7) k/uL Lymphocytes # 0.6 L (1.0-4.8) k/uL Monocytes # 0.2 (0-1.0) k/uL Eosinophils # 0.0 (0-0.7) k/uL Basophils # 0.0 (0-0.2) k/uL Manual Slide Review Performed Polychromasia Present Poikilocytosis (manual Present Anisocytosis Slight Macrocytosis Marked A Target Cells Present PT 15.0 H (9.0-12.0) sec INR 1.5 H (<1.2) APTT 28.5 (22.0-30.0) sec Sodium 130 L (137-145) mmol/L Potassium 3.9 (3.5-5.1) mmol/L Chloride 86 L (98-107) mmol/L Carbon Dioxide 26 (22-30) mmol/L Anion Gap 18 mmol/L BUN 13 (9-20) mg/dL Creatinine 0.68 (0.66-1.25) mg/dL Est GFR (CKD-EPI)AfAm >90 (>60 ml/min/1.73 sqM) Est GFR (CKD-EPI)NonAf >90 (>60 ml/min/1.73 sqM) Glucose 132 H (74-99) mg/dL Plasma Lactic Acid Devonte (0.7-2.0) mmol/L Calcium 8.8 (8.4-10.2) mg/dL Total Bilirubin 20.7 H* (0.2-1.3) mg/dL Conjugated Bilirubin 13.7 H (0.0-0.3) mg/dL Unconjugated Bilirubin 2.6 H (0.0-1.1) mg/dL Delta Bilirubin 4.4 H (0.0-0.2) mg/dL AST 659 H (17-59) U/L ALT 65 H (4-49) U/L Alkaline Phosphatase 221 H (38-126) U/L Ammonia (<30) umol/L Creatine Kinase 45 L (55-170) U/L Troponin I (0.000-0.034) ng/mL Total Protein 7.8 (6.3-8.2) g/dL Albumin 4.0 (3.5-5.0) g/dL Amylase 102 (30-110) U/L Lipase 680 H (23-300) U/L 08/21/20 08/21/20 Range/Units 10:21 10:21 WBC (3.8-10.6) k/uL RBC (4.30-5.90) m/uL Hgb (13.0-17.5) gm/dL Hct (39.0-53.0) % MCV (80.0-100.0) fL MCH (25.0-35.0) pg MCHC (31.0-37.0) g/dL RDW (11.5-15.5) % Plt Count (150-450) k/uL MPV Neutrophils % % Lymphocytes % % Monocytes % % Eosinophils % % Basophils % % Neutrophils # (1.3-7.7) k/uL Lymphocytes # (1.0-4.8) k/uL Monocytes # (0-1.0) k/uL Eosinophils # (0-0.7) k/uL Basophils # (0-0.2) k/uL Manual Slide Review Polychromasia Poikilocytosis (manual Anisocytosis Macrocytosis Target Cells PT (9.0-12.0) sec INR (<1.2) APTT (22.0-30.0) sec Sodium (137-145) mmol/L Potassium (3.5-5.1) mmol/L Chloride (98-107) mmol/L Carbon Dioxide (22-30) mmol/L Anion Gap mmol/L BUN (9-20) mg/dL Creatinine (0.66-1.25) mg/dL Est GFR (CKD-EPI)AfAm (>60 ml/min/1.73 sqM) Est GFR (CKD-EPI)NonAf (>60 ml/min/1.73 sqM) Glucose (74-99) mg/dL Plasma Lactic Acid Devonte 3.5 H* (0.7-2.0) mmol/L Calcium (8.4-10.2) mg/dL Total Bilirubin (0.2-1.3) mg/dL Conjugated Bilirubin (0.0-0.3) mg/dL Unconjugated Bilirubin (0.0-1.1) mg/dL Delta Bilirubin (0.0-0.2) mg/dL AST (17-59) U/L ALT (4-49) U/L Alkaline Phosphatase (38-126) U/L Ammonia 49 H (<30) umol/L Creatine Kinase (55-170) U/L Troponin I <0.012 (0.000-0.034) ng/mL Total Protein (6.3-8.2) g/dL Albumin (3.5-5.0) g/dL Amylase (30-110) U/L Lipase (23-300) U/L Disposition Clinical Impression: Hepatic encephalopathy, Liver cirrhosis, Jaundice, Withdrawal symptoms, alcohol, Weakness Disposition: ADMITTED IP TO THIS HOSP Condition: Poor Referrals: Iván Chester DO [Primary Care Provider] - 1-2 days
[2020-08-21 10:41] LABS: Anisocytosis Slight; Basophils % (A) 0 %; Eosinophils % (A) 1 %; HCT 34.4 % (39.0-53.0); HGB 11.6 gm/dL (13.0-17.5); Lymphocytes # (A) 0.6 k/uL (1.0-4.8); Lymphocytes % (A) 9 %; MCH 37.1 pg (25.0-35.0); MCHC 33.8 g/dL (31.0-37.0); MCV 109.7 fL (80.0-100.0); Macrocytosis Marked; Mean Platelet Volume 10.2; Monocytes # (A) 0.2 k/uL (0-1.0); Monocytes % (A) 3 %; Neutrophils # (A) 6.3 k/uL (1.3-7.7); Neutrophils % (A) 87 %; RBC 3.13 m/uL (4.30-5.90); RDW 18.9 % (11.5-15.5); WBC 7.3 k/uL (3.8-10.6)
[2020-08-21 10:52] LABS: ALT 65 U/L (4-49); AST 659 U/L (17-59); African American GFR (CKD) >90 (>60 ml/min/1.73 sqM); Alkaline Phosphatase 221 U/L (38-126); Amylase 102 U/L (30-110); Anion Gap 18 mmol/L; Bilirubin, Conjugated 13.7 mg/dL (0.0-0.3); Bilirubin,Unconjugated 2.6 mg/dL (0.0-1.1); Blood Urea Nitrogen 13 mg/dL (9-20); Calcium 8.8 mg/dL (8.4-10.2); Carbon Dioxide 26 mmol/L (22-30); Chloride 86 mmol/L (98-107); Creatine Kinase 45 U/L (55-170); Glucose 132 mg/dL (74-99); Lipase 680 U/L (23-300); Non-African American GFR(CKD) >90 (>60 ml/min/1.73 sqM); Potassium 3.9 mmol/L (3.5-5.1); Sodium 130 mmol/L (137-145); Total Protein 7.8 g/dL (6.3-8.2)
[2020-08-21 10:57] LABS: Bilirubin, Delta 4.4 mg/dL (0.0-0.2)
[2020-08-21 11:01] LABS: Total Bilirubin 20.7 mg/dL (0.2-1.3)
[2020-08-21 11:02] LABS: Lactic Acid, Venous 3.5 mmol/L (0.7-2.0)
[2020-08-21 11:06] LABS: Platelet Count 92 k/uL (150-450); Poikilocytosis (M) Present; Polychromasia Present; Target Cells Present
[2020-08-21 11:07] LABS: INR 1.5 (<1.2); Partial Thromboplastin Time 28.5 sec (22.0-30.0)
[2020-08-21] MEDS ORDERED: FUROSEMIDE 10 MG/ML 4 ML VIAL IV STA (11:33)
[2020-08-21] MEDS ORDERED: LACTULOSE 20 GM/30 ML CUP PO ONE (11:33)
[2020-08-21] MEDS ORDERED: NALOXONE 0.4 MG/ML 1 ML VIAL IV PRN (11:39)
[2020-08-21] MEDS ORDERED: ONDANSETRON 4 MG/2 ML VIAL IVP PRN (11:39)
--- NOTE | 2020-08-21 12:02 | US ---
EXAMINATION TYPE: US liver DATE OF EXAM: 08/21/2020 COMPARISON: 04/19/2020 CLINICAL HISTORY: 50-year-old male with full body jaundice, distended abd, uncontrolled shaking and p ain, patient is poor historian TECHNIQUE: Multiple sonographic images of the right upper quadrant are obtained. FINDINGS: EXAM MEASUREMENTS: Liver Length: 20.7 cm Gallbladder Wall: 0.5 cm CBD: not seen Right Kidney: 11.8 x 4.8 x 7.3 cm extensive bowel gas throughout abdomen limits penetration Pancreas: not seen due to bowel gas Liver: very difficult to penetrate, enlarged, limited views Gallbladder: appears hydropic at 12.5 x 5.3cm with mobile internal debris, fundal fold and thickened wall, no pericholecystic fluid noted. Evidence for sonographic Lizarraga's sign: YES CBD: unable to visualize Right Kidney: wnl scant amount of free fluid noted posteriorly to right lobe of liver. IMPRESSION: 1. Hepatomegaly with severe hepatic steatosis. 2. Gallbladder hydrops with internal debris and mild wall thickening. Given positive sonographic Murp hy sign, unable to exclude acute cholecystitis. 3. Unable to visualize the bile duct due to exam limitations. 4. There is trace right upper quadrant ascites.
[2020-08-21] MEDS: LORazepam 2 MG/ML INJ IV PRN ×2 (12:27→19:59)
--- NOTE | 2020-08-21 17:33 | P.HPIM ---
History of Present Illness 50-year-old male with history of all call abuse was sent in by the family members because of a jaundice. Patient is found to have highly elevated bilirubin of 20. Patient does stop drinking last week but still has some tremors because of which are that is a concern of all call withdrawal although my suspicion is low that patient is going to have him call withdrawal. Patient is significantly weak will need physical therapy and occupational therapy evaluation possibly placement in subacute rehabitation. Patient appears to have cirrhosis with elevated INR of 1.5 does have some pulmonary edema patient doesn't appear to have much of ascites, does have mildly elevated ammonia level of around 43. Patient had lactic acidosis which improved. She denied any fever chills nausea vomiting patient used to drink about 1 pint of hard liquor every day Review of Systems REVIEW OF SYSTEMS: CONSTITUTIONAL: His weakness and tiredness. HEENT: No recent visual problems or hearing problems. Denied any sore throat. CARDIOVASCULAR: No chest pain, orthopnea, PND, no palpitations, no syncope. PULMONARY: No shortness of breath, no cough, no hemoptysis. GASTROINTESTINAL: No diarrhea, no nausea, no vomiting, no abdominal pain. NEUROLOGICAL: No headaches, no weakness, no numbness. HEMATOLOGICAL: Denies any bleeding or petechiae. GENITOURINARY: Denies any burning micturition, frequency, or urgency. MUSCULOSKELETAL/RHEUMATOLOGICAL: Denies any joint pain, swelling, or any muscle pain. ENDOCRINE: Denies any polyuria or polydipsia. The rest of the 14-point review of systems is negative. 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 diverticultis, pancreatitis History of Any Multi-Drug Resistant Organisms: None Reported Past Surgical History: Bowel Resection Additional Past Surgical History / Comment(s): Bowel resection r/t diverticulitis Past Anesthesia/Blood Transfusion Reactions: No Reported Reaction Past Psychological History: Anxiety Smoking Status: Former smoker Past Alcohol Use History: Abuse, Daily, Heavy Additional Past Alcohol Use History / Comment(s): a fifth a day last drink five days ago Past Drug Use History: None Reported - Past Family History Father Family Medical History: Hypertension Additional Family Medical History / Comment(s): from Cocaine Overdose. Mother Additional Family Medical History / Comment(s): Mother from overdose of Percocet and Tequila. Esophageal varices. Medications and Allergies Home Medications Medication Instructions Recorded Confirmed Type amLODIPine [Norvasc] 10 mg PO DAILY #30 tab 03/03/20 08/21/20 Rx Omeprazole 20 mg PO AC-BRKFST 04/19/20 08/21/20 History Allergies Allergy/AdvReac Type Severity Reaction Status Date / Time bee pollen Allergy Anaphylaxis Verified 08/21/20 16:32 bee venom protein (honey bee) Allergy Anaphylaxis Verified 08/21/20 16:32 Physical Exam Vitals: Vital Signs Temp Pulse Pulse Resp BP BP Pulse Ox 08/21/20 16:20 99.5 F 123 H 20 134/81 92 L 08/21/20 16:00 99.1 F 122 H 18 134/91 94 L 08/21/20 15:00 128 H 20 94 L 08/21/20 13:54 132 H 18 142/91 92 L 08/21/20 12:30 133 H 20 132/91 96 08/21/20 11:30 137 H 15 153/100 98 08/21/20 11:26 135 H 18 153/100 98 08/21/20 10:30 138 H 28 H 149/96 94 L 08/21/20 09:57 99.1 F 139 H 18 146/108 95 Intake and Output 08/21/20 08/21/20 08/21/20 06:59 14:59 22:59 Other: Weight 113.398 kg 113.398 kg PHYSICAL EXAMINATION: GENERAL: The patient is alert and oriented x3, he is to be tired icteric HEENT: Pupils are round and equally reacting to light. EOMI. does have significant scleral icterus. No conjunctival pallor. Normocephalic, atraumatic. No pharyngeal erythema. No thyromegaly. Tremor CARDIOVASCULAR: S1 and S2 present. No murmurs, rubs, or gallops. PULMONARY: Chest is clear to auscultation, no wheezing or crackles. ABDOMEN: Soft, nontender, abdomen is distended but no ascites. normoactive bowel sounds. No palpable organomegaly. MUSCULOSKELETAL: No joint swelling or deformity. EXTREMITIES: No cyanosis, clubbing, or pedal edema. NEUROLOGICAL: Gross neurological examination did not reveal any focal deficits. No significant generalized weakness SKIN: No rashes. Results CBC & Chem 7: 08/21/20 10:21 08/21/20 10:21 Labs: Abnormal Lab Results - Last 24 Hours (Table) 08/21/20 08/21/20 08/21/20 Range/Units 10:21 10:21 10:21 RBC 3.13 L (4.30-5.90) m/uL Hgb 11.6 L (13.0-17.5) gm/dL Hct 34.4 L (39.0-53.0) % MCV 109.7 H (80.0-100.0) fL MCH 37.1 H (25.0-35.0) pg RDW 18.9 H (11.5-15.5) % Plt Count 92 L (150-450) k/uL Lymphocytes # 0.6 L (1.0-4.8) k/uL Macrocytosis Marked A PT 15.0 H (9.0-12.0) sec INR 1.5 H (<1.2) Sodium 130 L (137-145) mmol/L Chloride 86 L (98-107) mmol/L Glucose 132 H (74-99) mg/dL Plasma Lactic Acid Devonte (0.7-2.0) mmol/L Total Bilirubin 20.7 H* (0.2-1.3) mg/dL Conjugated Bilirubin 13.7 H (0.0-0.3) mg/dL Unconjugated Bilirubin 2.6 H (0.0-1.1) mg/dL Delta Bilirubin 4.4 H (0.0-0.2) mg/dL AST 659 H (17-59) U/L ALT 65 H (4-49) U/L Alkaline Phosphatase 221 H (38-126) U/L Ammonia (<30) umol/L Creatine Kinase 45 L (55-170) U/L Lipase 680 H (23-300) U/L 08/21/20 Range/Units 10:21 RBC (4.30-5.90) m/uL Hgb (13.0-17.5) gm/dL Hct (39.0-53.0) % MCV (80.0-100.0) fL MCH (25.0-35.0) pg RDW (11.5-15.5) % Plt Count (150-450) k/uL Lymphocytes # (1.0-4.8) k/uL Macrocytosis PT (9.0-12.0) sec INR (<1.2) Sodium (137-145) mmol/L Chloride (98-107) mmol/L Glucose (74-99) mg/dL Plasma Lactic Acid Devonte 3.5 H* (0.7-2.0) mmol/L Total Bilirubin (0.2-1.3) mg/dL Conjugated Bilirubin (0.0-0.3) mg/dL Unconjugated Bilirubin (0.0-1.1) mg/dL Delta Bilirubin (0.0-0.2) mg/dL AST (17-59) U/L ALT (4-49) U/L Alkaline Phosphatase (38-126) U/L Ammonia 49 H (<30) umol/L Creatine Kinase (55-170) U/L Lipase (23-300) U/L Thrombosis Risk Factor Assmnt - Choose All That Apply Any of the Below Risk Factors Present?: Yes Each Factor Represents 1 point: Age 41-60 years, Obesity (BMI >25) Other Risk Factors: Yes Other congenital or acquired thrombophilia - If yes, enter type in comment: Yes Thrombosis Risk Factor Assessment Total Risk Factor Score: 2 Thrombosis Risk Factor Assessment Level: Low Risk Assessment and Plan Plan: -Alcoholic cirrhosis: Patient does have mildly elevated ammonia level patient will be started on lactulose. - heparin generalized weakness. Weakness seconded to chronic alcoholism and cirrhosis , physical therapy and occupational therapy will evaluate the patient patient probably will need placement in subacute recommendation -hypervolemic hyponatremia patient will be started on Lasix because of this reason expected to improve with Lasix will repeat the basic metabolic profile and compressible valid profile tomorrow -Lactic acidosis secondary to cirrhosis improved now -Elevated ammonia level without significant hepatic encephalopathy secondary to liver failure lactulose titrating for 2 bowel movements a day -Hypertension -Tachycardia my suspicion is low that patient is having significant withdrawals may have mild withdrawals patient does have tremor patient will be monitored. -Alcohol abuse. Next and have her DVT prophylaxis pharmacologically due to prophylaxis is not tested as patient is partially anticoagulated with INR of 1.5 because of cirrhosis -Related liver enzymes secondary to cirrhosis with a competent of acute al coholic hepatitis -Obstructive jaundice secondary to cirrhosis
[2020-08-21] MEDS: THIAMINE 100 MG TAB PO SCH (17:53)
[2020-08-21 18:13] LABS: Hepatitis B Core IgM Non-Reactive (Non-Reactive); Hepatitis B Surface Antigen Non-Reactive (Non-Reactive); Hepatitis C IgG Antibody Non-Reactive (Non-Reactive)
[2020-08-21] MEDS: LACTULOSE 20 GM/30 ML CUP PO SCH (19:59)
[2020-08-21] MEDS: FUROSEMIDE 10 MG/ML 2 ML VIAL IV SCH (19:59)
[2020-08-22 07:34] LABS: ALT 55 U/L (4-49); AST 466 U/L (17-59); African American GFR (CKD) >90 (>60 ml/min/1.73 sqM); Albumin 3.4 g/dL (3.5-5.0); Alkaline Phosphatase 160 U/L (38-126); Anion Gap 13 mmol/L; Blood Urea Nitrogen 13 mg/dL (9-20); Calcium 7.6 mg/dL (8.4-10.2); Carbon Dioxide 28 mmol/L (22-30); Chloride 92 mmol/L (98-107); Globulin 3.4 g/dL; Glucose 88 mg/dL (74-99); Non-African American GFR(CKD) >90 (>60 ml/min/1.73 sqM); Potassium 3.5 mmol/L (3.5-5.1); Sodium 133 mmol/L (137-145); Total Protein 6.8 g/dL (6.3-8.2)
[2020-08-22] MEDS: LACTULOSE 20 GM/30 ML CUP PO SCH ×2 (07:42→19:57)
[2020-08-22] MEDS: LORazepam 2 MG/ML INJ IV PRN ×3 (07:42→20:07)
[2020-08-22] MEDS: FUROSEMIDE 10 MG/ML 2 ML VIAL IV SCH (07:42)
[2020-08-22] MEDS: PANTOPRAZOLE 40 MG TABLET PO SCH (07:42)
[2020-08-22] MEDS: THIAMINE 100 MG TAB PO SCH ×2 (07:42→17:31)
[2020-08-22 07:49] LABS: Total Bilirubin 19.2 mg/dL (0.2-1.3)
--- NOTE | 2020-08-22 14:29 | P.PN ---
Subjective 50-year-old male with history of all call abuse was sent in by the family members because of a jaundice. Patient is found to have highly elevated bi lirubin of 20. Patient does stop drinking last week but still has some tremors because of which are that is a concern of all call withdrawal although my suspicion is low that patient is going to have him call withdrawal. Patient is significantly weak will need physical therapy and occupational therapy evaluation possibly placement in subacute rehabitation. Patient appears to have cirrhosis with elevated INR of 1.5 does have some pulmonary edema patient doesn't appear to have much of ascites, does have mildly elevated ammonia level of around 43. Patient had lactic acidosis which improved. She denied any fever chills nausea vomiting patient used to drink about 1 pint of hard liquor every day. 08/22/2020 Patient is confused generalized weakness and unable to work with physical therapy and outpatient therapy. Ammonia level will be obtained patient does have asterixis appears to have hepatic encephalopathy. Patient remains on Lasix with improvement in serum sodium to 133. Gastroenterology will be consulted. Patient will be can you done on lactulose patient is confused quite a bit. Review of systems: Unable to obtain due to his clinical condition All inpatient medications were reviewed and appropriate changes in these medications as dictated in the interval history and assessment and plan. Objective - Vital Signs Vital signs: Vital Signs Temp 99.7 F H 08/22/20 13:56 Pulse 153 H 08/22/20 13:56 Resp 21 08/22/20 13:56 BP 143/80 08/22/20 13:56 Pulse Ox 93 L 08/22/20 13:56 Intake & Output 08/21/20 08/22/20 08/22/20 18:59 06:59 18:59 Intake Total 400 Balance 400 Weight 113.398 kg Intake: Oral 400 Other: Voiding Method Diaper # Voids 3 3 # Bowel Movements 2 - Exam PHYSICAL EXAMINATION: GENERAL: The patient is alert and confused oriented x1, HEENT: Pupils are round and equally reacting to light. EOMI. does have significant scleral icterus. No conjunctival pallor. Normocephalic, atraumatic. No pharyngeal erythema. No thyromegaly. Tremor CARDIOVASCULAR: S1 and S2 present. No murmurs, rubs, or gallops. PULMONARY: Chest is clear to auscultation, no wheezing or crackles. ABDOMEN: Soft, nontender, abdomen is distended but no ascites. normoactive bowel sounds. No palpable organomegaly. MUSCULOSKELETAL: No joint swelling or deformity. EXTREMITIES: No cyanosis, clubbing, or pedal edema. NEUROLOGICAL: She is confused with asterixis and hepatic encephalopathy SKIN: No rashes. - Labs CBC & Chem 7: 08/21/20 10:21 08/22/20 06:45 Labs: Abnormal Lab Results - Last 24 Hours (Table) 08/22/20 Range/Units 06:45 Sodium 133 L (137-145) mmol/L Chloride 92 L (98-107) mmol/L Creatinine 0.49 L (0.66-1.25) mg/dL Calcium 7.6 L (8.4-10.2) mg/dL Total Bilirubin 19.2 H* (0.2-1.3) mg/dL AST 466 H (17-59) U/L ALT 55 H (4-49) U/L Alkaline Phosphatase 160 H (38-126) U/L Albumin 3.4 L (3.5-5.0) g/dL Assessment and Plan Plan: -Alcoholic cirrhosis: Patient will be continued on IV Lasix supportive care gastroneurology consultation -Hepatic encephalopathy: Patient will be continued on lactulose - heparin generalized weakness. Weakness seconded to chronic alcoholism and cirrhosis , physical therapy and occupational therapy evaluated the patient. -hypervolemic hyponatremia improved with Lasix -Lactic acidosis secondary to cirrhosis improved now -Elevated ammonia level secondary to liver failure -Hypertension -Tachycardia my suspicion is low that patient is having significant withdrawals may have mild withdrawals patient does have tremor patient will be monitored. -Alcohol abuse. DVT prophylaxis pharmacologically due to prophylaxis is not tested as patient is partially anticoagulated with INR of 1.5 because of cirrhosis -Related liver enzymes secondary to cirrhosis with a competent of acute alcoholic hepatitis -Obstructive jaundice secondary to cirrhosis
[2020-08-22 18:50] LABS: Hepatitis A Antibody IgM Non-Reactive (Non-Reactive)
[2020-08-22] MEDS: FUROSEMIDE 10 MG/ML 4 ML VIAL IV SCH (19:57)
[2020-08-22] MEDS: METOPROLOL TARTRATE 25 MG TAB PO SCH (19:57)
[2020-08-23] MEDS: LORazepam 2 MG/ML INJ IV PRN ×2 (00:26→05:22)
[2020-08-23 08:49] LABS: Lactic Acid, Venous 1.2 mmol/L (0.7-2.0)
[2020-08-23 08:50] LABS: ALT 50 U/L (4-49); AST 393 U/L (17-59); African American GFR (CKD) 44 (>60 ml/min/1.73 sqM); Albumin/Globulin Ratio 0.9; Alkaline Phosphatase 149 U/L (38-126); Anion Gap 15 mmol/L; Blood Urea Nitrogen 33 mg/dL (9-20); Calcium 7.7 mg/dL (8.4-10.2); Carbon Dioxide 27 mmol/L (22-30); Chloride 94 mmol/L (98-107); Globulin 3.3 g/dL; Glucose 97 mg/dL (74-99); Non-African American GFR(CKD) 38 (>60 ml/min/1.73 sqM); Sodium 136 mmol/L (137-145)
[2020-08-23 08:56] LABS: Total Bilirubin 22.4 mg/dL (0.2-1.3); Total Protein 6.3 g/dL (6.3-8.2)
[2020-08-23] MEDS ORDERED: ACETAMINOPHEN IV (For NPO) 1,000 MG in EMPTY BAG 1 BAG IVPB ONE (09:00)
[2020-08-23 09:03] LABS: Anisocytosis Slight; HCT 29.2 % (39.0-53.0); MCH 37.7 pg (25.0-35.0); MCHC 33.6 g/dL (31.0-37.0); MCV 112.1 fL (80.0-100.0); Macrocytosis Marked; Mean Platelet Volume 10.1; Platelet Count 102 k/uL (150-450); RBC 2.61 m/uL (4.30-5.90); RDW 19.9 % (11.5-15.5); WBC 7.8 k/uL (3.8-10.6)
[2020-08-23 09:04] LABS: HGB 9.8 gm/dL (13.0-17.5)
--- NOTE | 2020-08-23 09:04 | XR ---
EXAMINATION TYPE: XR chest 1V portable DATE OF EXAM: 08/23/2020 HISTORY: Shortness of breath. COMPARISON: 04/22/2020 TECHNIQUE: Single view of the chest is submitted. FINDINGS: Demonstrated are scattered senescent parenchymal change. Increased density left lower lobe may reflect atelectasis and/or developing infiltrate. Correlate cli nically. The heart is stable. Hilar and mediastinal structures are within normal limits. Degenerative changes are seen of the dorsal spine. IMPRESSION: 1. Increased density left lower lobe may reflect atelectasis and/or developing infiltrate. Correlate clinically.
[2020-08-23] MEDS: POTASSIUM CHLORIDE 20 MEQ in WATER FOR INJECTION 1 100ML.BAG IVPB SCH ×2 (10:42→13:01)
[2020-08-23] MEDS: THIAMINE 100 MG TAB PO SCH ×2 (10:46→17:02)
[2020-08-23] MEDS: PANTOPRAZOLE 40 MG TABLET PO SCH (10:46)
[2020-08-23] MEDS: METOPROLOL TARTRATE 25 MG TAB PO SCH ×2 (10:47→21:37)
[2020-08-23] MEDS: PIPERACILLIN-TAZOBACTAM 3.375 GM in SODIUM CHLORIDE 0.9% 100 ML IVPB SCH ×2 (11:58→21:37)
--- NOTE | 2020-08-23 16:28 | P.PN ---
Subjective 50-year-old male with history of all call abuse was sent in by the family members because of a jaundice. Patient is found to have highly elevated bi lirubin of 20. Patient does stop drinking last week but still has some tremors because of which are that is a concern of all call withdrawal although my suspicion is low that patient is going to have him call withdrawal. Patient is significantly weak will need physical therapy and occupational therapy evaluation possibly placement in subacute rehabitation. Patient appears to have cirrhosis with elevated INR of 1.5 does have some pulmonary edema patient doesn't appear to have much of ascites, does have mildly elevated ammonia level of around 43. Patient had lactic acidosis which improved. She denied any fever chills nausea vomiting patient used to drink about 1 pint of hard liquor every day. 08/22/2020 Patient is confused generalized weakness and unable to work with physical therapy and outpatient therapy. Ammonia level will be obtained patient does have asterixis appears to have hepatic encephalopathy. Patient remains on Lasix with improvement in serum sodium to 133. Gastroenterology will be consulted. Patient will be can you done on lactulose patient is confused quite a bit. 08/23/2020 Patient's overall clinical condition is much worse today patient is severely encephalopathic patient started having fevers patient was started on empiric Zosyn and the so far all the workup including chest x-ray blood cultures and UA and urine cultures are negative. Patient creatinine went up to 1.98 Lasix is being discontinued his serum sodium although improved. Patient was evaluated by gastroenterology. Patient liver enzymes although has come down. Need to discuss with the family regarding overall goals of care. 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 Review of systems: Unable to obtain due to his clinical condition All inpatient medications were reviewed and appropriate changes in these medications as dictated in the interval history and assessment and plan. Objective - Vital Signs Vital signs: Vital Signs Temp 99.9 F H 08/23/20 14:00 Pulse 108 H 08/23/20 14:00 Resp 18 08/23/20 14:00 BP 103/62 08/23/20 14:00 Pulse Ox 90 L 08/23/20 14:00 Intake & Output 08/22/20 08/23/20 08/23/20 18:59 06:59 18:59 Intake Total 400 Balance 400 Intake: Oral 400 Other: Voiding Method Diaper Diaper Diaper Incontinent # Voids 3 1 # Bowel Movements 2 - Exam PHYSICAL EXAMINATION: GENERAL: barely arousable severely encephalopathic HEENT: Pupils are round and equally reacting to light. EOMI. does have significant scleral icterus. No conjunctival pallor. Normocephalic, atraumatic. No pharyngeal erythema. No thyromegaly. Tremor CARDIOVASCULAR: S1 and S2 present. No murmurs, rubs, or gallops. PULMONARY: Chest is clear to auscultation, no wheezing or crackles. ABDOMEN: Soft, nontender, abdomen is distended but no ascites. normoactive bowel sounds. No palpable organomegaly. MUSCULOSKELETAL: No joint swelling or deformity. EXTREMITIES: No cyanosis, clubbing, or pedal edema. NEUROLOGICAL: Patient is drowsy severely encephalopathic unable to assess SKIN: No rashes. - Labs CBC & Chem 7: 08/23/20 08:28 08/23/20 08:28 Labs: Abnormal Lab Results - Last 24 Hours (Table) 08/23/20 08/23/20 08/23/20 Range/Units 08:28 08:28 08:28 RBC 2.61 L (4.30-5.90) m/uL Hgb 9.8 L D (13.0-17.5) gm/dL Hct 29.2 L (39.0-53.0) % MCV 112.1 H (80.0-100.0) fL MCH 37.7 H (25.0-35.0) pg RDW 19.9 H (11.5-15.5) % Plt Count 102 L (150-450) k/uL Macrocytosis Marked A Sodium 136 L (137-145) mmol/L Potassium 3.0 L (3.5-5.1) mmol/L Chloride 94 L (98-107) mmol/L BUN 33 H (9-20) mg/dL Creatinine 1.98 H (0.66-1.25) mg/dL Calcium 7.7 L (8.4-10.2) mg/dL Total Bilirubin 22.4 H* (0.2-1.3) mg/dL AST 393 H (17-59) U/L ALT 50 H (4-49) U/L Alkaline Phosphatase 149 H (38-126) U/L Ammonia 56 H (<30) umol/L Albumin 3.0 L (3.5-5.0) g/dL Assessment and Plan Plan: -Alcoholic cirrhosis: Patient mild score is very high prognosis is extremely poor discussed with the . Who wants to continue the care for now. Patient although is DO NOT RESUSCITATE -Hepatic encephalopathy: Severe continue with lactulose which was switched to rectal patient has elevated ammonia level. -Fever source of infection is not clear at this time septic workup was ordered patient was started on empiric Zosyn -Acute renal failure probably secondary secondary to hepatorenal syndrome IV Lasix was discontinued nephrology will be consulted -hypervolemic hyponatremia improved with Lasix -Lactic acidosis secondary to cirrhosis -Elevated ammonia level secondary to liver failure -Hypertension -Tachycardia and patient improved now -Alcohol abuse. DVT prophylaxis pharmacologically due to prophylaxis is not tested as patient is partially anticoagulated with INR of 1.5 because of cirrhosis -Elevated liver enzymes secondary to cirrhosis with a competent of acute alcoholic hepatitis -Obstructive jaundice secondary to cirrhosis
[2020-08-23 17:55] LABS: Appearance,Urine Turbid (Clear); Bacteria,Urine Occasional /hpf; Bilirubin,Urine 4+ (Negative); Blood,Urine Small (Negative); Color,Urine Dark Brown; Glucose,Urine (UA) Trace (Negative); Ketones,Urine Trace (Negative); Leukocyte Esterase,Urine Negative (Negative); Mucus,Urine Few /hpf; Nitrite,Urine Negative (Negative); Protein,Urine Trace (Negative); RBC,Urine 2 /hpf (0-5); Specific Gravity,Urine 1.022 (1.001-1.035); Squamous Epithelial Cell,Urine 1 /hpf (0-4); WBC,Urine 2 /hpf (0-5)
[2020-08-23] MEDS: LACTULOSE 200 GM/300 ML (FROM 1/2 GAL JUG) RECTAL SCH (18:00)
[2020-08-24] MEDS: LACTULOSE 200 GM/300 ML (FROM 1/2 GAL JUG) RECTAL SCH ×2 (00:05→06:05)
[2020-08-24 01:22] LABS: Hepatitis A Antibody IgM Non-Reactive (Non-Reactive); Hepatitis B Core IgM Non-Reactive (Non-Reactive); Hepatitis B Surface Antigen Non-Reactive (Non-Reactive); Hepatitis C IgG Antibody Non-Reactive (Non-Reactive)
[2020-08-24] MEDS: FUROSEMIDE 10 MG/ML 4 ML VIAL IV SCH (06:39)
[2020-08-24] MEDS: LACTULOSE 20 GM/30 ML CUP PO SCH ×3 (06:39→19:47)
[2020-08-24] MEDS: THIAMINE 100 MG TAB PO SCH ×2 (09:46→17:34)
[2020-08-24] MEDS: PANTOPRAZOLE 40 MG TABLET PO SCH (09:46)
[2020-08-24] MEDS: METOPROLOL TARTRATE 25 MG TAB PO SCH ×2 (09:46→19:47)
--- NOTE | 2020-08-24 09:49 | P.CONS ---
History of Present Illness - Reason for Consult Consult date: 08/23/20 Alcoholic hepatitis, cirrhosis Requesting physician: Katie Curtis - Chief Complaint Altered mental status - History of Present Illness 50-year-old male with a medical history significant for alcohol abuse, polysubstance abuse, hypertension and prior episodes of pancreatitis who presented to the hospital due to altered mental status. Of note patient is currently unable to provide history which has been taken on review of the electronic medical record and discussion with the patient's was seated bedside. The patient has a reported history of alcohol abuse since age of 5. He has had multiple hospitalizations, particularly as of late for alcohol abuse. The patient's denies any history of alcoholic cirrhosis and denies any prior paracentesis or GI bleed. He had been drinking fifths a day of liquor. The patient's reports yellowing of the patient's eyes occurring earlier in the week with associated dark colored urine, confusion and loss of bodily function. Eventually the patient's decided to call EMS to bring the patient in for further evaluation. Laboratory evaluation significant for ammonia 56, WBC 7.8, hemoglobin 9.8, platelet count 102, total bilirubin 22, alkaline phosphatase 149, AST 393 and ALT 50. Review of Systems ROS unobtainable: due to mental status (Unable to obtain an outpatient due to altered mental status) Past Medical History Past Medical History: Hypertension Additional Past Medical History / Comment(s): PT states history of hypertension was drug related, 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 diverticultis, pancreatitis History of Any Multi-Drug Resistant Organisms: None Reported Past Surgical History: Bowel Resection Additional Past Surgical History / Comment(s): Bowel resection r/t diverticulitis Past Anesthesia/Blood Transfusion Reactions: No Reported Reaction Past Psychological History: Anxiety Smoking Status: Former smoker Past Alcohol Use History: Abuse, Daily, Heavy Additional Past Alcohol Use History / Comment(s): a fifth a day last drink five days ago Past Drug Use History: None Reported - Past Family History Father Family Medical History: Hypertension Additional Family Medical History / Comment(s): from Cocaine Overdose. Mother Additional Family Medical History / Comment(s): Mother from overdose of Percocet and Tequila. Esophageal varices. Medications and Allergies Home Medications Medication Instructions Recorded Confirmed Type amLODIPine [Norvasc] 10 mg PO DAILY #30 tab 03/03/20 08/21/20 Rx Omeprazole 20 mg PO AC-BRKFST 04/19/20 08/21/20 History Allergies Allergy/AdvReac Type Severity Reaction Status Date / Time bee pollen Allergy Anaphylaxis Verified 08/21/20 16:32 bee venom protein (honey bee) Allergy Anaphylaxis Verified 08/21/20 16:32 Physical Exam Vitals: Vital Signs Temp Pulse Resp BP Pulse Ox 08/23/20 07:34 101.7 F H 117 H 22 100/67 90 L 08/23/20 00:29 99.0 F 120 H 20 100/69 89 L 08/22/20 19:30 130 H 20 08/22/20 19:19 101 F H 130 H 20 117/74 93 L 08/22/20 13:56 99.7 F H 153 H 21 143/80 93 L Intake and Output 08/22/20 08/23/20 08/23/20 22:59 06:59 14:59 Intake Total 400 Balance 400 Intake: Oral 400 Other: Voiding Method Diaper Diaper Incontinent # Voids 2 1 On physical examination, patient appears comfortable in no apparent distress. HEAD: Normocephalic, atraumatic. EYES: Scleral icterus. No conjunctival injection. MOUTH: No lesions, tongue midline. NECK: Trachea midline, no gross abnormalities. CHEST: Clear to auscultation with no wheezing or rhonchi appreciated. HEART: Regular rate and rhythm. ABDOMEN: Soft, soft and nontender. Bowel sounds are positive. No organomegaly. No guarding or rigidity. EXTREMITIES: No pedal edema. SKIN: No rashes, jaundice. NEUROLOGIC: Alert and oriented x0. Results CBC & Chem 7: 08/23/20 08:28 08/23/20 17:13 Labs: Abnormal Lab Results - Last 24 Hours (Table) 08/23/20 08/23/20 08/23/20 Range/Units 08:28 08:28 08:28 RBC 2.61 L (4.30-5.90) m/uL Hgb 9.8 L D (13.0-17.5) gm/dL Hct 29.2 L (39.0-53.0) % MCV 112.1 H (80.0-100.0) fL MCH 37.7 H (25.0-35.0) pg RDW 19.9 H (11.5-15.5) % Plt Count 102 L (150-450) k/uL Macrocytosis Marked A Sodium 136 L (137-145) mmol/L Potassium 3.0 L (3.5-5.1) mmol/L Chloride 94 L (98-107) mmol/L BUN 33 H (9-20) mg/dL Creatinine 1.98 H (0.66-1.25) mg/dL Calcium 7.7 L (8.4-10.2) mg/dL Total Bilirubin 22.4 H* (0.2-1.3) mg/dL AST 393 H (17-59) U/L ALT 50 H (4-49) U/L Alkaline Phosphatase 149 H (38-126) U/L Ammonia 56 H (<30) umol/L Albumin 3.0 L (3.5-5.0) g/dL US - abdomen: report reviewed (Ultrasound of the abdomen with hydropic gallbladder, hepatomegaly and steatosis.) Assessment and Plan (1) Alcoholic hepatitis without ascites Narrative/Plan: 50-year-old male with a medical history significant for polysubstance abuse, alcohol abuse, prior history of pancreatitis who presented to the hospital due to altered mental status. Found to have elevated ammonia on presentation currently receiving treatment for hepatic encephalopathy. Severely elevated liver enzymes with total bilirubin 22, alkaline phosphatase is 149, AST 393 and ALT 50 consistent with history of alcoholic hepatitis likely superimposed on alcoholic cirrhosis. Current Visit: No Status: Acute Code(s): K70.10 - ALCOHOLIC HEPATITIS WITHOUT ASCITES SNOMED Code(s): 343940527 (2) Hepatic encephalopathy Current Visit: Yes Status: Acute Code(s): K72.90 - HEPATIC FAILURE, UNSPECIFIED WITHOUT COMA SNOMED Code(s): 79922423 (3) Jaundice Current Visit: Yes Status: Acute Code(s): R17 - UNSPECIFIED JAUNDICE SNOMED Code(s): 57178100 Plan: Supportive care Nothing by mouth secondary to altered mental status Lactulose change to rectal every 6 hours Continue to monitor CBC, BMP, LFTs and ammonia level Continue to monitor clinically Alcohol abstinence Monitoring treat for signs or symptoms of alcohol withdrawal Ultrasound of the abdomen reviewed Acute viral hepatitis panel negative Extensive discussion with the patient's who is bedside, extremely poor prognosis Thank you for allowing us to participate in the care of the patient
[2020-08-24] MEDS: PIPERACILLIN-TAZOBACTAM 3.375 GM in SODIUM CHLORIDE 0.9% 100 ML IVPB SCH ×2 (09:55→19:44)
[2020-08-24] MEDS: LORazepam 2 MG/ML INJ IV PRN (10:04)
[2020-08-24 10:31] LABS: Albumin 2.5 g/dL (3.80-4.90); Albumin/Globulin Ratio 0.89 (1.60-3.17); Anion Gap 14.1 mmol/L (4.00-12.00); BUN/Creat Ratio 18.89 Ratio (12.00-20.00); Calcium 6.9 mg/dL (8.7-10.3); Carbon Dioxide 24.9 mmol/L (21.6-31.8); Globulin 2.8 g/dL (1.6-3.3); Potassium 2.9 mmol/L (3.5-5.5); Total Bilirubin 27.5 mg/dL (0.3-1.2); Total Protein 5.3 g/dL (6.2-8.2)
[2020-08-24] MEDS ORDERED: Potassium Replacement Protocol 1 EACH MISC MISCELLANE PRN (10:43)
[2020-08-24 11:06] LABS: African American GFR (CKD) 30.3 (60.0-200.0); Non-African American GFR(CKD) 26.1 (60.0-200.0)
--- NOTE | 2020-08-24 11:44 | P.NPCON ---
History of Present Illness - Reason for Consult acute renal failure - Chief Complaint Cirrhosis with acute kidney injury - History of Present Illness This is a 50-year-old male seen in consultation because of acute kidney injury. Scan was 0.68 on admission on 08/21/2020 and since then went up to 1.98 and is 2.7 this morning He is febrile with a T-max of 101.7 as of yesterday morning but currently his temperature is down to 99. Also blood pressure is somewhat low earlier this morning. Lowest blood pressure record is 98/63 He is in patient known with alcoholism, came in deeply jaundiced bilirubin was 22. The past also with some other substance abuse and hypertension related to read as per history. Currently patient is somewhat somnolent therefore unable take any good history Known with history of bowel resection diverticulitis pancreatitis in the past. Last alcohol intake was supposedly 5 days ago as per history. 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 diverticultis, pancreatitis History of Any Multi-Drug Resistant Organisms: None Reported Past Surgical History: Bowel Resection Additional Past Surgical History / Comment(s): Bowel resection r/t diverticul itis Past Anesthesia/Blood Transfusion Reactions: No Reported Reaction Past Psychological History: Anxiety Smoking Status: Former smoker Past Alcohol Use History: Abuse, Daily, Heavy Additional Past Alcohol Use History / Comment(s): a fifth a day last drink five days ago Past Drug Use History: None Reported - Past Family History Father Family Medical History: Hypertension Additional Family Medical History / Comment(s): from Cocaine Overdose. Mother Additional Family Medical History / Comment(s): Mother from overdose of Percocet and Tequila. Esophageal varices. Medications and Allergies Home Medications Medication Instructions Recorded Confirmed Type amLODIPine [Norvasc] 10 mg PO DAILY #30 tab 03/03/20 08/21/20 Rx Omeprazole 20 mg PO AC-BRKFST 04/19/20 08/21/20 History Allergies Allergy/AdvReac Type Severity Reaction Status Date / Time bee pollen Allergy Anaphylaxis Verified 08/21/20 16:32 bee venom protein (honey bee) Allergy Anaphylaxis Verified 08/21/20 16:32 Physical Exam Vitals: Vital Signs Temp Pulse Resp BP Pulse Ox 08/24/20 07:41 99.0 F 104 H 16 98/63 92 L 08/24/20 01:44 98.9 F 102 H 105/70 91 L 08/23/20 19:40 98.1 F 115 H 20 103/68 95 08/23/20 14:00 99.9 F H 108 H 18 103/62 90 L Intake and Output 08/23/20 08/24/20 08/24/20 22:59 06:59 14:59 Output Total 600 Balance -600 Output: Urine 600 Other: Voiding Method Diaper External Catheter Incontinent # Bowel Movements 3 Currently patient is somewhat somnolent but the nursing staff tells me that his able to answer all his questions and his oriented 3 HEENT exam no JVP neck is supple no facial asymmetry is deeply jaundiced Lungs are clear to auscultation with less than optimal air entry because of somnolence Heart sounds are unremarkable for any murmur rub gallop abdomen soft slightly distended possible minimal ascites Extremity exam was trace edema Neurologically somnolent. Results - Lab Results Most recent lab results Calcium 6.9 mg/dL (8.7-10.3) L 08/24/20 06:58 08/23/20 08:28 08/24/20 06:58 Assessment and Plan Assessment: Impression 1. Acute kidney injury after being admitted to the hospital likely from low blood pressure and possible sepsis. No nephrotoxic medications or dye studies have been performed. Those blood pressure was in the 90s, to 100 2. Significant for hypokalemia rule out magnesium deficiency. 3. On admission lactic acidosis from possible sepsis, liver disease, resolved. 4. Chest x-ray shows increased left lower lobe density possible pneumonia 5. Severe liver disease from alcohol intake with total bilirubin 22.4. 6. Hepatic encephalopathy ammonia was 56 improved 7. Possible pancreatitis lipase is high, 680 8. Ultrasound shows possible cholecystitis 9. Combination of gap acidosis and metabolic alkalosis on admission. Bicarb was 26, anion gap 18. A lot of metabolic alkalosis, is not clear. No history of vomiting, steroids, diuretics. Respiratory alkalosis possibly could have done it. Recommendation 1. Because of low urine output, I'll give him 1 L of lactated Ringer's 2. Maintain IV fluids at normal saline 75 an hour 3. Check serum magnesium 4. His hypokalemia will be treated with 20 mg of KCl by mouth 5 doses total of 100 mg and repeat labs after that 5. Close monitoring labs, intake and output and blood pressure. Thank you for this consultation we'll continue to follow
--- NOTE | 2020-08-24 12:25 | P.PN ---
Subjective Progress Note Date: 08/24/20 Principal diagnosis: Acute alcoholic hepatitis, hepatic encephalopathy, suspected cirrhosis of the liver Patient seen lying in bed with multiple bowel movement reported. Mentation greatly improved. Objective - Vital Signs Vital signs: Vital Signs Temp 99.0 F 08/24/20 07:41 Pulse 104 H 08/24/20 07:41 Resp 16 08/24/20 07:41 BP 98/63 08/24/20 07:41 Pulse Ox 92 L 08/24/20 07:41 Intake & Output 08/23/20 08/24/20 08/24/20 18:59 06:59 18:59 Output Total 600 Balance -600 Output: Urine 600 Other: Voiding Method Diaper Diaper External Catheter Incontinent Incontinent # Bowel Movements 3 - Exam On physical examination, patient appears comfortable in no apparent distress. HEAD: Normocephalic, atraumatic. EYES: No scleral icterus. No conjunctival injection. MOUTH: No lesions, tongue midline. NECK: Trachea midline, no gross abnormalities. ABDOMEN: Soft, nontender to palpation. Bowel sounds are positive. No organomegaly. No guarding or rigidity. EXTREMITIES: No pedal edema. SKIN: No rashes, no jaundice. NEUROLOGIC: Alert and oriented x3. Tremulousness but no asterixis noted. - Labs CBC & Chem 7: 08/23/20 08:28 08/24/20 06:58 Labs: Abnormal Lab Results - Last 24 Hours (Table) 08/23/20 08/23/20 Range/Units 17:13 Unknown Potassium 3.4 L (3.5-5.1) mmol/L Urine Protein Trace H (Negative) Urine Glucose (UA) Trace H (Negative) Urine Ketones Trace H (Negative) Urine Blood Small H (Negative) Urine Bilirubin 4+ H (Negative) Urine Bacteria Occasional H (None) /hpf Urine Mucus Few H (None) /hpf Assessment and Plan (1) Alcoholic hepatitis without ascites Narrative/Plan: 50-year-old male with a medical history significant for polysubstance abuse, alcohol abuse, prior history of pancreatitis who presented to the hospital due to altered mental status. Found to have elevated ammonia on presentation currently receiving treatment for hepatic encephalopathy. Severely elevated liver enzymes with total bilirubin 22, alkaline phosphatase is 149, AST 393 and ALT 50 on presentation consistent with history of alcoholic hepatitis likely superimposed on alcoholic cirrhosis. Mentation greatly improved today, however liver enzymes worsened with total bilirubin 27.5 with creatinine trending up. Current Visit: No Status: Acute Code(s): K70.10 - ALCOHOLIC HEPATITIS WITHOUT ASCITES SNOMED Code(s): 551363576 (2) Hepatic encephalopathy Current Visit: Yes Status: Acute Code(s): K72.90 - HEPATIC FAILURE, UNSPECIFIED WITHOUT COMA SNOMED Code(s): 36301374 (3) Jaundice Current Visit: Yes Status: Acute Code(s): R17 - UNSPECIFIED JAUNDICE SNOMED Code(s): 57398257 Plan: Supportive care Okay for sodium restricted as tolerated Lactulose change to rectal every 6 hours discontinued, okay for all lactulose 20 g 3 times a day to be held for greater than 3 bowel movements Continue to monitor CBC, BMP, LFTs, INR and ammonia level Continue to monitor clinically Alcohol abstinence Monitoring treat for signs or symptoms of alcohol withdrawal Ultrasound of the abdomen reviewed Acute viral hepatitis panel negative Nephrology services consulted to see the patient Extensive discussion with the patient's who is bedside yesterday, extremely poor prognosis Thank you for allowing us to participate in the care of the patient
[2020-08-24] MEDS ORDERED: Magnesium Replacement Protocol 1 EACH MISC MISCELLANE PRN (12:54)
[2020-08-24] MEDS: POTASSIUM CHLORIDE ER 20 MEQ TAB.ER PO SCH ×3 (12:58→16:01)
[2020-08-24] MEDS: LACTATED RINGERS 1,000 ML IV SCH ×3 (13:05→14:35)
[2020-08-24] MEDS: MAGNESIUM SULFATE-D5W PMX 1 GM in DEXTROSE/WATER 1 100ML.BAG IVPB SCH ×3 (14:29→17:34)
--- NOTE | 2020-08-24 16:17 | P.PN ---
Subjective 50-year-old male with history of all call abuse was sent in by the family members because of a jaundice. Patient is found to have highly elevated bi lirubin of 20. Patient does stop drinking last week but still has some tremors because of which are that is a concern of all call withdrawal although my suspicion is low that patient is going to have him call withdrawal. Patient is significantly weak will need physical therapy and occupational therapy evaluation possibly placement in subacute rehabitation. Patient appears to have cirrhosis with elevated INR of 1.5 does have some pulmonary edema patient doesn't appear to have much of ascites, does have mildly elevated ammonia level of around 43. Patient had lactic acidosis which improved. She denied any fever chills nausea vomiting patient used to drink about 1 pint of hard liquor every day. 08/22/2020 Patient is confused generalized weakness and unable to work with physical therapy and outpatient therapy. Ammonia level will be obtained patient does have asterixis appears to have hepatic encephalopathy. Patient remains on Lasix with improvement in serum sodium to 133. Gastroenterology will be consulted. Patient will be can you done on lactulose patient is confused quite a bit. 08/23/2020 Patient's overall clinical condition is much worse today patient is severely encephalopathic patient started having fevers patient was started on empiric Zosyn and the so far all the workup including chest x-ray blood cultures and UA and urine cultures are negative. Patient creatinine went up to 1.98 Lasix is being discontinued his serum sodium although improved. Patient was evaluated by gastroenterology. Patient liver enzymes although has come down. Need to discuss with the family regarding overall goals of care. Patient prognosis is extremely poor discussed with lemon picker. 08/24/2020 patient is much more awake today patient is alert oriented 2. Patient the bilirubin is higher and is at around 27 today. Patient's lactulose was switched to oral from rectal. Patient was given a 1 lit bolus of IV fluids as patient appears to intravascular volume depleted and patient is hypotensive.in sodium remained stable at 133. Potassium is 2.9 which is being replaced magnesium is also low which is being replaced. Creatinine is bit worse and 2.7 at this time patient doesn't have any febrile episodes since that one episode. Patient is presently on Zosyn all the septic workup is so far negative. Review of systems: Unable to obtain due to his clinical condition All inpatient medications were reviewed and appropriate changes in these medications as dictated in the interval history and assessment and plan. Objective - Vital Signs Vital signs: Vital Signs Temp 98.4 F 08/24/20 14:00 Pulse 94 08/24/20 14:00 Resp 20 08/24/20 14:00 BP 97/63 08/24/20 14:00 Pulse Ox 94 L 08/24/20 14:00 Intake & Output 08/23/20 08/24/20 08/24/20 18:59 06:59 18:59 Output Total 600 Balance -600 Output: Urine 600 Other: Voiding Method Diaper Diaper External Catheter Incontinent Incontinent # Bowel Movements 3 - Exam PHYSICAL EXAMINATION: GENERAL: patient is alert oriented 2-3 much more awake not in respiratory distress. HEENT: Pupils are round and equally reacting to light. EOMI. does have signifi cant scleral icterus. No conjunctival pallor. Normocephalic, atraumatic. No pharyngeal erythema. No thyromegaly. Tremor CARDIOVASCULAR: S1 and S2 present. No murmurs, rubs, or gallops. PULMONARY: Chest is clear to auscultation, no wheezing or crackles. ABDOMEN: Soft, nontender, abdomen is distended but no ascites. normoactive bowel sounds. No palpable organomegaly. MUSCULOSKELETAL: No joint swelling or deformity. EXTREMITIES: No cyanosis, clubbing, or pedal edema. NEUROLOGICAL: Patient is drowsy severely encephalopathic unable to assess SKIN: No rashes. - Labs CBC & Chem 7: 08/23/20 08:28 08/24/20 06:58 Labs: Abnormal Lab Results - Last 24 Hours (Table) 08/23/20 08/23/20 08/24/20 Range/Units 17:13 Unknown 06:58 Sodium 133 L (135-145) mmol/L Potassium 3.4 L 2.9 L (3.5-5.1) mmol/L Chloride 94 L (96-109) mmol/L Anion Gap 14.10 H (4.00-12.00) mmol/L BUN 51.0 H (9.0-27.0) mg/dL Creatinine 2.7 H (0.6-1.5) mg/dL Est GFR (CKD-EPI)AfAm 30.3 L (60.0-200.0) Est GFR (CKD-EPI)NonAf 26.1 L (60.0-200.0) Calcium 6.9 L (8.7-10.3) mg/dL Magnesium (1.5-2.4) mg/dL Total Bilirubin 27.5 H* (0.3-1.2) mg/dL AST 258 H (14-35) U/L ALT 50 H (10-49) U/L Alkaline Phosphatase 130 H (41-126) U/L Total Protein 5.3 L (6.2-8.2) g/dL Albumin 2.50 L (3.80-4.90) g/dL Albumin/Globulin Ratio 0.89 L (1.60-3.17) g/dL Urine Protein Trace H (Negative) Urine Glucose (UA) Trace H (Negative) Urine Ketones Trace H (Negative) Urine Blood Small H (Negative) Urine Bilirubin 4+ H (Negative) Urine Bacteria Occasional H (None) /hpf Urine Mucus Few H (None) /hpf 08/24/20 Range/Units 06:58 Sodium (135-145) mmol/L Potassium (3.5-5.1) mmol/L Chloride (96-109) mmol/L Anion Gap (4.00-12.00) mmol/L BUN (9.0-27.0) mg/dL Creatinine (0.6-1.5) mg/dL Est GFR (CKD-EPI)AfAm (60.0-200.0) Est GFR (CKD-EPI)NonAf (60.0-200.0) Calcium (8.7-10.3) mg/dL Magnesium 1.3 L (1.5-2.4) mg/dL Total Bilirubin (0.3-1.2) mg/dL AST (14-35) U/L ALT (10-49) U/L Alkaline Phosphatase (41-126) U/L Total Protein (6.2-8.2) g/dL Albumin (3.80-4.90) g/dL Albumin/Globulin Ratio (1.60-3.17) g/dL Urine Protein (Negative) Urine Glucose (UA) (Negative) Urine Ketones (Negative) Urine Blood (Negative) Urine Bilirubin (Negative) Urine Bacteria (None) /hpf Urine Mucus (None) /hpf Microbiology - Last 24 Hours (Table) 08/23/20 08:28 Blood Culture - Preliminary Blood No Growth after 24 hours 08/23/20 08:28 Blood Culture - Preliminary Blood No Growth after 24 hours Assessment and Plan Plan: -Alcoholic cirrhosis: patient's a meld score is very high -Hepatic encephalopathy: patient is presently on lactulose -Fever source of infection is not clear at this time septic workup was ordered patient was started on empiric Zosyn.so further septic workup is negative -Acute renal failure probably secondary secondary to hepatorenal syndrome IV Lasix was discontinued nephrology will be consulted -hypervolemic hyponatremia on admission patient appears to be hypovolemic at this time -Hypotension secondary to hypovolemia patient was given a bolus of IV fluid -Lactic acidosis secondary to cirrhosisnumber resolved -hypomagnesemia and hypokalemia and these are being replaced -Elevated ammonia level secondary to liver failure -Hypertension -Tachycardia and patient improved now -Alcohol abuse. DVT prophylaxis pharmacologically due to prophylaxis is not tested as patient is partially anticoagulated with INR of 1.5 because of cirrhosis -Elevated liver enzymes secondary to cirrhosis with a competent of acute alcoholic hepatitis -Obstructive jaundice secondary to cirrhosis
[2020-08-24 21:37] LABS: African American GFR (CKD) 29 (>60 ml/min/1.73 sqM); Anion Gap 14 mmol/L; Blood Urea Nitrogen 55 mg/dL (9-20); Calcium 6.8 mg/dL (8.4-10.2); Carbon Dioxide 20 mmol/L (22-30); Chloride 95 mmol/L (98-107); Glucose 105 mg/dL (74-99); Magnesium 2.3 mg/dL (1.6-2.3); Non-African American GFR(CKD) 25 (>60 ml/min/1.73 sqM); Potassium 3.5 mmol/L (3.5-5.1); Sodium 129 mmol/L (137-145)
[2020-08-25] MEDS: LORazepam 2 MG/ML INJ IV PRN (01:58)
[2020-08-25] MEDS: LACTULOSE 20 GM/30 ML CUP PO SCH ×4 (07:59→20:19)
[2020-08-25] MEDS: METOPROLOL TARTRATE 25 MG TAB PO SCH ×2 (07:59→19:27)
[2020-08-25] MEDS: THIAMINE 100 MG TAB PO SCH ×2 (08:00→15:28)
[2020-08-25] MEDS: PANTOPRAZOLE 40 MG TABLET PO SCH (08:00)
[2020-08-25] MEDS: PIPERACILLIN-TAZOBACTAM 3.375 GM in SODIUM CHLORIDE 0.9% 100 ML IVPB SCH ×2 (08:00→20:09)
[2020-08-25 10:06] LABS: HCT 26.8 % (39.6-50.0); HGB 9.4 g/dL (13.0-17.0); MCH 37.6 pg (27.0-32.0); MCHC 35.1 g/dL (32.0-37.0); MCV 107.2 fL (80.0-97.0); Mean Platelet Volume 12.3 fL (9.5-12.2); Platelet Count 108 X 10*3/uL (140-440); RDW 22.4 % (11.5-14.5); WBC 8.98 X 10*3/uL (4.50-10.00)
[2020-08-25 10:07] LABS: INR 1.54 (0.90-1.11); Prothrombin Time 16.3 sec (9.9-11.9)
--- NOTE | 2020-08-25 10:27 | P.PN ---
Subjective Progress Note Date: 08/25/20 Principal diagnosis: This is a 50-year-old male with history of alcoholism, was obtunded on admission and was seen in consultation because of acute kidney injury from low blood pre ssure, possible sepsis. On admission he had severe liver disease, chest x-ray showed pneumonia, ammonia level of 56, lipase of 680. Possible pancreatitis and possible cholecystitis on ultrasound. Also had significant acid base disorder with combination of gap acidosis and metabolic alkalosis. He also has severe jaundice total bilirubin is 27.5 Blood cultures are so far negative. Lactic acidosis is resolved. Vital signs are stable blood pressure is somewhat low in the 84- to 112 systolic systolic range Continues to have fever 100.9 this morning. 24-hour intake is not documented, and 77 5 urine output This morning is awake alert has no asterixis Objective - Vital Signs Vital signs: Vital Signs Temp 100.9 F H 08/25/20 08:56 Pulse 95 08/25/20 08:56 Resp 22 08/25/20 08:56 BP 84/57 08/25/20 08:56 Pulse Ox 95 08/25/20 08:56 Intake & Output 08/24/20 08/25/20 08/25/20 18:59 06:59 18:59 Output Total 300 475 Balance -300 -475 Output: Urine 300 475 Other: Voiding Method External Catheter External Catheter External Catheter # Bowel Movements 3 1 On examination severely jaundiced. Awake and alert. HEENT exam no JVP neck is supple no facial asymmetry Lungs are clear to auscultation fair air entry bilaterally Heart sounds unremarkable for any murmur rub gallop Abdomen soft nontender may be minimal ascites at the most Extremity exam was minimal edema Neurologically awake alert with no asterixis, but profoundly weak - Labs CBC & Chem 7: 08/25/20 06:38 08/24/20 21:07 Labs: Abnormal Lab Results - Last 24 Hours (Table) 08/24/20 08/24/20 08/24/20 Range/Units 06:58 06:58 21:07 RBC (4.40-5.60) X 10*6/uL Hgb (13.0-17.0) g/dL Hct (39.6-50.0) % MCV (80.0-97.0) fL MCH (27.0-32.0) pg RDW (11.5-14.5) % Plt Count (140-440) X 10*3/uL MPV (9.5-12.2) fL PT (9.9-11.9) sec INR (0.90-1.11) Sodium 133 L 129 L (135-145) mmol/L Potassium 2.9 L (3.5-5.5) mmol/L Chloride 94 L 95 L (96-109) mmol/L Carbon Dioxide 20 L (22-30) mmol/L Anion Gap 14.10 H (4.00-12.00) mmol/L BUN 51.0 H 55 H (9.0-27.0) mg/dL Creatinine 2.7 H 2.77 H (0.6-1.5) mg/dL Est GFR (CKD-EPI)AfAm 30.3 L (60.0-200.0) Est GFR (CKD-EPI)NonAf 26.1 L (60.0-200.0) Glucose 105 H (74-99) mg/dL Calcium 6.9 L 6.8 L (8.7-10.3) mg/dL Magnesium 1.3 L (1.5-2.4) mg/dL Total Bilirubin 27.5 H* (0.3-1.2) mg/dL AST 258 H (14-35) U/L ALT 50 H (10-49) U/L Alkaline Phosphatase 130 H (41-126) U/L Total Protein 5.3 L (6.2-8.2) g/dL Albumin 2.50 L (3.80-4.90) g/dL Albumin/Globulin Ratio 0.89 L (1.60-3.17) g/dL 08/25/20 08/25/20 Range/Units 06:38 06:38 RBC 2.50 L (4.40-5.60) X 10*6/uL Hgb 9.4 L (13.0-17.0) g/dL Hct 26.8 L (39.6-50.0) % MCV 107.2 H (80.0-97.0) fL MCH 37.6 H (27.0-32.0) pg RDW 22.4 H (11.5-14.5) % Plt Count 108 L (140-440) X 10*3/uL MPV 12.3 H (9.5-12.2) fL PT 16.3 H (9.9-11.9) sec INR 1.54 H (0.90-1.11) Sodium (135-145) mmol/L Potassium (3.5-5.5) mmol/L Chloride (96-109) mmol/L Carbon Dioxide (22-30) mmol/L Anion Gap (4.00-12.00) mmol/L BUN (9.0-27.0) mg/dL Creatinine (0.6-1.5) mg/dL Est GFR (CKD-EPI)AfAm (60.0-200.0) Est GFR (CKD-EPI)NonAf (60.0-200.0) Glucose (74-99) mg/dL Calcium (8.7-10.3) mg/dL Magnesium (1.5-2.4) mg/dL Total Bilirubin (0.3-1.2) mg/dL AST (14-35) U/L ALT (10-49) U/L Alkaline Phosphatase (41-126) U/L Total Protein (6.2-8.2) g/dL Albumin (3.80-4.90) g/dL Albumin/Globulin Ratio (1.60-3.17) g/dL Microbiology - Last 24 Hours (Table) 08/23/20 08:28 Blood Culture - Preliminary Blood No Growth after 24 hours 08/23/20 08:28 Blood Culture - Preliminary Blood No Growth after 24 hours Assessment and Plan Assessment: Impression 1. Acute kidney injury after being admitted to the hospital likely from low blood pressure and possible sepsis. No nephrotoxic medications or dye studies have been performed. Those blood pressure was in the 90s, to 100. Creatinine went up from 0.682 2.77 as of yesterday today's labs are pending is making fair amount of urine unlikely hepatorenal syndrome but is a possibility 2. Significant hypokalemia secondary to low intake and magnesium deficiency which has been corrected . 3. On admission lactic acidosis from possible sepsis, liver disease, resolved. Mild acidosis with gap of 14 and a bicarb of 20 from acute kidney injury 4. Chest x-ray shows increased left lower lobe density possible pneumonia 5. Severe liver disease from alcohol intake with total bilirubin 22.4, bilirubin went up to 27.5. 6. Hepatic encephalopathy ammonia was 56 improved, improved mental status 7. Possible pancreatitis lipase is high, 680 8. Ultrasound shows possible cholecystitis 9. Combination of gap acidosis and metabolic alkalosis on admission. Bicarb was 26, anion gap 18. A lot of metabolic alkalosis, is not clear. No history of vomiting, steroids, diuretics. Respiratory alkalosis possibly could have done it. Recommendation 1. Continue IV fluids. Normal saline at 100 and hour and watch urine output closely as well as creatinine 2. Close monitoring labs, intake and output and blood pressure. 3. Check labs today
[2020-08-25 10:29] LABS: Albumin 2.5 g/dL (3.80-4.90); Albumin/Globulin Ratio 0.86 (1.60-3.17); Anion Gap 17.1 mmol/L (4.00-12.00); BUN/Creat Ratio 20.36 Ratio (12.00-20.00); Bilirubin, Conjugated 19.4 mg/dL (0.20-0.40); Bilirubin,Unconjugated 7.7 mg/dL; Calcium 6.7 mg/dL (8.7-10.3); Carbon Dioxide 17.9 mmol/L (21.6-31.8); Globulin 2.9 g/dL (1.6-3.3); Potassium 3.1 mmol/L (3.5-5.5); Total Bilirubin 27.1 mg/dL (0.2-1.2); Total Protein 5.4 g/dL (6.2-8.2)
[2020-08-25] MEDS: POTASSIUM CHLORIDE ER 20 MEQ TAB.ER PO SCH ×2 (11:25→15:29)
--- NOTE | 2020-08-25 15:36 | P.PN ---
Subjective Progress Note Date: 08/25/20 50-year-old male with history of all call abuse was sent in by the family members because of a jaundice. Patient is found to have highly elevated bilirubin of 20. Patient does stop drinking last week but still has some tremors because of which are that is a concern of all call withdrawal although my suspicion is low that patient is going to have him call withdrawal. Patient is significantly weak will need physical therapy and occupational therapy evaluation possibly placement in subacute rehabitation. Patient appears to have cirrhosis with elevated INR of 1.5 does have some pulmonary edema patient doesn't appear to have much of ascites, does have mildly elevated ammonia level of around 43. Patient had lactic acidosis which improved. She denied any fever chills nausea vomiting patient used to drink about 1 pint of hard liquor every day. 08/22/2020 Patient is confused generalized weakness and unable to work with physical therapy and outpatient therapy. Ammonia level will be obtained patient does have asterixis appears to have hepatic encephalopathy. Patient remains on Lasix with improvement in serum sodium to 133. Gastroenterology will be consulted. Patient will be can you done on lactulose patient is confused quite a bit. 08/23/2020 Patient's overall clinical condition is much worse today patient is severely encephalopathic patient started having fevers patient was started on empiric Zosyn and the so far all the workup including chest x-ray blood cultures and UA and urine cultures are negative. Patient creatinine went up to 1.98 Lasix is being discontinued his serum sodium although improved. Patient was evaluated by gastroenterology. Patient liver enzymes although has come down. Need to discuss with the family regarding overall goals of care. Patient prognosis is extremely poor discussed with reservationist. 08/24/2020 patient is much more awake today patient is alert oriented 2. Patient the bilirubin is higher and is at around 27 today. Patient's lactulose was switched to oral from rectal. Patient was given a 1 lit bolus of IV fluids as patient appears to intravascular volume depleted and patient is hypotensive.in sodium remained stable at 133. Potassium is 2.9 which is being replaced magnesium is also low which is being replaced. Creatinine is bit worse and 2.7 at this time patient doesn't have any febrile episodes since that one episode. Patient is presently on Zosyn all the septic workup is so far negative. 08/25/2020 Patient is seen on follow-up, he is drowsy but arousable able to recall his name, where he is and the year bilirubin remains elevated at 27.1. Ammonia level normal 20 today, we'll recheck level tomorrow. He is continued on oral lactulose 23 times daily. Creatinine slightly worse, 2.8, BUN 57. His potassi um level is 3.1, was replaced. REVIEW OF SYSTEMS: CARDIOVASCULAR: negative RESPIRATORY: negative GI: negative : negative NERVOUS SYSTEM: negative Objective - Vital Signs Vital signs: Vital Signs Temp 100.9 F H 08/25/20 08:56 Pulse 95 08/25/20 08:56 Resp 22 08/25/20 08:56 BP 84/57 08/25/20 08:56 Pulse Ox 95 08/25/20 08:56 Intake & Output 08/24/20 08/25/20 08/25/20 18:59 06:59 18:59 Output Total 300 475 Balance -300 -475 Output: Urine 300 475 Other: Voiding Method External Catheter External Catheter External Catheter # Bowel Movements 3 1 - Exam GENERAL: patient is alert oriented 2-3 much more awake not in respiratory distress. HEENT: Pupils are round and equally reacting to light. EOMI. does have significant scleral icterus. No conjunctival pallor. Normocephalic, atraumatic. No pharyngeal erythema. No thyromegaly. Tremor CARDIOVASCULAR: S1 and S2 present. No murmurs, rubs, or gallops. PULMONARY: Chest is clear to auscultation, no wheezing or crackles. ABDOMEN: Soft, nontender, abdomen is distended but no ascites. normoactive bowel sounds. No palpable organomegaly. MUSCULOSKELETAL: No joint swelling or deformity. EXTREMITIES: No cyanosis, clubbing, or pedal edema. NEUROLOGICAL: Patient is drowsy severely encephalopathic unable to assess SKIN: No rashes. Jaundice - Labs CBC & Chem 7: 08/25/20 06:38 08/25/20 06:38 Labs: Abnormal Lab Results - Last 24 Hours (Table) 08/24/20 08/25/20 08/25/20 Range/Units 21:07 06:38 06:38 RBC (4.40-5.60) X 10*6/uL Hgb (13.0-17.0) g/dL Hct (39.6-50.0) % MCV (80.0-97.0) fL MCH (27.0-32.0) pg RDW (11.5-14.5) % Plt Count (140-440) X 10*3/uL MPV (9.5-12.2) fL PT 16.3 H (9.9-11.9) sec INR 1.54 H (0.90-1.11) Sodium 129 L 131 L (137-145) mmol/L Potassium 3.1 L (3.5-5.5) mmol/L Chloride 95 L (98-107) mmol/L Carbon Dioxide 20 L 17.9 L (22-30) mmol/L Anion Gap 17.10 H (4.00-12.00) mmol/L BUN 55 H 57.0 H (9-20) mg/dL Creatinine 2.77 H 2.8 H (0.66-1.25) mg/dL Est GFR (CKD-EPI)AfAm 29.0 L (60.0-200.0) Est GFR (CKD-EPI)NonAf 25.0 L (60.0-200.0) BUN/Creatinine Ratio 20.36 H (12.00-20.00) Ratio Glucose 105 H (74-99) mg/dL Calcium 6.8 L 6.7 L (8.4-10.2) mg/dL Total Bilirubin 27.1 H* (0.2-1.2) mg/dL Conjugated Bilirubin 19.40 H (0.20-0.40) mg/dL AST 250 H (14-35) U/L ALT 69 H (10-49) U/L Alkaline Phosphatase 127 H (41-126) U/L Total Protein 5.4 L (6.2-8.2) g/dL Albumin 2.50 L (3.80-4.90) g/dL Albumin/Globulin Ratio 0.86 L (1.60-3.17) g/dL 08/25/20 Range/Units 06:38 RBC 2.50 L (4.40-5.60) X 10*6/uL Hgb 9.4 L (13.0-17.0) g/dL Hct 26.8 L (39.6-50.0) % MCV 107.2 H (80.0-97.0) fL MCH 37.6 H (27.0-32.0) pg RDW 22.4 H (11.5-14.5) % Plt Count 108 L (140-440) X 10*3/uL MPV 12.3 H (9.5-12.2) fL PT (9.9-11.9) sec INR (0.90-1.11) Sodium (137-145) mmol/L Potassium (3.5-5.5) mmol/L Chloride (98-107) mmol/L Carbon Dioxide (22-30) mmol/L Anion Gap (4.00-12.00) mmol/L BUN (9-20) mg/dL Creatinine (0.66-1.25) mg/dL Est GFR (CKD-EPI)AfAm (60.0-200.0) Est GFR (CKD-EPI)NonAf (60.0-200.0) BUN/Creatinine Ratio (12.00-20.00) Ratio Glucose (74-99) mg/dL Calcium (8.4-10.2) mg/dL Total Bilirubin (0.2-1.2) mg/dL Conjugated Bilirubin (0.20-0.40) mg/dL AST (14-35) U/L ALT (10-49) U/L Alkaline Phosphatase (41-126) U/L Total Protein (6.2-8.2) g/dL Albumin (3.80-4.90) g/dL Albumin/Globulin Ratio (1.60-3.17) g/dL Microbiology - Last 24 Hours (Table) 08/23/20 08:28 Blood Culture - Preliminary Blood No Growth after 48 hours 08/23/20 08:28 Blood Culture - Preliminary Blood No Growth after 48 hours Assessment and Plan Assessment: -Alcoholic cirrhosis: patient's a meld score is very high -Hepatic encephalopathy: Continues oral lactulose 20, 3 times daily -Fever source of infection is not clear: No growth initial set of blood cultures. Is continued on empiric antimicrobial therapy of Zosyn, did have ano ther fever 100.9 today, we'll recheck a blood culture. -Acute renal failure probably secondary secondary to hepatorenal syndrome: Creatinine up to 2.8, nephrology is following, he is not on diuretics currently -AMS/Hepatic encephalopathy: Improving patient is alert and oriented 3 today, drowsy we'll discontinue Ativan as he does not appear to be having withdrawal hyponatremia on admission patient appears to be hypovolemic at this time, He is maintained on IV fluids -Hypotension secondary to hypovolemia patient was given a bolus of IV fluid -Lactic acidosis secondary to cirrhosis: improved -Hypokalemia: Potassium replaced -Elevated ammonia level secondary to liver failure: Improved, ammonia level 20 recheck level tomorrow -Hypertension -Tachycardia and patient improved now -Alcohol abuse: Not currently having withdrawals, we'll discontinue Ativan to avoid excessive sedation As he is drowsy today DVT prophylaxis pharmacologically due to prophylaxis auto anticoagulated INR 1.5 -Elevated liver enzymes secondary to cirrhosis with a competent of acute alcoholic hepatitis -Obstructive jaundice secondary to cirrhosis
--- NOTE | 2020-08-25 17:46 | P.PN ---
Subjective Progress Note Date: 08/25/20 Principal diagnosis: Acute alcoholic hepatitis, hepatic encephalopathy, suspected cirrhosis of the liver Patient seen lying in bed with no new complaints. He remains jaundiced with dark urine. He is oriented to person place times a day with improvement mmentation. Objective - Vital Signs Vital signs: Vital Signs Temp 100.9 F H 08/25/20 08:56 Pulse 95 08/25/20 08:56 Resp 22 08/25/20 08:56 BP 84/57 08/25/20 08:56 Pulse Ox 95 08/25/20 08:56 Intake & Output 08/24/20 08/25/20 08/25/20 18:59 06:59 18:59 Output Total 300 475 Balance -300 -475 Output: Urine 300 475 Other: Voiding Method External Catheter External Catheter External Catheter # Bowel Movements 3 1 - Exam On physical examination, patient appears comfortable in no apparent distress. HEAD: Normocephalic, atraumatic. EYES: No scleral icterus. No conjunctival injection. MOUTH: No lesions, tongue midline. NECK: Trachea midline, no gross abnormalities. ABDOMEN: Soft, nontender to palpation. Bowel sounds are positive. No organomegaly. No guarding or rigidity. EXTREMITIES: No pedal edema. SKIN: No rashes, no jaundice. NEUROLOGIC: Alert and oriented x3. Tremulousness but no asterixis noted. - Labs CBC & Chem 7: 08/25/20 06:38 08/25/20 06:38 Labs: Abnormal Lab Results - Last 24 Hours (Table) 08/24/20 08/24/20 08/24/20 Range/Units 06:58 06:58 21:07 Sodium 133 L 129 L (135-145) mmol/L Potassium 2.9 L (3.5-5.5) mmol/L Chloride 94 L 95 L (96-109) mmol/L Carbon Dioxide 20 L (22-30) mmol/L Anion Gap 14.10 H (4.00-12.00) mmol/L BUN 51.0 H 55 H (9.0-27.0) mg/dL Creatinine 2.7 H 2.77 H (0.6-1.5) mg/dL Est GFR (CKD-EPI)AfAm 30.3 L (60.0-200.0) Est GFR (CKD-EPI)NonAf 26.1 L (60.0-200.0) Glucose 105 H (74-99) mg/dL Calcium 6.9 L 6.8 L (8.7-10.3) mg/dL Magnesium 1.3 L (1.5-2.4) mg/dL Total Bilirubin 27.5 H* (0.3-1.2) mg/dL AST 258 H (14-35) U/L ALT 50 H (10-49) U/L Alkaline Phosphatase 130 H (41-126) U/L Total Protein 5.3 L (6.2-8.2) g/dL Albumin 2.50 L (3.80-4.90) g/dL Albumin/Globulin Ratio 0.89 L (1.60-3.17) g/dL Microbiology - Last 24 Hours (Table) 08/23/20 08:28 Blood Culture - Preliminary Blood No Growth after 24 hours 08/23/20 08:28 Blood Culture - Preliminary Blood No Growth after 24 hours Assessment and Plan (1) Alcoholic hepatitis without ascites Narrative/Plan: 50-year-old male with a medical history significant for polysubstance abuse, alcohol abuse, prior history of pancreatitis who presented to the hospital due to altered mental status. Found to have elevated ammonia on presentation currently receiving treatment for hepatic encephalopathy. Severely elevated liver enzymes with total bilirubin 22, alkaline phosphatase is 149, AST 393 and ALT 50 on presentation consistent with history of alcoholic hepatitis likely superimposed on alcoholic cirrhosis. Mentation greatly improved today, however liver enzymes stable today with total bilirubin 27. Current Visit: No Status: Acute Code(s): K70.10 - ALCOHOLIC HEPATITIS WITHOUT ASCITES SNOMED Code(s): 032759289 (2) Hepatic encephalopathy Current Visit: Yes Status: Acute Code(s): K72.90 - HEPATIC FAILURE, UNSPECIFIED WITHOUT COMA SNOMED Code(s): 16806063 (3) Jaundice Current Visit: Yes Status: Acute Code(s): R17 - UNSPECIFIED JAUNDICE SNOMED Code(s): 46099376 Plan: Supportive care Okay for sodium restricted as tolerated Lactulose 20 g 3 times a day to be held for greater than 3 bowel movements Continue to monitor CBC, BMP, LFTs, INR and ammonia level Continue to monitor clinically Alcohol abstinence Monitoring treat for signs or symptoms of alcohol withdrawal Ultrasound of the abdomen reviewed Acute viral hepatitis panel negative Nephrology following the patient Extensive discussion with the patient's who is bedside on Wednesday, extremely poor prognosis Thank you for allowing us to participate in the care of the patient
[2020-08-25] MEDS: SODIUM CHLORIDE 0.9% 1,000 ML IV SCH ×2 (18:53→20:10)
[2020-08-26] MEDS: THIAMINE 100 MG TAB PO SCH ×2 (08:56→17:44)
[2020-08-26] MEDS: METOPROLOL TARTRATE 25 MG TAB PO SCH ×2 (08:56→21:13)
[2020-08-26] MEDS: LACTULOSE 20 GM/30 ML CUP PO SCH ×3 (08:56→22:14)
[2020-08-26] MEDS: PIPERACILLIN-TAZOBACTAM 3.375 GM in SODIUM CHLORIDE 0.9% 100 ML IVPB SCH ×2 (08:56→21:12)
[2020-08-26] MEDS: PANTOPRAZOLE 40 MG TABLET PO SCH (08:56)
[2020-08-26 11:47] LABS: African American GFR (CKD) 31.7 (60.0-200.0); Albumin 2.4 g/dL (3.80-4.90); Albumin/Globulin Ratio 0.89 (1.60-3.17); Anion Gap 13.2 mmol/L (4.00-12.00); BUN/Creat Ratio 22.31 Ratio (12.00-20.00); Calcium 6.7 mg/dL (8.7-10.3); Carbon Dioxide 21.8 mmol/L (21.6-31.8); Globulin 2.7 g/dL (1.6-3.3); Non-African American GFR(CKD) 27.3 (60.0-200.0); Potassium 3.2 mmol/L (3.5-5.5); Total Bilirubin 30.1 mg/dL (0.3-1.2); Total Protein 5.1 g/dL (6.2-8.2)
[2020-08-26] MEDS ORDERED: POTASSIUM CHLORIDE ER 20 MEQ TAB.ER PO STA (12:31)
--- NOTE | 2020-08-26 13:28 | P.PN ---
Subjective Patient is seen in follow-up for acute kidney injury. Renal function slightly better. Maintained on IV fluids. Oral intake chest fair. Nonoliguric. No chest pain or shortness of breath. Vital signs are stable. HEENT: Head exam is unremarkable. Neck is without jugular venous distension. LUNGS: Breath sounds decreased. HEART: Rate and Rhythm are regular. ABDOMEN: Soft, moderate distention. EXTREMITITES: No edema. Objective - Vital Signs Vital signs: Vital Signs Temp 98.5 F 08/26/20 07:52 Pulse 105 H 08/26/20 07:52 Resp 24 08/26/20 07:52 BP 122/72 08/26/20 07:52 Pulse Ox 95 08/26/20 07:52 Intake & Output 08/25/20 08/26/20 08/26/20 18:59 06:59 18:59 Intake Total 700 Output Total 375 750 Balance 325 -750 Intake: Intake, IV Titration 350 Amount Piperacillin-Tazobactam 3 100 .375 gm In Sodium Chloride 0.9% 100 ml @ 25 mls/hr IVPB Q12HR [facility] Rx #:[id number] Sodium Chloride 0.9% 1, 250 000 ml @ 75 mls/hr IV . [id number] [facility] Rx#:[id number] Oral 350 Output: Urine 375 750 Other: Voiding Method External Catheter External Catheter - Labs CBC & Chem 7: 08/25/20 06:38 08/26/20 06:36 Labs: Abnormal Lab Results - Last 24 Hours (Table) 08/26/20 Range/Units 06:36 Sodium 133 L (135-145) mmol/L Potassium 3.2 L (3.5-5.5) mmol/L Anion Gap 13.20 H (4.00-12.00) mmol/L BUN 58.0 H (9.0-27.0) mg/dL Creatinine 2.6 H (0.6-1.5) mg/dL Est GFR (CKD-EPI)AfAm 31.7 L (60.0-200.0) Est GFR (CKD-EPI)NonAf 27.3 L (60.0-200.0) BUN/Creatinine Ratio 22.31 H (12.00-20.00) Ratio Glucose 114 H (70-110) mg/dL Calcium 6.7 L (8.7-10.3) mg/dL Total Bilirubin 30.1 H* (0.3-1.2) mg/dL AST 237 H (14-35) U/L ALT 54 H (10-49) U/L Alkaline Phosphatase 129 H (41-126) U/L Total Protein 5.1 L (6.2-8.2) g/dL Albumin 2.40 L (3.80-4.90) g/dL Albumin/Globulin Ratio 0.89 L (1.60-3.17) g/dL Microbiology - Last 24 Hours (Table) 08/23/20 08:28 Blood Culture - Preliminary Blood No Growth after 72 hours 08/23/20 08:28 Blood Culture - Preliminary Blood No Growth after 72 hours Assessment and Plan Plan: Assessment: 1. Acute kidney injury secondary to ATN. 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 Renal function slightly better. Creatinine 2.6. UA fairly benign. 2. Hypokalemia from poor intake and hypomagnesemia. 3. Hypomagnesemia from poor intake and alcoholism. Replaced. Better. 4. Alcoholic hepatitis. 5. Metabolic acidosis secondary to acute kidney injury. Better. 6. Hepatic encephalopathy. 7. Hypotension improved with IV fluids. 8. Hypovolemic hyponatremia improving with IV hydration. Plan: Maintain IV fluids. Check renal ultrasound. Replace potassium. Maintain strict is and os. Repeat electrolytes in the morning.
[2020-08-26] MEDS: SODIUM CHLORIDE 0.9% 1,000 ML IV SCH (15:14)
--- NOTE | 2020-08-26 15:36 | P.PN ---
Subjective 50-year-old male with history of all call abuse was sent in by the family members because of a jaundice. Patient is found to have highly elevated bi lirubin of 20. Patient does stop drinking last week but still has some tremors because of which are that is a concern of all call withdrawal although my suspicion is low that patient is going to have him call withdrawal. Patient is significantly weak will need physical therapy and occupational therapy evaluation possibly placement in subacute rehabitation. Patient appears to have cirrhosis with elevated INR of 1.5 does have some pulmonary edema patient doesn't appear to have much of ascites, does have mildly elevated ammonia level of around 43. Patient had lactic acidosis which improved. She denied any fever chills nausea vomiting patient used to drink about 1 pint of hard liquor every day. 08/22/2020 Patient is confused generalized weakness and unable to work with physical therapy and outpatient therapy. Ammonia level will be obtained patient does have asterixis appears to have hepatic encephalopathy. Patient remains on Lasix with improvement in serum sodium to 133. Gastroenterology will be consulted. Patient will be can you done on lactulose patient is confused quite a bit. 08/23/2020 Patient's overall clinical condition is much worse today patient is severely encephalopathic patient started having fevers patient was started on empiric Zosyn and the so far all the workup including chest x-ray blood cultures and UA and urine cultures are negative. Patient creatinine went up to 1.98 Lasix is being discontinued his serum sodium although improved. Patient was evaluated by gastroenterology. Patient liver enzymes although has come down. Need to discuss with the family regarding overall goals of care. Patient prognosis is extremely poor discussed with wholesale agronomist. 08/24/2020 patient is much more awake today patient is alert oriented 2. Patient the bilirubin is higher and is at around 27 today. Patient's lactulose was switched to oral from rectal. Patient was given a 1 lit bolus of IV fluids as patient appears to intravascular volume depleted and patient is hypotensive.in sodium remained stable at 133. Potassium is 2.9 which is being replaced magnesium is also low which is being replaced. Creatinine is bit worse and 2.7 at this time patient doesn't have any febrile episodes since that one episode. Patient is presently on Zosyn all the septic workup is so far negative. 08/23/2020 Patient is more awake patient looks better but his bilirubin continues to go up and about 30 today. Ammonia levels have come down. Physical therapy Dr. Pettit that we will evaluate the patient Constitutional: Denied any fatigue denied any fever. Cardio vascular: denied any chest pain, palpitations Gastrointestinal denied any nausea vomiting Pulmonary: Denied any shortness of breath cough Neurologic denied any new focal deficits All inpatient medications were reviewed and appropriate changes in these medications as dictated in the interval history and assessment and plan. Objective - Vital Signs Vital signs: Vital Signs Temp 98.5 F 08/26/20 07:52 Pulse 105 H 08/26/20 07:52 Resp 24 08/26/20 07:52 BP 122/72 08/26/20 07:52 Pulse Ox 95 08/26/20 07:52 Intake & Output 08/25/20 08/26/20 08/26/20 18:59 06:59 18:59 Intake Total 700 Output Total 375 750 Balance 325 -750 Intake: Intake, IV Titration 350 Amount Piperacillin-Tazobactam 3 100 .375 gm In Sodium Chloride 0.9% 100 ml @ 25 mls/hr IVPB Q12HR [facility] Rx #:[id number] Sodium Chloride 0.9% 1, 250 000 ml @ 75 mls/hr IV . [id number] [facility] Rx#:[id number] Oral 350 Output: Urine 375 750 Other: Voiding Method External Catheter External Catheter - Exam PHYSICAL EXAMINATION: GENERAL: patient is alert oriented 3 much more awake not in respiratory distress. HEENT: Pupils are round and equally reacting to light. EOMI. does have significant scleral icterus. No conjunctival pallor. Normocephalic, atraumatic. No pharyngeal erythema. No thyromegaly. Tremor CARDIOVASCULAR: S1 and S2 present. No murmurs, rubs, or gallops. PULMONARY: Chest is clear to auscultation, no wheezing or crackles. ABDOMEN: Soft, nontender, abdomen is distended but no ascites. normoactive bowel sounds. No palpable organomegaly. MUSCULOSKELETAL: No joint swelling or deformity. EXTREMITIES: No cyanosis, clubbing, or pedal edema. NEUROLOGICAL: Patient is drowsy severely encephalopathic unable to assess SKIN: No rashes. - Labs CBC & Chem 7: 08/25/20 06:38 08/26/20 06:36 Labs: Abnormal Lab Results - Last 24 Hours (Table) 08/26/20 Range/Units 06:36 Sodium 133 L (135-145) mmol/L Potassium 3.2 L (3.5-5.5) mmol/L Anion Gap 13.20 H (4.00-12.00) mmol/L BUN 58.0 H (9.0-27.0) mg/dL Creatinine 2.6 H (0.6-1.5) mg/dL Est GFR (CKD-EPI)AfAm 31.7 L (60.0-200.0) Est GFR (CKD-EPI)NonAf 27.3 L (60.0-200.0) BUN/Creatinine Ratio 22.31 H (12.00-20.00) Ratio Glucose 114 H (70-110) mg/dL Calcium 6.7 L (8.7-10.3) mg/dL Total Bilirubin 30.1 H* (0.3-1.2) mg/dL AST 237 H (14-35) U/L ALT 54 H (10-49) U/L Alkaline Phosphatase 129 H (41-126) U/L Total Protein 5.1 L (6.2-8.2) g/dL Albumin 2.40 L (3.80-4.90) g/dL Albumin/Globulin Ratio 0.89 L (1.60-3.17) g/dL Microbiology - Last 24 Hours (Table) 08/23/20 08:28 Blood Culture - Preliminary Blood No Growth after 72 hours 08/23/20 08:28 Blood Culture - Preliminary Blood No Growth after 72 hours Assessment and Plan Plan: -Alcoholic cirrhosis: patient's a meld score is very high -Hepatic encephalopathy: Continues oral lactulose 20, 3 times daily -Fever source of infection is not clear: No growth initial set of blood cultures. Is continued on empiric antimicrobial therapy of Zosyn, did have another fever 100.9 today, we'll recheck a blood culture. -Acute renal failure probably secondary secondary to hepatorenal syndrome: Creatinine up to 2.8, nephrology is following, he is not on diuretics currently -AMS/Hepatic encephalopathy: Improving patient is alert and oriented 3 today, drowsy we'll discontinue Ativan as he does not appear to be having withdrawal hyponatremia on admission patient appears to be hypovolemic at this time, He is maintained on IV fluids -Hypotension secondary to hypovolemia patient was given a bolus of IV fluid -Lactic acidosis secondary to cirrhosis: improved -Hypokalemia: Potassium replaced -Elevated ammonia level secondary to liver failure: Improved, ammonia level 20 recheck level tomorrow -Hypertension -Tachycardia and patient improved now -Alcohol abuse: Not currently having withdrawals, we'll discontinue Ativan to avoid excessive sedation As he is drowsy today DVT prophylaxis pharmacologically due to prophylaxis auto anticoagulated INR 1.5 -Elevated liver enzymes secondary to cirrhosis with a competent of acute alcoholic hepatitis -Obstructive jaundice secondary to cirrhosis
--- NOTE | 2020-08-26 16:22 | P.PN ---
Subjective Progress Note Date: 08/26/20 Principal diagnosis: Alcoholic cirrhosis of the liver, jaundice This is a 50-year-old male patient who is alert and oriented 3. He came in last week for altered mental status, falls, hyperbilirubinemia, with a significant history of heavy alcohol abuse in the past. He is seen and examined with complaints of abdominal tenderness, no nausea or vomiting. He still has Leyva catheter in place with dark colored urine. Bilirubin continues to slightly trend up. Objective - Vital Signs Vital signs: Vital Signs Temp 98.5 F 08/26/20 07:52 Pulse 105 H 08/26/20 07:52 Resp 24 08/26/20 07:52 BP 122/72 08/26/20 07:52 Pulse Ox 95 08/26/20 07:52 Intake & Output 08/25/20 08/26/20 08/26/20 18:59 06:59 18:59 Intake Total 700 Output Total 375 750 Balance 325 -750 Intake: Intake, IV Titration 350 Amount Piperacillin-Tazobactam 3 100 .375 gm In Sodium Chloride 0.9% 100 ml @ 25 mls/hr IVPB Q12HR [facility] Rx #:[id number] Sodium Chloride 0.9% 1, 250 000 ml @ 75 mls/hr IV . [id number] [facility] Rx#:[id number] Oral 350 Output: Urine 375 750 Other: Voiding Method External Catheter External Catheter - Exam General appearance: The patient is alert, oriented, appears in no acute distress. HET: Head is normocephalic and atraumatic. Conjunctiva pink. Sclera deeply icteric. Neck: Supple without lymphadenopathy. Abdomen: Soft, nontender, nondistended with bowel sounds. No guarding or rigidity. Extremities: Normal skin color and turgor. No pedal edema Skin: No rashes, severe jaundice Neurological: No focal deficits. Alert and oriented 3. - Labs CBC & Chem 7: 08/25/20 06:38 08/26/20 06:36 Labs: Microbiology - Last 24 Hours (Table) 08/23/20 08:28 Blood Culture - Preliminary Blood No Growth after 72 hours 08/23/20 08:28 Blood Culture - Preliminary Blood No Growth after 72 hours Assessment and Plan (1) Alcoholic hepatitis without ascites Narrative/Plan: 50-year-old male with a medical history significant for polysubstance abuse, alcohol abuse, prior history of pancreatitis who presented to the hospital due to altered mental status. Found to have elevated ammonia on presentation currently receiving treatment for hepatic encephalopathy. Severely elevated liver enzymes with total bilirubin 22, alkaline phosphatase is 149, AST 393 and ALT 50 on presentation consistent with history of alcoholic hepatitis likely superimposed on alcoholic cirrhosis. Mentation greatly improved today, however liver enzymes stable today with total bilirubin 27. Current Visit: No Status: Acute Code(s): K70.10 - ALCOHOLIC HEPATITIS WITHOUT ASCITES SNOMED Code(s): 253173113 (2) Hepatic encephalopathy Current Visit: Yes Status: Acute Code(s): K72.90 - HEPATIC FAILURE, UNSPE CIFIED WITHOUT COMA SNOMED Code(s): 41905247 (3) Jaundice Current Visit: Yes Status: Acute Code(s): R17 - UNSPECIFIED JAUNDICE SNOMED Code(s): 40061715 Plan: Supportive care Okay for sodium restricted as tolerated Lactulose 20 g 3 times a day to be held for greater than 3 bowel movements Continue to monitor CBC, BMP, LFTs, INR Continue to monitor clinically Alcohol abstinence Monitoring treat for signs or symptoms of alcohol withdrawal Ultrasound of the abdomen reviewed Acute viral hepatitis panel negative Nephrology following the patient Extensive discussion with the patient's who is bedside on Wednesday, extremely poor prognosis Thank you for this consultation, we will continue to follow Dr. Royal Beckwith I agree with the dictator's note, documented as a scribe by Hien WHITTAKER .
--- NOTE | 2020-08-26 16:26 | US ---
EXAMINATION TYPE: US kidneys/renal and bladder DATE OF EXAM: 08/26/2020 COMPARISON: CT abdomen and pelvis October 10, 2019 CLINICAL HISTORY: dottie. EXAM MEASUREMENTS: Right Kidney: 11.9 x 7.1 x 6.9 cm Left Kidney: 14.0 x 6.6 x 6.8 cm Right Kidney: inferior pole obscured by bowel Left Kidney: enlarged Bladder: not fully distended When scanning right kidney adjacent liver is heterogeneously hyperechoic with trace anterior superior ascites. Kidney size is within normal limits without hydronephrosis or concerning masses. Poorly dis tended bladder noted. IMPRESSION: No hydronephrosis is noted bilaterally.
[2020-08-27] MEDS ORDERED: MORPHINE SULFATE 2 MG/ML SYRINGE IVP ONE (02:02)
[2020-08-27] MEDS: LORazepam 2 MG/ML INJ IV PRN ×2 (02:42→23:56)
[2020-08-27] MEDS: SODIUM CHLORIDE 0.9% 1,000 ML IV SCH ×2 (02:54→17:37)
[2020-08-27] MEDS: PIPERACILLIN-TAZOBACTAM 3.375 GM in SODIUM CHLORIDE 0.9% 100 ML IVPB SCH ×2 (09:12→21:02)
[2020-08-27] MEDS: THIAMINE 100 MG TAB PO SCH ×2 (09:12→17:38)
[2020-08-27] MEDS: METOPROLOL TARTRATE 25 MG TAB PO SCH ×2 (09:12→21:02)
[2020-08-27] MEDS: PANTOPRAZOLE 40 MG TABLET PO SCH (09:12)
[2020-08-27] MEDS: LACTULOSE 20 GM/30 ML CUP PO SCH ×3 (09:13→21:01)
--- NOTE | 2020-08-27 12:33 | P.PN ---
Subjective Patient is seen in follow-up for acute kidney injury. Renal function slightly creatinine 2.6 as of yesterday. Maintained on IV fluids. Oral intake just fair. Nonoliguric. No chest pain or shortness of breath. Vital signs are stable. Blood pressure on the lower side. HEENT: Head exam is unremarkable. Neck is without jugular venous distension. LUNGS: Breath sounds decreased. HEART: Rate and Rhythm are regular. ABDOMEN: Soft, moderate distention. EXTREMITITES: Trace edema. Objective - Vital Signs Vital signs: Vital Signs Temp 98.5 F 08/27/20 08:00 Pulse 95 08/27/20 08:00 Resp 20 08/27/20 08:00 BP 78/51 08/27/20 08:00 Pulse Ox 93 L 08/27/20 08:00 Intake & Output 08/26/20 08/27/20 08/27/20 18:59 06:59 18:59 Output Total 600 400 Balance -600 -400 Output: Urine 600 400 Other: Voiding Method External Catheter External Catheter External Catheter # Bowel Movements 7 4 - Labs CBC & Chem 7: 08/25/20 06:38 08/26/20 06:36 Labs: Microbiology - Last 24 Hours (Table) 08/23/20 08:28 Blood Culture - Preliminary Blood No Growth after 96 hours 08/23/20 08:28 Blood Culture - Preliminary Blood No Growth after 96 hours 08/25/20 16:21 Blood Culture - Preliminary Blood No Growth after 24 hours Assessment and Plan Plan: Assessment: 1. Acute kidney injury secondary to ATN. 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 Creatinine 2.6 as of yesterday. No hydronephrosis noted on kidney ultrasound. UA fairly benign. 2. Hypokalemia from poor intake and hypomagnesemia.replaced. 3. Hypomagnesemia from poor intake and alcoholism. Replaced. Better. 4. Alcoholic hepatitis. 5. Metabolic acidosis secondary to acute kidney injury. Better. 6. Hepatic encephalopathy. 7. Hypotension secondary to underlying cirrhosis. 8. Hypovolemic hyponatremia improved with IV hydration. Plan: Decreased rate of normal saline to 50 mL an hour. Add midodrine 5 mg 3 times daily. Check abdominal ultrasound. Maintain strict is and os. Morning labs pending.
--- NOTE | 2020-08-27 12:53 | P.PN ---
Subjective 50-year-old male with history of all call abuse was sent in by the family members because of a jaundice. Patient is found to have highly elevated bi lirubin of 20. Patient does stop drinking last week but still has some tremors because of which are that is a concern of all call withdrawal although my suspicion is low that patient is going to have him call withdrawal. Patient is significantly weak will need physical therapy and occupational therapy evaluation possibly placement in subacute rehabitation. Patient appears to have cirrhosis with elevated INR of 1.5 does have some pulmonary edema patient doesn't appear to have much of ascites, does have mildly elevated ammonia level of around 43. Patient had lactic acidosis which improved. She denied any fever chills nausea vomiting patient used to drink about 1 pint of hard liquor every day. 08/22/2020 Patient is confused generalized weakness and unable to work with physical therapy and outpatient therapy. Ammonia level will be obtained patient does have asterixis appears to have hepatic encephalopathy. Patient remains on Lasix with improvement in serum sodium to 133. Gastroenterology will be consulted. Patient will be can you done on lactulose patient is confused quite a bit. 08/23/2020 Patient's overall clinical condition is much worse today patient is severely encephalopathic patient started having fevers patient was started on empiric Zosyn and the so far all the workup including chest x-ray blood cultures and UA and urine cultures are negative. Patient creatinine went up to 1.98 Lasix is being discontinued his serum sodium although improved. Patient was evaluated by gastroenterology. Patient liver enzymes although has come down. Need to discuss with the family regarding overall goals of care. Patient prognosis is extremely poor discussed with repairer hairspring. 08/24/2020 patient is much more awake today patient is alert oriented 2. Patient the bilirubin is higher and is at around 27 today. Patient's lactulose was switched to oral from rectal. Patient was given a 1 lit bolus of IV fluids as patient appears to intravascular volume depleted and patient is hypotensive.in sodium remained stable at 133. Potassium is 2.9 which is being replaced magnesium is also low which is being replaced. Creatinine is bit worse and 2.7 at this time patient doesn't have any febrile episodes since that one episode. Patient is presently on Zosyn all the septic workup is so far negative. 08/26/2020 Patient is more awake patient looks better but his bilirubin continues to go up and about 30 today. Ammonia levels have come down. Physical therapy Dr. Pettit that we will evaluate the patient 08/27/2020 Patient blood pressure is low patient was started on IV fluids. 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 Patient's creatinine yesterday was 2.6 and do not have any labs available from today. Patient is more awake. Patient's ammonia level is only 9. Patient feels tired. Patient is hypotensive patient was started on IV fluids. Constitutional: As mentioned in HPI Cardio vascular: denied any chest pain, palpitations Gastrointestinal denied any nausea vomiting Pulmonary: Denied any shortness of breath cough Neurologic denied any new focal deficits All inpatient medications were reviewed and appropriate changes in these medications as dictated in the interval history and assessment and plan. Objective - Vital Signs Vital signs: Vital Signs Temp 98.5 F 08/27/20 08:00 Pulse 95 08/27/20 08:00 Resp 20 08/27/20 08:00 BP 78/51 08/27/20 08:00 Pulse Ox 93 L 08/27/20 08:00 Intake & Output 08/26/20 08/27/20 08/27/20 18:59 06:59 18:59 Output Total 600 400 Balance -600 -400 Output: Urine 600 400 Other: Voiding Method External Catheter External Catheter External Catheter # Bowel Movements 7 4 - Exam PHYSICAL EXAMINATION: GENERAL: patient is alert oriented 3 much more awake not in respiratory distress. yellowish discoloration of the skin HEENT: Pupils are round and equally reacting to light. EOMI. does have significant scleral icterus. No conjunctival pallor. Normocephalic, atraumatic. No pharyngeal erythema. No thyromegaly. Tremor CARDIOVASCULAR: S1 and S2 present. No murmurs, rubs, or gallops. PULMONARY: Chest is clear to auscultation, no wheezing or crackles. ABDOMEN: Soft, nontender, abdomen is distended but no ascites. normoactive bowel sounds. No palpable organomegaly. MUSCULOSKELETAL: No joint swelling or deformity. EXTREMITIES: No cyanosis, clubbing, or pedal edema. NEUROLOGICAL: Patient is drowsy severely encephalopathic unable to assess SKIN: No rashes. - Labs CBC & Chem 7: 08/25/20 06:38 08/26/20 06:36 Labs: Microbiology - Last 24 Hours (Table) 08/23/20 08:28 Blood Culture - Preliminary Blood No Growth after 96 hours 08/23/20 08:28 Blood Culture - Preliminary Blood No Growth after 96 hours 08/25/20 16:21 Blood Culture - Preliminary Blood No Growth after 24 hours Assessment and Plan Plan: -Alcoholic cirrhosis: patient's a meld score is very high overall prognosis is poor. Patient although presently clinically doing well except for low blood pressure patient will be started on IV fluids and there if he continues to improve patient probably will be discharged to subacute rehabilitation in 2 or 3 days -Hepatic encephalopathy: Continues oral lactulose 20, ammonia level improved -Fever source of infection is not clear: Is continued on empiric antimicrobial therapy of Zosyn,, patient is afebrile for last few days patient will be switched to Augmentin. So far all the cultures are negative -Acute renal failure probably secondary secondary to hepatorenal syndrome or pigment nephropathy: Creatinine up to 2.8, nephrology is following, he is not on diuretics currently -AMS/Hepatic encephalopathy: Improving patient is alert and oriented 3 today, drowsy we'll discontinue Ativan as he does not appear to be having withdrawal hyponatremia on admission patient appears to be hypovolemic at this time, He is maintained on IV fluids -Hypotension secondary to hypovolemia patient was given a bolus of IV fluid -Lactic acidosis secondary to cirrhosis: improved -Hypokalemia: Potassium replaced -Elevated ammonia level secondary to liver failure: Improved, ammonia level 20 recheck level tomorrow -Hypertension -Tachycardia and patient improved now -Alcohol abuse: Not currently having withdrawals. DVT prophylaxis pharmacologically due to prophylaxis auto anticoagulated INR 1.5 -Elevated liver enzymes secondary to cirrhosis with a competent of acute alcoholic hepatitis -Obstructive jaundice secondary to cirrhosis
--- NOTE | 2020-08-27 14:44 | P.PN ---
Subjective Progress Note Date: 08/27/20 Principal diagnosis: Alcoholic cirrhosis of the liver, jaundice This is a 50-year-old male patient who is alert and oriented 3. He came in last week for altered mental status, falls, hyperbilirubinemia, with a significant history of heavy alcohol abuse in the past. He is seen and examined today sitting up in the bedside chair. Physical therapy worked with patient to get him up. He states he is not feeling well, overall just feelsc. he is alert and oriented 3. He states he still has abdominal tenderness, however no nausea or vomiting. He is tolerating his diet. Today's labs are pending Objective - Vital Signs Vital signs: Vital Signs Temp 98.5 F 08/27/20 08:00 Pulse 95 08/27/20 08:00 Resp 20 08/27/20 08:00 BP 78/51 08/27/20 08:00 Pulse Ox 93 L 08/27/20 08:00 Intake & Output 08/26/20 08/27/20 08/27/20 18:59 06:59 18:59 Output Total 600 400 Balance -600 -400 Output: Urine 600 400 Other: Voiding Method External Catheter External Catheter External Catheter # Bowel Movements 7 4 - Exam General appearance: The patient is alert, oriented, appears in no acute distress. HET: Head is normocephalic and atraumatic. Conjunctiva pink. Sclera deeply icteric. Neck: Supple without lymphadenopathy. Abdomen: Soft, nontender, nondistended with bowel sounds. No guarding or rigidity. Extremities: Normal skin color and turgor. No pedal edema Skin: No rashes, severe jaundice Neurological: No focal deficits. Alert and oriented 3. - Labs CBC & Chem 7: 08/25/20 06:38 08/26/20 06:36 Labs: Abnormal Lab Results - Last 24 Hours (Table) 08/26/20 Range/Units 06:36 Sodium 133 L (135-145) mmol/L Potassium 3.2 L (3.5-5.5) mmol/L Anion Gap 13.20 H (4.00-12.00) mmol/L BUN 58.0 H (9.0-27.0) mg/dL Creatinine 2.6 H (0.6-1.5) mg/dL Est GFR (CKD-EPI)AfAm 31.7 L (60.0-200.0) Est GFR (CKD-EPI)NonAf 27.3 L (60.0-200.0) BUN/Creatinine Ratio 22.31 H (12.00-20.00) Ratio Glucose 114 H (70-110) mg/dL Calcium 6.7 L (8.7-10.3) mg/dL Total Bilirubin 30.1 H* (0.3-1.2) mg/dL AST 237 H (14-35) U/L ALT 54 H (10-49) U/L Alkaline Phosphatase 129 H (41-126) U/L Total Protein 5.1 L (6.2-8.2) g/dL Albumin 2.40 L (3.80-4.90) g/dL Albumin/Globulin Ratio 0.89 L (1.60-3.17) g/dL Microbiology - Last 24 Hours (Table) 08/23/20 08:28 Blood Culture - Preliminary Blood No Growth after 96 hours 08/23/20 08:28 Blood Culture - Preliminary Blood No Growth after 96 hours 08/25/20 16:21 Blood Culture - Preliminary Blood No Growth after 24 hours Assessment and Plan (1) Alcoholic hepatitis without ascites Narrative/Plan: 50-year-old male with a medical history significant for polysubstance abuse, alcohol abuse, prior history of pancreatitis who presented to the hospital due to altered mental status. Found to have elevated ammonia on presentation currently receiving treatment for hepatic encephalopathy. Severely elevated liver enzymes with total bilirubin 22, alkaline phosphatase is 149, AST 393 and ALT 50 on presentation consistent with history of alcoholic hepatitis likely superimposed on alcoholic cirrhosis. Mentation greatly improved today, however liver enzymes stable today with total bilirubin 27. Current Visit: No Status: Acute Code(s): K70.10 - ALCOHOLIC HEPATITIS WITHOUT ASCITES SNOMED Code(s): 599217332 (2) Hepatic encephalopathy Current Visit: Yes Status: Acute Code(s): K72.90 - HEPATIC FAILURE, UNSPECIFIED WITHOUT COMA SNOMED Code(s): 13216324 (3) Jaundice Current Visit: Yes Status: Acute Code(s): R17 - UNSPECIFIED JAUNDICE SNOMED Code(s): 09646571 Plan: Supportive care Okay for sodium restricted as tolerated Lactulose 20 g 3 times a day to be held for greater than 3 bowel movements Continue to monitor CBC, BMP, LFTs, INR Continue to monitor clinically Alcohol abstinence Monitoring treat for signs or symptoms of alcohol withdrawal Ultrasound of the abdomen reviewed Acute viral hepatitis panel negative Nephrology following the patient Extensive discussion with the patient's who is bedside on Wednesday, extremely poor prognosis. Discussed again today with patient showing poor prognosis, mei janelle in light of continued alcohol use. Thank you for this consultation, we will continue to follow Dr. Royal Beckwith I agree with the dictator's note, documented as a scribe by Hien Corbin.
--- NOTE | 2020-08-27 15:27 | US ---
EXAMINATION TYPE: US abdomen limited DATE OF EXAM: 08/27/2020 COMPARISON: Liver ultrasound 08/21/2020 CLINICAL HISTORY: ascites. No ultrasound evidence of ascites. Incidental note of diffuse fatty infiltration of the liver. There is gallbladder wall thickening and possible pericholecystic fluid at the gallbladder wall. Dedicated ultrasound or surgical evaluation i s recommended for acute cholecystitis. IMPRESSION: No sonographic evidence of ascites within the abdomen. Incidental note of diffuse fatty infiltration of liver. Incidental note of pericholecystic fluid and gallbladder wall thickening. Consider acute cholecystiti s. Surgical evaluation and a dedicated gallbladder ultrasound may be helpful.
[2020-08-27 15:58] LABS: African American GFR (CKD) 27.8 (60.0-200.0); Albumin 2.3 g/dL (3.80-4.90); Albumin/Globulin Ratio 0.82 (1.60-3.17); Anion Gap 18.4 mmol/L (4.00-12.00); BUN/Creat Ratio 22.41 Ratio (12.00-20.00); Calcium 6.7 mg/dL (8.7-10.3); Carbon Dioxide 14.6 mmol/L (21.6-31.8); Globulin 2.8 g/dL (1.6-3.3); Magnesium 2.1 mg/dL (1.5-2.4); Non-African American GFR(CKD) 23.9 (60.0-200.0); Total Bilirubin 25.8 mg/dL (0.2-1.2); Total Protein 5.1 g/dL (6.2-8.2)
[2020-08-27] MEDS: MIDODRINE 5 MG TAB PO SCH (17:38)
[2020-08-27] MEDS: SODIUM BICARBONATE TAB 650 MG TAB PO SCH (23:32)
[2020-08-28] MEDS: SODIUM BICARBONATE TAB 650 MG TAB PO SCH ×3 (09:17→21:54)
[2020-08-28] MEDS: MIDODRINE 5 MG TAB PO SCH ×3 (09:17→16:43)
[2020-08-28] MEDS: THIAMINE 100 MG TAB PO SCH ×2 (09:17→16:43)
[2020-08-28] MEDS: PANTOPRAZOLE 40 MG TABLET PO SCH (09:17)
[2020-08-28] MEDS: METOPROLOL TARTRATE 25 MG TAB PO SCH ×2 (09:17→21:37)
[2020-08-28] MEDS: LACTULOSE 20 GM/30 ML CUP PO SCH ×3 (09:18→21:54)
[2020-08-28] MEDS: PIPERACILLIN-TAZOBACTAM 3.375 GM in SODIUM CHLORIDE 0.9% 100 ML IVPB SCH ×2 (09:18→21:00)
[2020-08-28 11:09] LABS: INR 1.76 (0.90-1.11); Prothrombin Time 18.5 sec (9.9-11.9)
[2020-08-28] MEDS ORDERED: ACETAMINOPHEN TAB 325 MG TAB PO PRN (11:35)
[2020-08-28] MEDS: SODIUM CHLORIDE 0.9% 1,000 ML IV SCH (11:53)
--- NOTE | 2020-08-28 12:09 | P.PN ---
Subjective Patient is seen in follow-up for acute kidney injury. Renal function a little worse as of yesterday. Creatinine 2.9. Labs from today pending. Oral intake just fair. Nonoliguric. No chest pain or shortness of breath. Vital signs are stable. HEENT: Head exam is unremarkable. Neck is without jugular venous distension. LUNGS: Breath sounds decreased. HEART: Rate and Rhythm are regular. ABDOMEN: Soft, moderate distention. EXTREMITITES: Trace edema. Objective - Vital Signs Vital signs: Vital Signs Temp 100.4 F H 08/28/20 08:18 Pulse 99 08/28/20 08:18 Resp 23 08/28/20 08:18 BP 106/68 08/28/20 08:18 Pulse Ox 97 08/28/20 08:18 Intake & Output 08/27/20 08/28/20 08/28/20 18:59 06:59 18:59 Other: Voiding Method External Catheter External Catheter Urinal Diaper Incontinent # Voids 1 1 # Bowel Movements 1 1 - Labs CBC & Chem 7: 08/25/20 06:38 08/27/20 06:30 Labs: Abnormal Lab Results - Last 24 Hours (Table) 08/27/20 08/28/20 Range/Units 06:30 07:36 PT 18.5 H (9.9-11.9) sec INR 1.76 H (0.90-1.11) Sodium 132 L (135-145) mmol/L Carbon Dioxide 14.6 L (21.6-31.8) mmol/L Anion Gap 18.40 H (4.00-12.00) mmol/L BUN 65.0 H (9.0-27.0) mg/dL Creatinine 2.9 H (0.6-1.5) mg/dL Est GFR (CKD-EPI)AfAm 27.8 L (60.0-200.0) Est GFR (CKD-EPI)NonAf 23.9 L (60.0-200.0) BUN/Creatinine Ratio 22.41 H (12.00-20.00) Ratio Calcium 6.7 L (8.7-10.3) mg/dL Total Bilirubin 25.8 H* (0.2-1.2) mg/dL AST 250 H (14-35) U/L ALT 56 H (10-49) U/L Total Protein 5.1 L (6.2-8.2) g/dL Albumin 2.30 L (3.80-4.90) g/dL Albumin/Globulin Ratio 0.82 L (1.60-3.17) g/dL Microbiology - Last 24 Hours (Table) 08/23/20 08:28 Blood Culture - Preliminary Blood No Growth after 120 hours 08/23/20 08:28 Blood Culture - Preliminary Blood No Growth after 120 hours 08/25/20 16:21 Blood Culture - Preliminary Blood No Growth after 48 hours Assessment and Plan Plan: Assessment: 1. Acute kidney injury secondary to ATN. 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 Creatinine 2.9 as of yesterday. No hydronephrosis noted on kidney ultrasound. UA fairly benign. 2. Hypokalemia from poor intake and hypomagnesemia. Replaced. 3. Hypomagnesemia from poor intake and alcoholism. Replaced. Better. 4. Alcoholic hepatitis. 5. Metabolic acidosis secondary to acute kidney injury. 6. Hepatic encephalopathy. 7. Hypotension secondary to underlying cirrhosis. 8. Hypovolemic hyponatremia improved with IV hydration. Plan: Hep-Lock IV fluids. Add spironolactone 25 mg twice daily. Increase midodrine to 10 mg 3 times daily. Maintain strict is and os. Add oral sodium bicarbonate. Morning labs pending.
[2020-08-28 12:27] LABS: African American GFR (CKD) 15.5 (60.0-200.0); Albumin 2.1 g/dL (3.80-4.90); Albumin/Globulin Ratio 0.78 (1.60-3.17); Anion Gap 14.9 mmol/L (4.00-12.00); BUN/Creat Ratio 16.81 Ratio (12.00-20.00); Calcium 6.5 mg/dL (8.7-10.3); Carbon Dioxide 16.1 mmol/L (21.6-31.8); Globulin 2.7 g/dL (1.6-3.3); Non-African American GFR(CKD) 13.4 (60.0-200.0); Potassium 2.8 mmol/L (3.5-5.5); Total Bilirubin 26.8 mg/dL (0.2-1.2); Total Protein 4.8 g/dL (6.2-8.2)
[2020-08-28] MEDS: SPIRONOLACTONE 25 MG TAB PO SCH ×2 (12:33→21:54)
[2020-08-28 14:39] VITALS: BMI 33.9
[2020-08-28] MEDS ORDERED: Potassium Replacement Protocol 1 EACH MISC MISCELLANE PRN (16:17)
--- NOTE | 2020-08-28 16:27 | P.PN ---
Subjective Progress Note Date: 08/28/20 Principal diagnosis: Alcoholic cirrhosis of the liver, jaundice This is a 50-year-old male patient who is alert and oriented 3. He came in last week for altered mental status, falls, hyperbilirubinemia, with a significant history of heavy alcohol abuse in the past. Betancourt is seen and examined lying in bed. He is more drowsy today, however alert and oriented 3. He did have 3 loose bowel movements this morning. He denies any nausea or vomiting, however states he still has some abdominal discomfort. Objective - Vital Signs Vital signs: Vital Signs Temp 100.4 F H 08/28/20 08:18 Pulse 99 08/28/20 08:18 Resp 23 08/28/20 08:18 BP 106/68 08/28/20 08:18 Pulse Ox 97 08/28/20 08:18 Intake & Output 08/27/20 08/28/20 08/28/20 18:59 06:59 18:59 Other: Voiding Method External Catheter External Catheter Urinal Diaper Incontinent # Voids 1 1 # Bowel Movements 1 1 - Exam General appearance: The patient is alert, oriented, appears in no acute distress. HET: Head is normocephalic and atraumatic. Conjunctiva pink. Sclera deeply icteric. Neck: Supple without lymphadenopathy. Abdomen: Soft, nontender, nondistended with bowel sounds. No guarding or rigidity. Extremities: Normal skin color and turgor. No pedal edema Skin: No rashes, severe jaundice Neurological: No focal deficits. Alert and oriented 3. - Labs CBC & Chem 7: 08/25/20 06:38 08/28/20 07:36 Labs: Abnormal Lab Results - Last 24 Hours (Table) 08/27/20 Range/Units 06:30 Sodium 132 L (135-145) mmol/L Carbon Dioxide 14.6 L (21.6-31.8) mmol/L Anion Gap 18.40 H (4.00-12.00) mmol/L BUN 65.0 H (9.0-27.0) mg/dL Creatinine 2.9 H (0.6-1.5) mg/dL Est GFR (CKD-EPI)AfAm 27.8 L (60.0-200.0) Est GFR (CKD-EPI)NonAf 23.9 L (60.0-200.0) BUN/Creatinine Ratio 22.41 H (12.00-20.00) Ratio Calcium 6.7 L (8.7-10.3) mg/dL Total Bilirubin 25.8 H* (0.2-1.2) mg/dL AST 250 H (14-35) U/L ALT 56 H (10-49) U/L Total Protein 5.1 L (6.2-8.2) g/dL Albumin 2.30 L (3.80-4.90) g/dL Albumin/Globulin Ratio 0.82 L (1.60-3.17) g/dL Microbiology - Last 24 Hours (Table) 08/23/20 08:28 Blood Culture - Preliminary Blood No Growth after 120 hours 08/23/20 08:28 Blood Culture - Preliminary Blood No Growth after 120 hours 08/25/20 16:21 Blood Culture - Preliminary Blood No Growth after 48 hours Assessment and Plan (1) Alcoholic hepatitis without ascites Narrative/Plan: 50-year-old male with a medical history significant for polysubstance abuse, alcohol abuse, prior history of pancreatitis who presented to the hospital due to altered mental status. Found to have elevated ammonia on presentation currently receiving treatment for hepatic encephalopathy. Severely elevated tammie er enzymes with total bilirubin 22, alkaline phosphatase is 149, AST 393 and ALT 50 on presentation consistent with history of alcoholic hepatitis likely superimposed on alcoholic cirrhosis. Mentation greatly improved today, however liver enzymes stable today with total bilirubin 27. Current Visit: No Status: Acute Code(s): K70.10 - ALCOHOLIC HEPATITIS WITHOUT ASCITES SNOMED Code(s): 670383771 (2) Hepatic encephalopathy Current Visit: Yes Status: Acute Code(s): K72.90 - HEPATIC FAILURE, UN SPECIFIED WITHOUT COMA SNOMED Code(s): 99011621 (3) Jaundice Current Visit: Yes Status: Acute Code(s): R17 - UNSPECIFIED JAUNDICE SNOMED Code(s): 23339424 Plan: Supportive care Okay for sodium restricted as tolerated Lactulose 20 g 3 times a day to be held for greater than 3 bowel movements Continue to monitor CBC, BMP, LFTs, INR Ammonia level in the morning Continue to monitor clinically Alcohol abstinence Monitoring treat for signs or symptoms of alcohol withdrawal Ultrasound of the abdomen reviewed Acute viral hepatitis panel negative Nephrology following the patient, appreciate their recommendations Extensive discussion with the patient's significant other, extremely poor prognosis. Discussed again today with patient poor prognosis, especially in light of continued alcohol use. Thank you for this consultation, we will continue to follow Dr. Royal Beckwith I agree with the dictator's note, documented as a scribe by Hien Corbin.
--- NOTE | 2020-08-28 16:29 | P.PN ---
Subjective Progress Note Date: 08/28/20 50-year-old male with history of all call abuse was sent in by the family members because of a jaundice. Patient is found to have highly elevated bilirubin of 20. Patient does stop drinking last week but still has some tremors because of which are that is a concern of all call withdrawal although my suspicion is low that patient is going to have him call withdrawal. Patient is significantly weak will need physical therapy and occupational therapy evaluation possibly placement in subacute rehabitation. Patient appears to have cirrhosis with elevated INR of 1.5 does have some pulmonary edema patient doesn't appear to have much of ascites, does have mildly elevated ammonia level of around 43. Patient had lactic acidosis which improved. She denied any fever chills nausea vomiting patient used to drink about 1 pint of hard liquor every day. 08/22/2020 Patient is confused generalized weakness and unable to work with physical therapy and outpatient therapy. Ammonia level will be obtained patient does have asterixis appears to have hepatic encephalopathy. Patient remains on Lasix with improvement in serum sodium to 133. Gastroenterology will be consulted. Patient will be can you done on lactulose patient is confused quite a bit. 08/23/2020 Patient's overall clinical condition is much worse today patient is severely encephalopathic patient started having fevers patient was started on empiric Zosyn and the so far all the workup including chest x-ray blood cultures and UA and urine cultures are negative. Patient creatinine went up to 1.98 Lasix is being discontinued his serum sodium although improved. Patient was evaluated by gastroenterology. Patient liver enzymes although has come down. Need to discuss with the family regarding overall goals of care. Patient prognosis is extremely poor discussed with nurse leader. 08/24/2020 patient is much more awake today patient is alert oriented 2. Patient the bilirubin is higher and is at around 27 today. Patient's lactulose was switched to oral from rectal. Patient was given a 1 lit bolus of IV fluids as patient appears to intravascular volume depleted and patient is hypotensive.in sodium remained stable at 133. Potassium is 2.9 which is being replaced magnesium is also low which is being replaced. Creatinine is bit worse and 2.7 at this time patient doesn't have any febrile episodes since that one episode. Patient is presently on Zosyn all the septic workup is so far negative. 08/26/2020 Patient is more awake patient looks better but his bilirubin continues to go up and about 30 today. Ammonia levels have come down. Physical therapy Dr. Pettit that we will evaluate the patient 08/27/2020 Patient blood pressure is low patient was started on IV fluids. 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 Patient's creatinine yesterday was 2.6 and do not have any labs available from today. Patient is more awake. Patient's ammonia level is only 9. Patient feels tired. Patient is hypotensive patient was started on IV fluids. 08/28/2020 Patient is lethargic today although arousable. Nephrology and GI following. Constitutional: As mentioned in HPI Cardio vascular: denied any chest pain, palpitations Gastrointestinal denied any nausea vomiting Pulmonary: Denied any shortness of breath cough Neurologic denied any new focal deficits Objective - Vital Signs Vital signs: Vital Signs Temp 99.5 F 08/28/20 15:33 Pulse 88 08/28/20 15:33 Resp 24 08/28/20 15:33 BP 96/63 08/28/20 15:33 Pulse Ox 95 08/28/20 15:33 Intake & Output 08/27/20 08/28/20 08/28/20 18:59 06:59 18:59 Weight 113.398 kg Other: Voiding Method External Catheter External Catheter Urinal Diaper Incontinent # Voids 1 1 # Bowel Movements 1 1 - Exam GENERAL: patient is alert oriented 3 lethargic although arousable. yellowish discoloration of the skin HEENT: Pupils are round and equally reacting to light. EOMI. does have significant scleral icterus. No conjunctival pallor. Normocephalic, atraumatic. No pharyngeal erythema. No thyromegaly. Tremor CARDIOVASCULAR: S1 and S2 present. No murmurs, rubs, or gallops. PULMONARY: Chest is clear to auscultation, no wheezing or crackles. ABDOMEN: Soft, nontender, abdomen is distended but no ascites. normoactive bow el sounds. No palpable organomegaly. MUSCULOSKELETAL: No joint swelling or deformity. EXTREMITIES: No cyanosis, clubbing, or pedal edema. NEUROLOGICAL: Patient is drowsy severely encephalopathic unable to assess SKIN: No rashes. - Labs CBC & Chem 7: 08/25/20 06:38 08/28/20 07:36 Labs: Abnormal Lab Results - Last 24 Hours (Table) 08/28/20 08/28/20 Range/Units 07:36 07:36 PT 18.5 H (9.9-11.9) sec INR 1.76 H (0.90-1.11) Sodium 129 L (135-145) mmol/L Potassium 2.8 L (3.5-5.5) mmol/L Carbon Dioxide 16.1 L (21.6-31.8) mmol/L Anion Gap 14.90 H (4.00-12.00) mmol/L BUN 79.0 H (9.0-27.0) mg/dL Creatinine 4.7 H (0.6-1.5) mg/dL Est GFR (CKD-EPI)AfAm 15.5 L (60.0-200.0) Est GFR (CKD-EPI)NonAf 13.4 L (60.0-200.0) Calcium 6.5 L (8.7-10.3) mg/dL Total Bilirubin 26.8 H* (0.2-1.2) mg/dL AST 196 H (14-35) U/L ALT 57 H (10-49) U/L Alkaline Phosphatase 142 H (41-126) U/L Total Protein 4.8 L (6.2-8.2) g/dL Albumin 2.10 L (3.80-4.90) g/dL Albumin/Globulin Ratio 0.78 L (1.60-3.17) g/dL Microbiology - Last 24 Hours (Table) 08/23/20 08:28 Blood Culture - Preliminary Blood No Growth after 120 hours 08/23/20 08:28 Blood Culture - Preliminary Blood No Growth after 120 hours 08/25/20 16:21 Blood Culture - Preliminary Blood No Growth after 48 hours Assessment and Plan Assessment: -Alcoholic cirrhosis: patient's a meld score is very high overall prognosis is poor. Patient clinically declining and appears worse today and continues to be lethargic with GI and nephrology following -Hepatic encephalopathy: Continues oral lactulose 20, ammonia level pending -Fever source of infection is not clear: Is continued on empiric antimicrobial therapy of Zosyn,, patient has been febrile since early this morning with con tinued low-grade intermittent fevers and will continue Zosyn, repeat cultures ordered -Acute renal failure probably secondary secondary to hepatorenal syndrome or pigment nephropathy: Creatinine worsened at 4.7 and nephrology following and patient was started on Aldactone -AMS/Hepatic encephalopathy: Improving from admission although patient is extremely lethargic today and will attempt to avoid Ativan -hyponatremia on admission patient appears to be hypovolemic . IV fluids have been discontinued and patient started on sodium bicarb -Hypotension secondary to hypovolemia patient was given a bolus of IV fluid patient is maintaining systolic blood pressure of 90 and was started on midodrine by nephrology -Lactic acidosis secondary to cirrhosis: improved -Hypokalemia: Potassium replaced, potassium worsened today found to be 2.8 and will replace and repeat electrolytes -Elevated ammonia level secondary to liver failure: Improved, most recent ammonia level 20, will recheck level tomorrow -Hypertension, currently hypotensive -Tachycardia and patient improved now -Alcohol abuse: Not currently having withdrawals. -DVT prophylaxis pharmacologically due to prophylaxis auto anticoagulated INR 1.76 -Elevated liver enzymes secondary to cirrhosis with a component of acute alcoholic hepatitis -Obstructive jaundice secondary to cirrhosis Plan: Continue with IV Zosyn and current medications. Potassium low at 2.8 and will replace sodium is 129 and IV fluids have been discontinued patient is on sodium bicarbonate with nephrology following. Creatinine worsened at 4.7 and bilirubin is up at 26.8. Appreciate GI and nephrology recommendations. Will continue with IV Zosyn as patient has been febrile for the last 24 hours and will repeat blood cultures and monitor closely.
[2020-08-28] MEDS: POTASSIUM CHLORIDE 10 MEQ in WATER FOR INJECTION 1 100ML.BAG IVPB SCH ×4 (16:43→21:53)
--- NOTE | 2020-08-28 17:18 | XR ---
EXAMINATION TYPE: XR chest 1V portable DATE OF EXAM: 08/28/2020 COMPARISON: 08/23/2020 HISTORY: Short of breath TECHNIQUE: Single view FINDINGS: There is elevated right diaphragm. Heart size is normal. There are no hilar masses. Bony th orax is intact. IMPRESSION: There is some atelectasis at the right lung base not significantly different than recent exam. There is clearing of the mild infiltrate left lung base compared to old exam.
[2020-08-29] MEDS: POTASSIUM CHLORIDE 10 MEQ in WATER FOR INJECTION 1 100ML.BAG IVPB SCH ×5 (00:38→23:46)
[2020-08-29 07:24] LABS: Anisocytosis Slight; Basophils % (A) 0 %; Eosinophils # (A) 0.1 k/uL (0-0.7); Eosinophils % (A) 1 %; HCT 30.9 % (39.0-53.0); HGB 10.4 gm/dL (13.0-17.5); Lymphocytes # (A) 0.3 k/uL (1.0-4.8); Lymphocytes % (A) 4 %; MCH 38.3 pg (25.0-35.0); MCHC 33.5 g/dL (31.0-37.0); MCV 114.3 fL (80.0-100.0); Macrocytosis Marked; Monocytes # (A) 0.2 k/uL (0-1.0); Monocytes % (A) 2 %; Neutrophils # (A) 7.5 k/uL (1.3-7.7); Neutrophils % (A) 92 %; Platelet Count 146 k/uL (150-450); RBC 2.71 m/uL (4.30-5.90); RDW 19.3 % (11.5-15.5); WBC 8.1 k/uL (3.8-10.6)
[2020-08-29] MEDS: METOPROLOL TARTRATE 25 MG TAB PO SCH ×2 (09:04→22:33)
[2020-08-29] MEDS: MIDODRINE 5 MG TAB PO SCH ×3 (09:04→17:49)
[2020-08-29] MEDS: PIPERACILLIN-TAZOBACTAM 3.375 GM in SODIUM CHLORIDE 0.9% 100 ML IVPB SCH ×2 (09:05→17:49)
[2020-08-29] MEDS: PANTOPRAZOLE 40 MG TABLET PO SCH (09:05)
[2020-08-29] MEDS: LACTULOSE 20 GM/30 ML CUP PO SCH ×3 (09:05→22:33)
[2020-08-29] MEDS: SPIRONOLACTONE 25 MG TAB PO SCH ×2 (09:05→22:33)
[2020-08-29] MEDS: THIAMINE 100 MG TAB PO SCH ×2 (09:05→17:49)
[2020-08-29] MEDS: SODIUM BICARBONATE TAB 650 MG TAB PO SCH ×2 (10:25→17:49)
--- NOTE | 2020-08-29 10:41 | P.PN ---
Subjective Patient is seen in follow-up for acute kidney injury. Renal function worsening. Creatinine 4.7 as of yesterday. Spironolactone was added yesterday. Labs from today pending. Oral intake just fair. Has been voiding. No chest pain or shortness of breath. Vital signs are stable. HEENT: Head exam is unremarkable. Neck is without jugular venous distension. LUNGS: Breath sounds decreased. HEART: Rate and Rhythm are regular. ABDOMEN: Soft, moderate distention. EXTREMITITES: Trace edema. Objective - Vital Signs Vital signs: Vital Signs Temp 98.5 F 08/29/20 07:58 Pulse 92 08/29/20 07:58 Resp 24 08/29/20 07:58 BP 106/66 08/29/20 07:58 Pulse Ox 95 08/29/20 07:58 Intake & Output 08/28/20 08/29/20 08/29/20 18:59 06:59 18:59 Output Total 4 Balance -4 Weight 113.398 kg Output: Stool 4 Other: Voiding Method Urinal Urinal Diaper Diaper Incontinent Incontinent # Voids 1 1 # Bowel Movements 4 1 - Labs CBC & Chem 7: 08/29/20 06:53 08/28/20 07:36 Labs: Abnormal Lab Results - Last 24 Hours (Table) 08/28/20 08/28/20 08/29/20 Range/Units 07:36 07:36 06:53 RBC (4.30-5.90) m/uL Hgb (13.0-17.5) gm/dL Hct (39.0-53.0) % MCV (80.0-100.0) fL MCH (25.0-35.0) pg RDW (11.5-15.5) % Plt Count (150-450) k/uL Lymphocytes # (1.0-4.8) k/uL Macrocytosis PT 18.5 H (9.9-11.9) sec INR 1.76 H (0.90-1.11) Sodium 129 L (135-145) mmol/L Potassium 2.8 L (3.5-5.5) mmol/L Carbon Dioxide 16.1 L (21.6-31.8) mmol/L Anion Gap 14.90 H (4.00-12.00) mmol/L BUN 79.0 H (9.0-27.0) mg/dL Creatinine 4.7 H (0.6-1.5) mg/dL Est GFR (CKD-EPI)AfAm 15.5 L (60.0-200.0) Est GFR (CKD-EPI)NonAf 13.4 L (60.0-200.0) Calcium 6.5 L (8.7-10.3) mg/dL Total Bilirubin 26.8 H* (0.2-1.2) mg/dL AST 196 H (14-35) U/L ALT 57 H (10-49) U/L Alkaline Phosphatase 142 H (41-126) U/L Ammonia 37 H (<30) umol/L Total Protein 4.8 L (6.2-8.2) g/dL Albumin 2.10 L (3.80-4.90) g/dL Albumin/Globulin Ratio 0.78 L (1.60-3.17) g/dL 08/29/20 Range/Units 06:53 RBC 2.71 L (4.30-5.90) m/uL Hgb 10.4 L (13.0-17.5) gm/dL Hct 30.9 L (39.0-53.0) % MCV 114.3 H (80.0-100.0) fL MCH 38.3 H (25.0-35.0) pg RDW 19.3 H (11.5-15.5) % Plt Count 146 L (150-450) k/uL Lymphocytes # 0.3 L (1.0-4.8) k/uL Macrocytosis Marked A PT (9.9-11.9) sec INR (0.90-1.11) Sodium (135-145) mmol/L Potassium (3.5-5.5) mmol/L Carbon Dioxide (21.6-31.8) mmol/L Anion Gap (4.00-12.00) mmol/L BUN (9.0-27.0) mg/dL Creatinine (0.6-1.5) mg/dL Est GFR (CKD-EPI)AfAm (60.0-200.0) Est GFR (CKD-EPI)NonAf (60.0-200.0) Calcium (8.7-10.3) mg/dL Total Bilirubin (0.2-1.2) mg/dL AST (14-35) U/L ALT (10-49) U/L Alkaline Phosphatase (41-126) U/L Ammonia (<30) umol/L Total Protein (6.2-8.2) g/dL Albumin (3.80-4.90) g/dL Albumin/Globulin Ratio (1.60-3.17) g/dL Microbiology - Last 24 Hours (Table) 08/25/20 16:21 Blood Culture - Preliminary Blood No Growth after 72 hours 08/23/20 08:28 Blood Culture - Preliminary Blood No Growth after 120 hours 08/23/20 08:28 Blood Culture - Preliminary Blood No Growth after 120 hours Assessment and Plan Plan: Assessment: 1. Acute kidney injury secondary to ATN. 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 Creatinine 4.7 as of yesterday. No hydronephrosis noted on kidney ultrasound. UA fairly benign. 2. Hypokalemia from poor intake and hypomagnesemia. Replaced. 3. Hypomagnesemia from poor intake and alcoholism. Replaced. Better. 4. Alcoholic hepatitis. 5. Metabolic acidosis secondary to acute kidney injury. Maintained on oral bicarb. 6. Hepatic encephalopathy. 7. Hypotension secondary to underlying cirrhosis. 8. Hyponatremia secondary to acute kidney injury. Initially hypovolemic area Plan: Remains off IV fluids. Maintain spironolactone. Maintain midodrine. Maintain strict is and os. Morning labs pending. Continue to assess daily for need for renal replacement therapy.
[2020-08-29] MEDS ORDERED: PHYTONADIONE 10 MG in SODIUM CHLORIDE 0.9% 50 ML IVPB STA (11:08)
--- NOTE | 2020-08-29 11:15 | P.CONS ---
History of Present Illness - Reason for Consult Consult date: 08/29/20 wound care - History of Present Illness This is a 50-year-old patient being seen on 4 S. for complaints of nonhealing ulceration to buttocks. Upon examination there is no open ulcerations. There is maceration noted from moisture however patient has a significant amount of congealed blood from the rectum and also bleeding from the scrotum. No open ulcerations noted. Patient stated that he was not aware of any ulcerations. Patient's past medical history significant for hypertension. he is up every day EtOH drinker and former smoker. She states that he lives with his mother and [id number]. Review Of Systems: Constitutional: No fever, no chills, no night sweats. No weight change. No weakness, fatigue or lethargy. No daytime sleepiness. Integumentary:reports wounds, no lesions. Physical exam: General Appearance: Alert, cooperative, no distress, appears stated age. Skin: See HPI all other Skin color jaundice texture, tugor normal, no rashes or lesions. Neurologic: Alert oriented x1 Assessment: 1. Maceration to buttocks Plan: 1. May apply zinc. Cream as needed. Keep the area dry. Thank you for the consultation any questions please contact the wound care center DNP note has been reviewed and discussed with Dr. Burden and the impression and plan of care has been directed as dictated. 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 diverticultis, pancreatitis History of Any Multi-Drug Resistant Organisms: None Reported Past Surgical History: Bowel Resection Additional Past Surgical History / Comment(s): Bowel resection r/t diverticulitis Past Anesthesia/Blood Transfusion Reactions: No Reported Reaction Past Psychological History: Anxiety Smoking Status: Former smoker Past Alcohol Use History: Abuse, Daily, Heavy Additional Past Alcohol Use History / Comment(s): a fifth a day last drink five days ago Past Drug Use History: None Reported - Past Family History Father Family Medical History: Hypertension Additional Family Medical History / Comment(s): from Cocaine Overdose. Mother Additional Family Medical History / Comment(s): Mother from overdose of Percocet and Tequila. Esophageal varices. Medications and Allergies Home Medications Medication Instructions Recorded Confirmed Type amLODIPine [Norvasc] 10 mg PO DAILY #30 tab 03/03/20 08/21/20 Rx Omeprazole 20 mg PO AC-BRKFST 04/19/20 08/21/20 History Allergies Allergy/AdvReac Type Severity Reaction Status Date / Time bee pollen Allergy Anaphylaxis Verified 08/21/20 16:32 bee venom protein (honey bee) Allergy Anaphylaxis Verified 08/21/20 16:32 Physical Exam Vitals: Vital Signs Temp Pulse Resp BP Pulse Ox 08/29/20 07:58 98.5 F 92 24 106/66 95 08/29/20 00:43 98.4 F 93 16 111/65 97 08/28/20 20:00 93 16 08/28/20 15:33 99.5 F 88 24 96/63 95 Intake and Output 08/28/20 08/29/20 08/29/20 22:59 06:59 14:59 Output Total 2 2 Balance -2 -2 Output: Stool 2 2 Other: Voiding Method Urinal Diaper Incontinent # Voids 2 1 # Bowel Movements 5 1 Results CBC & Chem 7: 08/29/20 06:53 08/28/20 07:36 Labs: Abnormal Lab Results - Last 24 Hours (Table) 08/28/20 08/29/20 08/29/20 Range/Units 07:36 06:53 06:53 RBC 2.71 L (4.30-5.90) m/uL Hgb 10.4 L (13.0-17.5) gm/dL Hct 30.9 L (39.0-53.0) % MCV 114.3 H (80.0-100.0) fL MCH 38.3 H (25.0-35.0) pg RDW 19.3 H (11.5-15.5) % Plt Count 146 L (150-450) k/uL Lymphocytes # 0.3 L (1.0-4.8) k/uL Macrocytosis Marked A Sodium 129 L (135-145) mmol/L Potassium 2.8 L (3.5-5.5) mmol/L Carbon Dioxide 16.1 L (21.6-31.8) mmol/L Anion Gap 14.90 H (4.00-12.00) mmol/L BUN 79.0 H (9.0-27.0) mg/dL Creatinine 4.7 H (0.6-1.5) mg/dL Est GFR (CKD-EPI)AfAm 15.5 L (60.0-200.0) Est GFR (CKD-EPI)NonAf 13.4 L (60.0-200.0) Calcium 6.5 L (8.7-10.3) mg/dL Total Bilirubin 26.8 H* (0.2-1.2) mg/dL AST 196 H (14-35) U/L ALT 57 H (10-49) U/L Alkaline Phosphatase 142 H (41-126) U/L Ammonia 37 H (<30) umol/L Total Protein 4.8 L (6.2-8.2) g/dL Albumin 2.10 L (3.80-4.90) g/dL Albumin/Globulin Ratio 0.78 L (1.60-3.17) g/dL Microbiology - Last 24 Hours (Table) 08/23/20 08:28 Blood Culture - Final Blood No Growth after 144 hours 08/23/20 08:28 Blood Culture - Final Blood No Growth after 144 hours 08/25/20 16:21 Blood Culture - Preliminary Blood No Growth after 72 hours Assessment and Plan (1) Maceration of skin Current Visit: Yes Status: Acute Code(s): L98.8 - OTH DISRD OF THE SKIN AND SUBCUTANEOUS TISSUE SNOMED Code(s): 6863986
[2020-08-29 11:47] LABS: Anisocytosis Slight; HGB 10.6 gm/dL (13.0-17.5); MCH 37.7 pg (25.0-35.0); MCHC 33.2 g/dL (31.0-37.0); MCV 113.4 fL (80.0-100.0); Macrocytosis Marked; Mean Platelet Volume 9.4; Platelet Count 155 k/uL (150-450); RBC 2.82 m/uL (4.30-5.90); RDW 19.3 % (11.5-15.5)
[2020-08-29 12:10] LABS: Prothrombin Time 19.4 sec (9.0-12.0)
[2020-08-29 15:16] LABS: African American GFR (CKD) 11.5 (60.0-200.0); Albumin 2.2 g/dL (3.80-4.90); Albumin/Globulin Ratio 0.81 (1.60-3.17); Anion Gap 18.1 mmol/L (4.00-12.00); BUN/Creat Ratio 16.17 Ratio (12.00-20.00); Calcium 6.6 mg/dL (8.7-10.3); Carbon Dioxide 11.9 mmol/L (21.6-31.8); Globulin 2.7 g/dL (1.6-3.3); Magnesium 2.2 mg/dL (1.5-2.4); Non-African American GFR(CKD) 9.9 (60.0-200.0); Potassium 3.2 mmol/L (3.5-5.5); Total Bilirubin 26.5 mg/dL (0.3-1.2); Total Protein 4.9 g/dL (6.2-8.2)
--- NOTE | 2020-08-29 15:35 | P.PN ---
Subjective Progress Note Date: 08/29/20 Principal diagnosis: Alcoholic cirrhosis of the liver, jaundice This is a 50-year-old male patient who is alert and oriented 3. He came in last week for altered mental status, falls, hyperbilirubinemia, with a significant history of heavy alcohol abuse in the past. He is seen and examined lying in bed. He is drowsy today, however alert and oriented 3. He did have 3 loose bowel movements this morning. He denies any nausea or vomiting, however states he still has some abdominal discomfort. He reportedly has rectal bleeding, but also has a scrotal wound that is bleeding and dripping into diaper. Hemoglobin stable at 10.4 Objective - Vital Signs Vital signs: Vital Signs Temp 98.5 F 08/29/20 07:58 Pulse 92 08/29/20 07:58 Resp 24 08/29/20 07:58 BP 106/66 08/29/20 07:58 Pulse Ox 95 08/29/20 07:58 Intake & Output 08/28/20 08/29/20 08/29/20 18:59 06:59 18:59 Output Total 4 Balance -4 Weight 113.398 kg Output: Stool 4 Other: Voiding Method Urinal Urinal Diaper Diaper Incontinent Incontinent # Voids 1 1 # Bowel Movements 4 1 - Exam General appearance: The patient is alert, oriented, appears in no acute distress. HET: Head is normocephalic and atraumatic. Conjunctiva pink. Sclera deeply icteric. Neck: Supple without lymphadenopathy. Abdomen: Soft, nontender, nondistended with bowel sounds. No guarding or rigidity. Genitourinary: Under side of scrotum with small wound that is bleeding Extremities: Normal skin color and turgor. No pedal edema Skin: No rashes, severe jaundice Neurological: No focal deficits. Alert and oriented 3. - Labs CBC & Chem 7: 08/29/20 11:10 08/29/20 06:53 Labs: Abnormal Lab Results - Last 24 Hours (Table) 08/28/20 08/28/20 08/29/20 Range/Units 07:36 07:36 06:53 RBC (4.30-5.90) m/uL Hgb (13.0-17.5) gm/dL Hct (39.0-53.0) % MCV (80.0-100.0) fL MCH (25.0-35.0) pg RDW (11.5-15.5) % Plt Count (150-450) k/uL Lymphocytes # (1.0-4.8) k/uL Macrocytosis PT 18.5 H (9.9-11.9) sec INR 1.76 H (0.90-1.11) Sodium 129 L (135-145) mmol/L Potassium 2.8 L (3.5-5.5) mmol/L Carbon Dioxide 16.1 L (21.6-31.8) mmol/L Anion Gap 14.90 H (4.00-12.00) mmol/L BUN 79.0 H (9.0-27.0) mg/dL Creatinine 4.7 H (0.6-1.5) mg/dL Est GFR (CKD-EPI)AfAm 15.5 L (60.0-200.0) Est GFR (CKD-EPI)NonAf 13.4 L (60.0-200.0) Calcium 6.5 L (8.7-10.3) mg/dL Total Bilirubin 26.8 H* (0.2-1.2) mg/dL AST 196 H (14-35) U/L ALT 57 H (10-49) U/L Alkaline Phosphatase 142 H (41-126) U/L Ammonia 37 H (<30) umol/L Total Protein 4.8 L (6.2-8.2) g/dL Albumin 2.10 L (3.80-4.90) g/dL Albumin/Globulin Ratio 0.78 L (1.60-3.17) g/dL 08/29/20 Range/Units 06:53 RBC 2.71 L (4.30-5.90) m/uL Hgb 10.4 L (13.0-17.5) gm/dL Hct 30.9 L (39.0-53.0) % MCV 114.3 H (80.0-100.0) fL MCH 38.3 H (25.0-35.0) pg RDW 19.3 H (11.5-15.5) % Plt Count 146 L (150-450) k/uL Lymphocytes # 0.3 L (1.0-4.8) k/uL Macrocytosis Marked A PT (9.9-11.9) sec INR (0.90-1.11) Sodium (135-145) mmol/L Potassium (3.5-5.5) mmol/L Carbon Dioxide (21.6-31.8) mmol/L Anion Gap (4.00-12.00) mmol/L BUN (9.0-27.0) mg/dL Creatinine (0.6-1.5) mg/dL Est GFR (CKD-EPI)AfAm (60.0-200.0) Est GFR (CKD-EPI)NonAf (60.0-200.0) Calcium (8.7-10.3) mg/dL Total Bilirubin (0.2-1.2) mg/dL AST (14-35) U/L ALT (10-49) U/L Alkaline Phosphatase (41-126) U/L Ammonia (<30) umol/L Total Protein (6.2-8.2) g/dL Albumin (3.80-4.90) g/dL Albumin/Globulin Ratio (1.60-3.17) g/dL Microbiology - Last 24 Hours (Table) 08/23/20 08:28 Blood Culture - Final Blood No Growth after 144 hours 08/23/20 08:28 Blood Culture - Final Blood No Growth after 144 hours 08/25/20 16:21 Blood Culture - Preliminary Blood No Growth after 72 hours Assessment and Plan (1) Alcoholic hepatitis without ascites Narrative/Plan: 50-year-old male with a medical history significant for polysubstance abuse, alcohol abuse, prior history of pancreatitis who presented to the hospital due to altered mental status. Found to have elevated ammonia on presentation currently receiving treatment for hepatic encephalopathy. Severely elevated liver enzymes with total bilirubin 22, alkaline phosphatase is 149, AST 393 and ALT 50 on presentation consistent with history of alcoholic hepatitis likely superimposed on alcoholic cirrhosis. Mentation greatly improved today, however liver enzymes stable today with total bilirubin 27. Current Visit: No Status: Acute Code(s): K70.10 - ALCOHOLIC HEPATITIS WITHOUT ASCITES SNOMED Code(s): 094743405 (2) Hepatic encephalopathy Current Visit: Yes Status: Acute Code(s): K72.90 - HEPATIC FAILURE, UNSPECIFIED WITHOUT COMA SNOMED Code(s): 02743194 (3) Jaundice Current Visit: Yes Status: Acute Code(s): R17 - UNSPECIFIED JAUNDICE SN OMED Code(s): 77982757 Plan: Supportive care Okay for sodium restricted as tolerated Lactulose 20 g 3 times a day to be held for greater than 3 bowel movements Continue to monitor CBC, BMP, LFTs, INR Ammonia level in the morning Continue to monitor clinically Alcohol abstinence Monitoring treat for signs or symptoms of alcohol withdrawal Ultrasound of the abdomen reviewed Acute viral hepatitis panel negative Nephrology following the patient, appreciate their recommendations Patient was examined with Dr. Ram and does not appear that there is any rectal bleeding. Bowel movement appears to be light brown and bleeding looks like it's pooling from the scrotum and dripping down to the rectum. Thank you for this consultation, we will continue to follow Dr. Royal Beckwith I agree with the dictator's note, documented as a scribe by Hien Corbin.
--- NOTE | 2020-08-29 16:08 | P.PN ---
Subjective Progress Note Date: 08/29/20 50-year-old male with history of all call abuse was sent in by the family members because of a jaundice. Patient is found to have highly elevated bilirubin of 20. Patient does stop drinking last week but still has some tremors because of which are that is a concern of all call withdrawal although my suspicion is low that patient is going to have him call withdrawal. Patient is significantly weak will need physical therapy and occupational therapy evaluation possibly placement in subacute rehabitation. Patient appears to have cirrhosis with elevated INR of 1.5 does have some pulmonary edema patient doesn't appear to have much of ascites, does have mildly elevated ammonia level of around 43. Patient had lactic acidosis which improved. She denied any fever chills nausea vomiting patient used to drink about 1 pint of hard liquor every day. 08/22/2020 Patient is confused generalized weakness and unable to work with physical therapy and outpatient therapy. Ammonia level will be obtained patient does have asterixis appears to have hepatic encephalopathy. Patient remains on Lasix with improvement in serum sodium to 133. Gastroenterology will be consulted. Patient will be can you done on lactulose patient is confused quite a bit. 08/23/2020 Patient's overall clinical condition is much worse today patient is severely encephalopathic patient started having fevers patient was started on empiric Zosyn and the so far all the workup including chest x-ray blood cultures and UA and urine cultures are negative. Patient creatinine went up to 1.98 Lasix is being discontinued his serum sodium although improved. Patient was evaluated by gastroenterology. Patient liver enzymes although has come down. Need to discuss with the family regarding overall goals of care. Patient prognosis is extremely poor discussed with dip lube operator. 08/24/2020 patient is much more awake today patient is alert oriented 2. Patient the bilirubin is higher and is at around 27 today. Patient's lactulose was switched to oral from rectal. Patient was given a 1 lit bolus of IV fluids as patient appears to intravascular volume depleted and patient is hypotensive.in sodium remained stable at 133. Potassium is 2.9 which is being replaced magnesium is also low which is being replaced. Creatinine is bit worse and 2.7 at this time patient doesn't have any febrile episodes since that one episode. Patient is presently on Zosyn all the septic workup is so far negative. 08/26/2020 Patient is more awake patient looks better but his bilirubin continues to go up and about 30 today. Ammonia levels have come down. Physical therapy Dr. Pettit that we will evaluate the patient 08/27/2020 Patient blood pressure is low patient was started on IV fluids. 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 Patient's creatinine yesterday was 2.6 and do not have any labs available from today. Patient is more awake. Patient's ammonia level is only 9. Patient feels tired. Patient is hypotensive patient was started on IV fluids. 08/28/2020 Patient is lethargic today although arousable. Nephrology and GI following. Patient is awake today although continues to be confused and lethargic at times. Patient's INR is 2.0 and will be given a dose of vitamin K as now patient is having rectal bleeding with clots noted by nursing staff along with extreme scrotal edema with oozing noted. Sodium is worse today at 128 with a potassium of 3.2 and will replace. Hemoglobin is 10.6 and will monitor closely. Kidney functions continue to worsen and BUN is 97 with a creatinine of 6.0 and again nephrology is following with the possibility of recommending dialysis and will discuss with the . Had a lengthy discussion with the about lab values and overall prognosis which is extremely poor and guarded and she would like to come see him tomorrow and see how he is doing and will discuss possible hospice at that time. Bilirubin today is 26.5 and liver functions continue to be elevated. Constitutional: As mentioned in HPI Cardio vascular: denied any chest pain, palpitations Gastrointestinal denied any nausea vomiting Pulmonary: Denied any shortness of breath cough Neurologic denied any new focal deficits Objective - Vital Signs Vital signs: Vital Signs Temp 98.9 F 08/29/20 14:00 Pulse 93 08/29/20 14:00 Resp 20 08/29/20 14:00 BP 106/68 08/29/20 14:00 Pulse Ox 94 L 08/29/20 14:00 Intake & Output 08/28/20 08/29/20 08/29/20 18:59 06:59 18:59 Output Total 4 2 Balance -4 -2 Weight 113.398 kg Output: Stool 4 2 Other: Voiding Method Urinal Urinal Urinal Diaper Diaper Diaper Incontinent Incontinent Incontinent # Voids 1 1 # Bowel Movements 4 1 1 - Exam GENERAL: patient is alert oriented 2 lethargic although arousable. yellowish discoloration of the skin HEENT: Pupils are round and equally reacting to light. EOMI. does have significant scleral icterus. No conjunctival pallor. Normocephalic, atraumatic. No pharyngeal erythema. No thyromegaly. Tremor CARDIOVASCULAR: S1 and S2 present. No murmurs, rubs, or gallops. PULMONARY: Chest is clear to auscultation, no wheezing or crackles. ABDOMEN: Soft, nontender, abdomen is distended but no ascites. normoactive bowel sounds. No palpable organomegaly. Scrotal edema noted with excoriation MUSCULOSKELETAL: No joint swelling or deformity. EXTREMITIES: No cyanosis, clubbing, or pedal edema. NEUROLOGICAL: Patient is drowsy severely encephalopathic with intermittent periods of being awake SKIN: No rashes. Excoriation of the scrotal sac underlying along with excoriation noted of the buttocks. - Labs CBC & Chem 7: 08/29/20 11:10 08/29/20 06:53 Labs: Abnormal Lab Results - Last 24 Hours (Table) 08/29/20 08/29/20 08/29/20 Range/Units 06:53 06:53 06:53 RBC 2.71 L (4.30-5.90) m/uL Hgb 10.4 L (13.0-17.5) gm/dL Hct 30.9 L (39.0-53.0) % MCV 114.3 H (80.0-100.0) fL MCH 38.3 H (25.0-35.0) pg RDW 19.3 H (11.5-15.5) % Plt Count 146 L (150-450) k/uL Lymphocytes # 0.3 L (1.0-4.8) k/uL Macrocytosis Marked A PT (9.0-12.0) sec INR (<1.2) Sodium 128 L (135-145) mmol/L Potassium 3.2 L (3.5-5.5) mmol/L Carbon Dioxide 11.9 L (21.6-31.8) mmol/L Anion Gap 18.10 H (4.00-12.00) mmol/L BUN 97.0 H (9.0-27.0) mg/dL Creatinine 6.0 H (0.6-1.5) mg/dL Est GFR (CKD-EPI)AfAm 11.5 L (60.0-200.0) Est GFR (CKD-EPI)NonAf 9.9 L (60.0-200.0) Glucose 122 H (70-110) mg/dL Calcium 6.6 L (8.7-10.3) mg/dL Total Bilirubin 26.5 H* (0.3-1.2) mg/dL AST 181 H (14-35) U/L ALT 55 H (10-49) U/L Alkaline Phosphatase 144 H (41-126) U/L Ammonia 37 H (<30) umol/L Total Protein 4.9 L (6.2-8.2) g/dL Albumin 2.20 L (3.80-4.90) g/dL Albumin/Globulin Ratio 0.81 L (1.60-3.17) g/dL 08/29/20 08/29/20 Range/Units 11:10 11:10 RBC 2.82 L (4.30-5.90) m/uL Hgb 10.6 L (13.0-17.5) gm/dL Hct 32.0 L (39.0-53.0) % MCV 113.4 H (80.0-100.0) fL MCH 37.7 H (25.0-35.0) pg RDW 19.3 H (11.5-15.5) % Plt Count (150-450) k/uL Lymphocytes # (1.0-4.8) k/uL Macrocytosis Marked A PT 19.4 H (9.0-12.0) sec INR 2.0 H (<1.2) Sodium (135-145) mmol/L Potassium (3.5-5.5) mmol/L Carbon Dioxide (21.6-31.8) mmol/L Anion Gap (4.00-12.00) mmol/L BUN (9.0-27.0) mg/dL Creatinine (0.6-1.5) mg/dL Est GFR (CKD-EPI)AfAm (60.0-200.0) Est GFR (CKD-EPI)NonAf (60.0-200.0) Glucose (70-110) mg/dL Calcium (8.7-10.3) mg/dL Total Bilirubin (0.3-1.2) mg/dL AST (14-35) U/L ALT (10-49) U/L Alkaline Phosphatase (41-126) U/L Ammonia (<30) umol/L Total Protein (6.2-8.2) g/dL Albumin (3.80-4.90) g/dL Albumin/Globulin Ratio (1.60-3.17) g/dL Microbiology - Last 24 Hours (Table) 08/23/20 08:28 Blood Culture - Final Blood No Growth after 144 hours 08/23/20 08:28 Blood Culture - Final Blood No Growth after 144 hours 08/25/20 16:21 Blood Culture - Preliminary Blood No Growth after 72 hours Assessment and Plan Assessment: -Alcoholic cirrhosis: patient's a meld score is very high overall prognosis is poor. Patient clinically declining and appears worse today and continues to be lethargic with GI and nephrology following -Possible GI bleed; large amounts of clots and rectal bleeding noted in the stool and in brief. GI is following and evaluated and examined the patient with no rectal bleeding noted and appears to be coming from the scrotum which is extremely swollen and edematous excoriated -Hepatic encephalopathy: Continues oral lactulose 20, ammonia level 37 -Fever source of infection is not clear: Is continued on empiric antimicrobial therapy of Zosyn,, patient has been afebrile today and cultures are negative thus far -Acute renal failure probably secondary secondary to hepatorenal syndrome or pigment nephropathy: Creatinine worsened at 6.0 and will discuss possible dialysis with the per nephrology -AMS/Hepatic encephalopathy: Improving from admission although patient is extremely lethargic today and will attempt to avoid Ativan -hyponatremia on admission patient appears to be hypovolemic . IV fluids have been discontinued and patient started on sodium bicarb -Hypotension secondary to hypovolemia patient was given a bolus of IV fluid patient is maintaining systolic blood pressure of 90 and was started on midodrine by nephrology -Lactic acidosis secondary to cirrhosis: improved -Hypokalemia: Potassium replaced, potassium worsened today found to be 3.2 and will replace and repeat electrolytes -Elevated ammonia level secondary to liver failure; elevated at 37 and will continue with lactulose -Hypertension, currently hypotensive -Tachycardia and patient improved now -Alcohol abuse: Not currently having withdrawals. -DVT prophylaxis pharmacologically auto anticoagulated INR 2.0 -Elevated liver enzymes secondary to cirrhosis with a component of acute alcoholic hepatitis -Obstructive jaundice secondary to cirrhosis -No code Plan: Continue with IV Zosyn and current medications. Potassium low at 3.2 and will replace sodium is 128. Creatinine worsened at 6.0 and bilirubin is up at 26.5. Per nursing staff, her was some possible rectal bleeding and GI is following and examined the patient and appears to be bleeding coming from underneath the scrotum as he has extreme swelling and edema and excoriation noted. Wound care now following. Hemoglobin is stable at 10.4 today and will repeat labs. Nephrology recommending dialysis for continued impaired kidney functions and will discuss with the about treatment plan and possible hospice as she will be going to the hospital tomorrow. This was discussed with the over the phone today. Appreciate GI and nephrology recommendations. Will continue with IV Zosyn as patient has been febrile for the last 24 hours and will repeat blood cultures and monitor closely. Prognosis remains extremely guarded and poor.
[2020-08-29 19:05] LABS: Anisocytosis Slight; HCT 31.1 % (39.0-53.0); HGB 10.3 gm/dL (13.0-17.5); MCH 38.2 pg (25.0-35.0); MCHC 33.2 g/dL (31.0-37.0); MCV 115.2 fL (80.0-100.0); Macrocytosis Marked; Mean Platelet Volume 10.2; Platelet Count 159 k/uL (150-450); RDW 19.4 % (11.5-15.5); WBC 10.8 k/uL (3.8-10.6)
[2020-08-29] MEDS ORDERED: SODIUM BICARB 8.4% 50 ML SYR (1 MEQ/ML) IV STA (22:09)
[2020-08-29] MEDS ORDERED: FUROSEMIDE 10 MG/ML 10 ML VIAL IV ONE (22:35)
[2020-08-29] MEDS ORDERED: LORazepam 1 MG TAB PO PRN (23:38)
[2020-08-29 23:39] LABS: Anisocytosis Slight; HCT 28.8 % (39.0-53.0); HGB 10.5 gm/dL (13.0-17.5); MCH 40.4 pg (25.0-35.0); MCHC 36.4 g/dL (31.0-37.0); Platelet Count 145 k/uL (150-450); RBC 2.59 m/uL (4.30-5.90); RDW 18.5 % (11.5-15.5); WBC 10.3 k/uL (3.8-10.6)
[2020-08-30 00:25] LABS: Macrocytosis Marked
[2020-08-30] MEDS: POTASSIUM CHLORIDE 10 MEQ in WATER FOR INJECTION 1 100ML.BAG IVPB SCH (01:06)
[2020-08-30] MEDS: PIPERACILLIN-TAZOBACTAM 3.375 GM in SODIUM CHLORIDE 0.9% 100 ML IVPB SCH ×3 (02:09→09:11)
[2020-08-30] MEDS: MIDODRINE 5 MG TAB PO SCH ×2 (08:18→11:58)
[2020-08-30] MEDS: SPIRONOLACTONE 25 MG TAB PO SCH (08:18)
[2020-08-30] MEDS: PANTOPRAZOLE 40 MG TABLET PO SCH (08:18)
[2020-08-30] MEDS: METOPROLOL TARTRATE 25 MG TAB PO SCH (08:18)
[2020-08-30] MEDS: THIAMINE 100 MG TAB PO SCH (08:18)
[2020-08-30] MEDS: LACTULOSE 20 GM/30 ML CUP PO SCH (08:19)
[2020-08-30] MEDS ORDERED: SODIUM BICARBONATE TAB 650 MG TAB PO SCH (09:00)
[2020-08-30] MEDS: SODIUM BICARBONATE TAB 650 MG TAB PO SCH (09:11)
--- NOTE | 2020-08-30 11:00 | P.PN ---
Subjective Patient is seen in follow-up for acute kidney injury. Renal function worsening. Creatinine 6 as of yesterday. Patient is confused and not a reliable historian. He is maintained on spironolactone. He also received Lasix 80 mg IV last night with no response in urine output. He is oliguric. Vital signs are stable. HEENT: Head exam is unremarkable. Neck is without jugular venous distension. LUNGS: Breath sounds decreased. HEART: Rate and Rhythm are regular. ABDOMEN: Soft, moderate distention. EXTREMITITES: Trace edema. Generalized jaundice noted. Objective - Vital Signs Vital signs: Vital Signs Temp 99.1 F 08/30/20 08:04 Pulse 88 08/30/20 08:04 Resp 23 08/30/20 08:04 BP 106/67 08/30/20 08:04 Pulse Ox 97 08/30/20 08:04 Intake & Output 08/29/20 08/30/20 08/30/20 18:59 06:59 18:59 Intake Total 519 Output Total 27 150 Balance -27 369 Intake: Oral 519 Output: Urine 25 150 Stool 2 Other: Voiding Method Urinal Diaper Indwelling Catheter Diaper Incontinent Incontinent Indwelling Catheter # Bowel Movements 3 1 - Labs CBC & Chem 7: 08/29/20 23:07 08/29/20 06:53 Labs: Abnormal Lab Results - Last 24 Hours (Table) 08/29/20 08/29/20 08/29/20 Range/Units 06:53 11:10 11:10 WBC (3.8-10.6) k/uL RBC 2.82 L (4.30-5.90) m/uL Hgb 10.6 L (13.0-17.5) gm/dL Hct 32.0 L (39.0-53.0) % MCV 113.4 H (80.0-100.0) fL MCH 37.7 H (25.0-35.0) pg RDW 19.3 H (11.5-15.5) % Plt Count (150-450) k/uL Macrocytosis Marked A PT 19.4 H (9.0-12.0) sec INR 2.0 H (<1.2) Sodium 128 L (135-145) mmol/L Potassium 3.2 L (3.5-5.5) mmol/L Carbon Dioxide 11.9 L (21.6-31.8) mmol/L Anion Gap 18.10 H (4.00-12.00) mmol/L BUN 97.0 H (9.0-27.0) mg/dL Creatinine 6.0 H (0.6-1.5) mg/dL Est GFR (CKD-EPI)AfAm 11.5 L (60.0-200.0) Est GFR (CKD-EPI)NonAf 9.9 L (60.0-200.0) Glucose 122 H (70-110) mg/dL Calcium 6.6 L (8.7-10.3) mg/dL Total Bilirubin 26.5 H* (0.3-1.2) mg/dL AST 181 H (14-35) U/L ALT 55 H (10-49) U/L Alkaline Phosphatase 144 H (41-126) U/L Total Protein 4.9 L (6.2-8.2) g/dL Albumin 2.20 L (3.80-4.90) g/dL Albumin/Globulin Ratio 0.81 L (1.60-3.17) g/dL 08/29/20 08/29/20 Range/Units 17:08 23:07 WBC 10.8 H (3.8-10.6) k/uL RBC 2.70 L 2.59 L (4.30-5.90) m/uL Hgb 10.3 L 10.5 L (13.0-17.5) gm/dL Hct 31.1 L 28.8 L (39.0-53.0) % MCV 115.2 H 111.0 H (80.0-100.0) fL MCH 38.2 H 40.4 H (25.0-35.0) pg RDW 19.4 H 18.5 H (11.5-15.5) % Plt Count 145 L (150-450) k/uL Macrocytosis Marked A Marked A PT (9.0-12.0) sec INR (<1.2) Sodium (135-145) mmol/L Potassium (3.5-5.5) mmol/L Carbon Dioxide (21.6-31.8) mmol/L Anion Gap (4.00-12.00) mmol/L BUN (9.0-27.0) mg/dL Creatinine (0.6-1.5) mg/dL Est GFR (CKD-EPI)AfAm (60.0-200.0) Est GFR (CKD-EPI)NonAf (60.0-200.0) Glucose (70-110) mg/dL Calcium (8.7-10.3) mg/dL Total Bilirubin (0.3-1.2) mg/dL AST (14-35) U/L ALT (10-49) U/L Alkaline Phosphatase (41-126) U/L Total Protein (6.2-8.2) g/dL Albumin (3.80-4.90) g/dL Albumin/Globulin Ratio (1.60-3.17) g/dL Microbiology - Last 24 Hours (Table) 08/25/20 16:21 Blood Culture - Preliminary Blood No Growth after 96 hours 08/28/20 15:51 Blood Culture - Preliminary Blood No Growth after 24 hours 08/23/20 08:28 Blood Culture - Final Blood No Growth after 144 hours 08/23/20 08:28 Blood Culture - Final Blood No Growth after 144 hours Assessment and Plan Plan: Assessment: 1. Acute kidney injury secondary to ATN. 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 Creatinine 6 as of yesterday. No hydronephrosis noted on kidney ultrasound. UA fairly benign. 2. Hypokalemia from poor intake and hypomagnesemia. Replaced. 3. Hypomagnesemia from poor intake and alcoholism. Replaced. Better. 4. Alcoholic hepatitis. 5. Metabolic acidosis secondary to acute kidney injury. Maintained on oral bicarb. 6. Hepatic encephalopathy. 7. Hypotension secondary to underlying cirrhosis. Maintained on midodrine. 8. Hyponatremia secondary to acute kidney injury. Initially hypovolemic and received IV fluids. Plan: Remains off IV fluids. Maintain spironolactone. Maintain midodrine. Maintain strict is and os. Bicarb dose increased. coming in today to discuss plans of care. Hospice being considered. If family wishes to continue with medical management, will initiate renal replacement therapy.
[2020-08-30 11:57] LABS: HCT 28.8 % (39.6-50.0); MCH 37.9 pg (27.0-32.0); MCHC 34.7 g/dL (32.0-37.0); MCV 109.1 fL (80.0-97.0); Mean Platelet Volume 11.8 fL (9.5-12.2); Platelet Count 131 X 10*3/uL (140-440); RBC 2.64 X 10*6/uL (4.40-5.60); RDW 21.4 % (11.5-14.5); WBC 9.44 X 10*3/uL (4.50-10.00)
[2020-08-30 11:58] LABS: Acanthocytes 2+; Macrocytosis (M) 2+
[2020-08-30 14:38] VITALS: BP 97/61; PULSE 85; RESP 20; TEMP 97.7
--- NOTE | 2020-08-30 15:17 | P.PN ---
Subjective Progress Note Date: 08/30/20 50-year-old male with history of all call abuse was sent in by the family members because of a jaundice. Patient is found to have highly elevated bilirubin of 20. Patient does stop drinking last week but still has some tremors because of which are that is a concern of all call withdrawal although my suspicion is low that patient is going to have him call withdrawal. Patient is significantly weak will need physical therapy and occupational therapy evaluation possibly placement in subacute rehabitation. Patient appears to have cirrhosis with elevated INR of 1.5 does have some pulmonary edema patient doesn't appear to have much of ascites, does have mildly elevated ammonia level of around 43. Patient had lactic acidosis which improved. She denied any fever chills nausea vomiting patient used to drink about 1 pint of hard liquor every day. 08/30/2020 Patient is seen and evaluated in follow-up this morning continues to be extremely lethargic although arousable. Patient continues with intermittent periods of confusion and mumbling. GI, nephrology, wound care following closely. Creatinine continues to worsen and nephrology recommending dialysis if family wants to proceed with treatments as his most recent creatinine was 6.0 and sodium also continues to deteriorate and potassium is been low. Patient is coagulable and was given a dose of vitamin K. Lengthy discussion was had with the family and they discussed with their other family members and would like to proceed with hospice and are coming today to meet with [facility]. No chest pain reported or shortness of breath. Patient continues to eat very little. Prognosis is extremely poor and guarded. Objective - Vital Signs Vital signs: Vital Signs Temp 99.1 F 08/30/20 08:04 Pulse 88 08/30/20 08:04 Resp 23 08/30/20 08:04 BP 106/67 08/30/20 08:04 Pulse Ox 97 08/30/20 08:04 Intake & Output 08/29/20 08/30/20 08/30/20 18:59 06:59 18:59 Intake Total 519 Output Total 27 150 Balance -27 369 Intake: Oral 519 Output: Urine 25 150 Stool 2 Other: Voiding Method Urinal Diaper Indwelling Catheter Diaper Incontinent Incontinent Indwelling Catheter # Bowel Movements 3 1 - Exam GENERAL: patient is alert oriented 1-2 lethargic although arousable. yellowish discoloration of the skin HEENT: Pupils are round and equally reacting to light. EOMI. does have significant scleral icterus. No conjunctival pallor. Normocephalic, atraumatic. No pharyngeal erythema. No thyromegaly. Tremor. Temp is 99.1 degrees Fahrenheit, pulse is 88, respirations are 23, blood pressure is 106/67, oxygen saturation is 97% on room air. CARDIOVASCULAR: S1 and S2 muffled PULMONARY: Initial breath sounds with no wheezing or rhonchi noted ABDOMEN: Soft, nontender, abdomen is distended but no ascites. normoactive bowel sounds. No palpable organomegaly. Scrotal edema noted with excoriation MUSCULOSKELETAL: No joint swelling or deformity. EXTREMITIES: No cyanosis, clubbing, or pedal edema. NEUROLOGICAL: Patient is drowsy severely encephalopathic with intermittent periods of being awake SKIN: No rashes. Excoriation of the scrotal sac underlying along with excoriation noted of the buttocks. - Labs CBC & Chem 7: 08/30/20 06:19 08/29/20 06:53 Labs: Abnormal Lab Results - Last 24 Hours (Table) 08/29/20 08/29/20 08/29/20 Range/Units 06:53 11:10 11:10 WBC (3.8-10.6) k/uL RBC 2.82 L (4.30-5.90) m/uL Hgb 10.6 L (13.0-17.5) gm/dL Hct 32.0 L (39.0-53.0) % MCV 113.4 H (80.0-100.0) fL MCH 37.7 H (25.0-35.0) pg RDW 19.3 H (11.5-15.5) % Plt Count (150-450) k/uL Macrocytosis Marked A PT 19.4 H (9.0-12.0) sec INR 2.0 H (<1.2) Sodium 128 L (135-145) mmol/L Potassium 3.2 L (3.5-5.5) mmol/L Carbon Dioxide 11.9 L (21.6-31.8) mmol/L Anion Gap 18.10 H (4.00-12.00) mmol/L BUN 97.0 H (9.0-27.0) mg/dL Creatinine 6.0 H (0.6-1.5) mg/dL Est GFR (CKD-EPI)AfAm 11.5 L (60.0-200.0) Est GFR (CKD-EPI)NonAf 9.9 L (60.0-200.0) Glucose 122 H (70-110) mg/dL Calcium 6.6 L (8.7-10.3) mg/dL Total Bilirubin 26.5 H* (0.3-1.2) mg/dL AST 181 H (14-35) U/L ALT 55 H (10-49) U/L Alkaline Phosphatase 144 H (41-126) U/L Total Protein 4.9 L (6.2-8.2) g/dL Albumin 2.20 L (3.80-4.90) g/dL Albumin/Globulin Ratio 0.81 L (1.60-3.17) g/dL 08/29/20 08/29/20 Range/Units 17:08 23:07 WBC 10.8 H (3.8-10.6) k/uL RBC 2.70 L 2.59 L (4.30-5.90) m/uL Hgb 10.3 L 10.5 L (13.0-17.5) gm/dL Hct 31.1 L 28.8 L (39.0-53.0) % MCV 115.2 H 111.0 H (80.0-100.0) fL MCH 38.2 H 40.4 H (25.0-35.0) pg RDW 19.4 H 18.5 H (11.5-15.5) % Plt Count 145 L (150-450) k/uL Macrocytosis Marked A Marked A PT (9.0-12.0) sec INR (<1.2) Sodium (135-145) mmol/L Potassium (3.5-5.5) mmol/L Carbon Dioxide (21.6-31.8) mmol/L Anion Gap (4.00-12.00) mmol/L BUN (9.0-27.0) mg/dL Creatinine (0.6-1.5) mg/dL Est GFR (CKD-EPI)AfAm (60.0-200.0) Est GFR (CKD-EPI)NonAf (60.0-200.0) Glucose (70-110) mg/dL Calcium (8.7-10.3) mg/dL Total Bilirubin (0.3-1.2) mg/dL AST (14-35) U/L ALT (10-49) U/L Alkaline Phosphatase (41-126) U/L Total Protein (6.2-8.2) g/dL Albumin (3.80-4.90) g/dL Albumin/Globulin Ratio (1.60-3.17) g/dL Microbiology - Last 24 Hours (Table) 08/25/20 16:21 Blood Culture - Preliminary Blood No Growth after 96 hours 08/28/20 15:51 Blood Culture - Preliminary Blood No Growth after 24 hours 08/23/20 08:28 Blood Culture - Final Blood No Growth after 144 hours 08/23/20 08:28 Blood Culture - Final Blood No Growth after 144 hours Assessment and Plan Assessment: -Alcoholic cirrhosis -Possible GI bleed, ruled out by GI -Hepatic encephalopathy -Fever source of infection is not clear -Acute renal failure probably secondary secondary to hepatorenal syndrome or pigment nephropathy -AMS/Hepatic encephalopathy -hyponatremia on admission patient appears to be hypovolemic -Hypotension secondary to hypovolemia -Lactic acidosis secondary to cirrhosis -Hypokalemia -Elevated ammonia level secondary to liver failure -Hypertension, currently hypotensive -Tachycardia -Alcohol abuse -DVT prophylaxis pharmacologically auto anticoagulated -Elevated liver enzymes secondary to cirrhosis with a component of acute alcoholic hepatitis -Obstructive jaundice secondary to cirrhosis -No code Plan: Family has opted for hospice with comfort measures and meeting with [facility] today and patient will likely be made inpatient hospice. Nephrology and GI following. Will continue with comfort measures. Family is at the bedside. Prognosis remains extremely poor and guarded.
--- NOTE | 2020-08-30 15:25 | PN ---
PROGRESS NOTE DATE OF DICTATION: August 30, 2020 The patient is a 50-year-old white male with history of alcoholic cirrhosis of the liver with acute alcoholic hepatitis, admitted to the hospital about 9 days ago. He continues to progressively get worse. Today he is somewhat confused. He is complaining of diffuse abdominal pain. He is also noted to have worsening BUN and creatinine and Nephrology following the patient closely. Hospice was consulted and apparently the patient's family wishes for him to be in hospice at the current time and continue comfort measures. PHYSICAL EXAMINATION: He appears very sleepy. Vital signs show blood pressure 106/67, pulse rate 88, temperature 99.1. HEENT examination unremarkable. Conjunctivae pink, sclerae deeply icteric. Oral cavity no lesions. NECK: No JVD or lymph node enlargement. CHEST was clear to auscultation. HEART: Regular rate and rhythm. ABDOMEN: Soft, diffusely tender more in the right upper quadrant area. EXTREMITIES: 2+ pedal edema. NEURO: He is lethargic. LABS: From today WBC 9.4, hemoglobin 10, platelets 131. INR 2. Bilirubin yesterday was 26.5. IMPRESSION: 1. Severe acute alcoholic hepatitis with/acute liver failure. 2. Altered mental status, probably related to hepatic encephalopathy. 3. Diffuse abdominal pain secondary to severe hepatomegaly and acute alcoholic hepatitis. 4. Acute kidney injury with worsening BUN and creatinine at 97 and 6 respectively today. RECOMMENDATIONS: 1. Agree with hospice consultation. 2. Continue with comfort measures. 3. Will sign off. Please call us if needed. Thank you for this consultation. MMODL / IJN: [id number] /
[2020-08-30 16:01] LABS: African American GFR (CKD) 8.8 (60.0-200.0); Albumin 2.2 g/dL (3.80-4.90); Albumin/Globulin Ratio 0.76 (1.60-3.17); Anion Gap 19.4 mmol/L (4.00-12.00); BUN/Creat Ratio 15.47 Ratio (12.00-20.00); Calcium 6.5 mg/dL (8.7-10.3); Carbon Dioxide 12.6 mmol/L (21.6-31.8); Globulin 2.9 g/dL (1.6-3.3); Magnesium 2.3 mg/dL (1.5-2.4); Non-African American GFR(CKD) 7.6 (60.0-200.0); Potassium 3.8 mmol/L (3.5-5.5); Total Bilirubin 27.8 mg/dL (0.2-1.2); Total Protein 5.1 g/dL (6.2-8.2)
== END 2020-08-30 14:56 | disposition hospice, inpatient (51) | DRG 432 ==
LOC: EC 09:50 → 4SSUR 11:39
PROVIDERS: ADMIT Internal Medicine; ATTEND Internal Medicine
DX: K70.30 Alcoholic cirrhosis of liver without ascites (principal); J18.9 Pneumonia, unspecified organism; K76.7 Hepatorenal syndrome; N17.0 Acute kidney failure with tubular necrosis; E87.1 Hypo-osmolality and hyponatremia; E87.4 Mixed disorder of acid-base balance; F10.239 Alcohol dependence with withdrawal, unspecified; J81.1 Chronic pulmonary edema; K62.5 Hemorrhage of anus and rectum; E83.42 Hypomagnesemia; E86.1 Hypovolemia; E87.6 Hypokalemia; Z51.5 Encounter for palliative care; Z66 Do not resuscitate; Z20.822 Contact with and (suspected) exposure to COVID-19; E87.70 Fluid overload, unspecified; F41.9 Anxiety disorder, unspecified; I10 Essential (primary) hypertension; I95.89 Other hypotension; S31.829A Unspecified open wound of left buttock, initial encounter; S31.819A Unspecified open wound of right buttock, initial encounter; K70.10 Alcoholic hepatitis without ascites; K81.9 Cholecystitis, unspecified; E66.9 Obesity, unspecified; Z68.33 Body mass index [BMI] 33.0-33.9, adult; N50.89 Other specified disorders of the male genital organs; F15.11 Other stimulant abuse, in remission; R00.0 Tachycardia, unspecified; Z81.3 Family history of other psychoactive substance abuse and dependence; Z83.79 Family history of other diseases of the digestive system; Z82.49 Family history of ischemic heart disease and other diseases of the circulatory system; Z87.891 Personal history of nicotine dependence; Z90.49 Acquired absence of other specified parts of digestive tract; Z79.899 Other long term (current) drug therapy; Z91.030 Bee allergy status
CPT/HCPCS: 36415; 71045; 76705; 76770; 80048; 80053; 80074; 80076; 81001; 82140; 82150; 82248; 82550; 83605; 83690; 83735; 84132; 84484; 85025; 85027; 85610; 85730; 87040; 87635; 93005; 96361; 96374; 99285

== ENCOUNTER 2020-08-30 14:12 | Inpatient (IN) | payer MEDICAID ==
[2020-08-30] MEDS ORDERED: ATROPINE OPHTH SOLN 1% 5ML BTL SUBLINGUAL PRN (14:50)
[2020-08-30] MEDS ORDERED: ACETAMINOPHEN SUPPOSITORY 650 MG SUPP RECTAL PRN (14:50)
[2020-08-30] MEDS ORDERED: ONDANSETRON 4 MG/2 ML VIAL IVP PRN (14:50)
[2020-08-30] MEDS: MORPHINE SULFATE (100 MG/2 ML) 100 MG in SODIUM CHLORIDE 0.9% 100 ML IV SCH (16:12)
[2020-08-30] MEDS: SCOPOLAMINE 1.5MG/72HR PATCH TRANSDERM SCH (16:30)
[2020-08-30] MEDS: LORazepam 2 MG/ML INJ IV PRN ×2 (18:04→21:25)
[2020-08-31] MEDS: MORPHINE SULFATE 4 MG/ML SYRINGE IV PRN (00:06)
[2020-08-31] MEDS: LORazepam 2 MG/ML INJ IV PRN (11:29)
[2020-08-31] MEDS: MORPHINE SULFATE (100 MG/2 ML) 100 MG in SODIUM CHLORIDE 0.9% 100 ML IV SCH (14:45)
--- NOTE | 2020-08-31 18:21 | PN ---
PROGRESS NOTE DATE OF SERVICE: 08/31/2020 This 50-year-old gentleman who was admitted with alcoholic cirrhosis and acute hepatic failure is on hospice at this time. The patient is being closely monitored. The patient is sedated at this time. EXAM: The pulse is 54, blood pressure 88/50, respirations 20, temperature 99.4, pulse ox 94% on room air. HEENT: Conjunctivae icteric. Skin is icteric. CARDIOVASCULAR: S1, S2, muffled. No S3, no S4, RESPIRATORY: Diminished breath sounds at the bases. A few scattered rhonchi. ABDOMEN: Soft. NERVOUS SYSTEM: The patient is sedated. LABS: Not available. ASSESSMENT: 1. Alcoholic cirrhosis with acute hepatic failure and acute hepatic encephalopathy. 2. Fever with possible sepsis. 3. Acute renal failure secondary to hepatorenal syndrome and pigment nephropathy. 4. Change in mental status, acute metabolic encephalopathy. 5. Hyponatremia. 6. Hypotension. 7. Lactic acidosis. 8. Hypokalemia. 9. Elevated ammonia. 10.Hypertension. 11.Tachycardia. 12.History of ETOH. 13.NO CODE, NO CPR, NO VENT, ON HOSPICE. RECOMMENDATIONS AND DISCUSSION: Will continue the hospice measures. Overall prognosis is extremely guarded because of multiple complex medical issues and further recommendations to follow. Discussed with staff. MMODL / IJN: [id number] /
[2020-09-01] MEDS: MORPHINE SULFATE 4 MG/ML SYRINGE IV PRN ×2 (10:12→14:05)
[2020-09-01] MEDS: LORazepam 2 MG/ML INJ IV PRN (14:51)
[2020-09-01] MEDS: HALOPERIDOL LACTATE 5 MG/ML 1 ML VIAL IM PRN (17:11)
--- NOTE | 2020-09-01 21:39 | PN ---
PROGRESS NOTE DATE OF SERVICE: 09/01/2020 This 50-year-old gentleman admitted with significant liver disease on hospice care. No chest pain. The patient is sedated at this time. The patient is on morphine drip at 2 mg/hour. EXAM: The patient is sedated. The patient is stuporous. Respirations 10. Pulse ox 98% on room air. HEENT: Conjunctivae anicteric. CARDIOVASCULAR: S1, S2. RESPIRATION: A few scattered rhonchi. ABDOMEN: Soft. The skin is icteric. LABS: Not available. ASSESSMENT: 1. Alcoholic cirrhosis with acute hepatic failure and acute hepatic encephalopathy. 2. Fever and possible sepsis present on admission. 3. Acute renal failure secondary to hepatorenal syndrome and pigment nephropathy. 4. Change in mental status, acute metabolic encephalopathy. 5. Hyponatremia. 6. Hypotension. 7. Lactic acidosis. 8. Hypokalemia. 9. Elevated ammonia. 10.Hypertension history. 11.Tachycardia. 12.History of ETOH. 13.NO CODE, NO CPR, NO VENT. 14.Hospice care. RECOMMENDATIONS AND DISCUSSION: Recommend to continue current medications. Continue the comfort measures. Continue morphine drip. The overall prognosis is extremely guarded because of multiple complex medical issues. Further recommendations to follow. MMODL / IJN: [id number] /
[2020-09-02] MEDS: LORazepam 2 MG/ML INJ IV PRN (02:54)
[2020-09-02] MEDS: HALOPERIDOL LACTATE 5 MG/ML 1 ML VIAL IM PRN (05:04)
[2020-09-02] MEDS: MORPHINE SULFATE 4 MG/ML SYRINGE IV PRN (05:05)
[2020-09-02] MEDS: MORPHINE SULFATE (100 MG/2 ML) 100 MG in SODIUM CHLORIDE 0.9% 100 ML IV SCH ×2 (08:38→23:16)
[2020-09-02] MEDS: SCOPOLAMINE 1.5MG/72HR PATCH TRANSDERM SCH (22:05)
--- NOTE | 2020-09-02 23:57 | PN ---
PROGRESS NOTE DATE OF SERVICE: 09/02/2020 This 50-year-old gentleman who was admitted with acute alcoholic cirrhosis and hepatic encephalopathy, is on comfort measures. The patient sedated at this time with morphine drip. PHYSICAL EXAMINATION: Patient is sedated. The patient is severely icteric. Pulse is 54, respiration 10, pulse ox 98 percent on room air. HEENT: Conjunctivae normal. CARDIOVASCULAR: S1, S2 muffled. RESPIRATION: A few scattered rhonchi. ABDOMEN: Soft, obese. NERVOUS SYSTEM: Patient is sedated. LABS: Not available. ASSESSMENT: 1. Alcoholic cirrhosis with acute hepatic failure and acute hepatic encephalopathy. 2. Fever with possible sepsis present on admission. 3. Acute renal failure secondary to hepatorenal syndrome and pigment nephropathy. 4. Change in mental status, acute metabolic encephalopathy. 5. Hyponatremia. 6. Hypotension. 7. Lactic acidosis. 8. Hypokalemia. 9. Elevated ammonia. 10.Hypertension history. 11.Tachycardia. 12.History of ETOH. 13.NO CODE. NO CPR. NO VENT. 14.HOSPICE CARE. RECOMMENDATIONS AND DISCUSSION: I recommend to continue current medications, symptomatic treatment. Continue the hospice. The prognosis is extremely guarded because of multiple complex medical issues. Discussed with the family. Further recommendations to follow. MMODL / IJN: [id number] /
[2020-09-03] MEDS: MORPHINE SULFATE (100 MG/2 ML) 100 MG in SODIUM CHLORIDE 0.9% 100 ML IV SCH (04:52)
[2020-09-03 08:39] VITALS: BP 71/41; PULSE 78; RESP 10; TEMP 100.5
[2020-09-03] MEDS: MORPHINE SULFATE 4 MG/ML SYRINGE IV PRN (09:32)
--- NOTE | 2020-09-04 07:42 | DS ---
DISCHARGE SUMMARY DATE OF SERVICE: 09/03/2020 FINAL DIAGNOSES: PRIMARY CAUSE OF : 1. Alcoholic cirrhosis with acute hepatic failure and acute hepatic encephalopathy. OTHER DIAGNOSIS: 1. Fever with possible sepsis present on admission. 2. Acute renal failure secondary to hepatorenal syndrome and pigment nephropathy with acute tubular necrosis. 3. Change in mental status, acute metabolic encephalopathy. 4. Hyponatremia. 5. Hypotension. 6. Lactic acidosis. 7. Hypokalemia. 8. Elevated ammonia. 9. Hypertension history. 10.Tachycardia. 11.History of ETOH. 12.NO CODE, NO CPR, NO VENT. 13.Hospice care. HISTORY OF PRESENT ILLNESS: This 50-year-old gentleman with a past medical history admitted with alcoholic cirrhosis liver, hepatic encephalopathy, change in mental status and possible fever, sepsis. Patient was treated intensively initially. The bilirubin was significantly elevated, but because of the lack of improvement, the case discussed with family and the patient was considered as HOSPICE, NO CODE, NO CPR AND HOSPICE CARE. The hospice care was initiated and the patient succumbed to his above-mentioned illnesses. The prognosis remained extremely guarded throughout hospitalization. Please refer to the multiple history and physical and consultations and progress notes for further information. Discussed with the family on multiple occasions. MMODL / IJN: [id number] /
== END 2020-09-03 14:01 | disposition expired | DRG 951 ==
LOC: 4SSUR 14:57
PROVIDERS: ADMIT Internal Medicine; ATTEND Internal Medicine
DX: Z51.5 Encounter for palliative care (principal); G93.41 Metabolic encephalopathy; K76.7 Hepatorenal syndrome; N17.0 Acute kidney failure with tubular necrosis; E87.1 Hypo-osmolality and hyponatremia; E87.2 Acidosis; E87.6 Hypokalemia; I10 Essential (primary) hypertension; K70.30 Alcoholic cirrhosis of liver without ascites; K70.40 Alcoholic hepatic failure without coma
CPT/HCPCS: 94760